=== PATIENT | female | born 1940 | race Caucasian/White ===

== ENCOUNTER 2022-03-12 18:58 | Inpatient (IN) ==
[2022-03-12] MEDS ORDERED: ONDANSETRON INJ 2 MG/ML 2 ML VIAL IV STA (19:47)
[2022-03-12 19:50] LABS: Basophils # (auto) 0.02 K/uL (0-0.2); Basophils % (auto) 0.4 %; Eosinophils # (auto) 0.04 K/uL (0-0.50); Eosinophils % (auto) 0.8 %; Hematocrit (blood only) 42.7 % (34.1-44.9); Hemoglobin 14.2 g/dl (12.0-16.0); Lymphocytes # (auto) 1.89 K/uL (1.2-3.4); Lymphocytes % (auto) 36.8 %; Mean Corpuscular Hemoglobin 32.5 pg (25.0-34.0); Mean Corpuscular Hgb Conc 33.3 g/dL (32.0-36.0); Mean Corpuscular Volume 97.7 fL (80.0-100.0); Mean Platelet Volume 9.6 fL (9.4-12.3); Monocytes # (auto) 0.43 K/uL (0.24-0.82); Monocytes % (auto) 8.4 %; Neutrophils # (auto) 2.75 K/uL (1.4-6.5); Neutrophils % (auto) 53.6 %; Platelet Count 165 K/uL (130-400); RDW Coefficient of Variation 13.9 % (11.5-14.5); RDW Standard Deviation 50.5 fL (36.4-46.3); Red Blood Count 4.37 M/uL (3.93-5.22); White Blood Count 5.13 K/ul (4.8-10.8)
--- NOTE | 2022-03-12 19:50 | Emergency Department Note ---
Impression & Plan Unsteady, Nausea, Left leg numbness, Occlusion of left vertebral artery ED Provider Note Provider: Chidi Lacy MD DATE OF SERVICE: 03/12/2022 CHIEF COMPLAINT: Nausea, double vision HISTORY OF PRESENT ILLNESS: Patient is a 81-year-old female history of atrial fibrillation, tachybradycardia syndrome with pacemaker, prior history of subdural hematomas from warfarin usage presenting today with family after becoming significantly unsteady around 5:00 at home this evening. Patient states he can walk across the room due to the unsteadiness. Since COVID in November has had some visual issues that have been chronic she reports seeing double. Patient denies headache or abdominal pain. Reports some nausea and did vomit at home. No falls reported. Not on anticoagulation currently. Evidently had a little bit of numbness in her left leg earlier but she states that resolved since arriving at the hospital. States a little bit of numbness to bilateral lower lip right now. REVIEW OF SYSTEMS: A total of 10 review of systems was obtained and negative except as stated above in the HPI. PAST MEDICAL HISTORY: As noted above MEDICATIONS: Reviewed home medication list SOCIAL HISTORY: Lives at home with PHYSICAL EXAM: GENERAL: alert and oriented in no acute distress on stretcher Head: normocephalic and atraumatic EYES: No injection, discharge or icterus. PERRL, EOMI. NECK: Trachea midline. Supple. ENT: Mucous membranes pink and moist. Pharynx without erythema or exudate. LUNGS: Airway patent. No retractions. Breath sounds clear with good air entry bilaterally. HEART: Irregular irregular rate and rhythm. No chest wall tenderness ABDOMEN: Soft and non-tender, without guarding or rebound. SKIN: Acyanotic, warm, dry, without rashes EXTREMITIES: Without swelling, tenderness or deformity NEUROLOGICAL: No aphasia. No facial droop or slurred speech. Reports a little bit of numbness to the bilateral lower lip tongue midline. Normal strength and tone in the extremities. Sensation to gross touch normal. However later does endorse a little bit of decree sensation of the left lower leg. EK beats per atrial fibrillation with frequent ventricular paced rhythms. No acute ST segment elevation noted with a QTC of 432. CONTINUOUS CARDIAC MONITORING: was ordered and showed a heart rate of 60s-80s bpm in atrial fibrillation Patient's laboratory studies and imaging reviewed. Differential includes Infection, dehydration, metabolic abnormality, hypo/hyperglycemia, electrolyte disturbance, anemia, hypoxia, cardiac sources, intracerebral event, toxicologic, neurologic, as well as other pathologies. IMPRESSION/MEDICAL DECISION MAKING: Patient with benign abdomen although some nausea. Evidently intermittently gets some nausea. Denies headache. Having chronic double vision for the last month or 2 but history of head bleed. Some transient left leg numbness and again the unsteadiness earlier she states she still feels a bit unsteady and with some bilateral lower lip numbness. CT of the head to be completed. Appears she received CT contrast in the past in the [facility] back in 2009 so we will attempt proceed with this to evaluate vessels. Not a tPA/thrombolytic candidate secondary to history of head bleed. No severe deficits at this point. Basic labs were obtained. Blood work without anemia or leukocytosis. No severe electrolyte abnormality signs of renal dysfunction. No evidence of hepatitis or pancreatitis based on labs. Negative COVID. No evidence of intracranial bleed per the available report. 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 Discussed these findings with the telestroke doctor from [facility]. Patient states she does not always take her aspirin. Did take 2 doses of baby aspirin earlier today. Given additional aspirin here. Started on maintenance IV fluids. Consider repeat CT or preferred MRI in the morning if able given underlying pacemaker. Her she later reviewed the images and recommended Plavix load with an unclear chronicity of the findings. Relayed to the hospital team who admited the patient. Hospitalist team will monitor closely if any change in status and have low threshold to recontact neuro. DIAGNOSIS: Unsteady, numbness, nausea, left vertebral artery occlusion DISPOSITION: Hospitalist will evaluate Patient was agreeable with this plan. Preliminary Findings Only See Final Report For Complete Findings CT HEAD: Mild periventricular and deep white matter low density consistent with chronic small vessel disease and/or senescent changes. The cerebrum is otherwise unremarkable. No acute large vessel infarct or intracranial hemorrhage is seen. The paranasal sinuses are well aerated. There is a small amount of mucosal thickening in the left maxillary sinus. No gas/fluid levels. The mastoid air cells are normal. No skull fracture or scalp hematoma. Radiologist: Chidi Landeros MD Study ready at 21:04 and initial results transmitted at 21:14 Preliminary Findings Only See Final Report For Complete Findings CTA HEAD: There is occlusion of the distal left vertebral artery over an approximately 7 mm segment immediately inferior to the basilar artery. 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 This likely represents the superior end of the occluded left vertebral artery The distal right vertebral artery is tortuous but widely patent. Moderate calcified plaque involving the cavernous portions of the distal inte rnal carotid arteries bilaterally. There is 20% stenosis on the right. Normal anatomic variant of hypoplastic right A1 segment. Both anterior cerebral arteries fill from the left side. There is also origin of the right posterior cerebral artery from the anterior circulation. The right P1 segment is hypoplastic. Radiologist: Chidi Landeros MD Study ready at 21:05 and initial results transmitted at 21:21 Preliminary Findings Only See Final Report For Complete Findings CTA NECK: The aortic arch is mildly calcified but nondilated. There is no aneurysm or dissection. The great vessel origins are mildly tortuous but widely patent. The carotid bifurcations are normal. No atherosclerotic plaque, stenosis, or dissection is seen involving the common carotid are internal carotid arteries bilaterally. The vertebral arteries are widely patent bilaterally. Mild to moderate multilevel degenerative changes are seen throughout the cervical spine. No acute fracture or subluxation is seen. Radiologist: Chidi Landeros MD Study ready at 21:05 and initial results transmitted at 21:17 Past Med/Surg History Medical History (Updated 03/12/22 @ 23:57 by Chidi Lacy M.D.) Atrial fibrillation hx of--follows with Dr. 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 Hyperlipidemia Hypertension Mitral valve stenosis, rheumatic Pacemaker 05/2012 @ [facility] meditronic single chamber Prolapsed uterus Spinal stenosis Surgical History History of bilateral cataract extraction History of cardiac cath x3--1965- no stents History of colonoscopy History of dilatation and curettage x4 History of esophagogastroduodenoscopy (EGD) History of mandibular surgery hx realignment of jaw History of mitral valve repair 1966 @ [facility] History of removal of cyst benign growth removed from jaw History of tonsillectomy and adenoidectomy History of tooth extraction History of total abdominal hysterectomy History of wisdom tooth extraction Family History Other No family history of adverse response to anesthesia Social History Smoking Status: Never smoker Second Hand Exposure: Yes (parents smoked); Hx Alcohol Use: No Hx Substance Use: No Preferred Language: Maltese Communication Ability: Effective Director Of Officiating Required: No Beliefs That Will Affect Care: None Current Living Situation: Spouse Feels Safe at Home: Yes Assistive Devices: Denture - Upper, Denture - Lower and Glasses Allergies Allergies Allergy/AdvReac Type Severity Reaction Status Date / Time shellfish derived Allergy Intermediate bumps Verified 03/12/22 21:13 after eating adhesive Allergy Mild SKIN WILL Verified 03/12/22 21:13 GET SORE ezetimibe Allergy Mild GI SYMPTOMS Verified 03/12/22 21:13 meperidine Allergy Mild VOMITING Verified 03/12/22 21:13 rosuvastatin Allergy Mild GI SYMPTOMS Verified 03/12/22 21:13 simvastatin Allergy Mild GI SYMPTOMS Verified 03/12/22 21:13 diltiazem Allergy Unknown doc said Verified 03/12/22 21:13 she shouldnt take it warfarin AdvReac Severe brain bleed Verified 03/12/22 21:13 hydromorphone AdvReac Mild SLOWED Verified 03/12/22 21:13 HEART RATE Penicillins AdvReac Mild YEAST Verified 03/12/22 21:13 INFECTION [id number] Reductase AdvReac Mild cramps Verified 03/12/22 21:13 Inhibitor [Feusqqf-Ikq-Mie Reductase Inhibitor] Home Meds Home Medications Medication Instructions Recorded Confirmed acetaminophen 500 mg tablet 500 mg PO Q6H PRN Pain 09/26/18 03/12/22 (Tylenol Extra Strength) aspirin 81 mg tablet,delayed 81 mg PO QAM 09/26/18 03/12/22 release bimatoprost 0.01 % eye drops 1 drp ophthalmic (eye) HS 09/26/18 03/12/22 (Lumigan) cholecalciferol (vitamin D3) 50 2,000 unit PO QPM 09/26/18 03/12/22 mcg (2,000 unit) capsule (Vitamin D3) dorzolamide-timolol (PF) 2 %-0.5 % 1 drp ophthalmic (eye) BID 09/26/18 03/12/22 eye drops in a dropperette (Cosopt (PF)) fexofenadine 180 mg tablet 180 mg PO DAILY PRN Allergy 09/26/18 03/12/22 Symptoms fluticasone propionate 50 2 spray intranasal HS 09/26/18 03/12/22 mcg/actuation nasal spray,suspension (Flonase Allergy Relief) furosemide 20 mg tablet 20 mg PO DAILY PRN Edema 09/26/18 03/12/22 lifitegrast 5 % eye drops in a 1 drp ophthalmic (eye) BID 09/26/18 03/12/22 dropperette (Xiidra) metoprolol succinate 50 mg 50 mg PO QPM 09/26/18 03/12/22 tablet,extended release 24 hr multivitamin 1 tab PO QPM 09/26/18 03/12/22 nystatin 100,000 unit/gram topical 1 applic topical BID PRN Rash 09/26/18 cream omeprazole 20 mg tablet,delayed 20 mg PO QAM 09/26/18 03/12/22 release rosuvastatin 5 mg tablet 5 mg PO [id number] 09/26/18 03/12/22 benzonatate 100 mg capsule 100 mg PO TID COUGH 03/12/22 03/12/22 Results & Data (ED) Vital Signs Vital Signs - 24 hr 03/12/22 19:00 03/12/22 20:00 03/12/22 20:30 Temperature 36.6 C Temperature Source Temporal Artery Scan Pulse Rate 68 70 65 Respiratory Rate 20 20 18 Blood Pressure 174/88 H 189/89 H 148/93 H Blood Pressure Mean 116 122 111 Blood Pressure Position Sitting Pulse Oximetry 90 99 95 Oxygen Delivery Method Sepsis Recent Fever Within 48 Hours No Sepsis New/Unexplained Change in Mental Status No Sepsis Action Taken by Nursing No Action Required 03/12/22 21:00 03/12/22 21:30 03/12/22 22:00 Temperature Temperature Source Pulse Rate 83 76 75 Respiratory Rate 20 24 20 Blood Pressure 134/87 159/86 H 167/80 H Blood Pressure Mean 102 110 109 Blood Pressure Position Pulse Oximetry 95 97 97 Oxygen Delivery Method Room Air Sepsis Recent Fever Within 48 Hours Sepsis New/Unexplained Change in Mental Status Sepsis Action Taken by Nursing 03/12/22 22:30 03/12/22 23:24 03/12/22 23:30 Temperature Temperature Source Pulse Rate 78 73 76 Respiratory Rate 18 18 18 Blood Pressure 99/49 L 135/66 139/90 Blood Pressure Mean 65 89 106 Blood Pressure Position Pulse Oximetry 95 96 94 Oxygen Delivery Method Room Air Sepsis Recent Fever Within 48 Hours Sepsis New/Unexplained Change in Mental Status Sepsis Action Taken by Nursing Laboratory Data Result diagrams: 03/12/22 19:39 03/12/22 19:39 Lab Results 03/12/22 03/12/22 03/12/22 Range/Units 19:39 19:39 19:39 WBC 5.13 (4.8-10.8) K/ul RBC 4.37 (3.93-5.22) M/uL Hgb 14.2 (12.0-16.0) g/dl POC Hgb (12.0-16.0) g/dl Hct 42.7 (34.1-44.9) % POC Hct (37-47) % MCV 97.7 (80.0-100.0) fL MCH 32.5 (25.0-34.0) pg MCHC 33.3 (32.0-36.0) g/dL RDW Std Deviation 50.5 H (36.4-46.3) fL RDW Coeff of Rody 13.9 (11.5-14.5) % Plt Count 165 (130-400) K/uL MPV 9.6 (9.4-12.3) fL Immature Gran % (Auto) 0.0 % Neut % (Auto) 53.6 % Lymph % (Auto) 36.8 % [place] % (Auto) 8.4 % Eos % (Auto) 0.8 % Baso % (Auto) 0.4 % Neut # (Auto) 2.75 (1.4-6.5) K/uL Lymph # (Auto) 1.89 (1.2-3.4) K/uL [place] # (Auto) 0.43 (0.24-0.82) K/uL Eos # (Auto) 0.04 (0-0.50) K/uL Baso # (Auto) 0.02 (0-0.2) K/uL Immature Gran # (Auto) 0.00 (0.00-0.02) K/uL PT 11.3 (9.0-12.0) Seconds INR 1.1 (0.9-1.1) APTT 25.4 (21.0-31.0) Seconds PTT Ratio 0.9 POC Sodium (135-144) mmol/L Sodium 137 (136-145) mmol/L POC Potassium (3.3-5.0) mmol/L Potassium 4.1 (3.5-5.1) mmol/L POC Chloride (101-112) mmol/L Chloride 103 (98-107) mmol/L Carbon Dioxide 26 (21-32) mmol/L POC Total CO2 (24-31) mmol/L Anion Gap 8 (3-11) POC Anion Gap (16-25) mmol/L POC BUN (7-18) mg/dl BUN 12 (6-23) mg/dl Creatinine 0.63 (0.6-1.2) mg/dl POC Creatinine (0.6-1.3) mg/dl Est Cr Clr Drug Dosing 60.5 ml/min Est GFR ( Amer) 97.5 ml/min Est GFR (Non-Af Amer) 84.1 ml/min BUN/Creatinine Ratio 19.0 (10-20) Glucose 111 H (70-99(Fasting)) mg/dl POC Glucose (other) (70-99) mg/dl Calcium 8.9 (8.5-10.1) mg/dl POC Ioniz Calcium Xi (1.12-1.32) mmol/l Magnesium 2.2 (1.7-2.4) mg/dl Total Bilirubin 1.0 (0.2-1.0) mg/dl AST 29 (13-39) U/L ALT 20 (7-52) U/L Alkaline Phosphatase 46 (34-104) U/L Troponin I High Sens 7.6 (0-14) pg/ml Total Protein 7.5 (6.0-8.3) gm/dl Albumin 4.3 (3.4-5.0) gm/dl Globulin 3.2 (2.5-4.0) gm/dl Albumin/Globulin Ratio 1.3 (0.9-2) Lipase 29 (11-82) U/L Urine Color Urine Appearance (Clear) Urine pH (4.5-7.5) Ur Specific [place] (1.000-1.030) Urine Protein (Negative) Urine Glucose (UA) (Negative) Urine Ketones (Negative) Urine Blood (Negative) Urine Nitrite (Negative) Urine Bilirubin (Negative) Urine Urobilinogen (Negative) Ur Leukocyte Esterase (Negative) Urine WBC (Auto) (0-5) /hpf Urine RBC (Auto) (0-4) /hpf U Hyaline Cast (Auto) (0-5) /lpf U Epithel Cells (Auto) (0-5) /lpf Urine Bacteria (Auto) (Negative) SARS-CoV-2, RNA, NAAT (NEGATIVE) 03/12/22 03/12/22 03/12/22 Range/Units 19:45 19:56 22:03 WBC (4.8-10.8) K/ul RBC (3.93-5.22) M/uL Hgb (12.0-16.0) g/dl POC Hgb 15.0 (12.0-16.0) g/dl Hct (34.1-44.9) % POC Hct 44 (37-47) % MCV (80.0-100.0) fL MCH (25.0-34.0) pg MCHC (32.0-36.0) g/dL RDW Std Deviation (36.4-46.3) fL RDW Coeff of Rody (11.5-14.5) % Plt Count (130-400) K/uL MPV (9.4-12.3) fL Immature Gran % (Auto) % Neut % (Auto) % Lymph % (Auto) % [place] % (Auto) % Eos % (Auto) % Baso % (Auto) % Neut # (Auto) (1.4-6.5) K/uL Lymph # (Auto) (1.2-3.4) K/uL [place] # (Auto) (0.24-0.82) K/uL Eos # (Auto) (0-0.50) K/uL Baso # (Auto) (0-0.2) K/uL Immature Gran # (Auto) (0.00-0.02) K/uL PT (9.0-12.0) Seconds INR (0.9-1.1) APTT (21.0-31.0) Seconds PTT Ratio POC Sodium 137 (135-144) mmol/L Sodium (136-145) mmol/L POC Potassium 4.0 (3.3-5.0) mmol/L Potassium (3.5-5.1) mmol/L POC Chloride 101 (101-112) mmol/L Chloride (98-107) mmol/L Carbon Dioxide (21-32) mmol/L POC Total CO2 25 (24-31) mmol/L Anion Gap (3-11) POC Anion Gap 16.0 (16-25) mmol/L POC BUN 11 (7-18) mg/dl BUN (6-23) mg/dl Creatinine (0.6-1.2) mg/dl POC Creatinine 0.7 (0.6-1.3) mg/dl Est Cr Clr Drug Dosing ml/min Est GFR ( Amer) ml/min Est GFR (Non-Af Amer) ml/min BUN/Creatinine Ratio (10-20) Glucose (70-99(Fasting)) mg/dl POC Glucose (other) 116 H (70-99) mg/dl Calcium (8.5-10.1) mg/dl POC Ioniz Calcium Xi 1.19 (1.12-1.32) mmol/l Magnesium (1.7-2.4) mg/dl Total Bilirubin (0.2-1.0) mg/dl AST (13-39) U/L ALT (7-52) U/L Alkaline Phosphatase (34-104) U/L Troponin I High Sens (0-14) pg/ml Total Protein (6.0-8.3) gm/dl Albumin (3.4-5.0) gm/dl Globulin (2.5-4.0) gm/dl Albumin/Globulin Ratio (0.9-2) Lipase (11-82) U/L Urine Color Yellow Urine Appearance Clear (Clear) Urine pH 7.0 (4.5-7.5) Ur Specific [place] 1.041 H (1.000-1.030) Urine Protein Negative (Negative) Urine Glucose (UA) Negative (Negative) Urine Ketones Trace H (Negative) Urine Blood 1+ H (Negative) Urine Nitrite Negative (Negative) Urine Bilirubin Negative (Negative) Urine Urobilinogen Negative (Negative) Ur Leukocyte Esterase 2+ H (Negative) Urine WBC (Auto) 10-30 H (0-5) /hpf Urine RBC (Auto) 0-4 (0-4) /hpf U Hyaline Cast (Auto) 0 (0-5) /lpf U Epithel Cells (Auto) 20-30 H (0-5) /lpf Urine Bacteria (Auto) Negative (Negative) SARS-CoV-2, RNA, NAAT NEGATIVE (NEGATIVE) Administered Medications Discontinued Medications Aspirin (Aspirin 81 Mg Chew) 324 mg PO NOW STA Stop: 03/12/22 21:45 Last Admin: 03/12/22 21:52 Dose: 162 mg Documented By: NEVAEH Sodium Chloride (Nss 1000ml) 1,000 mls @ 100 mls/hr IV .Q10H CHARANJIT Stop: 04/11/22 21:44 Last Admin: 03/12/22 21:52 Dose: 100 mls/hr Documented By: NEVAEH Ioversol (Optiray 320 125ml) 120 ml IV ONCE ONE Stop: 03/12/22 20:45 Last Admin: 03/12/22 20:44 Dose: 120 ml Documented By: JOLIE Ondansetron HCl (Ondansetron Inj 2 Mg/Ml 2 Ml Vial) 4 mg IV NOW STA Stop: 03/12/22 19:48 Last Admin: 03/12/22 19:59 Dose: 4 mg Documented By: NEVAEH Discharge Plan Visit Data Chief Complaint: Neuro Symptoms/Deficit Stated Complaint: DIZZINESS, FACIAL NUMB, DOUBLE VISION, LEG NUMB ED Provider: Chidi Lacy Discharge Problem: Unsteady, Nausea, Left leg numbness, Occlusion of left vertebral artery Patient Disposition: Admitted As Inpatient Discharge Instructions Interventions: ED Discharge Assessment Last Done: 03/13/22 00:09
[2022-03-12 19:57] LABS: iSTAT Creatinine 0.7 mg/dl (0.6-1.3); iSTAT Ionized Calcium 1.19 mmol/l (1.12-1.32)
[2022-03-12 20:03] LABS: INR 1.1 (0.9-1.1); Partial Thromboplastin Ratio 0.9; Partial Thromboplastin Time 25.4 Seconds (21.0-31.0); Prothrombin Time 11.3 Seconds (9.0-12.0)
[2022-03-12 20:21] LABS: Albumin Globulin Ratio 1.3 (0.9-2); Albumin Level 4.3 gm/dl (3.4-5.0); Calcium 8.9 mg/dl (8.5-10.1); Creatinine Clr Calc Pharmacy 60.5 ml/min; Est GFR (African American) 97.5 ml/min; Est GFR (Non-African American) 84.1 ml/min; Globulin 3.2 gm/dl (2.5-4.0); Magnesium 2.2 mg/dl (1.7-2.4); Potassium 4.1 mmol/L (3.5-5.1); Total Protein 7.5 gm/dl (6.0-8.3)
[2022-03-12 20:23] LABS: Troponin I High Sensitivity 7.6 pg/ml (0-14)
[2022-03-12] MEDS ORDERED: OPTIRAY 320 125ml IV ONE (20:44)
[2022-03-12] MEDS ORDERED: ASPIRIN 81 MG CHEW PO STA (21:44)
[2022-03-12] MEDS ORDERED: SODIUM CHLORIDE 0.9% 1000ML 1,000 ML IV SCH (21:45)
[2022-03-12 22:42] LABS: Appearance Urine Clear (Clear); Bacteria Urine Automated Negative (Negative); Bilirubin Urine Negative (Negative); Blood Urine 1+ (Negative); Cast Urine Automated 0 /lpf (0-5); Color Urine Yellow; Epithelial Cell Urine Auto 20-30 /lpf (0-5); Glucose Urine UA Negative (Negative); Ketones Urine Trace (Negative); Leukocyte Esterase Urine 2+ (Negative); Nitrite Urine Negative (Negative); Protein Urine Negative (Negative); RBC Urine Automated 0-4 /hpf (0-4); Specific Gravity Urine 1.041 (1.000-1.030); Urobilinogen Urine Negative (Negative)
[2022-03-13] MEDS ORDERED: NYSTATIN CR 15 GM TUBE EXT PRN (00:32)
[2022-03-13] MEDS ORDERED: FEXOFENADINE HCL 180 MG TAB PO PRN (00:32)
[2022-03-13] MEDS ORDERED: POLYETHYLENE (MIRALAX) 17 GM PACK PO PRN (00:32)
[2022-03-13] MEDS ORDERED: SODIUM CHLORIDE 0.45 % 1,000 ML IV SCH (00:32)
[2022-03-13] MEDS ORDERED: ONDANSETRON INJ 2 MG/ML 2 ML VIAL IV PRN (00:32)
[2022-03-13] MEDS ORDERED: FUROSEMIDE 20 MG TAB PO PRN (00:32)
[2022-03-13] MEDS ORDERED: NITROGLYCERIN SL 0.4 MG/TAB TAB SL PRN (00:32)
[2022-03-13] MEDS ORDERED: CLOPIDOGREL BISULFATE 300 MG TAB PO STA (00:32)
[2022-03-13] MEDS ORDERED: ACETAMINOPHEN 325 MG TAB PO PRN (00:32)
[2022-03-13] MEDS ORDERED: PHARMACIST DISCHARGE MED REC CONSULT PRN (00:32)
--- NOTE | 2022-03-13 03:21 | History and Physical Report ---
DATE OF ADMISSION: 03/12/2022. CHIEF COMPLAINT: Stroke-like symptoms. HISTORY OF PRESENT ILLNESS: This is an 81-year-old female with past medical history significant for hyperlipidemia, history of tachybrady syndrome, status post pacemaker, chronic atrial fibrillation, history of dilatation of the aorta, rheumatic mitral valve stenosis, GERD, age-related osteoporosis, glaucoma, chronic fatigue, history of upper GI bleed, history of subdural hemorrhage while she was on Coumadin, currently not on Coumadin, presents with imbalance and lack of coordination as per the patient. The patient says since she had COVID in November of this year, she has some incoordination, some vision problems, fatigue, but today it was worse, with walking she was feeling very imbalanced and dizzy and she also felt numbness in the lower lip. That is the reason she came here. 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 ER physician talked to the [facility] neurologists and they recommended aspirin and plavix. The patient is already on aspirin. She was given a full dose of aspirin in the ER. Currently, resting comfortably, hemodynamically stable. Denies any headache. No earache, has some runny nose. No sore throat, no cough, no chest pain or shortness of breath, no difficulty swallowing. No nausea, no abdominal pain. Normal bowel and bladder movements. ALLERGIES: SHELLFISH, EZETIMIBE, MEPERIDINE, ROSUVASTATIN, SIMVASTATIN, DILTIAZEM, WARFARIN, HYDROMORPHONE, PENICILLIN, STATINS. PAST MEDICAL HISTORY: As mentioned above. PAST SURGICAL HISTORY: Cataract surgery, colonoscopy, EGD with biopsy, single chamber pacemaker insertion, mitral commissurotomy, total hysterectomy. MEDICATIONS: The patient is on Tylenol Extra Strength 500 mg p.o. q. 6 hours p.r.n., aspirin 81 mg p.o. a.m., benzonatate 100 mg p.o. t.i.d., vitamin D 2000 International Units p.o. a.m., Cosopt one drop ophthalmic in eye b.i.d., fexofenadine 180 mg p.o. daily p.r.n., Flonase 2 sprays intranasal at bedtime, Lasix 20 mg p.o. daily p.r.n., Lumigan one drop ophthalmic in eye at bedtime, metoprolol succinate 50 mg p.o. a.m., multivitamin 1 tablet p.o. a.m., nystatin 1 application topical b.i.d. p.r.n., omeprazole 20 mg p.o. a.m., rosuvastatin 5 mg p.o. 3 times a week, Xiidra one drop ophthalmic b.i.d. FAMILY HISTORY: Significant for father has melanoma, heart attack, hypertension, stroke. Mother has lung disorder, osteoporosis, enlarged liver. SOCIAL HISTORY: , no smoking, no alcohol, no drug use. REVIEW OF SYSTEMS: As per HPI. Rest of review of systems is negative. PHYSICAL EXAMINATION: GENERAL: The patient is of moderate build, not in acute distress. VITAL SIGNS: Temperature 36.6, pulse 73, respiratory rate 18, blood pressure 133/66, oxygen 96% on room air. HEENT: Pupils equal, round and reactive to light. Oral mucosa moist. NECK: No JVD, no neck masses. CARDIOVASCULAR: S1 and S2 heard. Regular rate and rhythm. No murmur, no gallop. RESPIRATORY SYSTEM: Normal AP diameter. No accessory muscle use. No wheezing or crackles. ABDOMEN: Soft, bowel sounds present, nontender, no distention. CENTRAL NERVOUS SYSTEM: Alert and oriented. Speech is okay. No facial droop. Power 5/5 in all extremities. Sensation is intact. Position sense intact. No pronator drift. [id number] test normal. Coordination of movements normal. Ejwh-iy-[id number] test normal. EXTREMITIES: No edema, no erythema. LABORATORY DATA: WBC 5.1, hemoglobin 14.2, hematocrit 42.7, platelets 165. PT 11.3, INR 1.1, APTT 25.4. Sodium 137, potassium 4.4, chloride 103, bicarb 26, BUN 12, creatinine 0.6, serum glucose 111, calcium 8.9, magnesium 2.2, total bilirubin 1, AST 29, ALT 20, alkaline phosphatase 46. Troponin I high sensitivity 7.6. Lipase 29. Urinalysis, +1 blood, +2 leukocyte esterase, bacteria negative. SARS-CoV-2 rapid test negative. IMAGING DATA: CTA of the head and neck, preliminary report showing occlusion of the distal left vertebral artery over an approximately 7 mm segment immediately inferior to the basilar artery. 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 This likely represents the superior end of the occluded left vertebral artery. The distal right vertebral artery is tortuous, but widely patent. CT of the head, no acute findings. EKG: AFib with rate of 70. ASSESSMENT AND PLAN: This 81-year-old female presents with stroke-like symptoms: 1. Stroke-like symptoms with imbalance and lack of coordination. The patient says this has been going on since November since she had COVID, but it got worse today. Preliminary report of the CTA of the head and neck shows left vertebral artery occlusion. [facility] neurologist recommended aspirin and Plavix, the patient is already on aspirin, 81 mg aspirin. The patient also worried about bleeding she had in the past with anticoagulation. We will continue aspirin and Plavix for now and neuro consult in a.m. Could not do an MRI tonight because of the pacemaker, do not know whether it is compatible with MRI. Further imaging studies as per neurology in the a.m. Monitor in the tele floor. 2. Atrial fibrillation, tachybrady syndrome, status post pacemaker, currently on aspirin and metoprolol succinate. The patient states she had a subdural hemorrhage on Coumadin. 3. Hypertension: On metoprolol. 4. Glaucoma. Continue home medications. 5. Hyperlipidemia: On rosuvastatin 3 times a week. 6. Gastroesophageal reflux disease: On omeprazole. 7. Deep venous thrombosis prophylaxis: Sequential compression devices for now. Addendum: Patient on presentation also had left leg numbness which is improved. But Later in night her numbness below lip got worsened involving mouth chin and extending upto neck. Called [facility] again who recommended to repeat ct head, bedrest , fluids to keep BP up and monitor and if symptoms worsens to call [facility] again. Notified patient and daughter to let us know if any new symptoms or current symptoms worsens to let us know. DISPOSITION: Closely monitor in the tele floor. Level 1 full code. Expect to discharge home and follow with family doctor. Job ID: [id number] [facility]
[2022-03-13] MEDS: SODIUM CHLORIDE 0.9% 1000ML 1,000 ML IV SCH ×3 (04:39→22:49)
--- NOTE | 2022-03-13 06:08 | CT Scan Report ---
CT SCAN OF THE BRAIN WITHOUT IV CONTRAST CLINICAL HISTORY: Head and neck numbness. COMPARISON STUDY: CT of the brain dated 03/12/2022. TECHNIQUE: Unenhanced axial CT scan of the brain is performed from the vertex to the skull base. A do se lowering technique was utilized adhering to the principles of ALARA. CT DOSE: 614.27 mGy.cm FINDINGS: Brain parenchyma: There is age-related involutional change noting mild subcortical and periventricula r microangiopathic disease. There is no hemorrhage, mass effect, or evidence of acute territorial isc hemia by CT criteria. A small chronic lacunar infarct is noted in the right caudate head. Don-white matter differentiation is preserved. No extra-axial fluid collection is seen. Ventricles, sulci, cisterns: Prominent secondary to involutional change. Intracranial vasculature: There is atherosclerotic calcification of the cavernous carotid and vertebr al arteries. Calvarium: Unremarkable. Sinuses and mastoids: The visualized paranasal sinuses are clear. The mastoid air cells are well pneu matized. Orbits: The bony orbits are grossly intact. There are bilateral ocular lens implants. IMPRESSION: There is no hemorrhage, mass effect, or evidence of acute territorial ischemia by CT crit preston. No change from yesterday. ACT 112: Negative or not required by law. Electronically signed by: Brock Diallo M.D. 03/13/2022 6:05 AM
--- NOTE | 2022-03-13 06:27 | CT Scan Report ---
UNENHANCED CT OF THE BRAIN; CT ANGIOGRAM OF THE BRAIN; CT ANGIOGRAM OF THE NECK CLINICAL HISTORY: Strokelike symptoms. COMPARISON STUDY: CT of the brain dated 03/12/2022. TECHNIQUE: Unenhanced axial CT scan of the brain is performed. Subsequently, following the IV adminis tration of 120 of [address] 320, CT angiogram of the head and neck was performed from the aortic arch t o the vertex. Images are reviewed in the axial, sagittal, and coronal planes. 3-D MIPS images are cre ated and assessed. IV contrast was administered without complication. All measurements were calculate d based on NASCET criteria. A dose lowering technique was utilized adhering to the principles of ALA RA. CT DOSE: 1224.44 mGy.cm FINDINGS: Brain parenchyma: There is age-related involutional change noting mild subcortical and periventricula r microangiopathic disease. There is no hemorrhage, mass effect, or evidence of acute territorial isc hemia by CT criteria. There is no evidence of enhancing mass lesion on the angiogram phase images. A chronic lacunar infarct is noted in the right caudate head. The ventricles, sulci, and cisterns are p rominent secondary to involutional change. Don-white matter differentiation is preserved. No extra-a xial fluid collection is seen. Thoracic aorta: There is atherosclerotic calcification of the thoracic aorta. Visualized portions of the thoracic aorta are normal in caliber. The aortic arch demonstrates standard 3-vessel anatomy. Right carotid arterial system: The right common carotid artery is widely patent, as are the right int ernal and external carotid arteries. Left carotid arterial system: The left common carotid artery is widely patent, as are the left investigator internal affairs al and external carotid arteries. Vertebral arteries: The vertebral arteries are widely patent bilaterally and codominant in the neck. Subclavian arteries: Widely patent bilaterally. Intracranial vasculature: There is atherosclerotic calcification of the cavernous carotid and vertebr al arteries. There are bilateral posterior communicating arteries. The right A1 segment is atretic. T he internal carotid arteries are patent at the skull base, as are the anterior and middle cerebral ar teries bilaterally. There is less than 50% stenosis of the supraclinoid right internal carotid artery . 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 The right vertebral ar maribeth and basilar artery are widely patent. The vertebral arteries are codominant. Prominence at the o rigin of the basilar artery is related to the inflow of the occluded left vertebral artery. No aneury sm is clearly seen. No foci of high-grade stenosis are identified throughout The intracranial circula tion. Jugular veins: Patent bilaterally. Dural sinuses: Patent. Lung apices: Partially visualized upper lobe lung parenchyma appears clear. Soft tissues: The visualized pharyngeal soft tissues are normal in appearance noting angiographic pha se technique. The oropharyngeal airway appears widely patent. The salivary and thyroid glands are nor mal in appearance. No cervical lymphadenopathy is seen. A pacemaker lead is noted at the left thoraci c inlet. Skeletal structures: The skeletal structures are osteopenic. The calvarium appears intact. The cervic al spine is maintained noting multilevel spondylosis. No lytic or blastic lesion is seen. Orbits: The bony orbits are intact. Orbital contents are normal as visualized noting bilateral ocular lens implants. Sinuses and mastoids: There is mild mucosal thickening in the left maxillary antrum. The remaining pa ranasal sinuses are clear. The mastoid air cells are well pneumatized. IMPRESSION: 1. There is no hemorrhage, mass effect, or evidence of acute territorial ischemia by CT criteria. 2. 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 This is of indeterminant chronicity. 3. Otherwise unremarkable CT angiogram of the brain. 4. Unremarkable CT angiogram of the neck. ACT 112: Negative or not required by law. Electronically signed by: Brock Diallo M.D. 03/13/2022 6:25 AM
[2022-03-13 08:28] LABS: Basophils # (auto) 0.01 K/uL (0-0.2); Basophils % (auto) 0.4 %; Eosinophils # (auto) 0.02 K/uL (0-0.50); Eosinophils % (auto) 0.7 %; Hematocrit (blood only) 37.4 % (34.1-44.9); Hemoglobin 12.4 g/dl (12.0-16.0); Immature Granulocytes % (auto) 3.6 %; Lymphocytes # (auto) 1.15 K/uL (1.2-3.4); Lymphocytes % (auto) 41.2 %; Mean Corpuscular Hemoglobin 32.5 pg (25.0-34.0); Mean Corpuscular Hgb Conc 33.2 g/dL (32.0-36.0); Mean Corpuscular Volume 97.9 fL (80.0-100.0); Mean Platelet Volume 9.9 fL (9.4-12.3); Monocytes % (auto) 3.6 %; Neutrophils # (auto) 1.41 K/uL (1.4-6.5); Neutrophils % (auto) 50.5 %; Platelet Count 114 K/uL (130-400); Red Blood Count 3.82 M/uL (3.93-5.22); White Blood Count 2.79 K/ul (4.8-10.8)
[2022-03-13 09:02] LABS: BUN Creatinine Ratio 14.5 (10-20); Calcium 8.3 mg/dl (8.5-10.1); Chol HDL Ratio 2.2 (0-5); Creatinine Clr Calc Pharmacy 69.3 ml/min; Potassium 3.5 mmol/L (3.5-5.1)
[2022-03-13] MEDS: ORDER AWAITING ACTION: Lifitegrast [Xiidra] 5 % Dropperette SCH ×2 (09:50→15:22)
[2022-03-13] MEDS: BENZONATATE 100 MG CAPSULE PO SCH ×3 (09:51→21:39)
[2022-03-13] MEDS: ASPIRIN 81 MG ECTAB PO SCH (09:51)
[2022-03-13] MEDS: CLOPIDOGREL BISULFATE 75 MG TAB PO SCH (09:51)
[2022-03-13] MEDS: PANTOprazole 40 MG TAB PO SCH (09:52)
[2022-03-13] MEDS: DORZOLAMIDE/TIMOLOL 22.3/6.8MG/ML 10 ML BTL OP SCH ×2 (09:52→21:39)
--- NOTE | 2022-03-13 12:46 | Electrocardiogram Report ---
Test Reason : Blood Pressure : / mmHG Vent. Rate : 070 BPM Atrial Rate : 088 BPM P-R Int : 000 ms QRS Dur : 088 ms QT Int : 400 ms P-R-T Axes : 000 115 004 degrees QTc Int : 432 ms Poor data quality, interpretation may be adversely affected Atrial fibrillation with frequent ventricular-paced complexes Left posterior fascicular block Abnormal ECG When compared with ECG of 19-FEB-2010 12:47, Electronic ventricular pacemaker has replaced Sinus rhythm Confirmed by Esa Wilkerson ([id number]) on 03/13/2022 12:46:22 PM Referred By: REFERRED SELF Confirmed By:Esa Wilkerson
--- NOTE | 2022-03-13 14:09 | Progress Notes ---
DATE OF NOTE: 03/13/2022. REASON FOR CONSULTATION: Possible transient ischemic attack versus stroke. SUBJECTIVE: The patient is an 81-year-old right-handed female with hyperlipidemia, tachybrady syndrome, status post pacemaker, chronic atrial fibrillation, history of dilatation of the aorta, rheumatic valve stenosis, reflux, osteoporosis, glaucoma, chronic fatigue, upper GI bleed, history of subdural while she was on Coumadin, currently not on Coumadin, presented with imbalance and incoordination. I believe the patient to be a poor historian. The patient indicated she had COVID in November of this year and was only minorly ill. Since that time, she has noted some vision problems and some incoordination. She is very vague in describing the vision symptoms and at one moment will say that vision is impaired to the right, another moment will say when she looks to the left she cannot see things and says similar things if I ask her about double vision. It is unclear what the change in vision has been. Yesterday was noticing some numbness around the bottom of her mouth and chin and numbness in her left arm and left leg. She did not recall these things. Her daughter told me then after I asked her extensive questions. She has otherwise been well recently. There may have been a minor headache. There was no chest pain or palpitations. She has not had any recent head or neck injury. She is chronically on aspirin for stroke prevention. ALLERGIES: SHELLFISH, EZETIMIBE, MEPERIDINE, ROSUVASTATIN, SIMVASTATIN, DILTIAZEM, "WARFARIN," HYDROMORPHONE, PENICILLIN, STATINS. PAST MEDICAL HISTORY: As above. Denies a history of transient ischemic attack. PAST SURGICAL HISTORY: Cataract surgery, colonoscopy, EGD, pacemaker, mitral commissurotomy, total hysterectomy not for cancer. HOME MEDICATIONS: Tylenol, benzonatate, vitamin D, Cosopt, fexofenadine, Flonase, Lasix, Lumigan, metoprolol, MultiVites, omeprazole, rosuvastatin, Xiidra. FAMILY HISTORY: Melanoma, heart disease, hypertension, stroke, lung disease, osteoporosis and enlarged liver. SOCIAL HISTORY: Nonsmoker, nondrinker. REVIEW OF SYSTEMS: As above. CT of the head shows chronic bilateral white matter changes. No acute infarction noted. 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 Basilar is widely patent. Prominence of the origin of the basilar artery related to inflow in the occluded left vert. No aneurysm is clearly seen. The patient's EKG was atrial fibrillation. LABORATORY DATA: White count was 5, today is 2.79, platelets on admission 165, now 114 and coags are unremarkable. Creatinine 0.63, glucose 116, LDL 55. Urinalysis, trace ketones, 1+ blood, 2+ leukocyte esterase. 10-30 white cells. COVID testing negative. Micro on urine is pending. The patient was seen by stroke Neurology from [place] and they advised aspirin and Plavix. PHYSICAL EXAMINATION: The patient is awake and alert. Speech and language are normal. Affect is appropriate. Naming is normal. The patient is oriented x3. 140/83, 73, 17, 36.8, 96% on room air. The patient is awake and alert. There are no carotid bruits, no heart murmurs. Heart is irregularly irregular. Pupils are post-surgical. I had difficulty visualizing the optic nerves. Motility was normal without nystagmus. There are normal hays, normal facial sensation, facial symmetry. Speech was nondysarthric. Motor is 5/5, no drift. Normal rapid alternating movements. Symmetric reflexes, downgoing toes. Wbzcyk-gj-sdzk and kiwb-vx-niyo were normal. There is no dysdiadochokinesia. Vibration sense is present in the toes. There is intact light touch bilaterally. IMPRESSION AND PLAN: Possible posterior circulation? transient ischemic attack. Agree with dual antiplatelet therapy for 21 days and then Plavix monotherapy. In general, one would recommend a DOAC but I am assuming that the providers that are previously seen her have thought she is no longer a candidate given her SDH. Recommend good control of vascular risk factors. MRi brain if pacer compatible. Platelet count and white count are diminished today. Recommend that be repeated, query etiology. We will follow with you. Job ID: [id number] MTDD
--- NOTE | 2022-03-13 17:31 | Communication Note ---
Date of Service: March 13, 2022 Patient was seen and evaluated in her room 217. Chart reviewed. Patient presented with gait imbalance, dizziness, left leg numbness then lip numbness. Found to have complete occlusion of left vertebral artery of unclear chronicity. CT head x 2 negative for acute ischemia. Initially plan for MRI brain, however patient has pacemaker which is not MRI compatible per tech. Appreciate Neurology input, current event most consistent with TIA. Recommend dual platelet inhibitor. She was previously on aspirin and plavix was started here. She has a history of chronic A fib and was on coumadin previously but developed intracranial hemorrhage and was taken off anticoagulation (per family). Ideally, she should be on anticoagulation but I will defer this decision to Cardiology--> she sees [facility] and we can ask for their input tomorrow. PT/OT evaluation pending for dispo planning. Full note to follow in AM.
[2022-03-13] MEDS ORDERED: MULTIVITAMIN TAB PO SCH (21:00)
[2022-03-13] MEDS ORDERED: FLUTICASONE PROPIONATE NA SPR 16 GM BTL SCH (21:00)
[2022-03-13] MEDS ORDERED: METOPROLOL SUCC 50MG EXT REL TAB PO SCH (21:00)
[2022-03-13] MEDS ORDERED: CHOLECALCIFEROL 1,000 UNITS 25 MCG TAB PO SCH (21:00)
[2022-03-13] MEDS ORDERED: BIMATOPROST 0.01% OP SOLN 2.5 ML BTL OP SCH (21:00)
[2022-03-14] MEDS: ORDER AWAITING ACTION: Lifitegrast [Xiidra] 5 % Dropperette SCH ×2 (00:40→10:53)
[2022-03-14 07:34] LABS: Basophils # (auto) 0.01 K/uL (0-0.2); Basophils % (auto) 0.3 %; Eosinophils # (auto) 0.05 K/uL (0-0.50); Eosinophils % (auto) 1.4 %; Hematocrit (blood only) 36.5 % (34.1-44.9); Hemoglobin 12.1 g/dl (12.0-16.0); Immature Granulocytes # (auto) 0.01 K/uL (0.00-0.02); Immature Granulocytes % (auto) 0.3 %; Lymphocytes # (auto) 1.26 K/uL (1.2-3.4); Lymphocytes % (auto) 34.8 %; Mean Corpuscular Hemoglobin 32.5 pg (25.0-34.0); Mean Corpuscular Hgb Conc 33.2 g/dL (32.0-36.0); Mean Corpuscular Volume 98.1 fL (80.0-100.0); Mean Platelet Volume 9.7 fL (9.4-12.3); Monocytes # (auto) 0.38 K/uL (0.24-0.82); Monocytes % (auto) 10.5 %; Neutrophils # (auto) 1.91 K/uL (1.4-6.5); Neutrophils % (auto) 52.7 %; Platelet Count 105 K/uL (130-400); RDW Standard Deviation 50.3 fL (36.4-46.3); Red Blood Count 3.72 M/uL (3.93-5.22); White Blood Count 3.62 K/ul (4.8-10.8)
[2022-03-14 07:39] LABS: Estimated Average Glucose 108 mg/dl; Hemoglobin A1C 5.4 % (4.5-5.6)
[2022-03-14 07:58] LABS: BUN Creatinine Ratio 14.3 (10-20); Calcium 7.8 mg/dl (8.5-10.1); Creatinine Clr Calc Pharmacy 86.2 ml/min; Est GFR (African American) 105.9 ml/min; Est GFR (Non-African American) 91.4 ml/min; Potassium 3.5 mmol/L (3.5-5.1)
--- NOTE | 2022-03-14 08:37 | Cardiology Consultation ---
Date of Consultation March 14, 2022 Assessment & Plan (1) Atrial fibrillation: (2) History of subdural hematoma: (3) Occlusion of left vertebral artery: (4) Pacemaker: Plan Lengthy discussion with the patient, her and daughter at bedside. Benefits and risks of full dose anticoagulation discussed and they are all in complete agreement that they do not want her on anticoagulation given the hx of spontaneous subdural on coumadin previously so, no changes from a cardiac standpoint device is approaching HOLGER will check today once HOLGER reached will place a MRI compatible device History of Present Illness Reason for Consultation: permanent afib Requesting Physician: Dr. Wick Attending Physician: Florentino Tejeda MD History of Present Illness PMHX: 1. Chronic atrial fibrillation with tachy-ramya syndrome status post permanent pacemaker placement. 2. Contraindications to chronic anticoagulation related to history of spontaneous subdural hematomas on oral anticoagulation. 3. Mild mitral stenosis with remote history of mitral valve commissurotomy - stable per echocardiogram February 14, 2022 4. Dyslipidemia - controlled; tolerating every other day statin therapy 5. Intermittent lower extremity edema related to venous insufficiency, dietary indiscretions, intermittent excessive sodium intake. 6. HTN 7. Chronic fatigue Allergies Allergy/AdvReac Type Severity Reaction Status Date / Time shellfish derived Allergy Intermediate bumps Verified 03/12/22 21:13 after eating adhesive Allergy Mild SKIN WILL Verified 03/12/22 21:13 GET SORE ezetimibe Allergy Mild GI SYMPTOMS Verified 03/12/22 21:13 meperidine Allergy Mild VOMITING Verified 03/12/22 21:13 rosuvastatin Allergy Mild GI SYMPTOMS Verified 03/12/22 21:13 simvastatin Allergy Mild GI SYMPTOMS Verified 03/12/22 21:13 diltiazem Allergy Unknown doc said Verified 03/12/22 21:13 she shouldnt take it warfarin AdvReac Severe brain bleed Verified 03/12/22 21:13 hydromorphone AdvReac Mild SLOWED Verified 03/12/22 21:13 HEART RATE Penicillins AdvReac Mild YEAST Verified 03/12/22 21:13 INFECTION Xliepfl-YLE-YxH Reductase AdvReac Mild cramps Verified 03/12/22 21:13 Inhibitor [Cxjbhxn-Psx-Oxr Reductase Inhibitor] Home Medications Medication Instructions Recorded Confirmed Type acetaminophen 500 mg tablet 500 mg PO Q6H PRN Pain 09/26/18 03/12/22 History (Tylenol Extra Strength) bimatoprost 0.01 % eye drops 1 drp ophthalmic (eye) HS 09/26/18 03/12/22 History (Lumigan) cholecalciferol (vitamin D3) 50 2,000 unit PO QPM 09/26/18 03/12/22 History mcg (2,000 unit) capsule (Vitamin D3) dorzolamide-timolol (PF) 2 %-0.5 % 1 drp ophthalmic (eye) BID 09/26/18 03/12/22 History eye drops in a dropperette (Cosopt (PF)) fexofenadine 180 mg tablet 180 mg PO DAILY PRN Allergy 09/26/18 03/12/22 History Symptoms fluticasone propionate 50 2 spray intranasal HS 09/26/18 03/12/22 History mcg/actuation nasal spray,suspension (Flonase Allergy Relief) furosemide 20 mg tablet 20 mg PO DAILY PRN Edema 09/26/18 03/12/22 History lifitegrast 5 % eye drops in a 1 drp ophthalmic (eye) BID 09/26/18 03/12/22 History dropperette (Xiidra) metoprolol succinate 50 mg 50 mg PO QPM 09/26/18 03/12/22 History tablet,extended release 24 hr multivitamin 1 tab PO QPM 09/26/18 03/12/22 History nystatin 100,000 unit/gram topical 1 applic topical BID PRN Rash 09/26/18 03/12/22 History cream benzonatate 100 mg capsule 100 mg PO TID COUGH 03/12/22 03/12/22 History aspirin 81 mg tablet,delayed 81 mg PO QAM 21 days #0 tabs 03/14/22 03/12/22 Rx release clopidogrel 75 mg tablet 75 mg PO QAM 60 days #60 tabs 03/14/22 Rx pantoprazole 40 mg granules 40 mg PO DAILY #30 ea 03/14/22 Rx delayed-release for susp in packet (Protonix) rosuvastatin 10 mg sprinkle capsule 10 mg PO DAILY #30 caps 03/14/22 Rx Patient History Medical History Atrial fibrillation hx of--follows with Dr. 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 Hyperlipidemia Hypertension Mitral valve stenosis, rheumatic Pacemaker 05/2012 @ [facility] meditronic single chamber Prolapsed uterus Spinal stenosis Surgical History History of bilateral cataract extraction History of cardiac cath x3--1965- no stents History of colonoscopy History of dilatation and curettage x4 History of esophagogastroduodenoscopy (EGD) History of mandibular surgery hx realignment of jaw History of mitral valve repair 1965 @ [facility] History of removal of cyst benign growth removed from jaw History of tonsillectomy and adenoidectomy History of tooth extraction History of total abdominal hysterectomy History of wisdom tooth extraction Family History Other No family history of adverse response to anesthesia Social History Smoking Status: Never smoker Second Hand Exposure: Yes; Hx Alcohol Use: No Hx Substance Use: No Preferred Language: Panamanian Communication Ability: Effective Glue Sprayer Required: No Beliefs That Will Affect Care: None marital status: Current Living Situation: Spouse Other Information That Helps Us Care for You: No Feels Safe at Home: Yes Safety Concerns: Feels Safe At This Time Assistive Devices: None Review of Systems Review of Systems: All systems reviewed & are unremarkable except as noted in HPI & below Physical Exam Physical Exam: General: Awake, alert and oriented x 3. No acute distress. HEENT: Normocephalic, atraumatic. Pupils equal, round and reactive to light and accommodation. Extraocular muscles are intact. Anicteric sclera. Moist mucous membranes. Neck: No JVD. No bruit. Cardiovascular: irregularly irregular, unable to appreciate murmur, rub or gallop. Pulmonary: Clear to auscultation bilaterally. No rales, rhonchi, or wheezing. Abdomen: Bowel sounds x 4, soft. No rebound, guarding or tenderness. No organomegaly. Extremities: No clubbing, cyanosis or edema. +2 pedal pulses bilaterally. Skin: Warm and dry. Results & Data ([facility]) Vital Signs (Past 12 Hours) Vital Signs Temp Pulse Pulse Resp BP Pulse Ox O2 Del Method 03/14/22 07:27 36.6 C 61 16 155/77 H 94 Room Air 03/14/22 03:31 36.5 C 66 18 152/77 H 94 Room Air 03/14/22 00:38 75 03/13/22 23:12 36.7 C 76 18 131/77 95 Room Air
[2022-03-14] MEDS ORDERED: ROSUVASTATIN CALCIUM 5 MG TAB PO SCH (09:00)
[2022-03-14] MEDS: PANTOprazole 40 MG TAB PO SCH (09:27)
[2022-03-14] MEDS: ASPIRIN 81 MG ECTAB PO SCH (09:27)
[2022-03-14] MEDS: DORZOLAMIDE/TIMOLOL 22.3/6.8MG/ML 10 ML BTL OP SCH (09:27)
[2022-03-14] MEDS: BENZONATATE 100 MG CAPSULE PO SCH ×2 (09:27→13:58)
[2022-03-14] MEDS: CLOPIDOGREL BISULFATE 75 MG TAB PO SCH (09:27)
[2022-03-14] MEDS: SODIUM CHLORIDE 0.9% 1000ML 1,000 ML IV SCH (10:51)
--- NOTE | 2022-03-14 11:26 | Neurology Progress Note ---
Date of Service March 14, 2022 Assessment & Plan (1) Left leg numbness: Plan: 1. CT head- no acute findings 2. continue aspirin 81 mg and start plavix 75 mg daily x 21 days then plavix 75 mg for life 3. afib but not on anticoag due to spontaneous SDH on Coumadin 4. PT/OT for discharge needs 5. fall precautions 6.optimize HTN/HLD/DM LDL <70 consider patients age. 7. pacemaker is not compatible for MRI 8. defer statin dosing and treatment to primary team 9. occlusion of intracranial left artery - continue on platlet therapy follow up with neurology in 4-6 weeks after discharge (2) Unsteady: Plan: 1. PT as out patient as needed Admission and Anticipated Discharge Date Admission Date: March 12, 2022 Supervising Physician Co-Signing Physician Notes I have seen and discussed above patient with Dr Lashonda Cook, neurology patient seen and examined. Pacer not compatible with patient's MRI. My assumption is that this was a transient ischemic attack the localization is unclear as it involves numbness of the left face arm and leg. The left vert is occluded. Dual antiplatelet therapy for 21 days and then Plavix monotherapy. The patient and her family have elected after discussion with cardiology not to use anticoagulants given her prior history. The patient can see us in follow-up post discharge. Platelet count continues to drop we will make primary aware likely she will need a follow-up platelet count. Tyrone Loza is an 81 year old female with PMH-HLD, tachybrady syndrome, status post pacemaker, chronic atrial fibrillation, dilatation of the aorta, rheumatic mitral valve stenosis, GERD, age-related osteoporosis, glaucoma, chronic fatigue, upper GI bleed, SDH while she was on Coumadin, currently not on Coumadin, presented with imbalance and lack of coordination. She had COVID in November of this year, she has some incoordination, some vision problems, fatigue, but has increased. When walking she was feeling very imbalanced and dizzy and she also felt numbness in the lower lip. She presented to [facility] 03/13/22. 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 The [place] neurologists recommended aspirin and plavix. She was given a full dose of aspirin in the ER. She is doing well and is anticipating going home today Review of Systems Review of Systems: All systems reviewed & are unremarkable except as noted in HPI & below Physical Exam Physical Exam: Physical Exam: Constitutional: appearance nourished, healthy and normal Ears, Nose, Mouth and Throat: mucous membranes moist, no injection and skin normal, eyes normal Cardiovascular: normal S-1 and S-2 and regular rate and rhythm Respiratory: clear to auscultation (CTA) and no rales, rhonci or wheeze Musculoskeletal: no peripheral edema and good distal pulses Skin: no stigmata of neurocutaneous disease noted and normal and intact Eyes: extraocular muscles intact (EOMI) and pupils equal, round and reactive to light (PERRL) NEUROLOGIC EXAMINATION: Mental status: Alert and interactive Oriented to person Speech fluent with no evidence of aphasia Cranial Nerves smile eye brow raise symmetric Sensory: no sensory deficits, light cool touch Coordination: finger to nose Gait/Stance: Posture sitting up in bed. Motor: Negative for pronator drift of out stretched arms with eyes closed. Results & Data ([facility]) Vital Signs (Past 12 Hours) Vital Signs Temp Pulse Pulse Resp BP Pulse Ox O2 Del Method 03/14/22 10:35 36.5 C 62 16 144/82 H 94 Room Air 03/14/22 07:27 36.6 C 61 16 155/77 H 94 Room Air 03/14/22 03:31 36.5 C 66 18 152/77 H 94 Room Air 03/14/22 00:38 75 Laboratory Results Abnormal lab results 03/14/22 03/14/22 Range/Units 06:54 06:54 WBC 3.62 L (4.8-10.8) K/ul RBC 3.72 L (3.93-5.22) M/uL RDW Std Deviation 50.3 H (36.4-46.3) fL Plt Count 105 L (130-400) K/uL Chloride 110 H (98-107) mmol/L Creatinine 0.49 L (0.6-1.2) mg/dl Calcium 7.8 L (8.5-10.1) mg/dl Diagnostic Findings CT head CTA head/neck-There is no hemorrhage, mass effect, or evidence of acute territorial ischemia by CT criteria. 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 This is of indeterminant chronicity. Otherwise unremarkable CT angiogram of the brain. Unremarkable CT angiogram of the neck. CT head-There is no hemorrhage, mass effect, or evidence of acute territorial ischemia by CT criteria. No change from yesterday.
[2022-03-14] MEDS ORDERED: STROKE PATIENT DISCHARGE STA (14:59)
--- NOTE | 2022-03-14 15:43 | Discharge Summary ---
Date of Service March 14, 2022 Admission HPI Per Admitting Provider This is an 81-year-old female with past medical history significant for hyperlipidemia, history of tachybrady syndrome, status post pacemaker, chronic atrial fibrillation, history of dilatation of the aorta, rheumatic mitral valve stenosis, GERD, age-related osteoporosis, glaucoma, chronic fatigue, history of upper GI bleed, history of subdural hemorrhage while she was on Coumadin, currently not on Coumadin, presents with imbalance and lack of coordination as per the patient. The patient says since she had COVID in November of this year, she has some incoordination, some vision problems, fatigue, but today it was wor se, with walking she was feeling very imbalanced and dizzy and she also felt numbness in the lower lip. That is the reason she came here. 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 ER physician talked to the [facility] neurologists and they recommended aspirin and plavix. The patient is already on aspirin. She was given a full dose of aspirin in the ER. Currently, resting comfortably, hemodynamically stable. Denies any headache. No earache, has some runny nose. No sore throat, no cough, no chest pain or shortness of breath, no difficulty swallowing. No nausea, no abdominal pain. Normal bowel and bladder movements. Principal Diagnosis TIA Left vertebral artery total occlusion Discharge Exam Patient appears well. No acute distress CV- Irregular but not rapid Pulm- breathing comfortably on room air Extr- no edema Discharge Data Allergies Allergy/AdvReac Type Severity Reaction Status Date / Time shellfish derived Allergy Intermediate bumps Verified 03/12/22 21:13 after eating adhesive Allergy Mild SKIN WILL Verified 03/12/22 21:13 GET SORE ezetimibe Allergy Mild GI SYMPTOMS Verified 03/12/22 21:13 meperidine Allergy Mild VOMITING Verified 03/12/22 21:13 rosuvastatin Allergy Mild GI SYMPTOMS Verified 03/12/22 21:13 simvastatin Allergy Mild GI SYMPTOMS Verified 03/12/22 21:13 diltiazem Allergy Unknown doc said Verified 03/12/22 21:13 she shouldnt take it warfarin AdvReac Severe brain bleed Verified 03/12/22 21:13 hydromorphone AdvReac Mild SLOWED Verified 03/12/22 21:13 HEART RATE Penicillins AdvReac Mild YEAST Verified 03/12/22 21:13 INFECTION Mcbdaia-[id number]-PgW Reductase AdvReac Mild cramps Verified 03/12/22 21:13 Inhibitor [Fqsfwgk-Yxz-Zmn Reductase Inhibitor] Consultations 03/12/22 22:01 ED Decision to Admit Stat 03/13/22 08:00 Consult Neurology Routine 03/14/22 07:36 Consult Cardiology Routine Ordered Studies 03/12/22 19:22 CT angio head w con Stat CT angio neck with con Stat CT head/brain wo con Stat 03/13/22 04:57 CT head/brain wo con Urgent Hospital Course (1) TIA (transient ischemic attack): (2) Vertebral artery occlusion: Plan Ms Denia Becerra is a 81 year old female with history of chronic A fib not on anticoagulation due to 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 She was admitted for stroke evaluation. She had a CT head x 2 which was negative for acute ischemic changes. She was unable to get MRI brain due to her pacemaker not being MRI compatible. She did have CTA head/neck which demonstrated total occlusion of her left vertebral artery of unknown chronicity. She was seen by Neurology and felt to have had a TIA and it was recommended that she be on DAPT (aspirin and plavix) for 21 days then plavix indefinitely. Ideally, she should be on anticoagulation for her Afib with TIA currently. 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 Her pacemaker is toward end of it's battery life and she will follow up with Cardiology after discharge for pacemaker exchange. Patient's symptoms had resolved and she was seen by PT and cleared for discharge home with home care services. Her medication changes include: 1. Rosuvastatin 10mg daily (previously she was only on rosuvastatin 5mg MW) 2. Addition of plavix 75mg daily 3. Omeprazole discontinued, started protonix 40mg daily Home Health Attestation I certify that this patient is under my care and that I, or a physicians licensed sales assistant working with me, had a face to-face encounter that meets the home health [id number] encounter requirements with this patient. The encounter with the patient was in whole, or in part, for the following medical condition, which is the primary reason for home health care (list medical condition): Neuro s/s. I certify that, based on my findings, the following services are medically necessary home health services: My clinical findings support the need for the above services because: PT Assessment for Endurance / Balance / Strength PT Eval for Safety and Mobility PT Eval for Safety, Gait Training, Assistive Devices PT Gait and Balance Training, Strengthening and Safety Skilled Nsg Assessment Further, I certify that my clinical findings support that this patient is homebound (i.e. absences from home require considerable and taxing effort and are for medical reasons or samaritan services or infrequently or of short duration when for other reasons) because: Supportive Aid - Walker Certification for Home Health Services: Based on the above findings, I certify that this patient is confined to the home and needs intermittent mcc care, physical therapy and/or speech therapy or continues to need occupational therapy. The patient is under my care, and I have initiated the establishment of the plan of care. This patient will be followed by a physician who will periodically review the plan of care. Total Time Total Time Spent Total Time Spent (In Minutes): 45 Discharge Plan Discharge Items Patient Disposition: Home - Home Health Services Reason For Visit: NEURO SYMPTOMS Discharge Diagnosis: TIA Left vertebral artery total occlusion Condition on Discharge: Good Activity: Resume your previous activity Weightbearing: Full weightbearing Non-emergency contact: Primary Care Provider, Towboat Captain and Neurologist Call non-emergency contact if: you have any medication questions and your symptoms worsen Follow-up/Referrals: Roverto Miller MD [Primary Care Provider] - (Date & Time 03/17/2022 11:00 AM Provider Mary José MD Department General Internal Medicine [facility] ) Clifford Chaves DO [Towboat Captain] - Lashonda Cook MD [Physician] - Diet: Heart Healthy Addtl Attending Provider Instructions: You were admitted for weakness and leg numbness You were found to have a complete occlusion of the left vertebral artery (artery in back of your neck) You were seen by Neurology and felt to have had a TIA or "mini stroke". For this, you should be on aspirin 81mg and Plavix together for 21 days then plavix alone for life You were seen by Cardiology while here and should follow up with them after discharge for pacemaker exchange. Please follow up with your PCP in 2 weeks Please follow up with Neurology in 2-4 weeks Please follow up with Cardiology in 2-4 weeks Pending Studies at Discharge: No Stand-Alone Forms: Medications to Prevent Stroke, My [facility], Smoking Cessation Medications and DC Order Prescriptions: New clopidogrel 75 mg Tablet 75 mg PO QAM 60 Days Qty: 60 0RF rosuvastatin 10 mg capsule, sprinkle 10 mg PO DAILY Qty: 30 0RF pantoprazole [Protonix] [address] for susp in packet 40 mg PO DAILY Qty: 30 0RF Continued multivitamin Tablet 1 tab PO QPM metoprolol succinate 50 mg Tablet Extended Release 24 Hr 50 mg PO QPM fexofenadine 180 mg Tablet 180 mg PO DAILY PRN (Reason: Allergy Symptoms) acetaminophen [Tylenol Extra Strength] 500 mg Tablet 500 mg PO Q6H PRN (Reason: Pain) nystatin 100,000 unit/gram Cream 1 applic TOPICAL BID PRN (Reason: Rash) furosemide 20 mg Tablet 20 mg PO DAILY PRN (Reason: Edema) fluticasone propionate [Flonase Allergy Relief] 50 mcg/actuation [place],Suspension 2 spray INTRANASAL HS cholecalciferol (vitamin D3) [Vitamin D3] 2,000 unit Capsule 2,000 unit PO QPM Lumigan 0.01 % Drops 1 drp OPHTHALMIC (EYE) HS dorzolamide-timolol (PF) [Cosopt (PF)] 2-0.5 % Dropperette 1 drp OPHTHALMIC (EYE) BID Xiidra 5 % Dropperette 1 drp OPHTHALMIC (EYE) BID benzonatate 100 mg capsule 100 mg PO TID aspirin 81 mg Tablet,Delayed Release (Dr/Ec) 81 mg PO QAM 21 Days Qty: 0 0RF Discontinued rosuvastatin 5 mg Tablet 5 mg PO [id number] Rx Instructions: mon/wed/fri omeprazole 20 mg Tablet,Delayed Release (Dr/Ec) 20 mg PO QAM Discharge Orders: Discharge Order (Routine); Ordered 03/14/22 Ordered By: Florentino Tejeda Admission Data Admit Date/Time: 03/12/22 23:33 Attending Provider: Florentino Tejeda Admit Provider: Steve Wick Primary Care Provider: Roverto Miller Other Providers: Steve Wick ; Lashonda Cook ; Luigi Lyons ; [facility] Other Interventions: Discharge Summary Assessment (RN) Last Done: 03/14/22 15:31
--- NOTE | 2022-03-14 16:13 | Pharmacy Report ---
Pharmacist Stroke Counseling - Date of Service March 14, 2022 - Scope: Pharmacy has been consulted to provide medication discharge counseling for this patient admitted with transient ischemic attack as per the Pharmacist Discharge Counseling for Stroke Patients Protocol. - Medications on Discharge: Home Medications Medication Instructions Recorded Confirmed acetaminophen 500 mg tablet 500 mg PO Q6H PRN Pain 09/26/18 03/12/22 (Tylenol Extra Strength) bimatoprost 0.01 % eye drops 1 drp ophthalmic (eye) HS 09/26/18 03/12/22 ([place]umigan) cholecalciferol (vitamin D3) 50 2,000 unit PO QPM 09/26/18 03/12/22 mcg (2,000 unit) capsule (Vitamin D3) dorzolamide-timolol (PF) 2 %-0.5 % 1 drp ophthalmic (eye) BID 09/26/18 03/12/22 eye drops in a dropperette (Cosopt (PF)) fexofenadine 180 mg tablet 180 mg PO DAILY PRN Allergy 09/26/18 03/12/22 Symptoms fluticasone propionate 50 2 spray intranasal HS 09/26/18 03/12/22 mcg/actuation nasal spray,suspension (Flonase Allergy Relief) furosemide 20 mg tablet 20 mg PO DAILY PRN Edema 09/26/18 03/12/22 lifitegrast 5 % eye drops in a 1 drp ophthalmic (eye) BID 09/26/18 03/12/22 dropperette (Xiidra) metoprolol succinate 50 mg 50 mg PO QPM 09/26/18 03/12/22 tablet,extended release 24 hr multivitamin 1 tab PO QPM 09/26/18 03/12/22 nystatin 100,000 unit/gram topical 1 applic topical BID PRN Rash 09/26/18 03/12/22 cream benzonatate 100 mg capsule 100 mg PO TID COUGH 03/12/22 03/12/22 New Rx's Medication Instructions Recorded aspirin 81 mg tablet,delayed 81 mg PO QAM 21 days #0 tabs 03/14/22 release clopidogrel 75 mg tablet 75 mg PO QAM 60 days #60 tabs 03/14/22 pantoprazole 40 mg granules 40 mg PO DAILY #30 ea 03/14/22 delayed-release for susp in packet (Protonix) rosuvastatin 10 mg sprinkle capsule 10 mg PO DAILY #30 caps 03/14/22 - Action: The above medications, specifically ones for stroke treatment/prophylaxis, have been reviewed in detail with the patient prior to discharge. This includes indication, common adverse reactions, drug interactions, and medication administration. Medication counseling has been employed using the teach-back method to ensure understanding. - Outcome: The patient demonstrated understanding of the medications. Additional comments: - Counseling was provided via telephone given staffing issues - Patient aware to continue aspirin and plavix for 21 days total then d/c the aspirin and continue plavix for life Thank you for allowing pharmacy to be involved in the care of this patient. Please call [phone] with any additional questions
== END 2022-03-14 16:33 | disposition home health service (06) | DRG 68 ==
LOC: ED 18:58 → 2S 23:33

== ENCOUNTER 2022-08-07 14:16 | Inpatient (IN) ==
--- NOTE | 2022-08-07 14:33 | Emergency Department Note ---
Impression & Plan Stroke-like symptoms, Atrial fibrillation, Occlusion of left vertebral artery ED Provider Note NAME: JOSE MACIAS AGE: 81 SEX: F : 1940 ARRIVES VIA: Walk-In INFORMANT: Patient, ED PROVIDER(S): Maeto Keita MD Chief Complaint: Confusion, difficulty with commands HPI: Patient presents with daughter and at bedside due to concern for acute onset of confusion around 11 AM where the patient does not been following commands appropriately. Patient has a known history of prior CVA ICH takes Plavix but not aspirin no other blood thinning medications. No recent falls or trauma. Patient does have a history of UTIs but the daughter states that her symptoms are more profound. No reported chest pains or shortness of breath. No leg swelling. Patient reportedly has been compliant with medications. ROS: See HPI for pertinent positives and negatives. A total of 10 systems were reviewed and otherwise negative. Past medical history: See below Surgical history: See below Social history: See below Physical Exam: GENERAL: NAD, wearing a mask, non-toxic. EYE EXAM: Normal conjunctiva. PERRL, no anisocoria and EOM's grossly intact w/o pain. NECK: Supple, no nuchal rigidity, no adenopathy, non-tender. No signs of meningismus. FROM of the neck with good chin to chest and neck extension. No s tridor. LUNGS: Clear to auscultation. Normal chest wall mechanics. HEART: Irregularly irregular, no MRG. ABDOMEN: Abdomen soft, non-tender, normo-active bowel sounds, no masses, no rebound or guarding. BACK: No CVA TTP. SKIN: No rashes and no bruising. UPPER EXTREMITIES: Upper extremities are grossly normal. LOWER EXTREMITIES: Grossly normal, no edema. NEURO EXAM: Occasionally oriented to person and who is in the room. Intermittently follows commands, can finger count occasionally but sometimes gets some incorrect, moves all 4 extremities sometimes difficulty with following commands. Differential diagnoses: Infection, dehydration, metabolic abnormality, hypo/hyperglycemia, electrolyte disturbance, anemia, hypoxia, cardiac sources, intracerebral event, toxicologic, neurologic, as well as other pathologies. Course: Patient was seen and evaluated the bedside. Full history physical exam was performed. EKG interpreted by me Lindsey perez, rate of [address] elevations. Imaging Studies: See Below Cardiac monitoring: An order was placed for continuous cardiac monitoring. The monitor shows a rate of 72 with irregularly irregular rhythm. MDM: Patient presents due to concern for confusion and intermittent difficulty with following commands. Code stroke was initiated. Patient was not a TNKase candidate given the patient's prior history of ICH. Blood work was obtained along with an EKG chest x-ray CT head and CT angiography of the head and neck. The patient's blood work showed mild leukopenia with a normal H&H. Platelet count was unremarkable. Kidney function grossly unremarkable as well. Patient CT head CT angiography showed no acute findings. 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 Chest x-ray is negative. The patient does have a device that is not compatible for MRI. I did speak the on-call hospitalist Dr. Vang and the patient was admitted to the medicine service. Urinalysis pending the patient was ordered Rocephin given the concern for possibility of UTI given the patient's confusion. Thrombolytics MDM Did the patient receive IV thrombolytics?: No Patient not candidate to tNK at time of presentation 2/2 to history of ICH. Past Med/Surg History Medical History Atrial fibrillation hx of--follows with Dr. 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 @ [facility] meditronic single chamber Prolapsed uterus Spinal stenosis Unsteady Surgical History History of bilateral cataract extraction History of cardiac cath x3--1965- no stents History of colonoscopy History of dilatation and curettage x4 History of esophagogastroduodenoscopy (EGD) History of mandibular surgery hx realignment of jaw History of mitral valve repair 1965 @ [facility] History of removal of cyst benign growth removed from jaw History of tonsillectomy and adenoidectomy History of tooth extraction History of total abdominal hysterectomy History of wisdom tooth extraction Family History Other No family history of adverse response to anesthesia Social History Smoking Status: Never smoker Second Hand Exposure: Yes; Hx Alcohol Use: No Hx Substance Use: No Preferred Language: Scottish Communication Ability: Effective Branch Operations Specialist Required: No Beliefs That Will Affect Care: None marital status: Current Living Situation: Spouse and Family Feels Safe at Home: Yes Assistive Devices: Cane, Stair Lift and Walker Allergies Allergies Allergy/AdvReac Type Severity Reaction Status Date / Time shellfish derived Allergy Intermediate bumps Verified 08/07/22 16:47 after eating adhesive Allergy Mild SKIN WILL Verified 08/07/22 16:47 GET SORE diltiazem Allergy Unknown doc said Verified 08/07/22 16:47 she shouldnt take it fish derived Allergy Unknown Unknown Verified 08/08/22 15:32 warfarin AdvReac Severe brain bleed Verified 08/07/22 16:47 ezetimibe AdvReac Intermediate GI SYMPTOMS Verified 08/07/22 16:47 hydromorphone AdvReac Intermediate SLOWED Verified 08/07/22 16:47 HEART RATE meperidine AdvReac Intermediate VOMITING Verified 08/07/22 16:47 rosuvastatin AdvReac Intermediate GI SYMPTOMS Verified 08/07/22 16:47 simvastatin AdvReac Intermediate GI SYMPTOMS Verified 08/07/22 16:47 Pwvdeee-XLZ-IvW Reductase AdvReac Intermediate cramps Verified 08/07/22 16:47 Inhibitor [Nfyjzqc-Sig-Pfw Reductase Inhibitor] Penicillins AdvReac Mild YEAST Verified 08/07/22 16:47 INFECTION Home Meds Home Medications Medication Instructions Recorded Confirmed acetaminophen 500 mg tablet 500 mg PO Q6H PRN Pain 09/26/18 08/07/22 (Tylenol Extra Strength) bimatoprost 0.01 % eye drops 1 drp ophthalmic (eye) HS 09/26/18 08/07/22 (Lumigan) cholecalciferol (vitamin D3) 50 0 unit PO QPM 09/26/18 08/07/22 mcg (2,000 unit) capsule (Vitamin D3) dorzolamide-timolol (PF) 2 %-0.5 % 1 drp ophthalmic (eye) BID 09/26/18 08/07/22 eye drops in a dropperette (Cosopt (PF)) fexofenadine 180 mg tablet 180 mg PO QPM 09/26/18 08/07/22 fluticasone propionate 50 2 spray intranasal HS 09/26/18 08/07/22 mcg/actuation nasal spray,suspension (Flonase Allergy Relief) furosemide 20 mg tablet 20 mg PO 3XWK 09/26/18 08/07/22 metoprolol succinate 50 mg 50 mg PO QPM 09/26/18 08/07/22 tablet,extended release 24 hr clopidogrel 75 mg tablet 75 mg PO QAM 08/07/22 08/07/22 cyanocobalamin (vitamin B-12) 1,000 mcg PO QPM 08/07/22 08/07/22 1,000 mcg tablet (Vitamin B-12) dextromethorphan-guaifenesin 10 0 ml PO DIRECTED PRN 08/07/22 08/07/22 mg-100 mg/5 mL oral syrup COUGH/CONGESTION famotidine 20 mg tablet (Pepcid) 20 mg PO BID 08/07/22 08/07/22 multivitamin-ferrous 1 tab PO QPM 08/07/22 08/07/22 fumarate-folic acid 18 mg-400 mcg tablet (Centrum Women) Previous Rx's Medication Instructions Recorded rosuvastatin 10 mg sprinkle capsule 10 mg PO DAILY #30 caps 03/14/22 L.acidop,casei,lactis,rham-B.lact,elia 2 cap PO DAILY #10 caps 08/08/22 625 mg (10 billion cell) capsule (Advanced Probiotic) aspirin 81 mg tablet,delayed 81 mg PO QAM #20 tabs 08/08/22 release cefdinir 300 mg capsule 300 mg PO BID #7 caps 08/08/22 Results & Data (ED) Vital Signs Vital Signs - 24 hr 08/07/22 14:18 Temperature 37.3 C Temperature Source Temporal Artery Scan Pulse Rate 98 H Respiratory Rate 18 Respiratory Effort / Characteristics Non-Labored Respiratory Depth Normal Respiratory Pattern Regular Blood Pressure 138/85 Blood Pressure Mean 102 Pulse Oximetry 94 Oxygen Delivery Method Room Air Sepsis Recent Fever Within 48 Hours No Sepsis New/Unexplained Change in Mental Status N/A Sepsis Action Taken by Nursing No Action Required Home Medications Current Medication List: was personally reviewed by me Laboratory Data Attestation: I reviewed the patient's lab results. Result diagrams: 08/08/22 05:28 08/08/22 05:28 Lab Results 08/07/22 08/07/22 08/07/22 Range/Units 14:36 14:40 14:41 WBC 7.38 (4.8-10.8) K/ul RBC 4.08 (3.93-5.22) M/uL Hgb 13.8 (12.0-16.0) g/dl Hct 40.0 (34.1-44.9) % MCV 98.0 (80.0-100.0) fL MCH 33.8 (25.0-34.0) pg MCHC 34.5 (32.0-36.0) g/dL RDW Std Deviation 49.1 H (36.4-46.3) fL RDW Coeff of Rody 13.6 (11.5-14.5) % Plt Count 176 (130-400) K/uL MPV 9.6 (9.4-12.3) fL Immature Gran % (Auto) 0.5 % Neut % (Auto) 71.6 % Lymph % (Auto) 19.1 % [place] % (Auto) 7.6 % Eos % (Auto) 0.9 % Baso % (Auto) 0.3 % Neut # (Auto) 5.28 (1.4-6.5) K/uL Lymph # (Auto) 1.41 (1.2-3.4) K/uL [place] # (Auto) 0.56 (0.24-0.82) K/uL Eos # (Auto) 0.07 (0-0.50) K/uL Baso # (Auto) 0.02 (0-0.2) K/uL Immature Gran # (Auto) 0.04 H (0.00-0.02) K/uL PT (9.0-12.0) Seconds INR (0.9-1.1) APTT (21.0-31.0) Seconds PTT Ratio Sodium (136-145) mmol/L Potassium (3.5-5.1) mmol/L Chloride (98-107) mmol/L Carbon Dioxide (21-32) mmol/L Anion Gap (3-11) BUN (6-23) mg/dl Creatinine (0.6-1.2) mg/dl Est Cr Clr Drug Dosing ml/min Est GFR ( Amer) ml/min Est GFR (Non-Af Amer) ml/min BUN/Creatinine Ratio (10-20) Glucose (70-99(Fasting)) mg/dl POC Glucose 108 H (70-99) mg/dl Calcium (8.5-10.1) mg/dl Magnesium (1.7-2.4) mg/dl Total Bilirubin (0.2-1.0) mg/dl AST (13-39) U/L ALT (7-52) U/L Alkaline Phosphatase (34-104) U/L Troponin I High Sens (0-14) pg/ml Total Protein (6.0-8.3) gm/dl Albumin (3.4-5.0) gm/dl Globulin (2.5-4.0) gm/dl Albumin/Globulin Ratio (0.9-2) Procalcitonin < 0.05 (0-0.5) ng/ml Urine Color Urine Appearance (Clear) Urine pH (4.5-7.5) Ur Specific [place] (1.000-1.030) Urine Protein (Negative) Urine Glucose (UA) (Negative) Urine Ketones (Negative) Urine Blood (Negative) Urine Nitrite (Negative) Urine Bilirubin (Negative) Urine Urobilinogen (Negative) Ur Leukocyte Esterase (Negative) Urine WBC (Auto) (0-5) /hpf Urine RBC (Auto) (0-4) /hpf U Hyaline Cast (Auto) (0-5) /lpf U Epithel Cells (Auto) (0-5) /lpf Urine Bacteria (Auto) (Negative) SARS-CoV-2, RNA, NAAT (NEGATIVE) 08/07/22 08/07/22 08/07/22 Range/Units 14:41 14:41 15:30 WBC (4.8-10.8) K/ul RBC (3.93-5.22) M/uL Hgb (12.0-16.0) g/dl Hct (34.1-44.9) % MCV (80.0-100.0) fL MCH (25.0-34.0) pg MCHC (32.0-36.0) g/dL RDW Std Deviation (36.4-46.3) fL RDW Coeff of Rody (11.5-14.5) % Plt Count (130-400) K/uL MPV (9.4-12.3) fL Immature Gran % (Auto) % Neut % (Auto) % Lymph % (Auto) % [place] % (Auto) % Eos % (Auto) % Baso % (Auto) % Neut # (Auto) (1.4-6.5) K/uL Lymph # (Auto) (1.2-3.4) K/uL [place] # (Auto) (0.24-0.82) K/uL Eos # (Auto) (0-0.50) K/uL Baso # (Auto) (0-0.2) K/uL Immature Gran # (Auto) (0.00-0.02) K/uL PT 11.4 (9.0-12.0) Seconds INR 1.1 (0.9-1.1) APTT 25.0 (21.0-31.0) Seconds PTT Ratio 0.9 Sodium 136 (136-145) mmol/L Potassium 3.8 (3.5-5.1) mmol/L Chloride 105 (98-107) mmol/L Carbon Dioxide 24 (21-32) mmol/L Anion Gap 7 (3-11) BUN 12 (6-23) mg/dl Creatinine 0.47 L (0.6-1.2) mg/dl Est Cr Clr Drug Dosing 87.6 ml/min Est GFR ( Amer) 107.4 ml/min Est GFR (Non-Af Amer) 92.6 ml/min BUN/Creatinine Ratio 25.5 H (10-20) Glucose 113 H (70-99(Fasting)) mg/dl POC Glucose (70-99) mg/dl Calcium 8.2 L (8.5-10.1) mg/dl Magnesium 2.1 (1.7-2.4) mg/dl Total Bilirubin 1.4 H (0.2-1.0) mg/dl AST 26 (13-39) U/L ALT 16 (7-52) U/L Alkaline Phosphatase 47 (34-104) U/L Troponin I High Sens 6.3 (0-14) pg/ml Total Protein 6.8 (6.0-8.3) gm/dl Albumin 3.9 (3.4-5.0) gm/dl Globulin 2.9 (2.5-4.0) gm/dl Albumin/Globulin Ratio 1.3 (0.9-2) Procalcitonin (0-0.5) ng/ml Urine Color Urine Appearance (Clear) Urine pH (4.5-7.5) Ur Specific [place] (1.000-1.030) Urine Protein (Negative) Urine Glucose (UA) (Negative) Urine Ketones (Negative) Urine Blood (Negative) Urine Nitrite (Negative) Urine Bilirubin (Negative) Urine Urobilinogen (Negative) Ur Leukocyte Esterase (Negative) Urine WBC (Auto) (0-5) /hpf Urine RBC (Auto) (0-4) /hpf U Hyaline Cast (Auto) (0-5) /lpf U Epithel Cells (Auto) (0-5) /lpf Urine Bacteria (Auto) (Negative) SARS-CoV-2, RNA, NAAT NEGATIVE (NEGATIVE) 08/07/22 Range/Units 16:45 WBC (4.8-10.8) K/ul RBC (3.93-5.22) M/uL Hgb (12.0-16.0) g/dl Hct (34.1-44.9) % MCV (80.0-100.0) fL MCH (25.0-34.0) pg MCHC (32.0-36.0) g/dL RDW Std Deviation (36.4-46.3) fL RDW Coeff of Royd (11.5-14.5) % Plt Count (130-400) K/uL MPV (9.4-12.3) fL Immature Gran % (Auto) % Neut % (Auto) % Lymph % (Auto) % [place] % (Auto) % Eos % (Auto) % Baso % (Auto) % Neut # (Auto) (1.4-6.5) K/uL Lymph # (Auto) (1.2-3.4) K/uL [place] # (Auto) (0.24-0.82) K/uL Eos # (Auto) (0-0.50) K/uL Baso # (Auto) (0-0.2) K/uL Immature Gran # (Auto) (0.00-0.02) K/uL PT (9.0-12.0) Seconds INR (0.9-1.1) APTT (21.0-31.0) Seconds PTT Ratio Sodium (136-145) mmol/L Potassium (3.5-5.1) mmol/L Chloride (98-107) mmol/L Carbon Dioxide (21-32) mmol/L Anion Gap (3-11) BUN (6-23) mg/dl Creatinine (0.6-1.2) mg/dl Est Cr Clr Drug Dosing ml/min Est GFR ( Amer) ml/min Est GFR (Non-Af Amer) ml/min BUN/Creatinine Ratio (10-20) Glucose (70-99(Fasting)) mg/dl POC Glucose (70-99) mg/dl Calcium (8.5-10.1) mg/dl Magnesium (1.7-2.4) mg/dl Total Bilirubin (0.2-1.0) mg/dl AST (13-39) U/L ALT (7-52) U/L Alkaline Phosphatase (34-104) U/L Troponin I High Sens (0-14) pg/ml Total Protein (6.0-8.3) gm/dl Albumin (3.4-5.0) gm/dl Globulin (2.5-4.0) gm/dl Albumin/Globulin Ratio (0.9-2) Procalcitonin (0-0.5) ng/ml Urine Color Yellow Urine Appearance Cloudy A (Clear) Urine pH 8.5 H (4.5-7.5) Ur Specific [place] > 1.045 H (1.000-1.030) Urine Protein Negative (Negative) Urine Glucose (UA) Negative (Negative) Urine Ketones Negative (Negative) Urine Blood 1+ H (Negative) Urine Nitrite Negative (Negative) Urine Bilirubin Negative (Negative) Urine Urobilinogen Negative (Negative) Ur Leukocyte Esterase 3+ H (Negative) Urine WBC (Auto) >30 H (0-5) /hpf Urine RBC (Auto) 5-10 H (0-4) /hpf U Hyaline Cast (Auto) 0 (0-5) /lpf U Epithel Cells (Auto) >30 H (0-5) /lpf Urine Bacteria (Auto) 1+ H (Negative) SARS-CoV-2, RNA, NAAT (NEGATIVE) Administered Medications Discontinued Medications Aspirin ([facility]in 81 Mg Ectab) [facility] [place]: 09/07/22 10:29 Last Admin: 12/12/22 11:41 Dose: 81 mg Documented By: MERCEDES Clopidogrel Bisulfate (Clopidogrel Bisulfate 75 Mg Tab) 75 mg PO QAM CHARANJIT Stop: 09/07/22 08:59 Last Admin: 08/08/22 08:49 Dose: 75 mg Documented By: SHONAP Diphenhydramine HCl (Diphenhydramine 50 Mg/Ml Vial) 25 mg IV NOW STA Stop: 08/07/22 14:56 Last Admin: 08/07/22 15:12 Dose: Not Given Documented By: ML Diphenhydramine HCl (Diphenhydramine 50 Mg/Ml Vial) Confirm Administered Dose 50 mg .ROUTE .STK-MED ONE Stop: 08/07/22 15:02 Last Admin: 08/07/22 15:12 Dose: 50 mg Documented By: TASHA Famotidine (Famotidine 20 Mg Tab) 20 mg PO BID [facility] Stop: 09/06/22 20:59 Last Admin: 08/08/22 08:49 Dose: 20 mg Documented By: Admin: 08/07/22 23:13 Dose: 20 mg Documented By: DARCY Fluconazole (Fluconazole 50 Mg Tab) 150 mg PO NOW ONE Stop: 08/08/22 15:46 Last Admin: 08/08/22 16:31 Dose: 150 mg Documented By: CODY Furosemide (Furosemide 20 Mg Tab) 20 mg PO MoWeFr@0900 CHARANJIT Stop: 09/07/22 08:59 Last Admin: 08/08/22 08:49 Dose: 20 mg Documented By: LIZABETH Ceftriaxone Sodium (Rocephin) 2,000 mg in 70 mls @ 140 mls/hr IV NOW STA Stop: 08/07/22 16:35 Last Infusion: 08/07/22 18:05 Dose: 0 mls/hr Documented By: Admin: 08/07/22 17:34 Dose: 140 mls/hr Documented By: TASHA Calcium Gluconate () 1,000 mg in 60 mls @ 240 mls/hr IV NOW STA Stop: 08/07/22 16:20 Last Infusion: 08/07/22 17:00 Dose: 0 mls/hr Documented By: Admin: 08/07/22 16:45 Dose: 240 mls/hr Documented By: ML Ceftriaxone Sodium 1,000 mg/ (Dextrose) 50 mls @ 100 mls/hr IV Q24H CHARANJIT; Protocol Stop: 08/08/22 16:29 Last Admin: 08/08/22 15:49 Dose: 100 mls/hr Documented By: LIZABETH Ioversol (Optiray 320 500ml) 113 ml IV ONCE ONE Stop: 08/07/22 15:09 Last Admin: 08/07/22 15:08 Dose: 113 ml Documented By: ADITYA Lactobacillus Acidophilus (Advanced Probiotic 1250 Mg Capsule) 2 cap PO DAILY CHARANJIT Stop: 09/07/22 08:59 Last Admin: 08/08/22 08:49 Dose: 2 cap Documented By: LIZABETH Methylprednisolone (Methylprednisolone 125 Mg/2 Ml Vial) 125 mg IV NOW STA Stop: 08/07/22 14:56 Last Admin: 08/07/22 15:12 Dose: Not Given Documented By: TASHA Methylprednisolone (Methylprednisolone 125 Mg/2 Ml Vial) Confirm Administered Dose 125 mg .ROUTE .STK-MED ONE Stop: 08/07/22 15:02 Last Admin: 08/07/22 15:12 Dose: 125 mg Documented By: TASHA Metoprolol Succinate (Metoprolol Succ 50mg Ext Rel Tab) 50 mg PO QPM CHARANJIT Stop: 09/06/22 20:59 Last Admin: 08/07/22 23:13 Dose: 50 mg Documented By: DARCY Rosuvastatin Calcium (Rosuvastatin Calcium 10 Mg Tab) 10 mg PO DAILY CHARANJIT Stop: 09/07/22 08:59 Last Admin: 08/08/22 08:49 Dose: 10 mg Documented By: LIZABETH Imaging Data Radiologist's Impression: Head CT 08/07/22 14:55 CT head/brain wo con CLINICAL HISTORY: 81 years-old Female with neuro deficit, acute stroke suspected. Acute strokelike symptoms TECHNIQUE: Multiple axial CT images of the head were obtained without contrast. A dose lowering technique was utilized adhering to the principles of ALARA. COMPARISON: CTA head and neck of same day, head CT 03/13/2022 FINDINGS: No acute intracranial hemorrhage, midline shift, intracranial mass, hydrocephalus, territorial ischemia or abnormal extra-axial collection. Cerebral vascular calcifications. Involutional changes with chronic microvascular ischemic disease. The calvarium is intact. Mastoid air cells are clear. Mild to moderate because of thickening of the left maxillary and ethmoid sinuses. Prior bilateral lens repair. IMPRESSION: No acute intracranial abnormality. ACT 112: Negative or not required by law. The above report was generated using voice recognition software. It may contain grammatical, syntax or spelling errors. Electronically signed by: Juan Jose Garcia M.D. 08/07/2022 3:33 PM Head CTA 08/07/22 14:55 CT angio neck with con, CT angio head w con CLINICAL HISTORY: 81 years-old Female with neuro deficit, acute stroke suspected. Acute strokelike symptoms COMPARISON STUDY: Head CT of same day, CTA head and neck 03/12/2022 TECHNIQUE: Following the IV administration of 113 mL of Optiray, CT angiogram of the head and neck was performed from the aortic arch to the skull apex. Images are reviewed in the axial, sagittal, and coronal planes. 3-D MIPS images are created and assessed. IV contrast was administered without complication. All measurements were calculated based on NASCET criteria. A dose lowering technique was utilized adhering to the principles of ALARA. CT DOSE: 980.03 mGy.cm FINDINGS: Patent innominate and imaged subclavian arteries. The common and internal carotid arteries are patent. Atherosclerotic plaque of the cavernous, clinoid and supraclinoid segments without high-grade stenosis. Motion degraded exam. The middle and anterior cerebral arteries are patent as visualized. The right A1 segment is not well visualized and is likely developmentally diminutive. Chronic thrombosis involving the mid to distal aspects of the V4 segment left vertebral artery. Mild multifocal luminal narrowing of the basilar artery. Mild multifocal luminal narrowing of the posterior cerebral arteries. origin of the right posterior cerebral artery. Cerebral venous sinuses are patent. There is no abnormal intracranial enhancement. No pneumothorax. Unremarkable soft tissues. Moderate mucosal thickening of the left maxillary sinus. Degenerative changes of the cervical spine. No acute fracture identified. IMPRESSION: 1. 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 2. Atherosclerosis with otherwise unremarkable CTA of the head and neck. ACT 112: Negative or not required by law. The above report was generated using voice recognition software. It may contain grammatical, syntax or spelling errors. Electronically signed by: Juan Jose Garcia M.D. 08/07/2022 3:33 PM Neck CTA 08/07/22 14:55 CT angio neck with con, CT angio head w con CLINICAL HISTORY: 81 years-old Female with neuro deficit, acute stroke suspected. Acute strokelike symptoms COMPARISON STUDY: Head CT of same day, CTA head and neck 03/12/2022 TECHNIQUE: Following the IV administration of 113 mL of Optiray, CT angiogram of the head and neck was performed from the aortic arch to the skull apex. Images are reviewed in the axial, sagittal, and coronal planes. 3-D MIPS images are created and assessed. IV contrast was administered without complication. All measurements were calculated based on NASCET criteria. A dose lowering tech nique was utilized adhering to the principles of ALARA. CT DOSE: 980.03 mGy.cm FINDINGS: Patent innominate and imaged subclavian arteries. The common and internal carotid arteries are patent. Atherosclerotic plaque of the cavernous, clinoid and supraclinoid segments without high-grade stenosis. Motion degraded exam. The middle and anterior cerebral arteries are patent as visualized. The right A1 segment is not well visualized and is likely developmentally diminutive. Chronic thrombosis involving the mid to distal aspects of the V4 segment left vertebral artery. Mild multifocal luminal narrowing of the basilar artery. Mild multifocal luminal narrowing of the posterior cerebral arteries. F etal origin of the right posterior cerebral artery. Cerebral venous sinuses are patent. There is no abnormal intracranial enhancement. No pneumothorax. Unremarkable soft tissues. Moderate mucosal thickening of the left maxillary sinus. Degenerative changes of the cervical spine. No acute fracture identified. IMPRESSION: 1. 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 2. Atherosclerosis with otherwise unremarkable CTA of the head and neck. ACT 112: Negative or not required by law. The above report was generated using voice recognition software. It may contain grammatical, syntax or spelling errors. Electronically signed by: Juan Jose Garcia M.D. 08/07/2022 3:33 PM Chest X-Ray 08/07/22 17:03 XR chest 1V portable HISTORY: 81 years-old Female cold symptoms, AMS . Acute shortness of breath COMPARISON: Chest radiographs 06/14/2022 TECHNIQUE: AP view of the chest FINDINGS: Cardiac silhouette is enlarged. Left subclavian pacer. No pneumothorax, pleural effusion, airspace consolidation or overt pulmonary edema. Degenerative changes of the shoulders and spine. IMPRESSION: Cardiomegaly without acute process. ACT 112: Negative or not required by law. The above report was generated using voice recognition software. It may contain grammatical, syntax or spelling errors. Electronically signed by: Juan Jose Garcia M.D. 08/07/2022 5:22 PM Discharge Plan Visit Data Chief Complaint: Stroke/CVA Symptoms Stated Complaint: VISON BLURRY HX CVA FEBRUARY ED Provider: Mateo Keita Discharge Problem: Stroke-like symptoms, Atrial fibrillation, Occlusion of left vertebral artery Patient Disposition: Admitted As Inpatient Discharge Instructions Interventions: ED Discharge Assessment Last Done: 08/07/22 20:01
[2022-08-07] MEDS ORDERED: diphenhydrAMINE 50 MG/ML VIAL IV STA (14:55)
[2022-08-07] MEDS ORDERED: methylPREDNISolone 125 MG/2 ML VIAL IV STA (14:55)
[2022-08-07] MEDS ORDERED: diphenhydrAMINE 50 MG/ML VIAL ONE (15:01)
[2022-08-07] MEDS ORDERED: methylPREDNISolone 125 MG/2 ML VIAL ONE (15:01)
[2022-08-07] MEDS ORDERED: OPTIRAY 320 500ml IV ONE (15:08)
[2022-08-07 15:15] LABS: Basophils # (auto) 0.02 K/uL (0-0.2); Basophils % (auto) 0.3 %; Eosinophils # (auto) 0.07 K/uL (0-0.50); Eosinophils % (auto) 0.9 %; Hemoglobin 13.8 g/dl (12.0-16.0); Immature Granulocytes # (auto) 0.04 K/uL (0.00-0.02); Immature Granulocytes % (auto) 0.5 %; Lymphocytes # (auto) 1.41 K/uL (1.2-3.4); Lymphocytes % (auto) 19.1 %; Mean Corpuscular Hemoglobin 33.8 pg (25.0-34.0); Mean Corpuscular Hgb Conc 34.5 g/dL (32.0-36.0); Mean Platelet Volume 9.6 fL (9.4-12.3); Monocytes # (auto) 0.56 K/uL (0.24-0.82); Monocytes % (auto) 7.6 %; Neutrophils # (auto) 5.28 K/uL (1.4-6.5); Neutrophils % (auto) 71.6 %; Platelet Count 176 K/uL (130-400); RDW Coefficient of Variation 13.6 % (11.5-14.5); RDW Standard Deviation 49.1 fL (36.4-46.3); Red Blood Count 4.08 M/uL (3.93-5.22); White Blood Count 7.38 K/ul (4.8-10.8)
[2022-08-07 15:27] LABS: INR 1.1 (0.9-1.1); Partial Thromboplastin Ratio 0.9; Prothrombin Time 11.4 Seconds (9.0-12.0)
--- NOTE | 2022-08-07 15:34 | CT Scan Report ---
CT angio neck with con, CT angio head w con CLINICAL HISTORY: 81 years-old Female with neuro deficit, acute stroke suspected. Acute strokelike symptoms COMPARISON STUDY: Head CT of same day, CTA head and neck 03/12/2022 TECHNIQUE: Following the IV administration of 113 mL of Optiray, CT angiogram of the head and neck wa s performed from the aortic arch to the skull apex. Images are reviewed in the axial, sagittal, and c oronal planes. 3-D MIPS images are created and assessed. IV contrast was administered without complic ation. All measurements were calculated based on NASCET criteria. A dose lowering technique was util ized adhering to the principles of ALARA. CT DOSE: 980.03 mGy.cm FINDINGS: Patent innominate and imaged subclavian arteries. The common and internal carotid arteries are patent. Atherosclerotic plaque of the cavernous, clinoid and supraclinoid segments without high-g rade stenosis. Motion degraded exam. The middle and anterior cerebral arteries are patent as visualiz ed. The right A1 segment is not well visualized and is likely developmentally diminutive. Chronic thr ombosis involving the mid to distal aspects of the V4 segment left vertebral artery. Mild multifocal luminal narrowing of the basilar artery. Mild multifocal luminal narrowing of the posterior cerebral arteries. origin of the right posterior cerebral artery. Cerebral venous sinuses are patent. Th ere is no abnormal intracranial enhancement. No pneumothorax. Unremarkable soft tissues. Moderate mucosal thickening of the left maxillary sinus. Degenerative changes of the cervical spine. No acute fracture identified. IMPRESSION: 1. 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 2. Atherosclerosis with otherwise unremarkable CTA of the head and neck. ACT 112: Negative or not required by law. The above report was generated using voice recognition software. It may contain grammatical, syntax o r spelling errors. Electronically signed by: Juan Jose Garcia M.D. 08/07/2022 3:33 PM
--- NOTE | 2022-08-07 15:34 | CT Scan Report ---
CT head/brain wo con CLINICAL HISTORY: 81 years-old Female with neuro deficit, acute stroke suspected. Acute strokelike s ymptoms TECHNIQUE: Multiple axial CT images of the head were obtained without contrast. A dose lowering tech nique was utilized adhering to the principles of ALARA. COMPARISON: CTA head and neck of same day, head CT 03/13/2022 FINDINGS: No acute intracranial hemorrhage, midline shift, intracranial mass, hydrocephalus, territorial ischem ia or abnormal extra-axial collection. Cerebral vascular calcifications. Involutional changes with ch ronic microvascular ischemic disease. The calvarium is intact. Mastoid air cells are clear. Mild to moderate because of thickening of the left maxillary and ethmoid sinuses. Prior bilateral lens repair. IMPRESSION: No acute intracranial abnormality. ACT 112: Negative or not required by law. The above report was generated using voice recognition software. It may contain grammatical, syntax o r spelling errors. Electronically signed by: Juan Jose Garcia M.D. 08/07/2022 3:33 PM
[2022-08-07 15:35] LABS: Albumin Globulin Ratio 1.3 (0.9-2); Albumin Level 3.9 gm/dl (3.4-5.0); BUN Creatinine Ratio 25.5 (10-20); Bilirubin,Total 1.4 mg/dl (0.2-1.0); Calcium 8.2 mg/dl (8.5-10.1); Creatinine Clr Calc Pharmacy 87.6 ml/min; Est GFR (African American) 107.4 ml/min; Est GFR (Non-African American) 92.6 ml/min; Globulin 2.9 gm/dl (2.5-4.0); Magnesium 2.1 mg/dl (1.7-2.4); Potassium 3.8 mmol/L (3.5-5.1); Total Protein 6.8 gm/dl (6.0-8.3)
[2022-08-07 15:40] LABS: Troponin I High Sensitivity 6.3 pg/ml (0-14)
[2022-08-07] MEDS ORDERED: cefTRIAXone SODIUM 2,000 MG/70 ML BAG IV STA (16:06)
[2022-08-07] MEDS ORDERED: CALCIUM GLUCONATE 1,000 MG/60 ML BAG IV STA (16:06)
[2022-08-07 17:09] LABS: Appearance Urine Cloudy (Clear); Bacteria Urine Automated 1+ (Negative); Bilirubin Urine Negative (Negative); Blood Urine 1+ (Negative); Cast Urine Automated 0 /lpf (0-5); Color Urine Yellow; Epithelial Cell Urine Auto >30 /lpf (0-5); Glucose Urine UA Negative (Negative); Ketones Urine Negative (Negative); Leukocyte Esterase Urine 3+ (Negative); Nitrite Urine Negative (Negative); Protein Urine Negative (Negative); Specific Gravity Urine > 1.045 (1.000-1.030); Urobilinogen Urine Negative (Negative); WBC Urine Automated >30 /hpf (0-5); pH Urine 8.5 (4.5-7.5)
[2022-08-07] MEDS ORDERED: PHARMACIST DISCHARGE MED REC CONSULT PRN (17:14)
[2022-08-07] MEDS ORDERED: ACETAMINOPHEN 325 MG TAB PO PRN (17:16)
[2022-08-07] MEDS ORDERED: POLYETHYLENE (MIRALAX) 17 GM PACK PO PRN (17:16)
--- NOTE | 2022-08-07 17:24 | XRay Report ---
XR chest 1V portable HISTORY: 81 years-old Female cold symptoms, AMS . Acute shortness of breath COMPARISON: Chest radiographs 06/14/2022 TECHNIQUE: AP view of the chest FINDINGS: Cardiac silhouette is enlarged. Left subclavian pacer. No pneumothorax, pleural effusion, airspace co nsolidation or overt pulmonary edema. Degenerative changes of the shoulders and spine. IMPRESSION: Cardiomegaly without acute process. ACT 112: Negative or not required by law. The above report was generated using voice recognition software. It may contain grammatical, syntax o r spelling errors. Electronically signed by: Juan Jose Garcia M.D. 08/07/2022 5:22 PM
--- NOTE | 2022-08-07 17:34 | History & Physical Report ---
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 At that time she was discharged on dual antibiotic therapy, now she is on Plavix Currently with pacemaker not compatible with MRI, plan for pacer change in the near future [facility] per nursing staff Hgb A1c, lipid panel Speech eval, PT OT Neurology consult Continue Crestor and Plavix Current symptoms also possibly due to infectious etiology Patient has history of UTIs, UA obtained Rocephin ordered in ED, will continue for now and will await urine cultures Per daughter, patient has had cold-like symptoms for past 4 days, mostly cough Chest x-ray obtained and negative COVID-19 negative in the ED Will obtain Pro-Kyree and bio fire Chronic A. fib Follows with [facility] cardiology Due to history of subdural hemorrhage on Coumadin, patient not a candidate for anticoagulation Continue Plavix History of tachy-ramya syndrome status post pacemaker Continue metoprolol DVT ppx: SCDs Code status: Patient's daughter Milena believes that patient has paperwork filled up for DNR/DNI (but not sure). She will review and bring the paperwork to the hospital. History of Present Illness Chief Complaint: stroke like symptoms Primary Care Provider: Roverto Miller MD 81-year-old female with history of tachybradycardia syndrome status post pacemaker, chronic A. fib, rheumatic mitral valve stenosis, history of subdural hemorrhage (while on Coumadin), history of TIA, who presents with worsening confusion, visual disturbance. Patient presents with her daughter Milena, who provides most of the history. Patient started to have cold-like symptoms about 4 days ago, mostly cough. However today she was not able to properly take her pills she was reaching for them as she could not see them properly. Therefore her daughter decided to have her evaluated in the ER. Daughter also says that the patient has been having worsening mental status progressively on and off, however today it was significantly worse than usual. Patient was admitted in February 2022, for possible TIA. Her pacemaker is not compatible with MRI, and therefore MRI was not obtained. Since then patient followed with neurosurgery, and continues to follow with cardiology. Patient sees neurosurgery in [place] for history of subdural hematoma, and chronic occlusion of the distal V4 segment left vertebral artery. Per daughter, it is the plan that she will have her pacer exchanged, and that one will be compatible with MRI. At that point MRI will be obtained and evaluated further. After her admission in February, patient was on 2 antiplatelet therapy, currently she is on Plavix. She does continue to take statin. CT head was obtained in the ED, and negative for any acute pathology. 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 UA was also obtained in the ED as patient has history of UTI. Currently patient is sitting up in bed in no acute distress. She is able to answer some simple questions appropriately. She knows that she lives with her daughter Milena and that Milena is present at the bedside. She knows that she is in the hospital, however she does not know the correct year, says that it is . Denies any fevers chills chest pain shortness of breath or palpitation. Denies any abdominal pain, denies dysuria, diarrhea or constipation. Denies any numbness or weakness. No visual deficit on my exam either. She is very pleasant and cooperative. Allergies Allergy/AdvReac Type Severity Reaction Status Date / Time shellfish derived Allergy Intermediate bumps Verified 08/07/22 16:47 after eating adhesive Allergy Mild SKIN WILL Verified 08/07/22 16:47 GET SORE diltiazem Allergy Unknown doc said Verified 08/07/22 16:47 she shouldnt take it warfarin AdvReac Severe brain bleed Verified 08/07/22 16:47 ezetimibe AdvReac Intermediate GI SYMPTOMS Verified 08/07/22 16:47 hydromorphone AdvReac Intermediate SLOWED Verified 08/07/22 16:47 HEART RATE meperidine AdvReac Intermediate VOMITING Verified 08/07/22 16:47 rosuvastatin AdvReac Intermediate GI SYMPTOMS Verified 08/07/22 16:47 simvastatin AdvReac Intermediate GI SYMPTOMS Verified 08/07/22 16:47 Chvefrm-TOA-TqK Reductase AdvReac Intermediate cramps Verified 08/07/22 16:47 Inhibitor [Oqwmbbe-Eis-Qcr Reductase Inhibitor] Penicillins AdvReac Mild YEAST Verified 08/07/22 16:47 INFECTION Home Medications Medication Instructions Recorded Confirmed Type acetaminophen 500 mg tablet 500 mg PO Q6H PRN Pain 09/26/18 08/07/22 History (Tylenol Extra Strength) bimatoprost 0.01 % eye drops 1 drp ophthalmic (eye) HS 09/26/18 08/07/22 History (Lumigan) cholecalciferol (vitamin D3) 50 0 unit PO QPM 09/26/18 08/07/22 History mcg (2,000 unit) capsule (Vitamin D3) dorzolamide-timolol (PF) 2 %-0.5 % 1 drp ophthalmic (eye) BID 09/26/18 08/07/22 History eye drops in a dropperette (Cosopt (PF)) fexofenadine 180 mg tablet 180 mg PO QPM 09/26/18 08/07/22 History fluticasone propionate 50 2 spray intranasal HS 09/26/18 08/07/22 History mcg/actuation nasal spray,suspension (Flonase Allergy Relief) furosemide 20 mg tablet 20 mg PO 3XWK 09/26/18 08/07/22 History metoprolol succinate 50 mg 50 mg PO QPM 09/26/18 08/07/22 History tablet,extended release 24 hr rosuvastatin 10 mg sprinkle capsule 10 mg PO DAILY #30 caps 03/14/22 08/07/22 Rx clopidogrel 75 mg tablet 75 mg PO QAM 08/07/22 08/07/22 History cyanocobalamin (vitamin B-12) 1,000 mcg PO QPM 08/07/22 08/07/22 History 1,000 mcg tablet (Vitamin B-12) dextromethorphan-guaifenesin 10 0 ml PO DIRECTED PRN 08/07/22 08/07/22 History mg-100 mg/5 mL oral syrup COUGH/CONGESTION famotidine 20 mg tablet (Pepcid) 20 mg PO BID 08/07/22 08/07/22 History multivitamin-ferrous 1 tab PO QPM 08/07/22 08/07/22 History fumarate-folic acid 18 mg-400 mcg tablet (Centrum Women) Past Med/Surg History Medical History Atrial fibrillation hx of--follows with Dr. 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 Hyperlipidemia Hypertension Mitral valve stenosis, rheumatic Pacemaker 05/2012 @ [facility] meditronic single chamber Prolapsed uterus Spinal stenosis Surgical History History of bilateral cataract extraction History of cardiac cath x3--1965- no stents History of colonoscopy History of dilatation and curettage x4 History of esophagogastroduodenoscopy (EGD) History of mandibular surgery hx realignment of jaw History of mitral valve repair 1965 @ [facility] History of removal of cyst benign growth removed from jaw History of tonsillectomy and adenoidectomy History of tooth extraction History of total abdominal hysterectomy History of wisdom tooth extraction Family History Other No family history of adverse response to anesthesia Social History Smoking Status: Never smoker Second Hand Exposure: Yes; Hx Alcohol Use: No Hx Substance Use: No Preferred Language: Uzbek Communication Ability: Effective Wood Window [employer] Required: No Beliefs That Will Affect Care: None marital status: Current Living Situation: Spouse Feels Safe at Home: Yes Assistive Devices: None Review of Systems Review of Systems: All systems reviewed & are unremarkable except as noted in HPI & below Physical Exam Constitutional: WD/WN, vitals as above Eyes: PERRL, conjunctivae normal, anicteric sclerae ENMT: external ear and nose normal, oropharynx normal Neck: trachea midline, no thyromegaly Respiratory: normal respiratory effort, lungs clear to auscultation Cardiovascular: Rate/Rhythm: + irregularly irregular Chest (Breasts): Chest: normal inspection of chest Gastrointestinal (Abdomen): normal bowel sounds, soft, nontender, no hepatosplenomegaly Musculoskeletal: no cyanosis or clubbing, extremities motor strength 5/5 (gait not assessed) Skin: no rashes, warm and dry Neurologic: PERRL, EOMI, accommodation nl, no face palsy, no dysarthria (cr anial nerves intact, moves extremities) Psychiatric: A+Ox3, euthymic affect Genitourinary: no CVA tenderness Lymphatic: no lymphedema Results & Data Results & Data ([facility]) Vital Signs (Past 12 Hours) Vital Signs Temp Pulse Pulse Resp BP BP Pulse Ox 08/07/22 16:17 82 17 148/85 H 94 08/07/22 15:24 95 08/07/22 14:18 37.3 C 98 H 18 138/85 94 O2 Del Method 08/07/22 16:17 Room Air 08/07/22 15:24 Room Air 08/07/22 14:18 Room Air Laboratory Results 08/07/22 08/07/22 08/07/22 Range/Units 16:45 15:30 14:41 WBC (4.8-10.8) K/ul RBC (3.93-5.22) M/uL Hgb (12.0-16.0) g/dl Hct (34.1-44.9) % MCV (80.0-100.0) fL MCH (25.0-34.0) pg MCHC (32.0-36.0) g/dL RDW Std Deviation (36.4-46.3) fL RDW Coeff of Rody (11.5-14.5) % Plt Count (130-400) K/uL MPV (9.4-12.3) fL Immature Gran % (Auto) % Neut % (Auto) % Lymph % (Auto) % Craig % (Auto) % Eos % (Auto) % Baso % (Auto) % Neut # (Auto) (1.4-6.5) K/uL Lymph # (Auto) (1.2-3.4) K/uL Craig # (Auto) (0.24-0.82) K/uL Eos # (Auto) (0-0.50) K/uL Baso # (Auto) (0-0.2) K/uL Immature Gran # (Auto) (0.00-0.02) K/uL PT (9.0-12.0) Seconds INR (0.9-1.1) APTT (21.0-31.0) Seconds PTT Ratio Sodium 136 (136-145) mmol/L Potassium 3.8 (3.5-5.1) mmol/L Chloride 105 (98-107) mmol/L Carbon Dioxide 24 (21-32) mmol/L Anion Gap 7 (3-11) BUN 12 (6-23) mg/dl Creatinine 0.47 L (0.6-1.2) mg/dl Est Cr Clr Drug Dosing 87.6 ml/min Est GFR ( Amer) 107.4 ml/min Est GFR (Non-Af Amer) 92.6 ml/min BUN/Creatinine Ratio 25.5 H (10-20) Glucose 113 H (70-99(Fasting)) mg/dl POC Glucose (70-99) mg/dl Calcium 8.2 L (8.5-10.1) mg/dl Magnesium 2.1 (1.7-2.4) mg/dl Total Bilirubin 1.4 H (0.2-1.0) mg/dl AST 26 (13-39) U/L ALT 16 (7-52) U/L Alkaline Phosphatase 47 (34-104) U/L Troponin I High Sens 6.3 (0-14) pg/ml Total Protein 6.8 (6.0-8.3) gm/dl Albumin 3.9 (3.4-5.0) gm/dl Globulin 2.9 (2.5-4.0) gm/dl Albumin/Globulin Ratio 1.3 (0.9-2) Procalcitonin Urine Color Yellow Urine Appearance Cloudy A (Clear) Urine pH 8.5 H (4.5-7.5) Ur Specific [place] > 1.045 H (1.000-1.030) Urine Protein Negative (Negative) Urine Glucose (UA) Negative (Negative) Urine Ketones Negative (Negative) Urine Blood 1+ H (Negative) Urine Nitrite Negative (Negative) Urine Bilirubin Negative (Negative) Urine Urobilinogen Negative (Negative) Ur Leukocyte Esterase 3+ H (Negative) Urine WBC (Auto) >30 H (0-5) /hpf Urine RBC (Auto) 5-10 H (0-4) /hpf U Hyaline Cast (Auto) 0 (0-5) /lpf U Epithel Cells (Auto) >30 H (0-5) /lpf Urine Bacteria (Auto) 1+ H (Negative) SARS-CoV-2, RNA, NAAT NEGATIVE (NEGATIVE) 08/07/22 08/07/22 08/07/22 Range/Units 14:41 14:41 14:40 WBC 7.38 (4.8-10.8) K/ul RBC 4.08 (3.93-5.22) M/uL Hgb 13.8 (12.0-16.0) g/dl Hct 40.0 (34.1-44.9) % MCV 98.0 (80.0-100.0) fL MCH 33.8 (25.0-34.0) pg MCHC 34.5 (32.0-36.0) g/dL RDW Std Deviation 49.1 H (36.4-46.3) fL RDW Coeff of Rody 13.6 (11.5-14.5) % Plt Count 176 (130-400) K/uL MPV 9.6 (9.4-12.3) fL Immature Gran % (Auto) 0.5 % Neut % (Auto) 71.6 % Lymph % (Auto) 19.1 % Craig % (Auto) 7.6 % Eos % (Auto) 0.9 % Baso % (Auto) 0.3 % Neut # (Auto) 5.28 (1.4-6.5) K/uL Lymph # (Auto) 1.41 (1.2-3.4) K/uL Craig # (Auto) 0.56 (0.24-0.82) K/uL Eos # (Auto) 0.07 (0-0.50) K/uL Baso # (Auto) 0.02 (0-0.2) K/uL Immature Gran # (Auto) 0.04 H (0.00-0.02) K/uL PT 11.4 (9.0-12.0) Seconds INR 1.1 (0.9-1.1) APTT 25.0 (21.0-31.0) Seconds PTT Ratio 0.9 Sodium (136-145) mmol/L Potassium (3.5-5.1) mmol/L Chloride (98-107) mmol/L Carbon Dioxide (21-32) mmol/L Anion Gap (3-11) BUN (6-23) mg/dl Creatinine (0.6-1.2) mg/dl Est Cr Clr Drug Dosing ml/min Est GFR ( Amer) ml/min Est GFR (Non-Af Amer) ml/min BUN/Creatinine Ratio (10-20) Glucose (70-99(Fasting)) mg/dl POC Glucose (70-99) mg/dl Calcium (8.5-10.1) mg/dl Magnesium (1.7-2.4) mg/dl Total Bilirubin (0.2-1.0) mg/dl AST (13-39) U/L ALT (7-52) U/L Alkaline Phosphatase (34-104) U/L Troponin I High Sens (0-14) pg/ml Total Protein (6.0-8.3) gm/dl Albumin (3.4-5.0) gm/dl Globulin (2.5-4.0) gm/dl Albumin/Globulin Ratio (0.9-2) Procalcitonin Pending Urine Color Urine Appearance (Clear) Urine pH (4.5-7.5) Ur Specific [place] (1.000-1.030) Urine Protein (Negative) Urine Glucose (UA) (Negative) Urine Ketones (Negative) Urine Blood (Negative) Urine Nitrite (Negative) Urine Bilirubin (Negative) Urine Urobilinogen (Negative) Ur Leukocyte Esterase (Negative) Urine WBC (Auto) (0-5) /hpf Urine RBC (Auto) (0-4) /hpf U Hyaline Cast (Auto) (0-5) /lpf U Epithel Cells (Auto) (0-5) /lpf Urine Bacteria (Auto) (Negative) SARS-CoV-2, RNA, NAAT (NEGATIVE) 08/07/22 Range/Units 14:36 WBC (4.8-10.8) K/ul RBC (3.93-5.22) M/uL Hgb (12.0-16.0) g/dl Hct (34.1-44.9) % MCV (80.0-100.0) fL MCH (25.0-34.0) pg MCHC (32.0-36.0) g/dL RDW Std Deviation (36.4-46.3) fL RDW Coeff of Rody (11.5-14.5) % Plt Count (130-400) K/uL MPV (9.4-12.3) fL Immature Gran % (Auto) % Neut % (Auto) % Lymph % (Auto) % Craig % (Auto) % Eos % (Auto) % Baso % (Auto) % Neut # (Auto) (1.4-6.5) K/uL Lymph # (Auto) (1.2-3.4) K/uL Craig # (Auto) (0.24-0.82) K/uL Eos # (Auto) (0-0.50) K/uL Baso # (Auto) (0-0.2) K/uL Immature Gran # (Auto) (0.00-0.02) K/uL PT (9.0-12.0) Seconds INR (0.9-1.1) APTT (21.0-31.0) Seconds PTT Ratio Sodium (136-145) mmol/L Potassium (3.5-5.1) mmol/L Chloride (98-107) mmol/L Carbon Dioxide (21-32) mmol/L Anion Gap (3-11) BUN (6-23) mg/dl Creatinine (0.6-1.2) mg/dl Est Cr Clr Drug Dosing ml/min Est GFR ( Amer) ml/min Est GFR (Non-Af Amer) ml/min BUN/Creatinine Ratio (10-20) Glucose (70-99(Fasting)) mg/dl POC Glucose 108 H (70-99) mg/dl Calcium (8.5-10.1) mg/dl Magnesium (1.7-2.4) mg/dl Total Bilirubin (0.2-1.0) mg/dl AST (13-39) U/L ALT (7-52) U/L Alkaline Phosphatase (34-104) U/L Troponin I High Sens (0-14) pg/ml Total Protein (6.0-8.3) gm/dl Albumin (3.4-5.0) gm/dl Globulin (2.5-4.0) gm/dl Albumin/Globulin Ratio (0.9-2) Procalcitonin Urine Color Urine Appearance (Clear) Urine pH (4.5-7.5) Ur Specific [place] (1.000-1.030) Urine Protein (Negative) Urine Glucose (UA) (Negative) Urine Ketones (Negative) Urine Blood (Negative) Urine Nitrite (Negative) Urine Bilirubin (Negative) Urine Urobilinogen (Negative) Ur Leukocyte Esterase (Negative) Urine WBC (Auto) (0-5) /hpf Urine RBC (Auto) (0-4) /hpf U Hyaline Cast (Auto) (0-5) /lpf U Epithel Cells (Auto) (0-5) /lpf Urine Bacteria (Auto) (Negative) SARS-CoV-2, RNA, NAAT (NEGATIVE) Diagnostic Findings CXR FINDINGS: Cardiac silhouette is enlarged. Left subclavian pacer. No pneumothorax, pleural effusion, airspace consolidation or overt pulmonary edema. Degenerative changes of the shoulders and spine. IMPRESSION: Cardiomegaly without acute process. CT Head FINDINGS: No acute intracranial hemorrhage, midline shift, intracranial mass, hydrocephalus, territorial ischemia or abnormal extra-axial collection. Cerebral vascular calcifications. Involutional changes with chronic microvascular ischemic disease. The calvarium is intact. Mastoid air cells are clear. Mild to moderate because of thickening of the left maxillary and ethmoid sinuses. Prior bilateral lens repair. IMPRESSION: No acute intracranial abnormality. CTA Head / neck FINDINGS: Patent innominate and imaged subclavian arteries. The common and internal carotid arteries are patent. Atherosclerotic plaque of the cavernous, clinoid and supraclinoid segments without high-grade stenosis. Motion degraded exam. The middle and anterior cerebral arteries are patent as visualized. The right A1 segment is not well visualized and is likely developmentally diminutive. Chronic thrombosis involving the mid to distal aspects of the V4 segment left vertebral artery. Mild multifocal luminal narrowing of the basilar artery. Mild multifocal luminal narrowing of the posterior cerebral arteries. origin of the right posterior cerebral artery. Cerebral venous sinuses are patent. There is no abnormal intracranial enhancement. No pneumothorax. Unremarkable soft tissues. Moderate mucosal thickening of the left maxillary sinus. Degenerative changes of the cervical spine. No acute fracture identified. IMPRESSION: 1. 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 2. Atherosclerosis with otherwise unremarkable CTA of the head and neck. Code Status & VTE Plan VTE Prophylaxis Plan VTE Prophylaxis will be ordered: Yes
[2022-08-07 19:11] LABS: Adenovirus PCR Not Detected (NotDetected); Bordetella parapertussis PCR Not Detected (NotDetected); Bordetella pertussis PCR Not Detected (NotDetected); Chlamydia pneumoniae PCR Not Detected (NotDetected); Coronavirus 229E PCR Not Detected (NotDetected); Coronavirus CoV-2 (COVID19)PCR Not Detected (NotDetected); Coronavirus HKU1 PCR Not Detected (NotDetected); Coronavirus NL63 PCR Not Detected (NotDetected); Coronavirus OC43PCR Not Detected (NotDetected); Human Metapneumovirus PCR Not Detected (NotDetected); Influenza A PCR Not Detected (NotDetected); Influenza B PCR Not Detected (NotDetected); Mycoplasma pneumoniae PCR Not Detected (NotDetected); Parainfluenza Virus 1 PCR Not Detected (NotDetected); Parainfluenza Virus 2 PCR Not Detected (NotDetected); Parainfluenza Virus 3 PCR Not Detected (NotDetected); Parainfluenza Virus 4 PCR Not Detected (NotDetected); Respiratory Syncytial VirusPCR Not Detected (NotDetected)
[2022-08-07 19:42] LABS: Rhinovirus/Enterovirus PCR DETECTED (NotDetected)
[2022-08-07] MEDS ORDERED: METOPROLOL SUCC 50MG EXT REL TAB PO SCH (21:00)
[2022-08-07] MEDS: FAMOTIDINE 20 MG TAB PO SCH (23:13)
[2022-08-08 05:55] LABS: Basophils # (auto) 0.01 K/uL (0-0.2); Basophils % (auto) 0.2 %; Hematocrit (blood only) 39.5 % (34.1-44.9); Hemoglobin 13.3 g/dl (12.0-16.0); Immature Granulocytes # (auto) 0.02 K/uL (0.00-0.02); Immature Granulocytes % (auto) 0.4 %; Lymphocytes # (auto) 0.88 K/uL (1.2-3.4); Lymphocytes % (auto) 18.4 %; Mean Corpuscular Hemoglobin 32.3 pg (25.0-34.0); Mean Corpuscular Hgb Conc 33.7 g/dL (32.0-36.0); Mean Corpuscular Volume 95.9 fL (80.0-100.0); Mean Platelet Volume 9.3 fL (9.4-12.3); Monocytes # (auto) 0.11 K/uL (0.24-0.82); Monocytes % (auto) 2.3 %; Neutrophils # (auto) 3.76 K/uL (1.4-6.5); Neutrophils % (auto) 78.7 %; Platelet Count 150 K/uL (130-400); RDW Coefficient of Variation 13.3 % (11.5-14.5); RDW Standard Deviation 47.6 fL (36.4-46.3); Red Blood Count 4.12 M/uL (3.93-5.22); White Blood Count 4.78 K/ul (4.8-10.8)
[2022-08-08 06:32] LABS: BUN Creatinine Ratio 23.3 (10-20); Calcium 8.3 mg/dl (8.5-10.1); Chol HDL Ratio 1.9 (0-5); Creatinine Clr Calc Pharmacy 68.6 ml/min; Est GFR (African American) 99.1 ml/min; Est GFR (Non-African American) 85.5 ml/min; Potassium 4.1 mmol/L (3.5-5.1)
[2022-08-08] MEDS: FAMOTIDINE 20 MG TAB PO SCH (08:49)
--- NOTE | 2022-08-08 08:50 | Hospitalist Progress Note ---
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 At that time she was discharged on dual antibiotic therapy, now she is on Plavix Currently with pacemaker not compatible with MRI, plan for pacer change in the near future Strokelike protocol per nursing staff, neuro-checks Hgb A1c 5.4% , lipid panel obtained, LDL 50 Speech eval, PT OT Neurology consulted - poss. TIA continue ASA and plavix for 3 weeks then continue Plavix alone Continue Crestor Positive rhinovirus infection Current symptoms also possibly due to infectious etiology Patient has history of UTIs, UA obtained, u cultx - pending Rocephin ordered in ED, will continue for now and will await urine cultures DC home w/ cefdinir Per daughter, patient has had cold-like symptoms for past 4 days, mostly cough Patient found positive for rhinovirus Chest x-ray obtained and negative COVID-19 negative in the ED procalcitonin negative Chronic A. fib Follows with [facility] cardiology Due to history of subdural hemorrhage on Coumadin, patient not a candidate for anticoagulation Continue Plavix History of tachy-ramya syndrome status post pacemaker Continue metoprolol DVT ppx: SCDs Code status: Patient's daughter Milena believes that patient has paperwork filled up for DNR/DNI (but not sure). She will review and bring the paperwork to the hospital. Dispo: plan to DC home Admission and Anticipated Discharge Date Admission Date: August 07, 2022 Subjective Pt seen in follow up of stroke-like symptoms, cold-symptoms found to be positive for rhinovirus, possible UTI Patient is currently sitting up in bed, in no acute distress, family at the bedside Patient reports feeling well No fevers, chest pain, shortness of breath, reports minimal cough No abdominal pain or vomiting Denies any weakness Patient seen by neurology, and PT OT Review of Systems Review of Systems: All systems reviewed & are unremarkable except as noted in Subjective Physical Exam Physical Exam: Constitutional:L WD/WN, vitals as a camron Eyes: PERRL, EOMI, conju nctivae normal, an icteric sclerae ENMT: external ear and n ose normal, oropha rynx normal Neck: supple Respiratory: normal respiratory effort, lungs aaron ar to auscultation Cardiovascular:L Rate/Rhythm: + irr egularly irregular Chest (Breasts): Chest: normal insp ection of chest Gastrointestinal ( Abdomen): normal bowel sound s, soft, nontender Musculoskeletal: extremities motor strength 5/5 (gait not assessed) Skin: no rashes, warm an d dry Neurologic: PERRL, EOMI, no fa ce palsy, no dysar thria, moves extre mities Psychiatric: A+Ox3, euthymic af fect Genitourinary: no CVA tenderness Lymphatic: no lymphedema Results & Data Results & Data ([facility]) Vital Signs (Past 12 Hours) Vital Signs Temp Pulse Resp BP BP Pulse Ox O2 Del Method 08/08/22 08:00 36.9 C 76 18 147/85 H 93 Room Air 08/07/22 21:30 Room Air 08/07/22 21:30 36.3 C L 71 16 156/91 H 96 Room Air 08/08/22 02:46 36.5 C 70 18 121/73 96 Room Air 08/07/22 22:57 36.4 C L 66 18 129/83 96 Room Air Laboratory Results 08/08/22 08/08/22 08/08/22 Range/Units 05:28 05:28 05:28 WBC 4.78 L (4.8-10.8) K/ul RBC 4.12 (3.93-5.22) M/uL Hgb 13.3 (12.0-16.0) g/dl Hct 39.5 (34.1-44.9) % MCV 95.9 (80.0-100.0) fL MCH 32.3 (25.0-34.0) pg MCHC 33.7 (32.0-36.0) g/dL RDW Std Deviation 47.6 H (36.4-46.3) fL RDW Coeff of Rody 13.3 (11.5-14.5) % Plt Count 150 (130-400) K/uL MPV 9.3 L (9.4-12.3) fL Immature Gran % (Auto) 0.4 % Neut % (Auto) 78.7 % Lymph % (Auto) 18.4 % Grand % (Auto) 2.3 % Eos % (Auto) 0.0 % Baso % (Auto) 0.2 % Neut # (Auto) 3.76 (1.4-6.5) K/uL Lymph # (Auto) 0.88 L (1.2-3.4) K/uL Grand # (Auto) 0.11 L (0.24-0.82) K/uL Eos # (Auto) 0.00 (0-0.50) K/uL Baso # (Auto) 0.01 (0-0.2) K/uL Immature Gran # (Auto) 0.02 (0.00-0.02) K/uL PT (9.0-12.0) Seconds INR (0.9-1.1) APTT (21.0-31.0) Seconds PTT Ratio Sodium 137 (136-145) mmol/L Potassium 4.1 (3.5-5.1) mmol/L Chloride 106 (98-107) mmol/L Carbon Dioxide 26 (21-32) mmol/L Anion Gap 5 (3-11) BUN 14 (6-23) mg/dl Creatinine 0.60 (0.6-1.2) mg/dl Est Cr Clr Drug Dosing 68.6 ml/min Est GFR ( Amer) 99.1 ml/min Est GFR (Non-Af Amer) 85.5 ml/min BUN/Creatinine Ratio 23.3 H (10-20) Glucose 138 H (70-99(Fasting)) mg/dl POC Glucose (70-99) mg/dl Estimat Average Glucose Pending Hemoglobin A1c Pending Calcium 8.3 L (8.5-10.1) mg/dl Magnesium (1.7-2.4) mg/dl Total Bilirubin (0.2-1.0) mg/dl AST (13-39) U/L ALT (7-52) U/L Alkaline Phosphatase (34-104) U/L Troponin I High Sens (0-14) pg/ml Total Protein (6.0-8.3) gm/dl Albumin (3.4-5.0) gm/dl Globulin (2.5-4.0) gm/dl Albumin/Globulin Ratio (0.9-2) Triglycerides 45 (0-150) mg/dl Cholesterol 125 (0-200) mg/dl LDL Cholesterol, Calc 50 mg/dl VLDL Cholesterol, Calc 9 (0-30) mg/dl HDL Cholesterol 66 mg/dl Cholesterol/HDL Ratio 1.9 (0-5) Procalcitonin (0-0.5) ng/ml Urine Color Urine Appearance (Clear) Urine pH (4.5-7.5) Ur Specific Sterling (1.000-1.030) Urine Protein (Negative) Urine Glucose (UA) (Negative) Urine Ketones (Negative) Urine Blood (Negative) Urine Nitrite (Negative) Urine Bilirubin (Negative) Urine Urobilinogen (Negative) Ur Leukocyte Esterase (Negative) Urine WBC (Auto) (0-5) /hpf Urine RBC (Auto) (0-4) /hpf U Hyaline Cast (Auto) (0-5) /lpf U Epithel Cells (Auto) (0-5) /lpf Urine Bacteria (Auto) (Negative) Adenovirus (PCR) (NotDetected) B. pertussis DNA (PCR) (NotDetected) B.parapertussis DNA PCR (NotDetected) C. pneumoniae DNA (PCR) (NotDetected) Coronavirus OC43 (PCR) (NotDetected) Coronavirus HKU1 (PCR) (NotDetected) Coronavirus 229E (PCR) (NotDetected) SARS-CoV-2 (PCR) (NotDetected) Coronavirus NL63 (PCR) (NotDetected) Human Metapneumovir PCR (NotDetected) Influenza Type A (PCR) (NotDetected) Influenza Type B (PCR) (NotDetected) M. pneumoniae (PCR) (NotDetected) Parainfluenza 1 (PCR) (NotDetected) Parainfluenza 2 (PCR) (NotDetected) Parainfluenza 3 (PCR) (NotDetected) Parainfluenza 4 (PCR) (NotDetected) RSV (PCR) (NotDetected) Entero/Rhino (PCR) (NotDetected) SARS-CoV-2, RNA, NAAT (NEGATIVE) 08/07/22 08/07/22 08/07/22 Range/Units 18:14 16:45 15:30 WBC (4.8-10.8) K/ul RBC (3.93-5.22) M/uL Hgb (12.0-16.0) g/dl Hct (34.1-44.9) % MCV (80.0-100.0) fL MCH (25.0-34.0) pg MCHC (32.0-36.0) g/dL RDW Std Deviation (36.4-46.3) fL RDW Coeff of Rody (11.5-14.5) % Plt Count (130-400) K/uL MPV (9.4-12.3) fL Immature Gran % (Auto) % Neut % (Auto) % Lymph % (Auto) % Grand % (Auto) % Eos % (Auto) % Baso % (Auto) % Neut # (Auto) (1.4-6.5) K/uL Lymph # (Auto) (1.2-3.4) K/uL Grand # (Auto) (0.24-0.82) K/uL Eos # (Auto) (0-0.50) K/uL Baso # (Auto) (0-0.2) K/uL Immature Gran # (Auto) (0.00-0.02) K/uL PT (9.0-12.0) Seconds INR (0.9-1.1) APTT (21.0-31.0) Seconds PTT Ratio Sodium (136-145) mmol/L Potassium (3.5-5.1) mmol/L Chloride (98-107) mmol/L Carbon Dioxide (21-32) mmol/L Anion Gap (3-11) BUN (6-23) mg/dl Creatinine (0.6-1.2) mg/dl Est Cr Clr Drug Dosing ml/min Est GFR ( Amer) ml/min Est GFR (Non-Af Amer) ml/min BUN/Creatinine Ratio (10-20) Glucose (70-99(Fasting)) mg/dl POC Glucose (70-99) mg/dl Estimat Average Glucose Hemoglobin A1c Calcium (8.5-10.1) mg/dl Magnesium (1.7-2.4) mg/dl Total Bilirubin (0.2-1.0) mg/dl AST (13-39) U/L ALT (7-52) U/L Alkaline Phosphatase (34-104) U/L Troponin I High Sens (0-14) pg/ml Total Protein (6.0-8.3) gm/dl Albumin (3.4-5.0) gm/dl Globulin (2.5-4.0) gm/dl Albumin/Globulin Ratio (0.9-2) Triglycerides (0-150) mg/dl Cholesterol (0-200) mg/dl LDL Cholesterol, Calc mg/dl VLDL Cholesterol, Calc (0-30) mg/dl HDL Cholesterol mg/dl Cholesterol/HDL Ratio (0-5) Procalcitonin (0-0.5) ng/ml Urine Color Yellow Urine Appearance Cloudy A (Clear) Urine pH 8.5 H (4.5-7.5) Ur Specific Sterling > 1.045 H (1.000-1.030) Urine Protein Negative (Negative) Urine Glucose (UA) Negative (Negative) Urine Ketones Negative (Negative) Urine Blood 1+ H (Negative) Urine Nitrite Negative (Negative) Urine Bilirubin Negative (Negative) Urine Urobilinogen Negative (Negative) Ur Leukocyte Esterase 3+ H (Negative) Urine WBC (Auto) >30 H (0-5) /hpf Urine RBC (Auto) 5-10 H (0-4) /hpf U Hyaline Cast (Auto) 0 (0-5) /lpf U Epithel Cells (Auto) >30 H (0-5) /lpf Urine Bacteria (Auto) 1+ H (Negative) Adenovirus (PCR) Not Detected (NotDetected) B. pertussis DNA (PCR) Not Detected (NotDetected) B.parapertussis DNA PCR Not Detected (NotDetected) C. pneumoniae DNA (PCR) Not Detected (NotDetected) Coronavirus OC43 (PCR) Not Detected (NotDetected) Coronavirus HKU1 (PCR) Not Detected (NotDetected) Coronavirus 229E (PCR) Not Detected (NotDetected) SARS-CoV-2 (PCR) Not Detected (NotDetected) Coronavirus NL63 (PCR) Not Detected (NotDetected) Human Metapneumovir PCR Not Detected (NotDetected) Influenza Type A (PCR) Not Detected (NotDetected) Influenza Type B (PCR) Not Detected (NotDetected) M. pneumoniae (PCR) Not Detected (NotDetected) Parainfluenza 1 (PCR) Not Detected (NotDetected) Parainfluenza 2 (PCR) Not Detected (NotDetected) Parainfluenza 3 (PCR) Not Detected (NotDetected) Parainfluenza 4 (PCR) Not Detected (NotDetected) RSV (PCR) Not Detected (NotDetected) Entero/Rhino (PCR) DETECTED A* (NotDetected) SARS-CoV-2, RNA, NAAT NEGATIVE (NEGATIVE) 08/07/22 08/07/22 08/07/22 Range/Units 14:41 14:41 14:41 WBC 7.38 (4.8-10.8) K/ul RBC 4.08 (3.93-5.22) M/uL Hgb 13.8 (12.0-16.0) g/dl Hct 40.0 (34.1-44.9) % MCV 98.0 (80.0-100.0) fL MCH 33.8 (25.0-34.0) pg MCHC 34.5 (32.0-36.0) g/dL RDW Std Deviation 49.1 H (36.4-46.3) fL RDW Coeff of Rody 13.6 (11.5-14.5) % Plt Count 176 (130-400) K/uL MPV 9.6 (9.4-12.3) fL Immature Gran % (Auto) 0.5 % Neut % (Auto) 71.6 % Lymph % (Auto) 19.1 % Grand % (Auto) 7.6 % Eos % (Auto) 0.9 % Baso % (Auto) 0.3 % Neut # (Auto) 5.28 (1.4-6.5) K/uL Lymph # (Auto) 1.41 (1.2-3.4) K/uL Grand # (Auto) 0.56 (0.24-0.82) K/uL Eos # (Auto) 0.07 (0-0.50) K/uL Baso # (Auto) 0.02 (0-0.2) K/uL Immature Gran # (Auto) 0.04 H (0.00-0.02) K/uL PT 11.4 (9.0-12.0) Seconds INR 1.1 (0.9-1.1) APTT 25.0 (21.0-31.0) Seconds PTT Ratio 0.9 Sodium 136 (136-145) mmol/L Potassium 3.8 (3.5-5.1) mmol/L Chloride 105 (98-107) mmol/L Carbon Dioxide 24 (21-32) mmol/L Anion Gap 7 (3-11) BUN 12 (6-23) mg/dl Creatinine 0.47 L (0.6-1.2) mg/dl Est Cr Clr Drug Dosing 87.6 ml/min Est GFR ( Amer) 107.4 ml/min Est GFR (Non-Af Amer) 92.6 ml/min BUN/Creatinine Ratio 25.5 H (10-20) Glucose 113 H (70-99(Fasting)) mg/dl POC Glucose (70-99) mg/dl Estimat Average Glucose Hemoglobin A1c Calcium 8.2 L (8.5-10.1) mg/dl Magnesium 2.1 (1.7-2.4) mg/dl Total Bilirubin 1.4 H (0.2-1.0) mg/dl AST 26 (13-39) U/L ALT 16 (7-52) U/L Alkaline Phosphatase 47 (34-104) U/L Troponin I High Sens 6.3 (0-14) pg/ml Total Protein 6.8 (6.0-8.3) gm/dl Albumin 3.9 (3.4-5.0) gm/dl Globulin 2.9 (2.5-4.0) gm/dl Albumin/Globulin Ratio 1.3 (0.9-2) Triglycerides (0-150) mg/dl Cholesterol (0-200) mg/dl LDL Cholesterol, Calc mg/dl VLDL Cholesterol, Calc (0-30) mg/dl HDL Cholesterol mg/dl Cholesterol/HDL Ratio (0-5) Procalcitonin (0-0.5) ng/ml Urine Color Urine Appearance (Clear) Urine pH (4.5-7.5) Ur Specific Sterling (1.000-1.030) Urine Protein (Negative) Urine Glucose (UA) (Negative) Urine Ketones (Negative) Urine Blood (Negative) Urine Nitrite (Negative) Urine Bilirubin (Negative) Urine Urobilinogen (Negative) Ur Leukocyte Esterase (Negative) Urine WBC (Auto) (0-5) /hpf Urine RBC (Auto) (0-4) /hpf U Hyaline Cast (Auto) (0-5) /lpf U Epithel Cells (Auto) (0-5) /lpf Urine Bacteria (Auto) (Negative) Adenovirus (PCR) (NotDetected) B. pertussis DNA (PCR) (NotDetected) B.parapertussis DNA PCR (NotDetected) C. pneumoniae DNA (PCR) (NotDetected) Coronavirus OC43 (PCR) (NotDetected) Coronavirus HKU1 (PCR) (NotDetected) Coronavirus 229E (PCR) (NotDetected) SARS-CoV-2 (PCR) (NotDetected) Coronavirus NL63 (PCR) (NotDetected) Human Metapneumovir PCR (NotDetected) Influenza Type A (PCR) (NotDetected) Influenza Type B (PCR) (NotDetected) M. pneumoniae (PCR) (NotDetected) Parainfluenza 1 (PCR) (NotDetected) Parainfluenza 2 (PCR) (NotDetected) Parainfluenza 3 (PCR) (NotDetected) Parainfluenza 4 (PCR) (NotDetected) RSV (PCR) (NotDetected) Entero/Rhino (PCR) (NotDetected) SARS-CoV-2, RNA, NAAT (NEGATIVE) 08/07/22 08/07/22 Range/Units 14:40 14:36 WBC (4.8-10.8) K/ul RBC (3.93-5.22) M/uL Hgb (12.0-16.0) g/dl Hct (34.1-44.9) % MCV (80.0-100.0) fL MCH (25.0-34.0) pg MCHC (32.0-36.0) g/dL RDW Std Deviation (36.4-46.3) fL RDW Coeff of Rody (11.5-14.5) % Plt Count (130-400) K/uL MPV (9.4-12.3) fL Immature Gran % (Auto) % Neut % (Auto) % Lymph % (Auto) % Grand % (Auto) % Eos % (Auto) % Baso % (Auto) % Neut # (Auto) (1.4-6.5) K/uL Lymph # (Auto) (1.2-3.4) K/uL Grand # (Auto) (0.24-0.82) K/uL Eos # (Auto) (0-0.50) K/uL Baso # (Auto) (0-0.2) K/uL Immature Gran # (Auto) (0.00-0.02) K/uL PT (9.0-12.0) Seconds INR (0.9-1.1) APTT (21.0-31.0) Seconds PTT Ratio Sodium (136-145) mmol/L Potassium (3.5-5.1) mmol/L Chloride (98-107) mmol/L Carbon Dioxide (21-32) mmol/L Anion Gap (3-11) BUN (6-23) mg/dl Creatinine (0.6-1.2) mg/dl Est Cr Clr Drug Dosing ml/min Est GFR ( Amer) ml/min Est GFR (Non-Af Amer) ml/min BUN/Creatinine Ratio (10-20) Glucose (70-99(Fasting)) mg/dl POC Glucose 108 H (70-99) mg/dl Estimat Average Glucose Hemoglobin A1c Calcium (8.5-10.1) mg/dl Magnesium (1.7-2.4) mg/dl Total Bilirubin (0.2-1.0) mg/dl AST (13-39) U/L ALT (7-52) U/L Alkaline Phosphatase (34-104) U/L Troponin I High Sens (0-14) pg/ml Total Protein (6.0-8.3) gm/dl Albumin (3.4-5.0) gm/dl Globulin (2.5-4.0) gm/dl Albumin/Globulin Ratio (0.9-2) Triglycerides (0-150) mg/dl Cholesterol (0-200) mg/dl LDL Cholesterol, Calc mg/dl VLDL Cholesterol, Calc (0-30) mg/dl HDL Cholesterol mg/dl Cholesterol/HDL Ratio (0-5) Procalcitonin < 0.05 (0-0.5) ng/ml Urine Color Urine Appearance (Clear) Urine pH (4.5-7.5) Ur Specific Sterling (1.000-1.030) Urine Protein (Negative) Urine Glucose (UA) (Negative) Urine Ketones (Negative) Urine Blood (Negative) Urine Nitrite (Negative) Urine Bilirubin (Negative) Urine Urobilinogen (Negative) Ur Leukocyte Esterase (Negative) Urine WBC (Auto) (0-5) /hpf Urine RBC (Auto) (0-4) /hpf U Hyaline Cast (Auto) (0-5) /lpf U Epithel Cells (Auto) (0-5) /lpf Urine Bacteria (Auto) (Negative) Adenovirus (PCR) (NotDetected) B. pertussis DNA (PCR) (NotDetected) B.parapertussis DNA PCR (NotDetected) C. pneumoniae DNA (PCR) (NotDetected) Coronavirus OC43 (PCR) (NotDetected) Coronavirus HKU1 (PCR) (NotDetected) Coronavirus 229E (PCR) (NotDetected) SARS-CoV-2 (PCR) (NotDetected) Coronavirus NL63 (PCR) (NotDetected) Human Metapneumovir PCR (NotDetected) Influenza Type A (PCR) (NotDetected) Influenza Type B (PCR) (NotDetected) M. pneumoniae (PCR) (NotDetected) Parainfluenza 1 (PCR) (NotDetected) Parainfluenza 2 (PCR) (NotDetected) Parainfluenza 3 (PCR) (NotDetected) Parainfluenza 4 (PCR) (NotDetected) RSV (PCR) (NotDetected) Entero/Rhino (PCR) (NotDetected) SARS-CoV-2, RNA, NAAT (NEGATIVE) Medications Administered Current Inpatient Medications Acetaminophen (Acetaminophen 325 Mg Tab) 650 mg PO Q4H PRN PRN Reason: Pain or Fever Stop: 09/06/22 17:15 Clopidogrel Bisulfate (Clopidogrel Bisulfate 75 Mg Tab) 75 mg PO QAM CHARANJIT Stop: 09/07/22 08:59 Famotidine (Famotidine 20 Mg Tab) 20 mg PO BID [facility] Stop: 09/06/22 20:59 Last Admin: 08/07/22 23:13 Dose: 20 mg Furosemide (Furosemide 20 Mg Tab) 20 mg PO [id number] [facility] Stop: 09/07/22 08:59 Ceftriaxone Sodium 1,000 mg/ (Dextrose) 50 mls @ 100 mls/hr IV Q24H [facility]; Protocol Stop: 08/08/22 16:29 Lactobacillus Acidophilus (Advanced Probiotic 1250 Mg Capsule) 2 cap PO DAILY [facility] Stop: 09/07/22 08:59 Metoprolol Succinate (Metoprolol Succ 50mg Ext Rel Tab) 50 mg PO QPM [facility] Stop: 09/06/22 20:59 Last Admin: 08/07/22 23:13 Dose: 50 mg Miscellaneous Information (Pharmacist Discharge Med Rec Consult) 1 each N/A UD PRN PRN Reason: Consult Stop: 09/06/22 17:13 Polyethylene Glycol (Polyethylene (Miralax) 17 Gm Pack) 17 gm PO DAILY PRN PRN Reason: Constipation Stop: 09/06/22 17:15 Rosuvastatin Calcium (Rosuvastatin Calcium 10 Mg Tab) 10 mg PO DAILY [facility] Stop: 09/07/22 08:59
[2022-08-08] MEDS ORDERED: FUROSEMIDE 20 MG TAB PO SCH (09:00)
[2022-08-08] MEDS ORDERED: ROSUVASTATIN CALCIUM 10 MG TAB PO SCH (09:00)
[2022-08-08] MEDS ORDERED: ADVANCED PROBIOTIC 1250 MG CAPSULE PO SCH (09:00)
[2022-08-08] MEDS ORDERED: CLOPIDOGREL BISULFATE 75 MG TAB PO SCH (09:00)
--- NOTE | 2022-08-08 09:07 | Electrocardiogram Report ---
Test Reason : Blood Pressure : / mmHG Vent. Rate : 077 BPM Atrial Rate : 340 BPM P-R Int : 000 ms QRS Dur : 080 ms QT Int : 392 ms P-R-T Axes : 000 111 066 degrees QTc Int : 443 ms Atrial fibrillation with occasional ventricular-paced complexes Right axis deviation Abnormal ECG When compared with ECG of 07-AUG-2022 14:40, Electronic ventricular pacemaker now present Confirmed by Rajat Zavala ([id number]) on 08/08/2022 9:07:05 AM Referred By: REFERRED SELF Confirmed By:Rajat Zavala
--- NOTE | 2022-08-08 09:10 | Electrocardiogram Report ---
Test Reason : Blood Pressure : / mmHG Vent. Rate : 091 BPM Atrial Rate : 267 BPM P-R Int : 000 ms QRS Dur : 078 ms QT Int : 348 ms P-R-T Axes : 000 113 013 degrees QTc Int : 428 ms Atrial fibrillation with occasional ventricular-paced complexes (end of tracing) Right axis deviation Left posterior fascicular block Abnormal ECG When compared with ECG of 12-MAR-2022 19:26, No significant change Confirmed by Rajat Zavala ([id number]) on 08/08/2022 9:09:42 AM Referred By: REFERRED SELF Confirmed By:Rajat Zavala
--- NOTE | 2022-08-08 10:08 | Neurology Consultation ---
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 Case discussed with attending hospitalist. Would recommend dual antiplatelet therapy for the next 3 weeks, aspirin 81 mg/day and clopidogrel 75 mg/day. After 3 weeks would discontinue aspirin in favor of Plavix monotherapy, 75 mg/day. Continue with Crestor 10 mg/day. Continue medical management in the context of chronic vertebral artery occlusion. Stenting or other revascularization surgeries are not indicated. Unable to have MRI with current pacemaker. However, according to patient's daughter, there are plans to have her pacemaker changed shortly, her new pacer could be MRI compatible. Patient should follow-up with the local neurology group for ongoing monitoring of her neurological status. No further immediate recommendations. History of Present Illness Reason for Consultation: Strokelike symptoms Requesting Physician: Herson Reyes MD Attending Physician: Herson Reyes MD History of Present Illness The patient is an 81-year-old female with a history of chronic cerebrovascular disease, TIA, chronic atrial fibrillation, spontaneous subdural hemorrhage while on warfarin in the past, who presented to the emergency department yesterday for further evaluation of acute neurologic symptoms potentially worrisome for TIA or stroke. Patient began having cold/flulike symptoms about 4 days ago, mostly cough. Her daughter also noticed associated mental status changes, inattentive, more confused than usual, with an episode of apparent vision disturbance, missing while grasping for objects placed in front of her. She does have a history notable for chronic intermittent diplopia, more so with mid and far distance, seem to have both a horizontal and vertical component, has had a local optometry or ophthalmology evaluation and was subsequently referred for neuro- ophthalmology assessment. Patient is unaware of any particular loss of visual field. She is a somewhat unreliable historian, however, due to what appears to be a mild dementia. She does follow with the local [facility] neurology group as well and was last seen during a hospitalization this past February for symptoms potentially concerning for TIA, primarily acute difficulty with balance and incoordination, but again, occurring in the context vision disturbance as described above. History also notable for COVID infection this past November. She takes clopidogrel and Crestor as an outpatient. She is not prescribed an anticoagulant. She is not on a medication for dementia or memory loss at this time. A CT of the head was negative for hemorrhage or acute process but did reveal scattered chronic microvascular ischemic disease, not significantly changed or different compared with a head CT done this past February. I independently reviewed these images. An up-to-date CT angiogram of the head and neck was also completed which revealed chronic occlusion of the distal V4 segment of the left vertebral artery, unchanged compared with the prior CT angiogram. No other significant vascular lesion seen. Allergies Allergy/AdvReac Type Severity Reaction Status Date / Time shellfish derived Allergy Intermediate bumps Verified 08/07/22 16:47 after eating adhesive Allergy Mild SKIN WILL Verified 08/07/22 16:47 GET SORE diltiazem Allergy Unknown doc said Verified 08/07/22 16:47 she shouldnt take it warfarin AdvReac Severe brain bleed Verified 08/07/22 16:47 ezetimibe AdvReac Intermediate GI SYMPTOMS Verified 08/07/22 16:47 hydromorphone AdvReac Intermediate SLOWED Verified 08/07/22 16:47 HEART RATE meperidine AdvReac Intermediate VOMITING Verified 08/07/22 16:47 rosuvastatin AdvReac Intermediate GI SYMPTOMS Verified 08/07/22 16:47 simvastatin AdvReac Intermediate GI SYMPTOMS Verified 08/07/22 16:47 Ikqdrrb-VEA-SeC Reductase AdvReac Intermediate cramps Verified 08/07/22 16:47 Inhibitor [Peefkgg-Nxb-Teg Reductase Inhibitor] Penicillins AdvReac Mild YEAST Verified 08/07/22 16:47 INFECTION Home Medications Medication Instructions Recorded Confirmed Type acetaminophen 500 mg tablet 500 mg PO Q6H PRN Pain 09/26/18 08/07/22 History (Tylenol Extra Strength) bimatoprost 0.01 % eye drops 1 drp ophthalmic (eye) HS 09/26/18 08/07/22 History (Lumigan) cholecalciferol (vitamin D3) 50 0 unit PO QPM 09/26/18 08/07/22 History mcg (2,000 unit) capsule (Vitamin D3) dorzolamide-timolol (PF) 2 %-0.5 % 1 drp ophthalmic (eye) BID 09/26/18 08/07/22 History eye drops in a dropperette (Cosopt (PF)) fexofenadine 180 mg tablet 180 mg PO QPM 09/26/18 08/07/22 History fluticasone propionate 50 2 spray intranasal HS 09/26/18 08/07/22 History mcg/actuation nasal spray,suspension (Flonase Allergy Relief) furosemide 20 mg tablet 20 mg PO 3XWK 09/26/18 08/07/22 History metoprolol succinate 50 mg 50 mg PO QPM 09/26/18 08/07/22 History tablet,extended release 24 hr rosuvastatin 10 mg sprinkle capsule 10 mg PO DAILY #30 caps 03/14/22 08/07/22 Rx clopidogrel 75 mg tablet 75 mg PO QAM 08/07/22 08/07/22 History cyanocobalamin (vitamin B-12) 1,000 mcg PO QPM 08/07/22 08/07/22 History 1,000 mcg tablet (Vitamin B-12) dextromethorphan-guaifenesin 10 0 ml PO DIRECTED PRN 08/07/22 08/07/22 History mg-100 mg/5 mL oral syrup COUGH/CONGESTION famotidine 20 mg tablet (Pepcid) 20 mg PO BID 08/07/22 08/07/22 History multivitamin-ferrous 1 tab PO QPM 08/07/22 08/07/22 History fumarate-folic acid 18 mg-400 mcg tablet (Centrum Women) Patient History Medical History Atrial fibrillation hx of--follows with Dr. 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 Prolapsed uterus Spinal stenosis Unsteady Surgical History History of bilateral cataract extraction History of cardiac cath x3--1965- no stents History of colonoscopy History of dilatation and curettage x4 History of esophagogastroduodenoscopy (EGD) History of mandibular surgery hx realignment of jaw History of mitral valve repair 1965 @ [facility] History of removal of cyst benign growth removed from jaw History of tonsillectomy and adenoidectomy History of tooth extraction History of total abdominal hysterectomy History of wisdom tooth extraction Family History Other No family history of adverse response to anesthesia Social History Smoking Status: Never smoker Second Hand Exposure: Yes; Hx Alcohol Use: No Hx Substance Use: No Preferred Language: Mongolian Communication Ability: Effective Electric Welder Required: No Beliefs That Will Affect Care: None marital status: Current Living Situation: Spouse and Family Other Information That Helps Us Care for You: No Feels Safe at Home: Yes Assistive Devices: None and Cane Review of Systems Review of Systems: All systems reviewed & are unremarkable except as noted in Subjective Exam (Neuro) Constitutional: well developed and well nourished; no acute distress Eyes: normal visual hays by confrontation, PERRL, normal accommodation and EOM intact bilaterally; no fundoscopic abnormality, no nystagmus and no papilledema Cardiovascular: Vessels: normal carotid upstroke; no carotid bruit Neurologic: Oriented to:: Person, Place and Time Memory: Remote Intact; negative Short Term Intact Attention: Span Intact; negative Concentration Intact Language: Naming Objects and Repeating Phrases Speech Fluency: nega tive Dysarthria Speech Aphasia: negative Aphasia Fund of Knowledge: Current Events, Past History and Vocabulary Cranial Nerves: Normal II (Visual hays full to confrontation, visual acuity normal), III, IV, (Pupils equal round reactive to light and accommodation, eye movements normal), V (Facial sensation intact), VII (There is no facial droop or weakness), VIII (Hearing intact), IX, X (Palate elevates to midline), XI (Shoulder shrug intact) and XII (Tongue protrudes to midline) Motor Strength: Normal Lower Extremities and Normal Upper Extremities; negative Pronator Drift Motor Tone: Normal Lower Extremities and Normal Upper Extremities Muscle Bulk/Involuntary Movements: No Involuntary Movements; negative Muscle Atrophy Sensation: Light Touch Intact, Pain/Temperature Intact, Vibration Intact and Proprioception Intact Coordination: Normal; negative Limited Balance, Dysdiadochokinesia, Finger-Nose Abnormal or Heel-Kidd Abnormal Deep Tendon Reflexes: Rt Triceps: 2+, Lt Triceps: 2+, Rt Biceps: 2+, Lt Biceps: 2+, Rt Brachioradialis: 2+, Lt Brachioradialis: 2+, Rt Patellar: 2+, Lt Patellar: 2+, Rt Ankle: 1+ and Lt Ankle: 1+ Special Tests: negative Babinski Present Details: Gait not tested in the context of patient's current neurological status. Bedside ocular motility was evaluated. She did perceive some horizontal diplopia that seemed worse at distance compared to up close. 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 Ocular motility testing and assessment for associated diplopia was a bit difficult due to some patient inattentiveness. Results were inconsistent at times. Results & Data ([facility]) Vital Signs (Past 12 Hours) Vital Signs Temp Pulse Resp BP BP Pulse Ox O2 Del Method 08/08/22 08:00 36.9 C 76 18 147/85 H 93 Room Air 08/08/22 02:46 36.5 C 70 18 121/73 96 Room Air 08/07/22 22:57 36.4 C L 66 18 129/83 96 Room Air Laboratory Results WBC 4.78, hemoglobin 13.3, hematocrit 39.5, platelet count 150, sodium 137, potassium 4.1, BUN 14, creatinine 0.60, triglycerides 45, cholesterol 125, LDL 50, VLDL 9, HDL 66, urinalysis suggestive of infection, serology PCR for enterovirus rhinovirus positive. Diagnostic Findings CT of the head and CT angiogram of the head and neck are as described in the history of present illness. I independently reviewed these images. An electrocardiogram reveals atrial fibrillation with occasional ventricular paced complexes, 77 bpm. An echocardiogram completed this past February revealed severe concentric left ventricular hypertrophy, apical wall motion abnormality likely related to pacemaker activation, no regional wall motion abnormalities noted, EF 60 to 65%, mild aortic valve sclerosis, mild mitral stenosis, severe tricuspid regurgitation, left atrium severely dilated, right atrium severely dilated, right ventricle mild to moderately dilated, no ASD. Coding Level of Care Code 64925 Initial Inpt Care Lvl 3 Diagnoses Stroke-like symptoms R29.90 Vertebral artery occlusion I65.09 Diplopia H53.2
[2022-08-08 10:14] LABS: Estimated Average Glucose 108 mg/dl; Hemoglobin A1C 5.4 % (4.5-5.6)
[2022-08-08] MEDS ORDERED: ASPIRIN 81 MG ECTAB PO SCH (10:30)
--- NOTE | 2022-08-08 14:07 | Pharmacy Report ---
- Date of Service August 08, 2022 - Pharmacy CVA/TIA Medication Review Medications to Prevent Stroke handout has been added to the patients discharge packet. Antiplatelet(s) * ASA 81mg PO daily * Plavix 75mg PO daily * Neuro recommends DAPT x3 weeks, then resume Plavix monotherapy Cholesterol * Moderate intensity statin: rosuvastatin 10 mg daily (was on prior to admission) * High intensity statin deferred due to age >75 DVT Prophylaxis * SCD knee * Pharmacologic prophylaxis deferred due to history of spontaneous subdural hemorrhage while on warfarin Therapeutic Anticoagulation * Hx Afib/Aflutter noted, but anticoagulation is being deferred due to prior complication (see above) Type 2 Diabetes * Patient does not have T2DM * HbA1c: 5.4% (08/08/22)
[2022-08-08] MEDS ORDERED: FLUCONAZOLE 50 MG TAB PO ONE (15:45)
[2022-08-08] MEDS ORDERED: cefTRIAXone SODIUM 1,000 MG in DEXTROSE 5% AD-VAN 50 ML IV SCH (16:00)
--- NOTE | 2022-08-08 16:22 | Discharge Summary ---
Date of Service August 08, 2022 Admission HPI Per Admitting Provider 81-year-old female with history of tachybradycardia syndrome status post pacemaker, chronic A. fib, rheumatic mitral valve stenosis, history of subdural hemorrhage (while on Coumadin), history of TIA, who presents with worsening confusion, visual disturbance. Patient presents with her daughter Milena, who provides most of the history. Patient started to have cold-like symptoms about 4 days ago, mostly cough. How ever today she was not able to properly take her pills she was reaching for them as she could not see them properly. Therefore her daughter decided to have her evaluated in the ER. Daughter also says that the patient has been having worsening mental status progressively on and off, however today it was significantly worse than usual. Patient was admitted in February 2022, for possible TIA. Her pacemaker is not compatible with MRI, and therefore MRI was not obtained. Since then patient followed with neurosurgery, and continues to follow with cardiology. 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 Per daughter, it is the plan that she will have her pacer exchanged, and that one will be compatible with MRI. At that point MRI will be obtained and evaluated further. After her admission in February, patient was on 2 antiplatelet therapy, currently she is on Plavix. She does continue to take statin. CT head was obtained in the ED, and negative for any acute pathology. 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 UA was also obtained in the ED as patient has history of UTI. Currently patient is sitting up in bed in no acute distress. She is able to answer some simple questions appropriately. She knows that she lives with her daughter Milena and that Milena is present at the bedside. She knows that she is in the hospital, however she does not know the correct year, says that it is . Denies any fevers chills chest pain shortness of breath or palpitation. Denies any abdominal pain, denies dysuria, diarrhea or constipation. Denies any numbness or weakness. No visual deficit on my exam either. She is very pleasant and cooperative. Admission Exam Per Admitting Provider Constitutional: WD/WN, vitals as above Eyes: PERRL, conjunctivae normal, anicteric sclerae ENMT: external ear and nose normal, oropharynx normal Neck: trachea midline, no thyromegaly Respiratory: normal respiratory effort, lungs clear to auscultation Cardiovascular: Rate/Rhythm: + irregularly irregular Chest (Breasts): Chest: normal inspection of chest Gastrointestinal (Abdomen): normal bowel sounds, soft, nontender, no hepatosplenomegaly Musculoskeletal: no cyanosis or clubbing, extremities motor strength 5/5 (gait not assessed) Skin: no rashes, warm and dry Neurologic: PERRL, EOMI, accommodation nl, no face palsy, no dysarthria, moves extremities Psychiatric: A+Ox3, euthymic affect Genitourinary: no CVA tenderness Lymphatic: no lymphedema Principal Diagnosis Strokelike symptoms, possible TIA Positive rhinovirus Possible UTI Discharge Exam Constitutional: WD/WN, vitals as above Eyes: PERRL, conjunctivae normal, anicteric sclerae ENMT: external ear and nose normal, oropharynx normal Neck: supple Respiratory: normal respiratory effort, lungs clear to auscultation Cardiovascular: Rate/Rhythm: + irregularly irregular Chest (Breasts): Chest: normal inspection of chest Gastrointestinal (Abdomen): normal bowel sounds, soft, nontender Musculoskeletal: extremities motor strength 5/5 (gait not assessed) Skin: no rashes, warm and dry Neurologic: PERRL, EOMI, no face palsy, no dysarthria, moves extremities Psychiatric: A+Ox3, euthymic affect Genitourinary: no CVA tenderness Lymphatic: no lymphedema Discharge Data Allergies Allergy/AdvReac Type Severity Reaction Status Date / Time shellfish derived Allergy Intermediate bumps Verified 08/07/22 16:47 after eating adhesive Allergy Mild SKIN WILL Verified 08/07/22 16:47 GET SORE diltiazem Allergy Unknown doc said Verified 08/07/22 16:47 she shouldnt take it fish derived Allergy Unknown Unknown Verified 08/08/22 15:32 warfarin AdvReac Severe brain bleed Verified 08/07/22 16:47 ezetimibe AdvReac Intermediate GI SYMPTOMS Verified 08/07/22 16:47 hydromorphone AdvReac Intermediate SLOWED Verified 08/07/22 16:47 HEART RATE meperidine AdvReac Intermediate VOMITING Verified 08/07/22 16:47 rosuvastatin AdvReac Intermediate GI SYMPTOMS Verified 08/07/22 16:47 simvastatin AdvReac Intermediate GI SYMPTOMS Verified 08/07/22 16:47 Qcsrdvw-XBT-McT Reductase AdvReac Intermediate cramps Verified 08/07/22 16:47 Inhibitor [Ibmwaqo-Hnm-Fdd Reductase Inhibitor] Penicillins AdvReac Mild YEAST Verified 08/07/22 16:47 INFECTION Consultations 08/07/22 17:00 ED Decision to Admit Stat 08/07/22 17:22 Consult Neurology Routine Ordered Studies 08/07/22 14:55 CT angio head w con Stat CT angio neck with con Stat FINDINGS: Patent innominate and imaged subclavian arteries. The common and internal carotid arteries are patent. Atherosclerotic plaque of the cavernous, clinoid and supraclinoid segments without high-grade stenosis. Motion degraded exam. The middle and anterior cerebral arteries are patent as visualized. The right A1 segment is not well visualized and is likely developmentally diminutive. Chronic thrombosis involving the mid to distal aspects of the V4 segment left vertebral artery. Mild multifocal luminal narrowing of the basilar artery. Mild multifocal luminal narrowing of the posterior cerebral arteries. origin of the right posterior cerebral artery. Cerebral venous sinuses are patent. There is no abnormal intracranial enhancement. No pneumothorax. Unremarkable soft tissues. Moderate mucosal thickening of the left maxillary sinus. Degenerative changes of the cervical spine. No acute fracture identified. IMPRESSION: 1. 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 2. Atherosclerosis with otherwise unremarkable CTA of the head and neck. CT head/brain wo con Stat FINDINGS: No acute intracranial hemorrhage, midline shift, intracranial mass, hydrocephalus, territorial ischemia or abnormal extra-axial collection. Cerebral vascular calcifications. Involutional changes with chronic microvascular ischemic disease. The calvarium is intact. Mastoid air cells are clear. Mild to moderate because of thickening of the left maxillary and ethmoid sinuses. Prior bilateral lens repair. IMPRESSION: No acute intracranial abnormality. Hospital Course (1) Stroke-like symptoms: (2) Vertebral artery occlusion: (3) Atrial fibrillation: Pt presents with worsening confusion and some visual disturbance/reaching out for her pills in the wrong place She has history of TIA, history of chronic vertebral artery occlusion Patient also has history of subdural hemorrhage, while on Coumadin, years ago CT head in the ED obtained, and negative for any acute pathology CTA head and neck - Chronic occlusion of the distal V4 segment left vertebral artery, unchanged from 03/12/2021 She was hospitalized in February for possible TIA. At that time she was discharged on dual antibiotic therapy, now she is on Plavix Currently with pacemaker not compatible with MRI, plan for pacer change in the near future Strokelike protocol per nursing staff, neuro-checks Hgb A1c 5.4% , lipid panel obtained, LDL 50 Speech eval, PT OT Neurology consulted - poss. TIA continue ASA and plavix for 3 weeks then continue Plavix alone Continue Crestor Positive rhinovirus infection Current symptoms also possibly due to infectious etiology Patient has history of UTIs, UA obtained, u cultx - pending Rocephin ordered in ED, will continue for now and will await urine cultures DC home w/ cefdinir Per daughter, patient has had cold-like symptoms for past 4 days, mostly cough Patient found positive for rhinovirus Chest x-ray obtained and negative COVID-19 negative in the ED procalcitonin negative Chronic A. fib Follows with [facility] cardiology Due to history of subdural hemorrhage on Coumadin, patient not a candidate for anticoagulation Continue Plavix History of tachy-ramya syndrome status post pacemaker Continue metoprolol Total Time Total Time Spent Total Time Spent (In Minutes): 40 Discharge Plan Discharge Items Patient Disposition: Home - Self-Care Reason For Visit: AMS, STROKE LIKE SYMPTOMS Discharge Diagnosis: Strokelike symptoms, possible TIA Positive rhinovirus Possible UTI Activity: Per Instructions section Non-emergency contact: Primary Care Provider and Neurologist Call non-emergency contact if: you have any medication questions and your symptoms worsen Follow-up/Referrals: Roverto Miller MD [Primary Care Provider] - Diet: Regular Addtl Attending Provider Instructions: Follow-up with your primary care doctor within 1 to 2 weeks. Follow-up with neurology. Take aspirin and Plavix for 3 weeks, then continue with only Plavix. Continue to take Crestor. Continue taking antibiotic, and follow-up with the primary care doctor regarding final urine culture. Pending Studies at Discharge: Yes Studies:: final urine culture Stand-Alone Forms: My [facility], Smoking Cessation, Medications to Prevent Stroke Medications and DC Order Prescriptions: New aspirin 81 mg Tablet,Delayed Release (Dr/Ec) 81 mg PO QAM Qty: 20 0RF Advanced Probiotic 625 mg (10 billion cell) Capsule 2 cap PO DAILY Qty: 10 0RF cefdinir 300 mg capsule 300 mg PO BID Qty: 7 0RF Continued metoprolol succinate 50 mg Tablet Extended Release 24 Hr 50 mg PO QPM fexofenadine 180 mg Tablet 180 mg PO QPM acetaminophen [Tylenol Extra Strength] 500 mg Tablet 500 mg PO Q6H PRN (Reason: Pain) furosemide 20 mg Tablet 20 mg PO 3XWK Rx Instructions: TAKES MON, WED, & FRI. fluticasone propionate [Flonase Allergy Relief] 50 mcg/actuation Brice,Suspension 2 spray INTRANASAL HS cholecalciferol (vitamin D3) [Vitamin D3] 2,000 unit Capsule 0 unit PO QPM Rx Instructions: PT'S DAUGHTER UNSURE OF STRENGTH Lumigan 0.01 % Drops 1 drp OPHTHALMIC (EYE) HS dorzolamide-timolol (PF) [Cosopt (PF)] 2-0.5 % Dropperette 1 drp OPHTHALMIC (EYE) BID rosuvastatin 10 mg capsule, sprinkle 10 mg PO DAILY Qty: 30 0RF cyanocobalamin (vitamin B-12) [Vitamin B-12] 1,000 mcg Tablet 1,000 mcg PO QPM clopidogrel 75 mg tablet 75 mg PO QAM dextromethorphan-guaifenesin [Tussin DM Cough] 10-100 mg/5 mL Syrup 0 ml PO DIRECTED PRN (Reason: COUGH/CONGESTION) Rx Instructions: NON-DROWSY FORMULA famotidine [Pepcid] 20 mg Tablet 20 mg PO BID Centrum Women 18-400 mg-mcg Tablet 1 tab PO QPM Discharge Orders: Discharge Order (Routine); Ordered 08/08/22 Ordered By: Herson Reyes Admission Data Admit Date/Time: 08/07/22 17:17 Attending Provider: Herson Reyes Admit Provider: Herson Reyes Primary Care Provider: Roverto Miller Other Providers: Herson Reyes ; Jam Johnson
== END 2022-08-08 17:01 | disposition home or self-care (01) | DRG 69 ==
LOC: ED 14:16 → EDINP 17:17 → 2N 20:01

== ENCOUNTER 2023-05-09 09:52 | Observation (INO) ==
[2023-05-09] MEDS ORDERED: SODIUM CHLORIDE 0.9% 1,000 ML IV STA (10:12)
[2023-05-09 11:01] LABS: Basophils # (auto) 0.02 K/uL (0.00-0.20); Basophils % (auto) 0.6 %; Eosinophils % (auto) 2.8 %; Hematocrit (blood only) 36.3 % (37.0-47.0); Hemoglobin 12.2 g/dl (12.0-16.0); Immature Granulocytes # (auto) 0.01 K/uL (0.01-0.20); Immature Granulocytes % (auto) 0.3 %; Lymphocytes # (auto) 1.34 K/uL (1.20-3.40); Lymphocytes % (auto) 37.6 %; Mean Corpuscular Hemoglobin 32.9 pg (25.0-34.0); Mean Corpuscular Hgb Conc 33.6 g/dL (32.0-36.0); Mean Corpuscular Volume 97.8 fL (80.0-100.0); Mean Platelet Volume 9.3 fL (9.4-12.4); Monocytes # (auto) 0.41 K/uL (0.11-0.59); Monocytes % (auto) 11.5 %; Neutrophils # (auto) 1.68 K/uL (1.40-6.50); Neutrophils % (auto) 47.2 %; Platelet Count 136 K/uL (130-400); RDW Coefficient of Variation 13.5 % (11.5-14.5); RDW Standard Deviation 48.2 fL (36.4-46.3); Red Blood Count 3.71 M/uL (4.20-5.40); White Blood Count 3.56 K/ul (4.8-10.8)
[2023-05-09 11:09] LABS: Partial Thromboplastin Ratio 0.8; Partial Thromboplastin Time 23.4 Seconds (21.0-31.0); Prothrombin Time 11.4 Seconds (9.0-12.0)
[2023-05-09 11:16] LABS: Alanine Aminotransferase 12 U/L (7-52); Albumin Globulin Ratio 1.3 (0.9-2); Albumin Level 3.7 gm/dl (3.4-5.0); Alkaline Phosphatase 43 U/L (34-104); Anion Gap 3 (3-11); Aspartate Aminotransferase 24 U/L (13-39); BUN Creatinine Ratio 13.8 (10-20); Bilirubin,Total 0.6 mg/dl (0.2-1.0); Blood Urea Nitrogen 8 mg/dl (6-23); Calcium 8.5 mg/dl (8.6-10.3); Carbon Dioxide 29 mmol/L (21-32); Chloride 106 mmol/L (98-107); Est GFR (African American) 99.5 ml/min; Est GFR (Non-African American) 85.8 ml/min; Globulin 2.8 gm/dl (2.5-4.0); Glucose 90 mg/dl (70-99(Fasting)); Potassium 3.9 mmol/L (3.5-5.1); Sodium 138 mmol/L (136-145); Total Protein 6.5 gm/dl (6.0-8.3)
--- NOTE | 2023-05-09 11:45 | XRay Report ---
XR chest 1V portable CLINICAL HISTORY: Cough. COMPARISON STUDY: Chest radiograph August 16, 2022. FINDINGS: Left subclavian pacer is in place. There is moderate cardiomegaly. No pneumothorax is prese nt. There are suspected small bilateral pleural effusions. There is mild interstitial thickening. IMPRESSION: Cardiomegaly with mild interstitial pulmonary edema and small bilateral pleural effusion s. ACT 112: Negative or not required by law. Electronically signed by: Tobias Moseley M.D. 05/09/2023 11:44 AM
--- NOTE | 2023-05-09 12:05 | Emergency Department Note ---
Impression & Plan Acute GI bleeding, Enterovirus infection ED Provider Note INFORMANT: Patient and family ED PROVIDER(S): Dusty Dumont MD CHIEF COMPLAINT: Rectal bleeding PLAN: Disposition: Admitted Condition: Good Outpatient prescription management: none Referral: None MEDICAL DECISION MAKING: Patient presented because of rectal bleeding. She was Hemoccult positive on rectal examination. She underwent a work-up. Her CBC and chemistry panel were unremarkable. She did have a slightly lower hemoglobin than last time even though she is still within the normal limits. The patient had bio fire testing performed and was found to have the presence of an enterovirus/rhinovirus. The patient also had a chest x-ray formed and did have some pulmonary vascular congestion. She is doing well from a respiratory standpoint. The patient's CT scan of the abdomen also revealed diverticulosis but no diverticulitis or other acute process. I suspect this may be a diverticular bleed and her Plavix use is complicating this as well. Further management in the hospital is felt to be appropriate. [facility] Family patient were updated and were in agreement. Patient was evaluated in the ER and admitted for further management. Discussed with project safety manager After review of the information above and other included data, I feel the p atient requires admission. Triage Nursing notes reviewed and agree them. Vital Signs: reviewed and remarkable for no significant abnormalities Prior /Outside records reviewed: none Differential diagnosis: Diverticulosis, AVM, coagulopathy, colitis, inflammatory bowel disease, malignancy, Elaine-Teague tear, esophagitis, peptic ulcer disease, variceal bleed, gastritis, epistaxis, fissure, hemorrhoids, as well as other pathologies. Diagnostics, as interpreted by me: ECG: Twelve-lead ECG reveals A-fib with paced beats at [address] elevation. Cardiac Monitoring: Cardiac monitoring ordered by me: The patient was placed on continuous cardiac monitoring and observed. It revealed atrial fibrillation at 69 bpm. Medical decision rules: none Imaging studies: Chest x-ray and CT scan as above. HPI: The patient is a 82year old female who presents to the Emergency Room with complaints of rectal bleeding. This started this morning and is described as brown stool with significant mount of blood in the toilet. The patient also notes the following associated symptoms, cough. The patient has taken no medication for relieving factors. Current pain is rated as 0/10. Pt denies LOC, headache, fevers, chills, diaphoresis, visual changes, neck pain, chest pain, breathing difficulties, nausea, vomiting, abdominal pain, back pain, melena, urinary symptoms, numbness, weakness, lymphadenopathy, rash, or other complaints. PAST MEDICAL HISTORY: See Below, TIA, A-fib PAST SURGICAL HISTORY: See Below, SOCIAL HISTORY: See Below, HOME MEDICATIONS: See Below ALLERGIES: See Below VITALS: See Below PHYSICAL EXAMINATION: GENERAL: Awake, alert, well-appearing, in no distress HENT: Normocephalic, atraumatic. Oropharynx unremarkable. EYES: Normal conjunctiva. Sclera non-icteric. NECK: Inspection normal. Non-tender. Supple. No nuchal rigidity. FROM. No masses. RESPIRATORY: Clear to auscultation. Minimal cough present. No wheezes. No rales. Normal respiratory effort. CARDIAC: Normal rate. Normal rhythm. No murmurs. No rubs. Extremities warm and well perfused. Pulses equal. No JVD. GI: Soft, non-distended. No tenderness to palpation. No rebound or guarding. No masses. RECTAL: Gross blood with Hemoccult positive. MUSCULOSKELETAL: Atraumatic. Chest examination reveals no tenderness. The back is symmetrical on inspection without obvious abnormality. There is no CVA tenderness to palpation. No joint edema. LOWER EXTREMITIES: Calves are equal size bilaterally and non-tender. No edema. No discoloration. NEURO: Normal sensorium. No sensory or motor deficits noted. SKIN: No rash or jaundice noted. Past Med/Surg History Medical History (Updated 05/09/23 @ 16:56 by Dusty Dumont MD) Atrial fibrillation hx of--follows with Dr. 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 Prolapsed uterus Spinal stenosis Unsteady Surgical History History of bilateral cataract extraction History of cardiac cath x3--1965- no stents History of colonoscopy History of dilatation and curettage x4 History of esophagogastroduodenoscopy (EGD) History of mandibular surgery hx realignment of jaw History of mitral valve repair 1966 @ [facility] History of removal of cyst benign growth removed from jaw History of tonsillectomy and adenoidectomy History of tooth extraction History of total abdominal hysterectomy History of wisdom tooth extraction Family History (Updated 05/09/23 @ 15:58 by Latisha Landeros PA-C) Other Hypertension No family history of adverse response to anesthesia Social History Smoking Status: Never smoker Second Hand Exposure: Yes; Do You Dip or Chew Tobacco: No; Hx Alcohol Use: No Hx Substance Use: No Preferred Language: Occitan Communication Ability: Effective Guest Services Agent Required: No Beliefs That Will Affect Care: None marital status: Current Living Situation: Family Feels Safe at Home: Yes Assistive Devices: Cane, Stair Lift and Walker Allergies Allergies Allergy/AdvReac Type Severity Reaction Status Date / Time shellfish derived Allergy Intermediate bumps Verified 05/09/23 12:40 after eating adhesive Allergy Mild SKIN WILL Verified 05/09/23 12:40 GET SORE diltiazem Allergy Unknown doc said Verified 05/09/23 12:40 she shouldnt take it fish derived Allergy Unknown Unknown Verified 05/09/23 12:40 warfarin AdvReac Severe brain bleed Verified 05/09/23 12:40 ezetimibe AdvReac Intermediate GI SYMPTOMS Verified 05/09/23 12:40 hydromorphone AdvReac Intermediate SLOWED Verified 05/09/23 12:40 HEART RATE meperidine AdvReac Intermediate VOMITING Verified 05/09/23 12:40 rosuvastatin AdvReac Intermediate GI SYMPTOMS Verified 05/09/23 12:40 simvastatin AdvReac Intermediate GI SYMPTOMS Verified 05/09/23 12:40 [id number] Reductase AdvReac Intermediate cramps Verified 05/09/23 12:40 Inhibitor [[id number] Reductase Inhibitor] Home Meds Home Medications Medication Instructions Recorded Confirmed acetaminophen 500 mg tablet 500 mg PO Q6H PRN Pain 09/26/18 05/09/23 (Tylenol Extra Strength) bimatoprost 0.01 % eye drops 1 drp ophthalmic (eye) HS 09/26/18 05/09/23 (Lumigan) cholecalciferol (vitamin D3) 50 2,000 unit PO QAM 09/26/18 05/09/23 mcg (2,000 unit) capsule (Vitamin D3) dorzolamide-timolol (PF) 2 %-0.5 % 1 drp ophthalmic (eye) BID 09/26/18 05/09/23 eye drops in a dropperette (Cosopt (PF)) fexofenadine 180 mg tablet 180 mg PO QAM 09/26/18 05/09/23 fluticasone propionate 50 2 spray intranasal HS 09/26/18 05/09/23 mcg/actuation nasal spray,suspension (Flonase Allergy Relief) furosemide 20 mg tablet 20 mg PO MOWEFR@0900 09/26/18 05/09/23 clopidogrel 75 mg tablet 75 mg PO QAM 08/07/22 05/09/23 cyanocobalamin (vitamin B-12) 1,000 mcg PO QAM 08/07/22 05/09/23 1,000 mcg tablet (Vitamin B-12) famotidine 20 mg tablet (Pepcid) 20 mg PO BID 08/07/22 05/09/23 metoprolol succinate 50 mg 50 mg PO HS 10/25/22 05/09/23 tablet,extended release 24 hr rosuvastatin 10 mg tablet 10 mg PO QAM 05/09/23 05/09/23 Results & Data (ED) Vital Signs Vital Signs - 24 hr 05/09/23 10:06 05/09/23 11:17 05/09/23 11:26 Temperature 36.6 C Temperature Source Temporal Artery Scan Pulse Rate 72 57 L Pulse Rate [Right Finger] Respiratory Rate 18 Respiratory Effort / Characteristics Non-Labored Spontaneous Respiratory Depth Normal Blood Pressure 143/95 H Blood Pressure [Right Arm] Blood Pressure Mean 111 Blood Pressure Mean [Right Arm] Pulse Oximetry 98 Oxygen Delivery Method Room Air Room Air Sepsis Recent Fever Within 48 Hours No Sepsis New/Unexplained Change in Mental Status No Sepsis Action Taken by Nursing No Action Required 05/09/23 12:25 05/09/23 16:17 Temperature Temperature Source Pulse Rate 69 Pulse Rate [Right Finger] 64 Respiratory Rate 18 Respiratory Effort / Characteristics Non-Labored Respiratory Depth Normal Blood Pressure Blood Pressure [Right Arm] 138/80 Blood Pressure Mean Blood Pressure Mean [Right Arm] 99 Pulse Oximetry 98 Oxygen Delivery Method Room Air Sepsis Recent Fever Within 48 Hours Sepsis New/Unexplained Change in Mental Status Sepsis Action Taken by Nursing Laboratory Data 05/09/23 10:39 05/09/23 10:39 Lab Results 05/09/23 05/09/23 05/09/23 Range/Units 10:39 10:39 10:39 WBC 3.56 L (4.8-10.8) K/ul RBC 3.71 L (4.20-5.40) M/uL Hgb 12.2 (12.0-16.0) g/dl Hct 36.3 L (37.0-47.0) % MCV 97.8 (80.0-100.0) fL MCH 32.9 (25.0-34.0) pg MCHC 33.6 (32.0-36.0) g/dL RDW Std Deviation 48.2 H (36.4-46.3) fL RDW Coeff of Rody 13.5 (11.5-14.5) % Plt Count 136 (130-400) K/uL MPV 9.3 L (9.4-12.4) fL Immature Gran % (Auto) 0.3 % Neut % (Auto) 47.2 % Lymph % (Auto) 37.6 % [place] % (Auto) 11.5 % Eos % (Auto) 2.8 % Baso % (Auto) 0.6 % Neut # (Auto) 1.68 (1.40-6.50) K/uL Lymph # (Auto) 1.34 (1.20-3.40) K/uL [place] # (Auto) 0.41 (0.11-0.59) K/uL Eos # (Auto) 0.10 (0.00-0.50) K/uL Baso # (Auto) 0.02 (0.00-0.20) K/uL Immature Gran # (Auto) 0.01 (0.01-0.20) K/uL PT 11.4 (9.0-12.0) Seconds INR 1.0 (0.9-1.1) APTT 23.4 (21.0-31.0) Seconds PTT Ratio 0.8 Sodium (136-145) mmol/L Potassium (3.5-5.1) mmol/L Chloride (98-107) mmol/L Carbon Dioxide (21-32) mmol/L Anion Gap (3-11) BUN (6-23) mg/dl Creatinine (0.6-1.2) mg/dl Est Cr Clr Drug Dosing Est GFR ( Amer) ml/min Est GFR (Non-Af Amer) ml/min BUN/Creatinine Ratio (10-20) Glucose (70-99(Fasting)) mg/dl Calcium (8.6-10.3) mg/dl Total Bilirubin (0.2-1.0) mg/dl AST (13-39) U/L ALT (7-52) U/L Alkaline Phosphatase (34-104) U/L Total Protein (6.0-8.3) gm/dl Albumin (3.4-5.0) gm/dl Globulin (2.5-4.0) gm/dl Albumin/Globulin Ratio (0.9-2) POC Stool Occult Blood (Negative) Adenovirus (PCR) (NotDetected) B. pertussis DNA (PCR) (NotDetected) B.parapertussis DNA PCR (NotDetected) C. pneumoniae DNA (PCR) (NotDetected) Coronavirus OC43 (PCR) (NotDetected) Coronavirus HKU1 (PCR) (NotDetected) Coronavirus 229E (PCR) (NotDetected) SARS-CoV-2 (PCR) (NotDetected) Coronavirus NL63 (PCR) (NotDetected) Human Metapneumovir PCR (NotDetected) Influenza Type A (PCR) (NotDetected) Influenza Type B (PCR) (NotDetected) M. pneumoniae (PCR) (NotDetected) Parainfluenza 1 (PCR) (NotDetected) Parainfluenza 2 (PCR) (NotDetected) Parainfluenza 3 (PCR) (NotDetected) Parainfluenza 4 (PCR) (NotDetected) RSV (PCR) (NotDetected) Entero/Rhino (PCR) (NotDetected) Blood Type A Positive Antibody Screen NEGATIVE 05/09/23 05/09/23 05/09/23 Range/Units 10:39 11:10 11:24 WBC (4.8-10.8) K/ul RBC (4.20-5.40) M/uL Hgb (12.0-16.0) g/dl Hct (37.0-47.0) % MCV (80.0-100.0) fL MCH (25.0-34.0) pg MCHC (32.0-36.0) g/dL RDW Std Deviation (36.4-46.3) fL RDW Coeff of Rody (11.5-14.5) % Plt Count (130-400) K/uL MPV (9.4-12.4) fL Immature Gran % (Auto) % Neut % (Auto) % Lymph % (Auto) % [place] % (Auto) % Eos % (Auto) % Baso % (Auto) % Neut # (Auto) (1.40-6.50) K/uL Lymph # (Auto) (1.20-3.40) K/uL [place] # (Auto) (0.11-0.59) K/uL Eos # (Auto) (0.00-0.50) K/uL Baso # (Auto) (0.00-0.20) K/uL Immature Gran # (Auto) (0.01-0.20) K/uL PT (9.0-12.0) Seconds INR (0.9-1.1) APTT (21.0-31.0) Seconds PTT Ratio Sodium 138 (136-145) mmol/L Potassium 3.9 (3.5-5.1) mmol/L Chloride 106 (98-107) mmol/L Carbon Dioxide 29 (21-32) mmol/L Anion Gap 3 (3-11) BUN 8 (6-23) mg/dl Creatinine 0.58 L (0.6-1.2) mg/dl Est Cr Clr Drug Dosing Not Reportable Est GFR ( Amer) 99.5 ml/min Est GFR (Non-Af Amer) 85.8 ml/min BUN/Creatinine Ratio 13.8 (10-20) Glucose 90 (70-99(Fasting)) mg/dl Calcium 8.5 L (8.6-10.3) mg/dl Total Bilirubin 0.6 (0.2-1.0) mg/dl AST 24 (13-39) U/L ALT 12 (7-52) U/L Alkaline Phosphatase 43 (34-104) U/L Total Protein 6.5 (6.0-8.3) gm/dl Albumin 3.7 (3.4-5.0) gm/dl Globulin 2.8 (2.5-4.0) gm/dl Albumin/Globulin Ratio 1.3 (0.9-2) POC Stool Occult Blood Positive A (Negative) Adenovirus (PCR) Not Detected (NotDetected) B. pertussis DNA (PCR) Not Detected (NotDetected) B.parapertussis DNA PCR Not Detected (NotDetected) C. pneumoniae DNA (PCR) Not Detected (NotDetected) Coronavirus OC43 (PCR) Not Detected (NotDetected) Coronavirus HKU1 (PCR) Not Detected (NotDetected) Coronavirus 229E (PCR) Not Detected (NotDetected) SARS-CoV-2 (PCR) Not Detected (NotDetected) Coronavirus NL63 (PCR) Not Detected (NotDetected) Human Metapneumovir PCR Not Detected (NotDetected) Influenza Type A (PCR) Not Detected (NotDetected) Influenza Type B (PCR) Not Detected (NotDetected) M. pneumoniae (PCR) Not Detected (NotDetected) Parainfluenza 1 (PCR) Not Detected (NotDetected) Parainfluenza 2 (PCR) Not Detected (NotDetected) Parainfluenza 3 (PCR) Not Detected (NotDetected) Parainfluenza 4 (PCR) Not Detected (NotDetected) RSV (PCR) Not Detected (NotDetected) Entero/Rhino (PCR) DETECTED A* (NotDetected) Blood Type Antibody Screen Administered Medications Sodium Chloride (Nss) 1,000 mls @ 125 mls/hr IV .Q8H STA Stop: 05/09/23 18:11 Last Admin: 05/09/23 10:45 Dose: 125 mls/hr Documented By: NRB Imaging Data Radiologist's Impression: Chest X-Ray 05/09/23 10:57 XR chest 1V portable CLINICAL HISTORY: Cough. COMPARISON STUDY: Chest radiograph August 16, 2022. FINDINGS: Left subclavian pacer is in place. There is moderate cardiomegaly. No pneumothorax is present. There are suspected small bilateral pleural effusions. There is mild interstitial thickening. IMPRESSION: Cardiomegaly with mild interstitial pulmonary edema and small bilateral pleural effusions. ACT 112: Negative or not required by law. Electronically signed by: Tobias Moseley M.D. 05/09/2023 11:44 AM Abdomen/Pelvis CT 05/09/23 11:13 CT OF THE ABDOMEN AND PELVIS WITHOUT CONTRAST CLINICAL HISTORY: Rectal bleeding. COMPARISON STUDY: No previous studies for comparison. TECHNIQUE: Axial images of the abdomen and pelvis were obtained without IV contrast. Images were reviewed in the axial, sagittal, and coronal planes. Automated exposure control was utilized for the study. A dose lowering technique was utilized adhering to the principles of ALARA. FINDINGS: Pacer lead is partially imaged. There is moderate cardiomegaly. Trace bilateral pleural effusions are present. No pneumatosis, free air or portal venous gas is present. The IVC is distended. Evaluation of the abdomen and pelvis is suboptimal on this unenhanced exam. Liver, spleen, adrenal glands, kidneys and pancreas are unremarkable. There are numerous small gallstones within the gallbladder. There is no evidence for acute cholecystitis. There is extensive atherosclerotic plaque of the abdominal aorta which is normal in caliber. Sigmoid diverticulosis is present. There is no evidence for acute diverticulitis. No bowel wall thickening is identified on this unenhanced exam. There is no evidence for a bowel obstruction. No lymphadenopathy is present. There is no ascites. No fluid collections are identified. No acute fractures are identified within the visualized skeletal structures. IMPRESSION: 1. No acute process within the abdomen or pelvis on unenhanced exam. No bowel obstruction. 2. Sigmoid diverticulosis. No evidence for acute diverticulitis. 3. Cholelithiasis. No evidence for acute cholecystitis. 4. Moderate cardiomegaly. Trace bilateral pleural effusions. ACT 112: Negative or not required by law. Electronically signed by: Tobias Moseley M.D. 05/09/2023 12:11 PM Discharge Plan Visit Data Chief Complaint: Rectal Bleed Stated Complaint: RECTAL BLEED ED Provider: Dusty Dumont Discharge Problem: Acute GI bleeding, Enterovirus infection Forms Stand Alone Forms: [facility] Prescriptions Prescriptions: No Action fexofenadine 180 mg Tablet 180 mg PO QAM acetaminophen [Tylenol Extra Strength] 500 mg Tablet 500 mg PO Q6H PRN (Reason: Pain) furosemide 20 mg Tablet 20 mg PO MOWEFR@0900 Rx Instructions: TAKES MON, WED, & FRI. fluticasone propionate [Flonase Allergy Relief] 50 mcg/actuation Brush,Suspension 2 spray INTRANASAL HS cholecalciferol (vitamin D3) [Vitamin D3] 2,000 unit Capsule 2,000 unit PO QAM Rx Instructions: PT'S DAUGHTER UNSURE OF STRENGTH Lumigan 0.01 % Drops 1 drp OPHTHALMIC (EYE) HS dorzolamide-timolol (PF) [Cosopt (PF)] 2-0.5 % Dropperette 1 drp OPHTHALMIC (EYE) BID cyanocobalamin (vitamin B-12) [Vitamin B-12] 1,000 mcg Tablet 1,000 mcg PO QAM clopidogrel 75 mg tablet 75 mg PO QAM famotidine [Pepcid] 20 mg Tablet 20 mg PO BID rosuvastatin 10 mg tablet 10 mg PO QAM metoprolol succinate 50 mg Tablet Extended Release 24 Hr 50 mg PO HS Referrals Referrals: Roverto Miller MD [Primary Care Provider] -
--- NOTE | 2023-05-09 12:13 | CT Scan Report ---
CT OF THE ABDOMEN AND PELVIS WITHOUT CONTRAST CLINICAL HISTORY: Rectal bleeding. COMPARISON STUDY: No previous studies for comparison. TECHNIQUE: Axial images of the abdomen and pelvis were obtained without IV contrast. Images were revi ewed in the axial, sagittal, and coronal planes. Automated exposure control was utilized for the annika dy. A dose lowering technique was utilized adhering to the principles of ALARA. FINDINGS: Pacer lead is partially imaged. There is moderate cardiomegaly. Trace bilateral pleural eff usions are present. No pneumatosis, free air or portal venous gas is present. The IVC is distended. E valuation of the abdomen and pelvis is suboptimal on this unenhanced exam. Liver, spleen, adrenal gla nds, kidneys and pancreas are unremarkable. There are numerous small gallstones within the gallbladde r. There is no evidence for acute cholecystitis. There is extensive atherosclerotic plaque of the abd ominal aorta which is normal in caliber. Sigmoid diverticulosis is present. There is no evidence for acute diverticulitis. No bowel wall thickening is identified on this unenhanced exam. There is no andree dence for a bowel obstruction. No lymphadenopathy is present. There is no ascites. No fluid collectio ns are identified. No acute fractures are identified within the visualized skeletal structures. IMPRESSION: 1. No acute process within the abdomen or pelvis on unenhanced exam. No bowel obstruction. 2. Sigmoid diverticulosis. No evidence for acute diverticulitis. 3. Cholelithiasis. No evidence for acute cholecystitis. 4. Moderate cardiomegaly. Trace bilateral pleural effusions. ACT 112: Negative or not required by law. Electronically signed by: Tobias Moseley M.D. 05/09/2023 12:11 PM
[2023-05-09 12:28] LABS: Adenovirus PCR Not Detected (NotDetected); Bordetella parapertussis PCR Not Detected (NotDetected); Bordetella pertussis PCR Not Detected (NotDetected); Chlamydia pneumoniae PCR Not Detected (NotDetected); Coronavirus 229E PCR Not Detected (NotDetected); Coronavirus CoV-2 (COVID19)PCR Not Detected (NotDetected); Coronavirus HKU1 PCR Not Detected (NotDetected); Coronavirus NL63 PCR Not Detected (NotDetected); Coronavirus OC43PCR Not Detected (NotDetected); Human Metapneumovirus PCR Not Detected (NotDetected); Influenza A PCR Not Detected (NotDetected); Influenza B PCR Not Detected (NotDetected); Mycoplasma pneumoniae PCR Not Detected (NotDetected); Parainfluenza Virus 1 PCR Not Detected (NotDetected); Parainfluenza Virus 2 PCR Not Detected (NotDetected); Parainfluenza Virus 3 PCR Not Detected (NotDetected); Parainfluenza Virus 4 PCR Not Detected (NotDetected); Respiratory Syncytial VirusPCR Not Detected (NotDetected)
[2023-05-09 13:00] LABS: Rhinovirus/Enterovirus PCR DETECTED (NotDetected)
--- NOTE | 2023-05-09 13:45 | History & Physical Report ---
Date of Service May 09, 2023 Assessment & Plan (1) Hematochezia: (2) History of subdural hematoma: (3) Atrial fibrillation: (4) Hyperlipidemia: (5) Hypertension: Plan This is a 82-year-old female with PMH of tachy ramya syndrome s/p pacemaker, chronic atrial fibrillation with contraindications to chronic anticoagulation related to history of spontaneous subdural hematomas on oral anticoagulation, Alzheimer's dementia, TIA, PAD on plavix, history of GI bleed and other medical problems listed below who presents with one episode of hematochezia. Hematochezia 1 episode earlier today of formed stool with blood mixed in, h/o recent constipation - observing overnight given h/o GI bleeds VSS, hgb 12.2 (previous hgb 14), stool occult blood positive, no recurrent episodes of bleeding since arrival CT abd/pelvis with no acute process within the abdomen or pelvis on unenhanced exam. No bowel obstruction. Sigmoid diverticulosis. No evidence for acute diverticulitis Repeat H&H this evening, NPO for now Intermittent constipation, recommended adding Colace at home Holding plavix, repeat CBC in AM Tachy ramya syndrome S/p pacemaker Chronic atrial fibrillation Contraindication to chronic anticoagulation related to history of spontaneous subdural hematomas on oral anticoagulation, per cards Continue Toprol HS Alzheimer's dementia Lives with family, noticeable cognitive decline over past year per family, multiple TIAs History of TIA, stroke Holding plavix, on statin PAD No h/o intervention, hold Plavix Entero/rhino virus on PCR Antitussives PRN, afebrile DVT Ppx: SCDs in setting of bleed Code status: FULL PCP: Paul Dispo: Observation med tele Patient seen in collaboration with Dr. Lares. Please see addendum. History of Present Illness Chief Complaint: Rectal bleed Primary Care Provider: Roverto Miller MD This is a 82-year-old female with PMH of tachy ramya syndrome s/p pacemaker, chronic atrial fibrillation with contraindications to chronic anticoagulation related to history of spontaneous subdural hematomas on oral anticoagulation, Alzheimer's dementia, TIA, PAD on plavix, history of GI bleed and other medical problems listed below who presents with rectal bleeding. Had a bowel movement this morning with blood mixed in and surrounding in toilet and on tissue paper. Stool was formed. No blood in urine. No recurrent episodes of rectal bleeding. History of diverticulosis and intermittent constipation. No lightheadedness, headache, CP, SOB, N/V, abdominal pain, dysuria or diarrhea. Endorses a barking cough x 1 week and congestion. No fever or chills. Patient lives with her as well as her daughter and son in law. Has had a cognitive decline over the past year after TIA and suspected others. 2D echo January 2022 with preserved EF 55-59%, mild mitral valve stenisis, mild pulm HTN. Allergies Allergy/AdvReac Type Severity Reaction Status Date / Time shellfish derived Allergy Intermediate bumps Verified 05/09/23 12:40 after eating adhesive Allergy Mild SKIN WILL Verified 05/09/23 12:40 GET SORE diltiazem Allergy Unknown doc said Verified 05/09/23 12:40 she shouldnt take it fish derived Allergy Unknown Unknown Verified 05/09/23 12:40 warfarin AdvReac Severe brain bleed Verified 05/09/23 12:40 ezetimibe AdvReac Intermediate GI SYMPTOMS Verified 05/09/23 12:40 hydromorphone AdvReac Intermediate SLOWED Verified 05/09/23 12:40 HEART RATE meperidine AdvReac Intermediate VOMITING Verified 05/09/23 12:40 rosuvastatin AdvReac Intermediate GI SYMPTOMS Verified 05/09/23 12:40 simvastatin AdvReac Intermediate GI SYMPTOMS Verified 05/09/23 12:40 Khypnok-THV-ZoC Reductase AdvReac Intermediate cramps Verified 05/09/23 12:40 Inhibitor [Uvkqkwu-Dmb-Jaf Reductase Inhibitor] Home Medications Medication Instructions Recorded Confirmed Type acetaminophen 500 mg tablet 500 mg PO Q6H PRN Pain 09/26/18 05/09/23 History (Tylenol Extra Strength) bimatoprost 0.01 % eye drops 1 drp ophthalmic (eye) HS 09/26/18 05/09/23 History (Lumigan) cholecalciferol (vitamin D3) 50 2,000 unit PO QAM 09/26/18 05/09/23 History mcg (2,000 unit) capsule (Vitamin D3) dorzolamide-timolol (PF) 2 %-0.5 % 1 drp ophthalmic (eye) BID 09/26/18 05/09/23 History eye drops in a dropperette (Cosopt (PF)) fexofenadine 180 mg tablet 180 mg PO QAM 09/26/18 05/09/23 History fluticasone propionate 50 2 spray intranasal HS 09/26/18 05/09/23 History mcg/actuation nasal spray,suspension (Flonase Allergy Relief) furosemide 20 mg tablet 20 mg PO MOWEFR@0900 09/26/18 05/09/23 History clopidogrel 75 mg tablet 75 mg PO QAM 08/07/22 05/09/23 History cyanocobalamin (vitamin B-12) 1,000 mcg PO QAM 08/07/22 05/09/23 History 1,000 mcg tablet (Vitamin B-12) famotidine 20 mg tablet (Pepcid) 20 mg PO BID 08/07/22 05/09/23 History metoprolol succinate 50 mg 50 mg PO HS 10/25/22 05/09/23 History tablet,extended release 24 hr rosuvastatin 10 mg tablet 10 mg PO QAM 05/09/23 05/09/23 History Past Med/Surg History Medical History (Updated 05/09/23 @ 16:56 by Dusty Dumont MD) Atrial fibrillation hx of--follows with Dr. 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 @ [facility] meditronic single chamber Prolapsed uterus Spinal stenosis Unsteady Surgical History History of bilateral cataract extraction History of cardiac cath x3--1965- no stents History of colonoscopy History of dilatation and curettage x4 History of esophagogastroduodenoscopy (EGD) History of mandibular surgery hx realignment of jaw History of mitral valve repair 1965 @ [facility] History of removal of cyst benign growth removed from jaw History of tonsillectomy and adenoidectomy History of tooth extraction History of total abdominal hysterectomy History of wisdom tooth extraction Family History (Updated 05/09/23 @ 15:58 by Latisha Landeros PA-C) Other Hypertension No family history of adverse response to anesthesia Social History Smoking Status: Never smoker Second Hand Exposure: Yes; Do You Dip or Chew Tobacco: No; Hx Alcohol Use: No Hx Substance Use: No Preferred Language: Albanian Communication Ability: Effective Review Analyst Required: No Beliefs That Will Affect Care: None marital status: Current Living Situation: Spouse and Family Other Information That Helps Us Care for You: No Feels Safe at Home: Yes Safety Concerns: Feels Safe At This Time Assistive Devices: Glasses Review of Systems Review of Systems: At least ten systems reviewed and negative except as noted in the HPI. Physical Exam Physical Exam: General Appearance: WD/WN, vitals as above, NAD, sitting up in bed, pleasant, conversing easily Head: normocephalic, atraumatic Eyes: normal inspection, PERRL, conjunctivae normal, anicteric sclerae ENT: hard of hearing, external ear and nose normal, oropharynx normal Neck: normal visual inspection, trachea midline, no thyromegaly Respiratory: normal respiratory effort, coarse breath sounds throughout, no wheezing or rhonchi. No accessory muscle use Cardiovascular: regular rate, rhythm, no murmur, normal peripheral pulses, no BLE edema. Vessels: no JVD Chest: normal inspection of chest Abdomen/GI: normal bowel sounds, soft, nontender, no hepatosplenomegaly Extremities/Musculoskeletal: no cyanosis or clubbing, extremities motor strength 5/5 Neurologic: PERRL, EOMI, accommodation nl, no face palsy, no dysarthria, CN's II-XI intact bilaterally and moves all extremities Psychiatric: A+Ox3 with intermittent confusion, euthymic affect Skin: no rashes, normal color, warm/dry Results & Data Results & Data Vital Signs (Past 12 Hours) Vital Signs Temp Pulse Pulse Resp BP BP Pulse Ox 05/09/23 12:25 64 18 138/80 98 05/09/23 11:26 57 L 05/09/23 11:17 05/09/23 10:06 36.6 C 72 18 143/95 H 98 O2 Del Method 05/09/23 12:25 Room Air 05/09/23 11:26 05/09/23 11:17 Room Air 05/09/23 10:06 Room Air Laboratory Results Short CBC 05/09/23 Range/Units 10:39 WBC 3.56 L (4.8-10.8) K/ul Hgb 12.2 (12.0-16.0) g/dl Hct 36.3 L (37.0-47.0) % Plt Count 136 (130-400) K/uL BMP 05/09/23 10:39 Sodium 138 Potassium 3.9 Chloride 106 Carbon Dioxide 29 BUN 8 Creatinine 0.58 L Glucose 90 Calcium 8.5 L Liver Function 05/09/23 Range/Units 10:39 Total Bilirubin 0.6 (0.2-1.0) mg/dl AST 24 (13-39) U/L ALT 12 (7-52) U/L Alkaline Phosphatase 43 (34-104) U/L Albumin 3.7 (3.4-5.0) gm/dl Diagnostic Findings Chest X-Ray 05/09/23 10:57 XR chest 1V portable CLINICAL HISTORY: Cough. COMPARISON STUDY: Chest radiograph August 16, 2022. FINDINGS: Left subclavian pacer is in place. There is moderate cardiomegaly. No pneumothorax is present. There are suspected small bilateral pleural effusions. There is mild interstitial thickening. IMPRESSION: Cardiomegaly with mild interstitial pulmonary edema and small bilateral pleural effusions. ACT 112: Negative or not required by law. Electronically signed by: Tobias Moseley M.D. 05/09/2023 11:44 AM Abdomen/Pelvis CT 05/09/23 11:13 CT OF THE ABDOMEN AND PELVIS WITHOUT CONTRAST CLINICAL HISTORY: Rectal bleeding. COMPARISON STUDY: No previous studies for comparison. TECHNIQUE: Axial images of the abdomen and pelvis were obtained without IV contrast. Images were reviewed in the axial, sagittal, and coronal planes. Automated exposure control was utilized for the study. A dose lowering technique was utilized adhering to the principles of ALARA. FINDINGS: Pacer lead is partially imaged. There is moderate cardiomegaly. Trace bilateral pleural effusions are present. No pneumatosis, free air or portal venous gas is present. The IVC is distended. Evaluation of the abdomen and pelvis is suboptimal on this unenhanced exam. Liver, spleen, adrenal glands, kidneys and pancreas are unremarkable. There are numerous small gallstones within the gallbladder. There is no evidence for acute cholecystitis. There is extensive atherosclerotic plaque of the abdominal aorta which is normal in caliber. Sigmoid diverticulosis is present. There is no evidence for acute diverticulitis. No bowel wall thickening is identified on this unenhanced exam. There is no evidence for a bowel obstruction. No lymphadenopathy is present. There is no ascites. No fluid collections are identified. No acute fractures are identified within the visualized skeletal structures. IMPRESSION: 1. No acute process within the abdomen or pelvis on unenhanced exam. No bowel obstruction. 2. Sigmoid diverticulosis. No evidence for acute diverticulitis. 3. Cholelithiasis. No evidence for acute cholecystitis. 4. Moderate cardiomegaly. Trace bilateral pleural effusions. ACT 112: Negative or not required by law. Electronically signed by: Tobias Moseley M.D. 05/09/2023 12:11 PM Supervising Physician Co-Signing Physician Notes Pt seen and examined by myself, Daisy Lares MD on the day of service. Care was coordinated with Latisha Landeros PA-C. 82yoF with BRBPR. Oriented only to self on exam, abdomen nontender. Hgb stable at 12.2, hemodynamically stable. Stool heme positive, on plavix. NPO, trend H/H, GI consult- appreciate recs. Otherwise as above. (3) Atrial fibrillation Atrial fibrillation type: unspecified Qualified Code(s): I48.91 - Unspecified atrial fibrillation
--- NOTE | 2023-05-09 15:54 | Electrocardiogram Report ---
Test Reason : Blood Pressure : / mmHG Vent. Rate : 072 BPM Atrial Rate : 000 BPM P-R Int : 000 ms QRS Dur : 080 ms QT Int : 396 ms P-R-T Axes : 000 102 004 degrees QTc Int : 433 ms Atrial fibrillation with frequent ventricular-paced complexes Rightward axis Abnormal ECG When compared with ECG of 16-AUG-2022 11:50, Electronic ventricular pacemaker has replaced Atrial fibrillation Confirmed by Esa Wilkerson ([id number]) on 05/09/2023 3:54:08 PM Referred By: REFERRED SELF Confirmed By:Esa Wilkerson
[2023-05-09] MEDS ORDERED: guaiFENesin SUGAR FREE 100 MG/5 ML UDC PO PRN (16:47)
[2023-05-09 17:54] LABS: Hematocrit (blood only) 35.8 % (37.0-47.0); Hemoglobin 12.4 g/dl (12.0-16.0)
[2023-05-09] MEDS ORDERED: ONDANSETRON INJ 2 MG/ML 2 ML VIAL IV PRN (18:53)
[2023-05-09] MEDS ORDERED: BIMATOPROST 0.01% OP SOLN 2.5 ML BTL OP SCH (21:00)
[2023-05-09] MEDS ORDERED: METOPROLOL SUCC 50MG EXT REL TAB PO SCH (21:00)
[2023-05-09] MEDS: Patient's HEIGHT &/or WEIGHT Needed SCH ×2 (23:26→23:52)
[2023-05-10 08:10] LABS: Calcium 8.3 mg/dl (8.6-10.3); Creatinine Clr Calc Pharmacy 71.8 ml/min; Est GFR (African American) 104.5 ml/min; Est GFR (Non-African American) 90.1 ml/min; Potassium 3.5 mmol/L (3.5-5.1)
[2023-05-10 08:22] LABS: Hematocrit (blood only) 37.8 % (37.0-47.0); Hemoglobin 12.7 g/dl (12.0-16.0); Mean Corpuscular Hemoglobin 32.6 pg (25.0-34.0); Mean Corpuscular Hgb Conc 33.6 g/dL (32.0-36.0); Mean Corpuscular Volume 97.2 fL (80.0-100.0); Mean Platelet Volume 9.3 fL (9.4-12.4); Platelet Count 124 K/uL (130-400); RDW Coefficient of Variation 13.4 % (11.5-14.5); RDW Standard Deviation 48.2 fL (36.4-46.3); Red Blood Count 3.89 M/uL (4.20-5.40); White Blood Count 3.61 K/ul (4.8-10.8)
--- NOTE | 2023-05-10 08:57 | Gastrointestinal Consultation ---
Date of Consultation May 10, 2023 Assessment & Plan (1) Acute GI bleeding: Plan 82 year old female with history of tachy ramya syndrome s/p pacemaker, chronic atrial fibrillation withcontraindications tochronic anticoagulation related to history of spontaneous subdural hematomas on oral anticoagulation, Alzheimer's dementia, TIA, PAD on plavix admitted with hematochezia. She was remained hemodynamically stable w/ stable HGB overnight without report of futher BMs. DDX discucsed: hemorrhiods, fissure, polyp AVM vs other She would like to pursue conservative measures Agree with this Trend H&H Monitor and document GI output Transfuse PRN She is interested in OP GI follow up and consideration of colonoscopy given examination about 3 years ago We appreciate assistance in the management of any serological abnormality and corrections to include: hemoglobin >7, INR <2, platelets >50,000, potassium levels >3.5 but <5.3, and sodium levels within 5 points of the reference range. Thank you for allowing us to participate in the care of this patient. Please call with any acute changes, questions or concerns. Please see addendum below with additional recommendation from my supervising physician. Supervising Physician Co-Signing Physician Notes I performed a history and physical examination of the patient today, including specifically on physical exam - soft abdomen. I have discussed the patient's management with the advanced practitioner. Please refer to the nurse practitioner's note for the documented findings and plan of care. No overt ongoing GI bleeding. Colonoscopy as OP. Recall GI if needed. History of Present Illness Reason for Consultation: rectal bleeding Requesting Physician: Kurt Attending Physician: Janis Hicks MD History of Present Illness 82 year old female with history of tachy ramya syndrome s/p pacemaker, chronic atrial fibrillation withcontraindications tochronic anticoagulation related to history of spontaneous subdural hematomas on oral anticoagulation, Alzheimer's dementia, TIA, PAD on plavix, history of GI bleed and other medical problems listed below who presents with rectal bleeding. GI asked to evaluate, pt was seen and evaluated, chart reviewed. Notes this AM she is feeling well. [place] abd pain. No nausea, vomiting. Suggests he feels liek she needs to move her stools. Last BM was prior to arrival. She does not recall the appearance of this stool. HGB 12.2 --> 12.4 --> 12.7 CTAP 2022: No acute process within the abdomen or pelvis on unenhanced exam. No bowel obstruction.Sigmoid diverticulosis. No evidence for acute diverticulitis. Cholelithiasis. No evidence for acute cholecystitis. Moderate cardiomegaly. Trace bilateral pleural effusions. Colonoscopy 2019: - The examined portion of the ileum was normal. - One 5 mm polyp in the cecum, removed with a cold snare. Resected and retrieved. - One 5 mm polyp in the descending colon, removed with a cold snare. Resected and retrieved. - Diverticulosis in the sigmoid colon. - The distal rectum and anal verge are normal on retroflexion view. Allergies Allergy/AdvReac Type Severity Reaction Status Date / Time shellfish derived Allergy Intermediate bumps Verified 05/09/23 12:40 after eating adhesive Allergy Mild SKIN WILL Verified 05/09/23 12:40 GET SORE diltiazem Allergy Unknown doc said Verified 05/09/23 12:40 she shouldnt take it fish derived Allergy Unknown Unknown Verified 05/09/23 12:40 warfarin AdvReac Severe brain bleed Verified 05/09/23 12:40 ezetimibe AdvReac Intermediate GI SYMPTOMS Verified 05/09/23 12:40 hydromorphone AdvReac Intermediate SLOWED Verified 05/09/23 12:40 HEART RATE meperidine AdvReac Intermediate VOMITING Verified 05/09/23 12:40 rosuvastatin AdvReac Intermediate GI SYMPTOMS Verified 05/09/23 12:40 simvastatin AdvReac Intermediate GI SYMPTOMS Verified 05/09/23 12:40 Dcgrqae-[id number]-IuF Reductase AdvReac Intermediate cramps Verified 05/09/23 12:40 Inhibitor [Eeeqgvu-Fky-Yzp Reductase Inhibitor] Home Medications Medication Instructions Recorded Confirmed Type acetaminophen 500 mg tablet 500 mg PO Q6H PRN Pain 09/26/18 05/09/23 History (Tylenol Extra Strength) bimatoprost 0.01 % eye drops 1 drp ophthalmic (eye) HS 09/26/18 05/09/23 History (Lumigan) cholecalciferol (vitamin D3) 50 2,000 unit PO QAM 09/26/18 05/09/23 History mcg (2,000 unit) capsule (Vitamin D3) dorzolamide-timolol (PF) 2 %-0.5 % 1 drp ophthalmic (eye) BID 09/26/18 05/09/23 History eye drops in a dropperette (Cosopt (PF)) fexofenadine 180 mg tablet 180 mg PO QAM 09/26/18 05/09/23 History fluticasone propionate 50 2 spray intranasal HS 09/26/18 05/09/23 History mcg/actuation nasal spray,suspension (Flonase Allergy Relief) furosemide 20 mg tablet 20 mg PO MOWEFR@0900 09/26/18 05/09/23 History clopidogrel 75 mg tablet 75 mg PO QAM 08/07/22 05/09/23 History cyanocobalamin (vitamin B-12) 1,000 mcg PO QAM 08/07/22 05/09/23 History 1,000 mcg tablet (Vitamin B-12) famotidine 20 mg tablet (Pepcid) 20 mg PO BID 08/07/22 05/09/23 History metoprolol succinate 50 mg 50 mg PO HS 10/25/22 05/09/23 History tablet,extended release 24 hr rosuvastatin 10 mg tablet 10 mg PO QAM 05/09/23 05/09/23 History Patient History Medical History (Updated 05/09/23 @ 16:56 by Dusty Dumont MD) Atrial fibrillation hx of--follows with Dr. 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 @ [facility] meditronic single chamber Prolapsed uterus Spinal stenosis Unsteady Surgical History History of bilateral cataract extraction History of cardiac cath x3--1965- no stents History of colonoscopy History of dilatation and curettage x4 History of esophagogastroduodenoscopy (EGD) History of mandibular surgery hx realignment of jaw History of mitral valve repair 1965 @ [facility] History of removal of cyst benign growth removed from jaw History of tonsillectomy and adenoidectomy History of tooth extraction History of total abdominal hysterectomy History of wisdom tooth extraction Family History (Updated 05/09/23 @ 15:58 by Latisha Landeros PA-C) Other Hypertension No family history of adverse response to anesthesia Social History Smoking Status: Never smoker Second Hand Exposure: Yes; Do You Dip or Chew Tobacco: No; Hx Alcohol Use: No Hx Substance Use: No Preferred Language: Greek Communication Ability: Effective Business And Financial Counsel Required: No Beliefs That Will Affect Care: None marital status: Current Living Situation: Spouse and Family Other Information That Helps Us Care for You: No Feels Safe at Home: Yes Safety Concerns: Feels Safe At This Time Assistive Devices: Glasses Review of Systems Review of Systems: All systems reviewed & are unremarkable except as noted in HPI & below Physical Exam Constitutional: WD/WN, vitals as above Neck: trachea midline, no thyromegaly Respiratory: normal respiratory effort, lungs clear to auscultation Cardiovascular: Rate/Rhythm: regular rate and regular rhythm Gastrointestinal (Abdomen): normal bowel sounds, soft, nontender, no hepatosplenomegaly Results & Data Vital Signs (Past 12 Hours) Vital Signs Temp Pulse Pulse Resp BP BP Pulse Ox 05/10/23 07:49 36.9 C 64 16 174/89 H 95 05/10/23 07:48 61 05/10/23 03:49 36.4 C L 67 18 132/85 95 05/09/23 23:41 69 05/09/23 23:07 36.4 C L 67 16 165/86 H 98 O2 Del Method 05/10/23 07:49 Room Air 05/10/23 07:48 05/10/23 03:49 Room Air 05/09/23 23:41 05/09/23 23:07 Room Air Laboratory Results 05/10/23 05/10/23 05/09/23 Range/Units 07:09 07:09 17:43 WBC 3.61 L (4.8-10.8) K/ul RBC 3.89 L (4.20-5.40) M/uL Hgb 12.7 12.4 (12.0-16.0) g/dl Hct 37.8 35.8 L (37.0-47.0) % MCV 97.2 (80.0-100.0) fL MCH 32.6 (25.0-34.0) pg MCHC 33.6 (32.0-36.0) g/dL RDW Std Deviation 48.2 H (36.4-46.3) fL RDW Coeff of Rody 13.4 (11.5-14.5) % Plt Count 124 L (130-400) K/uL MPV 9.3 L (9.4-12.4) fL Immature Gran % (Auto) % Neut % (Auto) % Lymph % (Auto) % Harney % (Auto) % Eos % (Auto) % Baso % (Auto) % Neut # (Auto) (1.40-6.50) K/uL Lymph # (Auto) (1.20-3.40) K/uL Harney # (Auto) (0.11-0.59) K/uL Eos # (Auto) (0.00-0.50) K/uL Baso # (Auto) (0.00-0.20) K/uL Immature Gran # (Auto) (0.01-0.20) K/uL PT (9.0-12.0) Seconds INR (0.9-1.1) APTT (21.0-31.0) Seconds PTT Ratio Sodium 138 (136-145) mmol/L Potassium 3.5 (3.5-5.1) mmol/L Chloride 108 H (98-107) mmol/L Carbon Dioxide 25 (21-32) mmol/L Anion Gap 5 (3-11) BUN 6 (6-23) mg/dl Creatinine 0.50 L (0.6-1.2) mg/dl Est Cr Clr Drug Dosing 71.8 Est GFR ( Amer) 104.5 ml/min Est GFR (Non-Af Amer) 90.1 ml/min BUN/Creatinine Ratio 12.0 (10-20) Glucose 89 (70-99(Fasting)) mg/dl Calcium 8.3 L (8.6-10.3) mg/dl Total Bilirubin (0.2-1.0) mg/dl AST (13-39) U/L ALT (7-52) U/L Alkaline Phosphatase (34-104) U/L Total Protein (6.0-8.3) gm/dl Albumin (3.4-5.0) gm/dl Globulin (2.5-4.0) gm/dl Albumin/Globulin Ratio (0.9-2) POC Stool Occult Blood (Negative) [facility] ([facility]) [facility] B. pertussis DNA (PCR) (NotDetected) B.parapertussis DNA PCR (NotDetected) C. pneumoniae DNA (PCR) (NotDetected) Coronavirus OC43 (PCR) (NotDetected) Coronavirus HKU1 (PCR) (NotDetected) Coronavirus 229E (PCR) (NotDetected) SARS-CoV-2 (PCR) (NotDetected) Coronavirus NL63 (PCR) (NotDetected) Human Metapneumovir PCR (NotDetected) Influenza Type A (PCR) (NotDetected) Influenza Type B (PCR) (NotDetected) M. pneumoniae (PCR) (NotDetected) Parainfluenza 1 (PCR) (NotDetected) Parainfluenza 2 (PCR) (NotDetected) Parainfluenza 3 (PCR) (NotDetected) Parainfluenza 4 (PCR) (NotDetected) RSV (PCR) (NotDetected) Entero/Rhino (PCR) (NotDetected) Blood Type Antibody Screen 05/09/23 05/09/23 05/09/23 Range/Units 11:24 11:10 10:39 WBC (4.8-10.8) K/ul RBC (4.20-5.40) M/uL Hgb (12.0-16.0) g/dl Hct (37.0-47.0) % MCV (80.0-100.0) fL MCH (25.0-34.0) pg MCHC (32.0-36.0) g/dL RDW Std Deviation (36.4-46.3) fL RDW Coeff of Rody (11.5-14.5) % Plt Count (130-400) K/uL MPV (9.4-12.4) fL Immature Gran % (Auto) % Neut % (Auto) % Lymph % (Auto) % Harney % (Auto) % Eos % (Auto) % Baso % (Auto) % Neut # (Auto) (1.40-6.50) K/uL Lymph # (Auto) (1.20-3.40) K/uL Harney # (Auto) (0.11-0.59) K/uL Eos # (Auto) (0.00-0.50) K/uL Baso # (Auto) (0.00-0.20) K/uL Immature Gran # (Auto) (0.01-0.20) K/uL PT (9.0-12.0) Seconds INR (0.9-1.1) APTT (21.0-31.0) Seconds PTT Ratio Sodium 138 (136-145) mmol/L Potassium 3.9 (3.5-5.1) mmol/L Chloride 106 (98-107) mmol/L Carbon Dioxide 29 (21-32) mmol/L Anion Gap 3 (3-11) BUN 8 (6-23) mg/dl Creatinine 0.58 L (0.6-1.2) mg/dl Est Cr Clr Drug Dosing Not Reportable Est GFR ( Amer) 99.5 ml/min Est GFR (Non-Af Amer) 85.8 ml/min BUN/Creatinine Ratio 13.8 (10-20) Glucose 90 (70-99(Fasting)) mg/dl Calcium 8.5 L (8.6-10.3) mg/dl Total Bilirubin 0.6 (0.2-1.0) mg/dl AST 24 (13-39) U/L ALT 12 (7-52) U/L Alkaline Phosphatase 43 (34-104) U/L Total Protein 6.5 (6.0-8.3) gm/dl Albumin 3.7 (3.4-5.0) gm/dl Globulin 2.8 (2.5-4.0) gm/dl Albumin/Globulin Ratio 1.3 (0.9-2) POC Stool Occult Blood Positive A (Negative) Adenovirus (PCR) Not Detected (NotDetected) B. pertussis DNA (PCR) Not Detected (NotDetected) B.parapertussis DNA PCR Not Detected (NotDetected) C. pneumoniae DNA (PCR) Not Detected (NotDetected) Coronavirus OC43 (PCR) Not Detected (NotDetected) Coronavirus HKU1 (PCR) Not Detected (NotDetected) Coronavirus 229E (PCR) Not Detected (NotDetected) SARS-CoV-2 (PCR) Not Detected (NotDetected) Coronavirus NL63 (PCR) Not Detected (NotDetected) Human Metapneumovir PCR Not Detected (NotDetected) Influenza Type A (PCR) Not Detected (NotDetected) Influenza Type B (PCR) Not Detected (NotDetected) M. pneumoniae (PCR) Not Detected (NotDetected) Parainfluenza 1 (PCR) Not Detected (NotDetected) Parainfluenza 2 (PCR) Not Detected (NotDetected) Parainfluenza 3 (PCR) Not Detected (NotDetected) Parainfluenza 4 (PCR) Not Detected (NotDetected) RSV (PCR) Not Detected (NotDetected) Entero/Rhino (PCR) DETECTED A* (NotDetected) Blood Type Antibody Screen 05/09/23 05/09/23 05/09/23 Range/Units 10:39 10:39 10:39 WBC 3.56 L (4.8-10.8) K/ul RBC 3.71 L (4.20-5.40) M/uL Hgb 12.2 (12.0-16.0) g/dl Hct 36.3 L (37.0-47.0) % MCV 97.8 (80.0-100.0) fL MCH 32.9 (25.0-34.0) pg MCHC 33.6 (32.0-36.0) g/dL RDW Std Deviation 48.2 H (36.4-46.3) fL RDW Coeff of Rody 13.5 (11.5-14.5) % Plt Count 136 (130-400) K/uL MPV 9.3 L (9.4-12.4) fL Immature Gran % (Auto) 0.3 % Neut % (Auto) 47.2 % Lymph % (Auto) 37.6 % Harney % (Auto) 11.5 % Eos % (Auto) 2.8 % Baso % (Auto) 0.6 % Neut # (Auto) 1.68 (1.40-6.50) K/uL Lymph # (Auto) 1.34 (1.20-3.40) K/uL Harney # (Auto) 0.41 (0.11-0.59) K/uL Eos # (Auto) 0.10 (0.00-0.50) K/uL Baso # (Auto) 0.02 (0.00-0.20) K/uL Immature Gran # (Auto) 0.01 (0.01-0.20) K/uL PT 11.4 (9.0-12.0) Seconds INR 1.0 (0.9-1.1) APTT 23.4 (21.0-31.0) Seconds PTT Ratio 0.8 Sodium (136-145) mmol/L Potassium (3.5-5.1) mmol/L Chloride (98-107) mmol/L Carbon Dioxide (21-32) mmol/L Anion Gap (3-11) BUN (6-23) mg/dl Creatinine (0.6-1.2) mg/dl Est Cr Clr Drug Dosing Est GFR ( Amer) ml/min Est GFR (Non-Af Amer) ml/min BUN/Creatinine Ratio (10-20) Glucose (70-99(Fasting)) mg/dl Calcium (8.6-10.3) mg/dl Total Bilirubin (0.2-1.0) mg/dl AST (13-39) U/L ALT (7-52) U/L Alkaline Phosphatase (34-104) U/L Total Protein (6.0-8.3) gm/dl Albumin (3.4-5.0) gm/dl Globulin (2.5-4.0) gm/dl Albumin/Globulin Ratio (0.9-2) POC Stool Occult Blood (Negative) Adenovirus (PCR) (NotDetected) B. pertussis DNA (PCR) (NotDetected) B.parapertussis DNA PCR (NotDetected) C. pneumoniae DNA (PCR) (NotDetected) Coronavirus OC43 (PCR) (NotDetected) Coronavirus HKU1 (PCR) (NotDetected) Coronavirus 229E (PCR) (NotDetected) SARS-CoV-2 (PCR) (NotDetected) Coronavirus NL63 (PCR) (NotDetected) Human Metapneumovir PCR (NotDetected) Influenza Type A (PCR) (NotDetected) Influenza Type B (PCR) (NotDetected) M. pneumoniae (PCR) (NotDetected) Parainfluenza 1 (PCR) (NotDetected) Parainfluenza 2 (PCR) (NotDetected) Parainfluenza 3 (PCR) (NotDetected) Parainfluenza 4 (PCR) (NotDetected) RSV (PCR) (NotDetected) Entero/Rhino (PCR) (NotDetected) Blood Type A Positive Antibody Screen NEGATIVE
--- NOTE | 2023-05-10 18:39 | Discharge Summary ---
Discharge Summary Date of Service May 10, 2023 Notes For Next Care Provider Medication Changes From Visit [ ] Hold plavix until 05/12, resume if no further signs of GIB Admission HPI Per Admitting Provider This is a 82-year-old female with PMH of tachy ramya syndrome s/p pacemaker, chronic atrial fibrillation with contraindications to chronic anticoagulation related to history of spontaneous subdural hematomas on oral anticoagulation, Alzheimer's dementia, TIA, PAD on plavix, history of GI bleed and other medical problems listed below who presents with rectal bleeding. Had a bowel movement this morning with blood mixed in and surrounding in toilet and on tissue paper. Stool was formed. No blood in urine. No recurrent episodes of rectal bleeding. History of diverticulosis and intermittent constipation. No lightheadedness, headache, CP, SOB, N/V, abdominal pain, dysuria or diarrhea. Endorses a barking cough x 1 week and congestion. No fever or chills. Patient lives with her as well as her daughter and son in law. Has had a cognitive decline over the past year after TIA and suspected others. 2D echo January 2022 with preserved EF 55-59%, mild mitral valve stenisis, mild pulm HTN. Admission Exam Per Admitting Provider General Appearance:WD/WN, vitals as above, NAD, sitting up in bed, pleasant, conversing easily Head: normocephalic, atraumatic Eyes:normal inspection, PERRL, conjunctivae normal, anicteric sclerae ENT: hard of hearing, external ear and nose normal, oropharynx normal Neck: normal visual inspection, trachea midline, no thyromegaly Respiratory:normal respiratory effort, coarse breath sounds throughout, no wheezing or rhonchi. No accessory muscle use Cardiovascular: regular rate, rhythm, no murmur, normal peripheral pulses, no BLE edema. Vessels: no JVD Chest: normal inspection of chest Abdomen/GI: normal bowel sounds, soft, nontender, no hepatosplenomegaly Extremities/Musculoskeletal: no cyanosis or clubbing, extremities motor strength 5/5 Neurologic: PERRL, EOMI, accommodation nl, no face palsy, no dysarthria, CN's II-XI intact bilaterally and moves all extremities Psychiatric:A+Ox3 with intermittent confusion, euthymic affect Skin: no rashes, normal color, warm/dry Principal Dx & Hospital Course #1 = Principal Diagnosis (1) Hematochezia: (2) History of subdural hematoma: (3) Atrial fibrillation: (4) Hyperlipidemia: (5) Hypertension: Plan Ms. Becerra 82-year-old female with PMH of tachy ramya syndrome s/p pacemaker, chronic atrial fibrillation with contraindications to chronic anticoagulation related to history of spontaneous subdural hematomas on oral anticoagulation, Alzheimer's dementia, TIA, PAD on plavix, history of GI bleed and other medical problems listed below who presents with one episode of hematochezia. Patient's reports the stool was formed and there was visible blood in the bowl. Patient states she has experienced similar symptoms historically iso constipation. During admission, patient's hgb remain stable at baseline. Stool was passed without further episodes. Patient evaluated by GI, who reports wishing to pursue conservative management and close OP follow up. On day of discharge, patient was ambulating without difficulty, denied any lightheadedness, dizziness, chest pain or other acute concerns. #Hematochezia 1 episode 05/09 of formed stool with blood mixed in, h/o recent constipation , no further bleeding while inpatient VSS, hgb 12.2 (previous hgb 14), stool occult blood positive, no recurrent episodes of bleeding since arrival CT abd/pelvis with no acute process within the abdomen or pelvis on unenhanced exam. No bowel obstruction. Sigmoid diverticulosis. No evidence for acute diverticulitis Intermittent constipation, recommended adding Colace at home Holding plavix until 05/12--encouraged patient to ensure high fiber diet and addition of stool softener -given stoke history, recommened resuming plavix on 05/12 if no further signs of bleeding -OP GI and PCP follow up #Tachy ramya syndrome S/p pacemaker, no acute events #Chronic atrial fibrillation Contraindication to chronic anticoagulation related to history of spontaneous subdural hematomas on oral anticoagulation, per cards Continue Toprol HS #Alzheimer's dementia Lives with family, noticeable cognitive decline over past year per family, multiple TIAs #History of TIA, stroke Continue statin, resume plavix on 05/12 if no further sign of bleeding PAD No h/o intervention Entero/rhino virus on PCR Antitussives PRN, afebrile Discharge Exam Constitutional WD/WN, vitals as above Respiratory normal respiratory effort, lungs clear to auscultation Cardiovascular RRR, no murmur, no edema Gastrointestinal (Abdomen) normal bowel sounds, soft, nontender, no hepatosplenomegaly Musculoskeletal no cyanosis or clubbing, extremities motor strength 5/5 Neurologic PERRL, EOMI, accommodation nl, no face palsy, no dysarthria Updated Medication List Medication Instructions Recorded Confirmed Type acetaminophen 500 mg tablet 500 mg PO Q6H PRN Pain 09/26/18 05/09/23 History (Tylenol Extra Strength) bimatoprost 0.01 % eye drops 1 drp ophthalmic (eye) HS 09/26/18 05/09/23 History (Lumigan) cholecalciferol (vitamin D3) 50 2,000 unit PO QAM 09/26/18 05/09/23 History mcg (2,000 unit) capsule (Vitamin D3) dorzolamide-timolol (PF) 2 %-0.5 % 1 drp ophthalmic (eye) BID 09/26/18 05/09/23 History eye drops in a dropperette (Cosopt (PF)) fexofenadine 180 mg tablet 180 mg PO QAM 09/26/18 05/09/23 History fluticasone propionate 50 2 spray intranasal HS 09/26/18 05/09/23 History mcg/actuation nasal spray,suspension (Flonase Allergy Relief) furosemide 20 mg tablet 20 mg PO MOWEFR@0900 09/26/18 05/09/23 History clopidogrel 75 mg tablet 75 mg PO QAM 08/07/22 05/09/23 History cyanocobalamin (vitamin B-12) 1,000 mcg PO QAM 08/07/22 05/09/23 History 1,000 mcg tablet (Vitamin B-12) famotidine 20 mg tablet (Pepcid) 20 mg PO BID 08/07/22 05/09/23 History metoprolol succinate 50 mg 50 mg PO HS 10/25/22 05/09/23 History tablet,extended release 24 hr rosuvastatin 10 mg tablet 10 mg PO QAM 05/09/23 05/09/23 History Hospital Stay Data Consultations 05/10/23 07:00 Consult Gastroenterology Routine Diagnostic Imagining Performed 05/09/23 11:13 CT Abd and Pelvis [CT abd pelvis wo con] Stat Pending Results Patient Have Any Pending Studies at Discharge: No Discharge Instructions Given to Patient (Per Discharging Provider) You were admitted to [facility] due to concerns of blood around your stool. The medical surgical tech evaluated you and discussed conservative measures with close follow up with GI planned. Ultimately, the goal is to prevent constipation with a high fiber diet. As of now, your plavix is held to monitor for any continued bleeding. If no bleeding occurs over the next 24 hours, please resume your plavix on 05/12/2023. Case management will call in 24-48 hours to coordinate a follow up with Gastroenterology. Total Time Total Time Spent Total Time Spent (In Minutes): 35
== END 2023-05-10 14:21 | disposition home or self-care (01) ==
LOC: EDINP 09:52 → ED 09:52 → SUATTDRO 15:57 → 2W 18:52

== ENCOUNTER 2023-06-19 15:53 | Inpatient (IN) ==
--- NOTE | 2023-06-19 16:42 | ED Triage Note ---
Date of Service June 19, 2023 History of Present Illness This patient was briefly evaluated while in triage. An abbreviated physical exam was performed. This patient is a 82-year-old Female who presents to the ED for evaluation of "she's not responsive and she's not been able to walk for 2 weeks." Pt. was sick with Covid-19 2 weeks ago. Family reports fever (101.2 at PCP [employer]), weakness, poor appetite. Pt. does have a pacemaker. PCP referred to the ED for admission. PT. did take Paxlovid. Physical Exam VITALS: Vitals are noted on the nurse's note and reviewed by myself. GENERAL: This is an 82 year old female, in no acute distress, nondiaphoretic, well-developed well-nourished. SKIN: No obvious rashes, edema, erythema HEAD: Normocephalic atraumatic. EYES: Conjunctivae without injection, sclerae without icterus. NECK: No JVD. LUNGS: No retractions or accessory muscle use. MUSCULOSKELETAL: Presents in a wheelchair. NEURO: Patient was alert and oriented to person place and time. No focal neurological deficits. Initial orders for labs and / or imaging were placed and patient was placed in the waiting area until a bed is available. Please see further documentation for the full ED course.
[2023-06-19] MEDS ORDERED: SODIUM CHLORIDE 0.9% 500 ML IV SCH (16:45)
--- NOTE | 2023-06-19 17:38 | XRay Report ---
XR chest 1V not portable HISTORY: 82 years-old Female Sepsis acute sepsis COMPARISON: 05/09/2023 TECHNIQUE: AP view of the chest FINDINGS: Cardiac silhouette is enlarged. Single lead left subclavian pacer. Limited exam secondary to position ing. No pneumothorax or large pleural effusion. Pulmonary vascular congestion. Bones appear grossly i ntact. IMPRESSION: 1. Cardiomegaly with pulmonary vascular congestion. 2. No airspace consolidation typical for pneumonia. ACT 112: Negative or not required by law. The above report was generated using voice recognition software. It may contain grammatical, syntax o r spelling errors. Electronically signed by: Juan Jose Garcia M.D. 06/19/2023 5:37 PM
--- NOTE | 2023-06-19 18:37 | Emergency Department Note ---
Impression & Plan Weakness, Acute dehydration ED Provider Note NAME: JOSE MACIAS AGE: 82 SEX: Female INFORMANT: Patient and family ED PROVIDER(S): Dusty Dumont MD CHIEF COMPLAINT: Weakness PLAN: Disposition: Admitted Outpatient prescription management: none Referral: None MEDICAL DECISION MAKING: Patient presented because of profound weakness for the primary office. She is also had fever. Patient had COVID 2 weeks ago. Work-up was initiated. Blood cultures, cath urinalysis, blood work and EKG performed. Head CT and chest x- ray performed. No acute findings noted. Some mild cardiomegaly noted. Patient clinically looked dehydrated. She was given saline IV. Bio fire testing was unremarkable except for COVID-19 which the patient is already had. There was delay in getting a urine result. Patient need further evaluation and management in the hospital. [facility] Patient was evaluated in the ER for further management. Patient's urinalysis then did come back concerning for infection. Antibiotics [facility] Yuan Odell[facility] Care/management discussed with: Discussed with manager hardware Level of care consideration(s): After review of the information above and other included data, I feel the patient requires escalation of care to admission. Triage Nursing notes: reviewed and agree them. Vital Signs: reviewed and remarkable for borderline tachycardia Additional History obtained from: Patient's daughter and regarding her poor p.o. intake recently and decline of status. Chronic Medical/Social Conditions affecting care: TIA, A-fib Prior/ Outside/ External records reviewed: none Differential Diagnosis: Infection, dehydration, metabolic abnormality, hypo/hyperglycemia, electrolyte disturbance, anemia, hypoxia, cardiac sources, intracerebral event, toxicologic, neurologic, as well as other pathologies. Diagnostics, independently interpreted by me: ECG: Twelve-lead ECG reveals atrial fibrillation with rapid ventricular response at [address] Right axis deviation. Inferior T wave inversion. When compared to 05/09/2023 A-fib has replaced paced rhythm Cardiac Monitoring: Cardiac monitoring ordered by me: The patient was placed on continuous cardiac monitoring and observed. It revealed afib at 101 BPM. Medical decision rules: none Imaging studies: Head CT: A noncontrast CT scan of the head was performed and was negative for tumor, fracture, intracranial hemorrhage, or other acute pathology. Chest x-ray. Findings: A chest x-ray was performed and revealed no pneumothorax, effusion, infiltrate, pulmonary edema, free air under the diaphragm, or wide mediastinum. Impression: No acute disease. HPI: Patient is a 82-year-old Female who presents to the ED for evaluation of weakness for two weeks. Pt. was sick with Covid-19 2 weeks ago. Family reports fever (101.2 at [facility] [employer] [facility]), weakness, poor appetite. Pt. does have a pacemaker. PCP referred to the ED for admission. PT. did take Paxlovid. Family notes that she has had poor p.o. intake recently including not really wanting to eat or drink well in the last few days. Family is concerned about dehydration. Patient was complaining of some left wrist pain. Family states that they have been pulling on her to get her into the wheelchair and move her around but there was no falls reported. Family also noted the patient was complaining of some dysuria. Pt denies LOC, headache, diaphoresis, visual changes, neck pain, chest pain, breathing difficulties, nausea, vomiting, abdominal pain, back pain, melena, hematochezia, numbness, lymphadenopathy, rash, or other complaints. PAST MEDICAL HISTORY: See Below, A-fib PAST SURGICAL HISTORY: See Below, pacemaker SOCIAL HISTORY: See Below, lives with HOME MEDICATIONS: See Below ALLERGIES: See Below VITALS: See Below PHYSICAL EXAMINATION: GENERAL: Tired, dehydrated-appearing, in no distress HENT: Normocephalic, atraumatic. Oropharynx with dry mucous membranes EYES: Normal conjunctiva. Sclera non-icteric. PERRLA NECK: Inspection normal. Non-tender. Supple. No nuchal rigidity. FROM. No masses. RESPIRATORY: Clear to auscultation. No wheezes. No rales. Normal respiratory effort. CARDIAC: Borderline tachycardic rate. Irregular rhythm. No murmurs. No rubs. Extremities warm and well perfused. Pulses equal. No JVD. GI: Soft, non-distended. No tenderness to palpation. No rebound or guarding. No masses. RECTAL: Deferred. MUSCULOSKELETAL: Atraumatic. Chest examination reveals no tenderness. The back is symmetrical on inspection without obvious abnormality. There is no CVA tenderness to palpation. No joint edema. LOWER EXTREMITIES: Calves are equal size bilaterally and non-tender. No edema. No discoloration. NEURO: Mildly confused sensorium. No focal sensory or motor deficits noted, but generally weak. SKIN: No rash or jaundice noted. PROCEDURES: none CRITICAL CARE: none OBSERVATION NOTE: none Past Med/Surg History Medical History (Updated 06/19/23 @ 18:52 by Dusty Dumont MD) Acute GI bleeding Atrial fibrillation hx of--follows with Dr. 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 Hyperlipidemia Hypertension Left leg numbness Mitral valve stenosis, rheumatic Nausea Pacemaker 05/2012 @ [facility] meditronic single chamber Prolapsed uterus Spinal stenosis Unsteady Surgical History History of bilateral cataract extraction History of cardiac cath x3--1965- no stents History of colonoscopy History of dilatation and curettage x4 History of esophagogastroduodenoscopy (EGD) History of mandibular surgery hx realignment of jaw History of mitral valve repair 1965 @ [facility] History of removal of cyst benign growth removed from jaw History of tonsillectomy and adenoidectomy History of tooth extraction History of total abdominal hysterectomy History of wisdom tooth extraction Family History (Updated 05/09/23 @ 15:58 by Latisha Landeros PA-C) Other Hypertension No family history of adverse response to anesthesia Social History Smoking Status: Never smoker Second Hand Exposure: Yes; Do You Dip or Chew Tobacco: No; Hx Alcohol Use: No Hx Substance Use: No Preferred Language: Swiss Communication Ability: Effective 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 Beliefs That Will Affect Care: None marital status: Current Living Situation: Spouse and Family Feels Safe at Home: Yes Assistive Devices: Glasses Allergies Allergies Allergy/AdvReac Type Severity Reaction Status Date / Time shellfish derived Allergy Intermediate bumps Verified 06/19/23 21:27 after eating adhesive Allergy Mild SKIN WILL Verified 06/19/23 21:27 GET SORE diltiazem Allergy Unknown doc said Verified 06/19/23 21:27 she shouldnt take it fish derived Allergy Unknown Unknown Verified 06/19/23 21:27 warfarin AdvReac Severe brain bleed Verified 06/19/23 21:27 ezetimibe AdvReac Intermediate GI SYMPTOMS Verified 06/19/23 21:27 hydromorphone AdvReac Intermediate SLOWED Verified 06/19/23 21:27 HEART RATE meperidine AdvReac Intermediate VOMITING Verified 06/19/23 21:27 rosuvastatin AdvReac Intermediate GI SYMPTOMS Verified 06/19/23 21:27 simvastatin AdvReac Intermediate GI SYMPTOMS Verified 06/19/23 21:27 [id number]-[id number] Reductase AdvReac Intermediate cramps Verified 05/09/23 12:40 Inhibitor [Ylithpb-Hsf-Hgs Reductase Inhibitor] Home Meds Home Medications Medication Instructions Recorded Confirmed acetaminophen 500 mg tablet 500 mg PO Q6H PRN Pain 09/26/18 06/19/23 (Tylenol Extra Strength) bimatoprost 0.01 % eye drops 1 drp OPB HS 09/26/18 06/19/23 (Lumigan) cholecalciferol (vitamin D3) 50 2,000 unit PO QAM 09/26/18 06/19/23 mcg (2,000 unit) capsule (Vitamin D3) dorzolamide-timolol (PF) 2 %-0.5 % 1 drp OPB BID 09/26/18 06/19/23 eye drops in a dropperette (Cosopt (PF)) fexofenadine 180 mg tablet 180 mg PO QPM 09/26/18 06/19/23 fluticasone propionate 50 2 spray intranasal HS 09/26/18 06/19/23 mcg/actuation nasal spray,suspension (Flonase Allergy Relief) furosemide 20 mg tablet 20 mg PO MOWEFR@0900 09/26/18 06/19/23 clopidogrel 75 mg tablet 75 mg PO QAM 08/07/22 06/19/23 cyanocobalamin (vitamin B-12) 1,000 mcg PO QAM 08/07/22 06/19/23 1,000 mcg tablet (Vitamin B-12) famotidine 20 mg tablet (Pepcid) 20 mg PO BID 08/07/22 06/19/23 metoprolol succinate 50 mg 50 mg PO HS 10/25/22 06/19/23 tablet,extended release 24 hr rosuvastatin 10 mg tablet 10 mg PO QAM 05/09/23 06/19/23 Results & Data (ED) Vital Signs Vital Signs - 24 hr 06/19/23 16:42 06/19/23 18:46 06/19/23 18:25 Temperature 36.3 C L Temperature Source Temporal Artery Scan Pulse Rate 108 H 88 Pulse Rate [Apical] Pulse Rate from SpO2 Sensor Respiratory Rate 24 Respiratory Effort / Characteristics Non-Labored Respiratory Depth Normal Respiratory Pattern Regular Blood Pressure 135/86 Blood Pressure [Right Arm] Blood Pressure Mean 102 Blood Pressure Mean [Right Arm] Pulse Oximetry 96 97 Oxygen Delivery Method Room Air Room Air Sepsis Recent Fever Within 48 Hours Yes Sepsis New/Unexplained Change in Mental Status Yes Sepsis Action Taken by Nursing Adv Provider Notified 06/19/23 18:45 06/19/23 18:56 06/19/23 19:24 Temperature Temperature Source Pulse Rate 91 H 88 Pulse Rate [Apical] 100 H Pulse Rate from SpO2 Sensor 61 Respiratory Rate 16 20 19 Respiratory Effort / Characteristics Non-Labored Spontaneous Respiratory Depth Normal Respiratory Pattern Blood Pressure 137/96 148/101 H Blood Pressure [Right Arm] 137/96 Blood Pressure Mean 113 116 Blood Pressure Mean [Right Arm] 109 Pulse Oximetry 98 97 Oxygen Delivery Method Room Air Sepsis Recent Fever Within 48 Hours Sepsis New/Unexplained Change in Mental Status Sepsis Action Taken by Nursing 06/19/23 19:30 06/19/23 19:45 06/19/23 20:00 Temperature Temperature Source Pulse Rate 81 78 86 Pulse Rate [Apical] Pulse Rate from SpO2 Sensor 86 81 Respiratory Rate 21 24 21 Respiratory Effort / Characteristics Respiratory Depth Respiratory Pattern Blood Pressure 149/95 H 142/77 H 129/81 Blood Pressure [Right Arm] Blood Pressure Mean 113 98 97 Blood Pressure Mean [Right Arm] Pulse Oximetry 98 96 Oxygen Delivery Method Sepsis Recent Fever Within 48 Hours Sepsis New/Unexplained Change in Mental Status Sepsis Action Taken by Nursing 06/19/23 20:15 06/19/23 20:30 06/19/23 20:45 Temperature Temperature Source Pulse Rate 90 88 86 Pulse Rate [Apical] Pulse Rate from SpO2 Sensor 92 H 92 H Respiratory Rate 20 20 21 Respiratory Effort / Characteristics Respiratory Depth Respiratory Pattern Blood Pressure 124/84 129/88 126/75 Blood Pressure [Right Arm] Blood Pressure Mean 97 101 92 Blood Pressure Mean [Right Arm] Pulse Oximetry 96 96 Oxygen Delivery Method Sepsis Recent Fever Within 48 Hours Sepsis New/Unexplained Change in Mental Status Sepsis Action Taken by Nursing 06/19/23 21:00 06/19/23 21:00 06/19/23 21:15 Temperature Temperature Source Pulse Rate 86 Pulse Rate [Apical] Pulse Rate from SpO2 Sensor 92 H Respiratory Rate 21 Respiratory Effort / Characteristics Respiratory Depth Respiratory Pattern Blood Pressure 127/88 124/64 Blood Pressure [Right Arm] Blood Pressure Mean 111 93 Blood Pressure Mean [Right Arm] Pulse Oximetry 97 Oxygen Delivery Method Sepsis Recent Fever Within 48 Hours Sepsis New/Unexplained Change in Mental Status Sepsis Action Taken by Nursing 06/19/23 21:15 06/19/23 21:30 06/19/23 21:30 Temperature Temperature Source Pulse Rate 70 73 Pulse Rate [Apical] Pulse Rate from SpO2 Sensor 76 79 Respiratory Rate 18 18 Respiratory Effort / Characteristics Respiratory Depth Respiratory Pattern Blood Pressure 123/78 Blood Pressure [Right Arm] Blood Pressure Mean 87 Blood Pressure Mean [Right Arm] Pulse Oximetry 95 95 Oxygen Delivery Method Sepsis Recent Fever Within 48 Hours Sepsis New/Unexplained Change in Mental Status Sepsis Action Taken by Nursing 06/19/23 21:45 06/19/23 21:45 06/19/23 22:00 Temperature Temperature Source Pulse Rate 87 Pulse Rate [Apical] Pulse Rate from SpO2 Sensor 84 Respiratory Rate 19 Respiratory Effort / Characteristics Respiratory Depth Respiratory Pattern Blood Pressure 126/84 128/75 Blood Pressure [Right Arm] Blood Pressure Mean 110 114 Blood Pressure Mean [Right Arm] Pulse Oximetry 96 Oxygen Delivery Method Sepsis Recent Fever Within 48 Hours Sepsis New/Unexplained Change in Mental Status Sepsis Action Taken by Nursing 06/19/23 22:00 06/19/23 22:15 06/19/23 22:15 Temperature Temperature Source Pulse Rate 74 75 Pulse Rate [Apical] Pulse Rate from SpO2 Sensor 83 81 Respiratory Rate 21 16 Respiratory Effort / Characteristics Respiratory Depth Respiratory Pattern Blood Pressure 120/71 Blood Pressure [Right Arm] Blood Pressure Mean 76 Blood Pressure Mean [Right Arm] Pulse Oximetry 94 94 Oxygen Delivery Method Sepsis Recent Fever Within 48 Hours Sepsis New/Unexplained Change in Mental Status Sepsis Action Taken by Nursing 06/19/23 22:30 06/19/23 22:30 Temperature Temperature Source Pulse Rate 77 Pulse Rate [Apical] Pulse Rate from SpO2 Sensor 81 Respiratory Rate 22 Respiratory Effort / Characteristics Respiratory Depth Respiratory Pattern Blood Pressure 144/83 H Blood Pressure [Right Arm] Blood Pressure Mean 112 Blood Pressure Mean [Right Arm] Pulse Oximetry 97 Oxygen Delivery Method Sepsis Recent Fever Within 48 Hours Sepsis New/Unexplained Change in Mental Status Sepsis Action Taken by Nursing Laboratory Data 06/19/23 18:29 06/19/23 23:15 Lab Results 06/19/23 06/19/23 06/19/23 Range/Units 18:29 18:29 18:29 WBC 10.62 (4.8-10.8) K/ul RBC 4.53 (4.20-5.40) M/uL Hgb 14.7 (12.0-16.0) g/dl Hct 42.0 (37.0-47.0) % MCV 92.7 (80.0-100.0) fL MCH 32.5 (25.0-34.0) pg MCHC 35.0 (32.0-36.0) g/dL RDW Std Deviation 44.5 (36.4-46.3) fL RDW Coeff of Rody 13.0 (11.5-14.5) % Plt Count 267 (130-400) K/uL MPV 9.4 (9.4-12.4) fL Immature Gran % (Auto) 0.4 % Neut % (Auto) 70.6 % Lymph % (Auto) 18.6 % [place] % (Auto) 10.1 % Eos % (Auto) 0.1 % Baso % (Auto) 0.2 % Neut # (Auto) 7.50 H (1.40-6.50) K/uL Lymph # (Auto) 1.98 (1.20-3.40) K/uL [place] # (Auto) 1.07 H (0.11-0.59) K/uL Eos # (Auto) 0.01 (0.00-0.50) K/uL Baso # (Auto) 0.02 (0.00-0.20) K/uL Immature Gran # (Auto) 0.04 (0.01-0.20) K/uL PT INR APTT PTT Ratio Sodium 129 L (136-145) mmol/L Potassium 3.9 (3.5-5.1) mmol/L Chloride 94 L (98-107) mmol/L Carbon Dioxide 26 (21-32) mmol/L Anion Gap 9 (3-11) BUN 15 (6-23) mg/dl Creatinine 0.72 (0.6-1.2) mg/dl Est Cr Clr Drug Dosing 48.3 ml/min Est GFR ( Amer) 90.4 ml/min Est GFR (Non-Af Amer) 78.0 ml/min BUN/Creatinine Ratio 20.8 H (10-20) Glucose 127 H (70-99(Fasting)) mg/dl Osmolality (280-300) mOsm/kg Lactate 1.7 (0.4-2.0) mmol/L Calcium 9.4 (8.6-10.3) mg/dl Magnesium 2.1 (1.7-2.4) mg/dl Total Bilirubin 1.0 (0.2-1.0) mg/dl Direct Bilirubin 0.2 (0-0.2) mg/dl AST 29 (13-39) U/L ALT 33 (7-52) U/L Alkaline Phosphatase 53 (34-104) U/L Troponin I High Sens 12.4 (0-14) pg/ml B-Natriuretic Peptide (0-100) pg/ml Total Protein 7.6 (6.0-8.3) gm/dl Albumin 3.8 (3.4-5.0) gm/dl Procalcitonin (0-0.5) ng/ml TSH 1.730 (0.300-4.500) uIu/ml Urine Color Urine Appearance Urine pH Ur Specific [place] Urine Protein Urine Glucose (UA) Urine Ketones Urine Blood Urine Nitrite Urine Bilirubin Urine Urobilinogen Ur Leukocyte Esterase Urine WBC (Auto) Urine RBC (Auto) U Hyaline Cast (Auto) U Epithel Cells (Auto) Urine Bacteria (Auto) Ur Renal Epithelial Cell Urine Crystals Calcium Oxalate Crystal Uric Acid Crystals Triple Phos Crystals Other Crystals Amorphous Sediment Granular Casts Waxy Casts RBC Casts WBC Casts Other Casts Urine Mucus Urine Other Urine Trichomonas Urine Yeast Urine Sperm Ur Oval Fat Bodies Adenovirus (PCR) (NotDetected) B. pertussis DNA (PCR) (NotDetected) B.parapertussis DNA PCR (NotDetected) C. pneumoniae DNA (PCR) (NotDetected) Coronavirus OC43 (PCR) (NotDetected) Coronavirus HKU1 (PCR) (NotDetected) Coronavirus 229E (PCR) (NotDetected) SARS-CoV-2 (PCR) (NotDetected) Coronavirus NL63 (PCR) (NotDetected) Human Metapneumovir PCR (NotDetected) Influenza Type A (PCR) (NotDetected) Influenza Type B (PCR) (NotDetected) M. pneumoniae (PCR) (NotDetected) Parainfluenza 1 (PCR) (NotDetected) Parainfluenza 2 (PCR) (NotDetected) Parainfluenza 3 (PCR) (NotDetected) Parainfluenza 4 (PCR) (NotDetected) RSV (PCR) (NotDetected) Entero/Rhino (PCR) (NotDetected) 06/19/23 06/19/23 06/19/23 Range/Units 18:29 18:29 19:04 WBC (4.8-10.8) K/ul RBC (4.20-5.40) M/uL Hgb (12.0-16.0) g/dl Hct (37.0-47.0) % MCV (80.0-100.0) fL MCH (25.0-34.0) pg MCHC (32.0-36.0) g/dL RDW Std Deviation (36.4-46.3) fL RDW Coeff of Rody (11.5-14.5) % Plt Count (130-400) K/uL MPV (9.4-12.4) fL Immature Gran % (Auto) % Neut % (Auto) % Lymph % (Auto) % [place] % (Auto) % Eos % (Auto) % Baso % (Auto) % Neut # (Auto) (1.40-6.50) K/uL Lymph # (Auto) (1.20-3.40) K/uL [place] # (Auto) (0.11-0.59) K/uL Eos # (Auto) (0.00-0.50) K/uL Baso # (Auto) (0.00-0.20) K/uL Immature Gran # (Auto) (0.01-0.20) K/uL PT Cancelled INR Cancelled APTT Cancelled PTT Ratio Cancelled Sodium (136-145) mmol/L Potassium (3.5-5.1) mmol/L Chloride (98-107) mmol/L Carbon Dioxide (21-32) mmol/L Anion Gap (3-11) BUN (6-23) mg/dl Creatinine (0.6-1.2) mg/dl Est Cr Clr Drug Dosing ml/min Est GFR ( Amer) ml/min Est GFR (Non-Af Amer) ml/min BUN/Creatinine Ratio (10-20) Glucose (70-99(Fasting)) mg/dl Osmolality (280-300) mOsm/kg Lactate (0.4-2.0) mmol/L Calcium (8.6-10.3) mg/dl Magnesium (1.7-2.4) mg/dl Total Bilirubin (0.2-1.0) mg/dl Direct Bilirubin (0-0.2) mg/dl AST (13-39) U/L ALT (7-52) U/L Alkaline Phosphatase (34-104) U/L Troponin I High Sens (0-14) pg/ml B-Natriuretic Peptide (0-100) pg/ml Total Protein (6.0-8.3) gm/dl Albumin (3.4-5.0) gm/dl Procalcitonin < 0.05 (0-0.5) ng/ml TSH (0.300-4.500) uIu/ml Urine Color Urine Appearance Urine pH Ur Specific [place] Urine Protein Urine Glucose (UA) Urine Ketones Urine Blood Urine Nitrite Urine Bilirubin Urine Urobilinogen Ur Leukocyte Esterase Urine WBC (Auto) Urine RBC (Auto) U Hyaline Cast (Auto) U Epithel Cells (Auto) Urine Bacteria (Auto) Ur Renal Epithelial Cell Urine Crystals Calcium Oxalate Crystal Uric Acid Crystals Triple Phos Crystals Other Crystals Amorphous Sediment Granular Casts Waxy Casts RBC Casts WBC Casts Other Casts Urine Mucus Urine Other Urine Trichomonas Urine Yeast Urine Sperm Ur Oval Fat Bodies Adenovirus (PCR) Not Detected (NotDetected) B. pertussis DNA (PCR) Not Detected (NotDetected) B.parapertussis DNA PCR Not Detected (NotDetected) C. pneumoniae DNA (PCR) Not Detected (NotDetected) Coronavirus OC43 (PCR) Not Detected (NotDetected) Coronavirus HKU1 (PCR) Not Detected (NotDetected) Coronavirus 229E (PCR) Not Detected (NotDetected) SARS-CoV-2 (PCR) DETECTED A* (NotDetected) Coronavirus NL63 (PCR) Not Detected (NotDetected) Human Metapneumovir PCR Not Detected (NotDetected) Influenza Type A (PCR) Not Detected (NotDetected) Influenza Type B (PCR) Not Detected (NotDetected) M. pneumoniae (PCR) Not Detected (NotDetected) Parainfluenza 1 (PCR) Not Detected (NotDetected) Parainfluenza 2 (PCR) Not Detected (NotDetected) Parainfluenza 3 (PCR) Not Detected (NotDetected) Parainfluenza 4 (PCR) Not Detected (NotDetected) RSV (PCR) Not Detected (NotDetected) Entero/Rhino (PCR) Not Detected (NotDetected) 06/19/23 06/19/23 06/19/23 Range/Units 19:48 19:49 20:58 WBC (4.8-10.8) K/ul RBC (4.20-5.40) M/uL Hgb (12.0-16.0) g/dl Hct (37.0-47.0) % MCV (80.0-100.0) fL MCH (25.0-34.0) pg MCHC (32.0-36.0) g/dL RDW Std Deviation (36.4-46.3) fL RDW Coeff of Rody (11.5-14.5) % Plt Count (130-400) K/uL MPV (9.4-12.4) fL Immature Gran % (Auto) % Neut % (Auto) % Lymph % (Auto) % [place] % (Auto) % Eos % (Auto) % Baso % (Auto) % Neut # (Auto) (1.40-6.50) K/uL Lymph # (Auto) (1.20-3.40) K/uL [place] # (Auto) (0.11-0.59) K/uL Eos # (Auto) (0.00-0.50) K/uL Baso # (Auto) (0.00-0.20) K/uL Immature Gran # (Auto) (0.01-0.20) K/uL PT 11.9 INR 1.1 APTT 25.5 PTT Ratio 0.9 Sodium (136-145) mmol/L Potassium (3.5-5.1) mmol/L Chloride (98-107) mmol/L Carbon Dioxide (21-32) mmol/L Anion Gap (3-11) BUN (6-23) mg/dl Creatinine (0.6-1.2) mg/dl Est Cr Clr Drug Dosing ml/min Est GFR ( Amer) ml/min Est GFR (Non-Af Amer) ml/min BUN/Creatinine Ratio (10-20) Glucose (70-99(Fasting)) mg/dl Osmolality 275 L (280-300) mOsm/kg Lactate (0.4-2.0) mmol/L Calcium (8.6-10.3) mg/dl Magnesium (1.7-2.4) mg/dl Total Bilirubin (0.2-1.0) mg/dl Direct Bilirubin (0-0.2) mg/dl AST (13-39) U/L ALT (7-52) U/L Alkaline Phosphatase (34-104) U/L Troponin I High Sens (0-14) pg/ml B-Natriuretic Peptide 158 H (0-100) pg/ml Total Protein (6.0-8.3) gm/dl Albumin (3.4-5.0) gm/dl Procalcitonin (0-0.5) ng/ml TSH (0.300-4.500) uIu/ml Urine Color Urine Appearance Urine pH Ur Specific [place] Urine Protein Urine Glucose (UA) Urine Ketones Urine Blood Urine Nitrite Urine Bilirubin Urine Urobilinogen Ur Leukocyte Esterase Urine WBC (Auto) Urine RBC (Auto) U Hyaline Cast (Auto) U Epithel Cells (Auto) Urine Bacteria (Auto) Ur Renal Epithelial Cell Urine Crystals Calcium Oxalate Crystal Uric Acid Crystals Triple Phos Crystals Other Crystals Amorphous Sediment Granular Casts Waxy Casts RBC Casts WBC Casts Other Casts Urine Mucus Urine Other Urine Trichomonas Urine Yeast Urine Sperm Ur Oval Fat Bodies Adenovirus (PCR) (NotDetected) B. pertussis DNA (PCR) (NotDetected) B.parapertussis DNA PCR (NotDetected) C. pneumoniae DNA (PCR) (NotDetected) Coronavirus OC43 (PCR) (NotDetected) Coronavirus HKU1 (PCR) (NotDetected) Coronavirus 229E (PCR) (NotDetected) SARS-CoV-2 (PCR) (NotDetected) Coronavirus NL63 (PCR) (NotDetected) Human Metapneumovir PCR (NotDetected) Influenza Type A (PCR) (NotDetected) Influenza Type B (PCR) (NotDetected) M. pneumoniae (PCR) (NotDetected) Parainfluenza 1 (PCR) (NotDetected) Parainfluenza 2 (PCR) (NotDetected) Parainfluenza 3 (PCR) (NotDetected) Parainfluenza 4 (PCR) (NotDetected) RSV (PCR) (NotDetected) Entero/Rhino (PCR) (NotDetected) 06/19/23 Range/Units 21:20 WBC (4.8-10.8) K/ul RBC (4.20-5.40) M/uL Hgb (12.0-16.0) g/dl Hct (37.0-47.0) % MCV (80.0-100.0) fL MCH (25.0-34.0) pg MCHC (32.0-36.0) g/dL RDW Std Deviation (36.4-46.3) fL RDW Coeff of Rody (11.5-14.5) % Plt Count (130-400) K/uL MPV (9.4-12.4) fL Immature Gran % (Auto) % Neut % (Auto) % Lymph % (Auto) % [place] % (Auto) % Eos % (Auto) % Baso % (Auto) % Neut # (Auto) (1.40-6.50) K/uL Lymph # (Auto) (1.20-3.40) K/uL [place] # (Auto) (0.11-0.59) K/uL Eos # (Auto) (0.00-0.50) K/uL Baso # (Auto) (0.00-0.20) K/uL Immature Gran # (Auto) (0.01-0.20) K/uL PT INR APTT PTT Ratio Sodium (136-145) mmol/L Potassium (3.5-5.1) mmol/L Chloride (98-107) mmol/L Carbon Dioxide (21-32) mmol/L Anion Gap (3-11) BUN (6-23) mg/dl Creatinine (0.6-1.2) mg/dl Est Cr Clr Drug Dosing ml/min Est GFR ( Amer) ml/min Est GFR (Non-Af Amer) ml/min BUN/Creatinine Ratio (10-20) Glucose (70-99(Fasting)) mg/dl Osmolality (280-300) mOsm/kg Lactate (0.4-2.0) mmol/L Calcium (8.6-10.3) mg/dl Magnesium (1.7-2.4) mg/dl Total Bilirubin (0.2-1.0) mg/dl Direct Bilirubin (0-0.2) mg/dl AST (13-39) U/L ALT (7-52) U/L Alkaline Phosphatase (34-104) U/L Troponin I High Sens (0-14) pg/ml B-Natriuretic Peptide (0-100) pg/ml Total Protein (6.0-8.3) gm/dl Albumin (3.4-5.0) gm/dl Procalcitonin (0-0.5) ng/ml TSH (0.300-4.500) uIu/ml Urine Color Cancelled Urine Appearance Cancelled Urine pH Cancelled Ur Specific [place] Cancelled Urine Protein Cancelled Urine Glucose (UA) Cancelled Urine Ketones Cancelled Urine Blood Cancelled Urine Nitrite Cancelled Urine Bilirubin Cancelled Urine Urobilinogen Cancelled Ur Leukocyte Esterase Cancelled Urine WBC (Auto) Cancelled Urine RBC (Auto) Cancelled U Hyaline Cast (Auto) Cancelled U Epithel Cells (Auto) Cancelled Urine Bacteria (Auto) Cancelled Ur Renal Epithelial Cell Cancelled Urine Crystals Cancelled Calcium Oxalate Crystal Cancelled Uric Acid Crystals Cancelled Triple Phos Crystals Cancelled Other Crystals Cancelled Amorphous Sediment Cancelled Granular Casts Cancelled Waxy Casts Cancelled RBC Casts Cancelled WBC Casts Cancelled Other Casts Cancelled Urine Mucus Cancelled Urine Other Cancelled Urine Trichomonas Cancelled Urine Yeast Cancelled Urine Sperm Cancelled Ur Oval Fat Bodies Cancelled Adenovirus (PCR) (NotDetected) B. pertussis DNA (PCR) (NotDetected) B.parapertussis DNA PCR (NotDetected) C. pneumoniae DNA (PCR) (NotDetected) Coronavirus OC43 (PCR) (NotDetected) Coronavirus HKU1 (PCR) (NotDetected) Coronavirus 229E (PCR) (NotDetected) SARS-CoV-2 (PCR) (NotDetected) Coronavirus NL63 (PCR) (NotDetected) Human Metapneumovir PCR (NotDetected) Influenza Type A (PCR) (NotDetected) Influenza Type B (PCR) (NotDetected) M. pneumoniae (PCR) (NotDetected) Parainfluenza 1 (PCR) (NotDetected) Parainfluenza 2 (PCR) (NotDetected) Parainfluenza 3 (PCR) (NotDetected) Parainfluenza 4 (PCR) (NotDetected) RSV (PCR) (NotDetected) Entero/Rhino (PCR) (NotDetected) Administered Medications Discontinued Medications Sodium Chloride (Nss) 500 mls @ 999 mls/hr IV .Q31M CHARANJIT Stop: 06/19/23 17:15 Last Infusion: 06/19/23 20:09 Dose: 0 mls/hr Documented By: Admin: 06/19/23 18:49 Dose: 999 mls/hr Documented By: OLAMIDE Sodium Chloride (Nss) 1,000 mls @ 125 mls/hr IV .Q8H CHARANJIT Stop: 07/19/23 20:14 Last Infusion: 06/19/23 20:32 Dose: 0 mls/hr Documented By: Admin: 06/19/23 20:10 Dose: 125 mls/hr Documented By: Albumin Human (Albumin 25%) 25 gm in 100 mls @ 50 mls/hr IV ONE ONE Stop: 06/20/23 02:39 Last Admin: 06/20/23 02:28 Dose: 50 mls/hr Documented By: DMJeffrey Imaging Data Radiologist's Impression: Chest X-Ray 06/19/23 16:42 XR chest 1V not portable HISTORY: 82 years-old Female Sepsis acute sepsis COMPARISON: 05/09/2023 TECHNIQUE: AP view of the chest FINDINGS: Cardiac silhouette is enlarged. Single lead left subclavian pacer. Limited exam secondary to positioning. No pneumothorax or large pleural effusion. Pulmonary vascular congestion. Bones appear grossly intact. IMPRESSION: 1. Cardiomegaly with pulmonary vascular congestion. 2. No airspace consolidation typical for pneumonia. ACT 112: Negative or not required by law. The above report was generated using voice recognition software. It may contain grammatical, syntax or spelling errors. Electronically signed by: Juan Jose Garcia M.D. 06/19/2023 5:[address] 06/19/23 16:43 CT head/brain wo con CLINICAL HISTORY: 82 years-old Female with AMS. Acutely altered mental status TECHNIQUE: Multiple axial CT images of the head were obtained without contrast. A dose lowering technique was utilized adhering to the principles of ALARA. CT DOSE: 625.8 mGy.cm COMPARISON: 08/16/2022 FINDINGS: No acute intracranial hemorrhage, midline shift, intracranial mass, hydrocephalus, territorial ischemia or abnormal extra-axial collection. Involutional changes with chronic microvascular ischemic disease. Cerebral vascular calcifications. The calvarium is intact. Moderate polypoid mucosal thickening of the inferior left maxillary sinus. The mastoid air cells are clear. Prior bilateral lens repair. IMPRESSION: No acute intracranial abnormality. ACT 112: Negative or not required by law. The above report was generated using voice recognition software. It may contain grammatical, syntax or spelling errors. Electronically signed by: Juan Jose Garcia M.D. 06/19/2023 7:12 PM Discharge Plan Visit Data Chief Complaint: Leg Weakness, Bilateral Stated Complaint: WEAKNESS, FEVER ED Provider: Dusty Dumont Discharge Problem: Weakness, Acute dehydration Discharge Instructions Interventions: ED Discharge Assessment Last Done: 06/20/23 00:26
[2023-06-19 19:12] LABS: Basophils # (auto) 0.02 K/uL (0.00-0.20); Basophils % (auto) 0.2 %; Eosinophils # (auto) 0.01 K/uL (0.00-0.50); Eosinophils % (auto) 0.1 %; Hemoglobin 14.7 g/dl (12.0-16.0); Immature Granulocytes # (auto) 0.04 K/uL (0.01-0.20); Immature Granulocytes % (auto) 0.4 %; Lymphocytes # (auto) 1.98 K/uL (1.20-3.40); Lymphocytes % (auto) 18.6 %; Mean Corpuscular Hemoglobin 32.5 pg (25.0-34.0); Mean Corpuscular Volume 92.7 fL (80.0-100.0); Mean Platelet Volume 9.4 fL (9.4-12.4); Monocytes # (auto) 1.07 K/uL (0.11-0.59); Monocytes % (auto) 10.1 %; Neutrophils % (auto) 70.6 %; Platelet Count 267 K/uL (130-400); RDW Standard Deviation 44.5 fL (36.4-46.3); Red Blood Count 4.53 M/uL (4.20-5.40); White Blood Count 10.62 K/ul (4.8-10.8)
--- NOTE | 2023-06-19 19:14 | CT Scan Report ---
CT head/brain wo con CLINICAL HISTORY: 82 years-old Female with AMS. Acutely altered mental status TECHNIQUE: Multiple axial CT images of the head were obtained without contrast. A dose lowering tech nique was utilized adhering to the principles of ALARA. CT DOSE: 625.8 mGy.cm COMPARISON: 08/16/2022 FINDINGS: No acute intracranial hemorrhage, midline shift, intracranial mass, hydrocephalus, territorial ischem ia or abnormal extra-axial collection. Involutional changes with chronic microvascular ischemic disea se. Cerebral vascular calcifications. The calvarium is intact. Moderate polypoid mucosal thickening of the inferior left maxillary sinus. The mastoid air cells are clear. Prior bilateral lens repair. IMPRESSION: No acute intracranial abnormality. ACT 112: Negative or not required by law. The above report was generated using voice recognition software. It may contain grammatical, syntax o r spelling errors. Electronically signed by: Juan Jose Garcia M.D. 06/19/2023 7:12 PM
[2023-06-19 19:29] LABS: Albumin Level 3.8 gm/dl (3.4-5.0); BUN Creatinine Ratio 20.8 (10-20); Bilirubin Direct 0.2 mg/dl (0-0.2); Calcium 9.4 mg/dl (8.6-10.3); Creatinine Clr Calc Pharmacy 48.3 ml/min; Est GFR (African American) 90.4 ml/min; Magnesium 2.1 mg/dl (1.7-2.4); Potassium 3.9 mmol/L (3.5-5.1); Total Protein 7.6 gm/dl (6.0-8.3)
[2023-06-19 19:34] LABS: Troponin I High Sensitivity 12.4 pg/ml (0-14)
[2023-06-19] MEDS ORDERED: SODIUM CHLORIDE 0.9% 1,000 ML IV SCH (20:15)
[2023-06-19 20:30] LABS: Adenovirus PCR Not Detected (NotDetected); Bordetella parapertussis PCR Not Detected (NotDetected); Bordetella pertussis PCR Not Detected (NotDetected); Chlamydia pneumoniae PCR Not Detected (NotDetected); Coronavirus 229E PCR Not Detected (NotDetected); Coronavirus HKU1 PCR Not Detected (NotDetected); Coronavirus NL63 PCR Not Detected (NotDetected); Coronavirus OC43PCR Not Detected (NotDetected); Human Metapneumovirus PCR Not Detected (NotDetected); Influenza A PCR Not Detected (NotDetected); Influenza B PCR Not Detected (NotDetected); Mycoplasma pneumoniae PCR Not Detected (NotDetected); Parainfluenza Virus 1 PCR Not Detected (NotDetected); Parainfluenza Virus 2 PCR Not Detected (NotDetected); Parainfluenza Virus 3 PCR Not Detected (NotDetected); Parainfluenza Virus 4 PCR Not Detected (NotDetected); Respiratory Syncytial VirusPCR Not Detected (NotDetected); Rhinovirus/Enterovirus PCR Not Detected (NotDetected)
[2023-06-19 20:46] LABS: INR 1.1 (0.9-1.1); Partial Thromboplastin Ratio 0.9; Partial Thromboplastin Time 25.5 Seconds (21.0-31.0); Prothrombin Time 11.9 Seconds (9.0-12.0)
[2023-06-19 21:16] LABS: Coronavirus CoV-2 (COVID19)PCR DETECTED (NotDetected)
[2023-06-19 21:19] LABS: Thyroid Stimulating Hormone 1.73 uIu/ml (0.300-4.500)
--- NOTE | 2023-06-19 22:32 | History & Physical Report ---
Date of Service June 19, 2023 Assessment & Plan (1) Encephalopathy: Plan: Hypoactive delirium on dementia Multifactorial Hyponatremia secondary to decreased p.o. intake from recent COVID-19 illness Complicated UTI, no sepsis for now SSS status post PPM, patient currently A-fib not on anticoagulation secondary to spontaneous subdural hemorrhage hx valvular heart disease (moderate TR, mild MS/MR) pulmonary hypertension hypertension, stable hyperlipidemia on statin Rx hx TIA Hyperglycemia likely prediabetes (documented hemoglobin A1c of 5.7 from June 2021), recent hemoglobin A1c of 5.3 last February 2023 Medical telemetry Recheck serum sodium after initial fluid bolus given at the ER Urine CS, Ceftriaxone Repeat CT head after 24 hours if no improvement in mentation given possible concerns for stroke with patient's history of TIAs and SSS sp PPM, current A-fib off anticoagulation secondary to subdural bleed, current Plavix hold given recent GI bleed (MRI precluded by PPM) PT OT eval once medically stable DVT prophylaxis. SCDs Re: History spontaneous ICH Full code as per family. Patient daughter requesting updates providers. Ms. Milena Angeles, contact #[phone]. Text document was generated using [employer] voice recognition software. It may contain grammatical or spelling errors. Kindly contact undersigned for clarification of any documentation item in question. History of Present Illness Chief Complaint: COVID, weakness, decreased responsiveness as per family Primary Care Provider: Roverto Miller MD History obtained from patient's family, and records. Unable to obtain history from patient secondary to obtunded state. Medical history significant for SSS status post PPM not on anticoagulation secondary to spontaneous subdural hemorrhage, valvular heart disease (moderate TR, mild MS/MR), pulmonary hypertension, hypertension, hyperlipidemia on statin Rx, TIA, GERD, dementia. Recent confinement last month for LGIB. Patient Plavix held on discharge. 2 weeks ago, patient noted to have weakness and dry cough symptoms. Sick COVID-19 contacts at home. Patient completed COVID-19 vaccination. COVID-19 test was positive. Patient completed Paxlovid course. Cough symptoms improved but still persistent. Patient noted to be extremely weak not eating and drinking properly. Patient not taking her pills as per daughter. Low-grade fever and dark urine noted at patient's home today. Patient not as responsive as per family. Patient seen at PCP's office and subsequently directed to ER. Medical History as above Surgical History : Cataract surgery, PPM, mitral commissurotomy, DIANA Family History : Heart disease, stroke, melanoma Personal/Social history : Non-smoker, no EtOH intake, retired RN Allergies Allergy/AdvReac Type Severity Reaction Status Date / Time shellfish derived Allergy Intermediate bumps Verified 06/19/23 21:27 after eating adhesive Allergy Mild SKIN WILL Verified 06/19/23 21:27 GET SORE diltiazem Allergy Unknown doc said Verified 06/19/23 21:27 she shouldnt take it fish derived Allergy Unknown Unknown Verified 06/19/23 21:27 warfarin AdvReac Severe brain bleed Verified 06/19/23 21:27 ezetimibe AdvReac Intermediate GI SYMPTOMS Verified 06/19/23 21:27 hydromorphone AdvReac Intermediate SLOWED Verified 06/19/23 21:27 HEART RATE meperidine AdvReac Intermediate VOMITING Verified 06/19/23 21:27 rosuvastatin AdvReac Intermediate GI SYMPTOMS Verified 06/19/23 21:27 simvastatin AdvReac Intermediate GI SYMPTOMS Verified 06/19/23 21:27 Zqwbcki-[id number]-FmY Reductase AdvReac Intermediate cramps Verified 05/09/23 12:40 Inhibitor [Srdnrma-Rkg-Ken Reductase Inhibitor] Home Medications Medication Instructions Recorded Confirmed Type acetaminophen 500 mg tablet 500 mg PO Q6H PRN Pain 09/26/18 06/19/23 History (Tylenol Extra Strength) bimatoprost 0.01 % eye drops 1 drp OPB HS 09/26/18 06/19/23 History (Lumigan) cholecalciferol (vitamin D3) 50 2,000 unit PO QAM 09/26/18 06/19/23 History mcg (2,000 unit) capsule (Vitamin D3) dorzolamide-timolol (PF) 2 %-0.5 % 1 drp OPB BID 09/26/18 06/19/23 History eye drops in a dropperette (Cosopt (PF)) fexofenadine 180 mg tablet 180 mg PO QPM 09/26/18 06/19/23 History fluticasone propionate 50 2 spray intranasal HS 09/26/18 06/19/23 History mcg/actuation nasal spray,suspension (Flonase Allergy Relief) furosemide 20 mg tablet 20 mg PO MOWEFR@0900 09/26/18 06/19/23 History clopidogrel 75 mg tablet 75 mg PO QAM 08/07/22 06/19/23 History cyanocobalamin (vitamin B-12) 1,000 mcg PO QAM 08/07/22 06/19/23 History 1,000 mcg tablet (Vitamin B-12) famotidine 20 mg tablet (Pepcid) 20 mg PO BID 08/07/22 06/19/23 History metoprolol succinate 50 mg 50 mg PO HS 10/25/22 06/19/23 History tablet,extended release 24 hr rosuvastatin 10 mg tablet 10 mg PO QAM 05/09/23 06/19/23 History Past Med/Surg History Medical History (Updated 06/20/23 @ 10:04 by Yuan Odell MD) Acute GI bleeding Atrial fibrillation hx of--follows with Dr. 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 Hyperlipidemia Hypertension Left leg numbness Mitral valve stenosis, rheumatic Nausea Pacemaker 05/2012 @ [facility] meditronic single chamber Prolapsed uterus Spinal stenosis Unsteady Surgical History History of bilateral cataract extraction History of cardiac cath x3--1965- no stents History of colonoscopy History of dilatation and curettage x4 History of esophagogastroduodenoscopy (EGD) History of mandibular surgery hx realignment of jaw History of mitral valve repair 1965 @ [facility] History of removal of cyst benign growth removed from jaw History of tonsillectomy and adenoidectomy History of tooth extraction History of total abdominal hysterectomy History of wisdom tooth extraction Family History (Updated 05/09/23 @ 15:58 by Latisha Landeros PA-C) Other Hypertension No family history of adverse response to anesthesia Social History Smoking Status: Never smoker Second Hand Exposure: Yes; Do You Dip or Chew Tobacco: No; Hx Alcohol Use: No Hx Substance Use: No Preferred Language: Greek Communication Ability: Effective County Director Welfare Required: No Beliefs That Will Affect Care: None marital status: Current Living Situation: Spouse and Family Feels Safe at Home: Yes Assistive Devices: Glasses Review of Systems Review of Systems: Could not be reliably obtained secondary to obtunded state Physical Exam Physical Exam: GENERAL obtunded, no respiratory distress SKIN: Normal color, warm HEENT: [place] palpebral conjunctivae, no ptosis, dry buccal mucosa NECK : Supple, no tenderness CHEST : Decreased breath sounds, no tenderness HEART : Irregular, no obvious murmurs ABDOMEN: Some distention, nontender EXTREMITIES : Minimal LE swelling, no LEtenderness, no other conspicuous deformities noted NEUROLOGIC : Obtunded , no facial asymmetry, gait and stance not assessed Results & Data Results & Data Vital Signs (Past 12 Hours) Vital Signs Temp Pulse Pulse Resp BP BP Pulse Ox 06/19/23 21:00 86 21 97 06/19/23 21:00 127/88 06/19/23 20:45 86 21 126/75 96 06/19/23 20:30 88 20 129/88 06/19/23 20:15 90 20 124/84 96 06/19/23 20:00 86 21 129/81 06/19/23 19:45 78 24 142/77 H 96 06/19/23 19:30 81 21 149/95 H 98 06/19/23 19:24 88 19 148/101 H 97 06/19/23 18:56 91 H 20 137/96 06/19/23 18:45 100 H 16 137/96 98 06/19/23 18:25 97 06/19/23 18:46 88 06/19/23 16:42 36.3 C L 108 H 24 135/86 96 O2 Del Method 06/19/23 21:00 06/19/23 21:00 06/19/23 20:45 06/19/23 20:30 06/19/23 20:15 06/19/23 20:00 06/19/23 19:45 06/19/23 19:30 06/19/23 19:24 06/19/23 18:56 06/19/23 18:45 Room Air 06/19/23 18:25 Room Air 06/19/23 18:46 06/19/23 16:42 Room Air Laboratory Results Laboratory Results WBC 10.62 K/ul (4.8-10.8) 06/19/23 18:29 RBC 4.53 M/uL (4.20-5.40) 06/19/23 18: Hgb 14.7 g/dl (12.0-16.0) 06/19/23 18: Hct 42.0 % (37.0-47.0) 06/19/23 18: MCV 92.7 fL (80.0-100.0) 06/19/23 18: MCH 32.5 pg (25.0-34.0) 06/19/23 18: MCHC 35.0 g/dL (32.0-36.0) 06/19/23 18: RDW Std Deviation 44.5 fL (36.4-46.3) 06/19/23: RDW Coeff of Rody 13.0 % (11.5-14.5) 06/19/23 18 Plt Count 267 K/uL (130-400) 06/19/23 18: MPV 9.4 fL (9.4-12.4) 06/19/23 18: Immature Gran % (Auto) 0.4 % 06/19/23 18: Neut % (Auto) 70.6 % 06/19/23 18: Lymph % (Auto) 18.6 % 06/19/23 18: [place] % (Auto) 10.1 % 06/19/23: Eos % (Auto) 0.1 % 06/19/23: Baso % (Auto) 0.2 % 06/19/23: Neut # (Auto) 7.50 K/uL (1.40-6.50) H 06/19/23 18: Lymph # (Auto) 1.98 K/uL (1.20-3.40) 06/19/23 18: [place] # (Auto) 1.07 K/uL (0.11-0.59) H 06/19/23 18: Eos # (Auto) 0.01 K/uL (0.00-0.50) 06/19/23 18: Baso # (Auto) 0.02 K/uL (0.00-0.20) 06/19/23 18: Immature Gran # (Auto) 0.04 K/uL (0.01-0.20) 06/19/23 18:29 PT 11.9 Seconds (9.0-12.0) 06/19/23 19:48 INR 1.1 (0.9-1.1) 06/19/23 19:48 APTT 25.5 Seconds (21.0-31.0) 06/19/23 19:48 PTT Ratio 0.9 06/19/23 19:48 Sodium 129 mmol/L (136-145) L 06/19/23 18:29 Potassium 3.9 mmol/L (3.5-5.1) 06/19/23 18:29 Chloride 94 mmol/L (98-107) L 06/19/23 18:29 Carbon Dioxide 26 mmol/L (21-32) 06/19/23 18:29 Anion Gap 9 (3-11) 06/19/23 18:29 BUN 15 mg/dl (6-23) 06/19/23 18:29 Creatinine 0.72 mg/dl (0.6-1.2) 06/19/23 18:29 Est Cr Clr Drug Dosing 48.3 ml/min 06/19/23 18:29 Est GFR ( Amer) 90.4 ml/min 06/19/23 18:29 Est GFR (Non-Af Amer) 78.0 ml/min 06/19/23 18:29 BUN/Creatinine Ratio 20.8 (10-20) H 06/19/23 18:29 Glucose 127 mg/dl (70-99(Fasting)) H 06/19/23 18:29 Osmolality 275 mOsm/kg (280-300) L 06/19/23 19:49 Lactate 1.7 mmol/L (0.4-2.0) 06/19/23 18:29 Calcium 9.4 mg/dl (8.6-10.3) 06/19/23 18:29 Magnesium 2.1 mg/dl (1.7-2.4) 06/19/23 18:29 Total Bilirubin 1.0 mg/dl (0.2-1.0) 06/19/23 18:29 Direct Bilirubin 0.2 mg/dl (0-0.2) 06/19/23 18:29 AST 29 U/L (13-39) 06/19/23 18:29 ALT 33 U/L (7-52) 06/19/23 18:29 Alkaline Phosphatase 53 U/L (34-104) 06/19/23 18:29 Troponin I High Sens 12.4 pg/ml (0-14) 06/19/23 18:29 B-Natriuretic Peptide 158 pg/ml (0-100) H 06/19/23 20:58 Total Protein 7.6 gm/dl (6.0-8.3) 06/19/23 18:29 Albumin 3.8 gm/dl (3.4-5.0) 06/19/23 18:29 Procalcitonin < 0.05 ng/ml (0-0.5) 06/19/23 18:29 TSH 1.730 uIu/ml (0.300-4.500) 06/19/23 18:29 Urine Color Cancelled 06/19/23 21:20 Urine Appearance Cancelled 06/19/23 21:20 Urine pH Cancelled 06/19/23 21:20 Ur Specific [place] Cancelled 06/19/23 21:20 Urine Protein Cancelled 06/19/23 21:20 Urine Glucose (UA) Cancelled 06/19/23 21:20 Urine Ketones Cancelled 06/19/23 21:20 Urine Blood Cancelled 06/19/23 21:20 Urine Nitrite Cancelled 06/19/23 21:20 Urine Bilirubin Cancelled 06/19/23 21:20 Urine Urobilinogen Cancelled 06/19/23 21:20 Ur Leukocyte Esterase Cancelled 06/19/23 21:20 Urine WBC (Auto) Cancelled 06/19/23 21:20 Urine RBC (Auto) Cancelled 06/19/23 21:20 U Hyaline Cast (Auto) Cancelled 06/19/23 21:20 U Epithel Cells (Auto) Cancelled 06/19/23 21:20 Urine Bacteria (Auto) Cancelled 06/19/23 21:20 Ur Renal Epithelial Cell Cancelled 06/19/23 21:20 Urine Crystals Cancelled 06/19/23 21:20 Calcium Oxalate Crystal Cancelled 06/19/23 21:20 Uric Acid Crystals Cancelled 06/19/23 21:20 Triple Phos Crystals Cancelled 06/19/23 21:20 Other Crystals Cancelled 06/19/23 21:20 Amorphous Sediment Cancelled 06/19/23 21:20 Granular Casts Cancelled 06/19/23 21:20 Waxy Casts Cancelled 06/19/23 21:20 RBC Casts Cancelled 06/19/23 21:20 WBC Casts Cancelled 06/19/23 21:20 Other Casts Cancelled 06/19/23 21:20 Urine Mucus Cancelled 06/19/23 21:20 Urine Other Cancelled 06/19/23 21:20 Urine Trichomonas Cancelled 06/19/23 21:20 Urine Yeast Cancelled 06/19/23 21:20 Urine Sperm Cancelled 06/19/23 21:20 Ur Oval Fat Bodies Cancelled 06/19/23 21:20 Adenovirus (PCR) Not Detected (NotDetected) 06/19/23 19:04 B. pertussis DNA (PCR) Not Detected (NotDetected) 06/19/23 19:04 B.parapertussis DNA PCR Not Detected (NotDetected) 06/19/23 19:04 C. pneumoniae DNA (PCR) Not Detected (NotDetected) 06/19/23 19:04 Coronavirus OC43 (PCR) Not Detected (NotDetected) 06/19/23 19:04 Coronavirus HKU1 (PCR) Not Detected (NotDetected) 06/19/23 19:04 Coronavirus 229E (PCR) Not Detected (NotDetected) 06/19/23 19:04 SARS-CoV-2 (PCR) DETECTED (NotDetected) A* 06/19/23 19:04 Coronavirus NL63 (PCR) Not Detected (NotDetected) 06/19/23 19:04 Human Metapneumovir PCR Not Detected (NotDetected) 06/19/23 19:04 Influenza Type A (PCR) Not Detected (NotDetected) 06/19/23 19:04 Influenza Type B (PCR) Not Detected (NotDetected) 06/19/23 19:04 M. pneumoniae (PCR) Not Detected (NotDetected) 06/19/23 19:04 Parainfluenza 1 (PCR) Not Detected (NotDetected) 06/19/23 19:04 Parainfluenza 2 (PCR) Not Detected (NotDetected) 06/19/23 19:04 Parainfluenza 3 (PCR) Not Detected (NotDetected) 06/19/23 19:04 Parainfluenza 4 (PCR) Not Detected (NotDetected) 06/19/23 19:04 RSV (PCR) Not Detected (NotDetected) 06/19/23 19:04 Entero/Rhino (PCR) Not Detected (NotDetected) 06/19/23 19:04 Impressions Chest X-Ray 06/19/23 16:42 XR chest 1V not portable HISTORY: 82 years-old Female Sepsis acute sepsis COMPARISON: 05/09/2023 TECHNIQUE: AP view of the chest FINDINGS: Cardiac silhouette is enlarged. Single lead left subclavian pacer. Limited exam secondary to positioning. No pneumothorax or large pleural effusion. Pulmonary vascular congestion. Bones appear grossly intact. IMPRESSION: 1. Cardiomegaly with pulmonary vascular congestion. 2. No airspace consolidation typical for pneumonia. ACT 112: Negative or not required by law. The above report was generated using voice recognition software. It may contain grammatical, syntax or spelling errors. Electronically signed by: Juan Jose Garcia M.D. 06/19/2023 5:[address] 06/19/23 16:43 CT head/brain wo con CLINICAL HISTORY: 82 years-old Female with AMS. Acutely altered mental status TECHNIQUE: Multiple axial CT images of the head were obtained without contrast. A dose lowering technique was utilized adhering to the principles of ALARA. CT DOSE: 625.8 mGy.cm COMPARISON: 08/16/2022 FINDINGS: No acute intracranial hemorrhage, midline shift, intracranial mass, hydrocephalus, territorial ischemia or abnormal extra-axial collection. Involutional changes with chronic microvascular ischemic disease. Cerebral vascular calcifications. The calvarium is intact. Moderate polypoid mucosal thickening of the inferior left maxillary sinus. The mastoid air cells are clear. Prior bilateral lens repair. IMPRESSION: No acute intracranial abnormality. ACT 112: Negative or not required by law. The above report was generated using voice recognition software. It may contain grammatical, syntax or spelling errors. Electronically signed by: Juan Jose Garcia M.D. 06/19/2023 7:12 PM Diagnostic Findings EKG as per my interpretation : Rate 105, A-fib, RAD, T wave abnormalities infer ior leads
[2023-06-19 23:30] LABS: Base Excess VBG 0.8 mEq/L; HCO3 VBG 25 mmol/L; Oxygen Saturation VBG 92.9 %; PCO2 VBG 39 mmHg (38-50); PO2 VBG 66 mmHg; pH VBG 7.42 (7.36-7.41)
[2023-06-20] MEDS ORDERED: ACETAMINOPHEN 325 MG TAB PO PRN (00:26)
[2023-06-20] MEDS ORDERED: PROMETHAZINE 6.25 MG/50.25 ML BAG IV PRN (00:26)
[2023-06-20] MEDS ORDERED: ALBUMIN 25% 25 GM/100 ML VIAL IV ONE (00:40)
[2023-06-20 01:25] LABS: Appearance Urine Cloudy (Clear); Bilirubin Urine Negative (Negative); Blood Urine 2+ (Negative); Color Urine Orange; Glucose Urine UA Negative (Negative); Ketones Urine Trace (Negative); Leukocyte Esterase Urine 1+ (Negative); Nitrite Urine Negative (Negative); Protein Urine 1+ (Negative); Specific Gravity Urine 1.018 (1.000-1.030); Urobilinogen Urine Negative (Negative); WBC Urine Automated >30 /hpf (0-5); pH Urine 5.5 (4.5-7.5)
[2023-06-20 01:42] LABS: Bacteria Urine Automated 2+ (Negative); Mucus Urine Present (None Prsent); RBC Urine Automated 0-4 /hpf (0-4)
[2023-06-20] MEDS: cefTRIAXone SODIUM 2,000 MG in DEXTROSE 5 % MINI-B 50 ML IV SCH (05:20)
--- NOTE | 2023-06-20 07:46 | XRay Report ---
XR wrist LT min 3V routine CLINICAL HISTORY: Left wrist swelling, pain. COMPARISON: None FINDINGS: There is slight widening of the scapholunate interval. No acute fracture is identified. Di stal left radius and on are intact. 6 mm lucent lesion with sclerotic margin within the lunate is not ed. This is not acute. There is mild radiocarpal joint space narrowing with osteophytosis. Severe ost eoarthritis of the left first carpometacarpal joint is noted. IMPRESSION: 1. No acute fracture within the left wrist. 2. Severe osteoarthritis of the left first carpometacarpal joint. 3. Slight scapholunate interval widening. ACT 112: Negative or not required by law. Electronically signed by: Tobias Moseley M.D. 06/20/2023 7:44 AM
[2023-06-20 08:01] LABS: Basophils # (auto) 0.01 K/uL (0.00-0.20); Basophils % (auto) 0.2 %; Eosinophils # (auto) 0.03 K/uL (0.00-0.50); Eosinophils % (auto) 0.5 %; Hematocrit (blood only) 34.3 % (37.0-47.0); Immature Granulocytes # (auto) 0.03 K/uL (0.01-0.20); Immature Granulocytes % (auto) 0.5 %; Lymphocytes # (auto) 1.28 K/uL (1.20-3.40); Lymphocytes % (auto) 22.5 %; Mean Corpuscular Hemoglobin 32.6 pg (25.0-34.0); Mean Corpuscular Volume 93.2 fL (80.0-100.0); Mean Platelet Volume 9.4 fL (9.4-12.4); Monocytes # (auto) 0.66 K/uL (0.11-0.59); Monocytes % (auto) 11.6 %; Neutrophils # (auto) 3.68 K/uL (1.40-6.50); Neutrophils % (auto) 64.7 %; Platelet Count 170 K/uL (130-400); RDW Standard Deviation 44.9 fL (36.4-46.3); Red Blood Count 3.68 M/uL (4.20-5.40); White Blood Count 5.69 K/ul (4.8-10.8)
[2023-06-20 08:24] LABS: BUN Creatinine Ratio 21.9 (10-20); Calcium 8.7 mg/dl (8.6-10.3); Creatinine Clr Calc Pharmacy 54.3 ml/min; Est GFR (African American) 96.3 ml/min; Est GFR (Non-African American) 83.1 ml/min; Potassium 3.4 mmol/L (3.5-5.1)
[2023-06-20] MEDS ORDERED: POTASSIUM CHLORIDE 10 MEQ TABCR PO STA (09:14)
[2023-06-20] MEDS: ROSUVASTATIN CALCIUM 10 MG TAB PO SCH (10:12)
[2023-06-20] MEDS: CYANOCOBALAMIN (B-12) 500 MCG TABLET PO SCH (10:12)
[2023-06-20] MEDS: FAMOTIDINE 20 MG TAB PO SCH ×2 (10:12→20:26)
[2023-06-20] MEDS: CLOPIDOGREL BISULFATE 75 MG TAB PO SCH (10:13)
[2023-06-20] MEDS: DORZOLAMIDE/TIMOLOL 22.3/6.8MG/ML 10 ML BTL OP SCH ×2 (10:19→20:26)
--- NOTE | 2023-06-20 17:26 | Hospitalist Progress Note ---
Date of Service June 20, 2023 Assessment & Plan (1) Encephalopathy: Plan: Complicated UTI Not currently septic UA suggestive of infection, urine Cx pending Continue Rocephin, narrow based on cx results Hypoactive delirium on dementia Multifactorial Stable at this time Repeat CT head after 24 hours if no improvement in mentation given possible concerns for stroke with patient's history of TIAs and SSS sp PPM (MRI precluded by PPM) Hyponatremia Possibly secondary to decreased p.o. intake from recent COVID-19 illness Received fluids, Improving continue to monitor pulmonary hypertension SSS status post PPPM hx valvular heart disease (moderate TR, mild MS/MR) patient currently A-fib not on anticoagulation secondary to spontaneous subdural hemorrhage pulmonary hypertension hypertension stable hyperlipidemia on statin Rx hx TIA Hyperglycemia likely prediabetes (documented hemoglobin A1c of 5.7 from June 2021), recent hemoglobin A1c of 5.3 last February 2023 Diet: Advanced to full liquids as pt's mentation improving, consider further advancement. DVT prophylaxis: SCDs Re: History spontaneous ICH Full code as per family. Admission and Anticipated Discharge Date Admission Date: June 19, 2023 Subjective Pt seen while still in the ED waiting for a bed. Daughter at bedside, states that pt is now more alert and looking the best she's been for the last 2 weeks when she had covid. Pt AAOx1. Otherwise no acute concerns. Review of Systems Review of Systems: All systems reviewed & are unremarkable except as noted in Subjective Physical Exam Physical Exam: General: Alert, orientedx1. No acute distress Skin: No noted rashes or bruises Psych: Appropriate mood and affect Neuro: difficulty with movements HEENT: NC/AT CV: RRR Resp: Breath sounds clear but decreased bilaterally, no increased effort of breathing. Abdomen:Soft, nontender, nondistended. Extremities: No edema in lower extremities bilaterally. Results & Data Results & Data Vital Signs (Past 12 Hours) Vital Signs Temp Pulse Pulse Resp BP Pulse Ox Pulse Ox 06/20/23 15:09 85 06/20/23 07:00 36.8 C 79 16 144/93 H 96 06/20/23 06:45 96 O2 Del Method O2 Del Method 06/20/23 15:09 06/20/23 07:00 Room Air 06/20/23 06:45 Room Air
[2023-06-20] MEDS: FLUTICASONE PROPIONATE NA SPR 16 GM BTL SCH (20:29)
[2023-06-20] MEDS: METOPROLOL SUCC 25MG EXT REL TAB PO SCH (22:01)
[2023-06-20] MEDS: FEXOFENADINE HCL 180 MG TAB PO SCH (22:01)
[2023-06-20] MEDS: BIMATOPROST 0.01% OP SOLN 2.5 ML BTL OP SCH (22:02)
[2023-06-21] MEDS: cefTRIAXone SODIUM 2,000 MG in DEXTROSE 5 % MINI-B 50 ML IV SCH (04:27)
[2023-06-21 05:10] LABS: BUN Creatinine Ratio 19.2 (10-20); Calcium 8.8 mg/dl (8.6-10.3); Est GFR (African American) 103.1 ml/min; Phosphorus 2.5 mg/dl (2.5-4.9); Potassium 3.6 mmol/L (3.5-5.1)
[2023-06-21 05:47] LABS: Basophils # (auto) 0.02 K/uL (0.00-0.20); Basophils % (auto) 0.3 %; Eosinophils # (auto) 0.06 K/uL (0.00-0.50); Hematocrit (blood only) 36.8 % (37.0-47.0); Immature Granulocytes # (auto) 0.03 K/uL (0.01-0.20); Immature Granulocytes % (auto) 0.5 %; Lymphocytes # (auto) 1.38 K/uL (1.20-3.40); Lymphocytes % (auto) 23.4 %; Mean Corpuscular Hemoglobin 32.8 pg (25.0-34.0); Mean Corpuscular Hgb Conc 35.3 g/dL (32.0-36.0); Mean Corpuscular Volume 92.9 fL (80.0-100.0); Mean Platelet Volume 9.4 fL (9.4-12.4); Monocytes # (auto) 0.61 K/uL (0.11-0.59); Monocytes % (auto) 10.3 %; Neutrophils # (auto) 3.81 K/uL (1.40-6.50); Neutrophils % (auto) 64.5 %; Platelet Count 202 K/uL (130-400); RDW Coefficient of Variation 12.9 % (11.5-14.5); RDW Standard Deviation 44.5 fL (36.4-46.3); Red Blood Count 3.96 M/uL (4.20-5.40); White Blood Count 5.91 K/ul (4.8-10.8)
[2023-06-21] MEDS: ROSUVASTATIN CALCIUM 10 MG TAB PO SCH (09:15)
[2023-06-21] MEDS: CLOPIDOGREL BISULFATE 75 MG TAB PO SCH (09:15)
[2023-06-21] MEDS: FAMOTIDINE 20 MG TAB PO SCH ×2 (09:15→21:13)
[2023-06-21] MEDS: CYANOCOBALAMIN (B-12) 500 MCG TABLET PO SCH (09:15)
[2023-06-21] MEDS: DORZOLAMIDE/TIMOLOL 22.3/6.8MG/ML 10 ML BTL OP SCH ×2 (09:16→21:13)
--- NOTE | 2023-06-21 14:26 | Hospitalist Progress Note ---
Date of Service June 21, 2023 Assessment & Plan (1) Encephalopathy: Plan: Ms. Becerra is an 82 year old woman with history of PHTN, SSS s/p PPM, PAF, prediabetes, admitted on 06/19 due to delirium iso infection. Patient found to be COVID + and with UTI. Patient has improved notably per daughter, as well as patient's subjective report. #Abnormal UA Not currently septic UA suggestive of infection, urine Cx pending however, no growth Continue Rocephin #COVID + with superimposed pneumonia Outside window for treatment, ? superimposed CAP given improvement on IV CTX Mucinex prn Flutter valve #Hypoactive delirium on dementia Multifactorial Stable at this time Repeat CT head after 24 hours if no improvement in mentation given possible concerns for stroke with patient's history of TIAs and SSS sp PPM (MRI precluded by PPM) #Hyponatremia Possibly secondary to decreased p.o. intake from recent COVID-19 illness continue to monitor #pulmonary hypertension #SSS status post PPPM #hx valvular heart disease (moderate TR, mild MS/MR) patient currently A-fib not on anticoagulation secondary to spontaneous subdural hemorrhage Ensure lasix 20mg in am, reassess volume status daily #hyperlipidemia #hx TIA on statin Rx #Hyperglycemia likely prediabetes (documented hemoglobin A1c of 5.7 from June 2021), recent hemoglobin A1c of 5.3 last February 2023 Diet: Advanced to full liquids as pt's mentation improving, consider further advancement. DVT prophylaxis: SCDs Re: History spontaneous ICH Full code as per family. Admission and Anticipated Discharge Date Admission Date: June 19, 2023 Subjective NAEO Reports mild improvement over, decrease cough and general slow improvement; appetite returning Review of Systems Review of Systems: All systems reviewed & are unremarkable except as noted in Subjective Physical Exam Constitutional: WD/WN, vitals as above Respiratory: scattered rhonchi Cardiovascular: RRR, no murmur, no edema Results & Data Results & Data Vital Signs (Past 12 Hours) Vital Signs Temp Pulse Pulse Resp BP Pulse Ox O2 Del Method 06/21/23 11:23 36.7 C 72 18 128/79 95 Room Air 06/21/23 07:57 36.8 C 80 18 134/87 98 Room Air 06/21/23 07:27 75 06/21/23 03:30 36.5 C 75 20 131/85 97 Room Air Laboratory Results Short CBC 06/21/23 Range/Units 04:17 WBC 5.91 (4.8-10.8) K/ul Hgb 13.0 (12.0-16.0) g/dl Hct 36.8 L (37.0-47.0) % Plt Count 202 (130-400) K/uL BMP 06/21/23 04:17 Sodium 129 L Potassium 3.6 Chloride 98 Carbon Dioxide 25 BUN 10 Creatinine 0.52 L Glucose 100 H Calcium 8.8 Medications Administered Home Medications Medication Instructions Recorded Confirmed Last Taken acetaminophen 500 mg tablet 500 mg PO Q6H PRN Pain 09/26/18 06/19/23 08/27/18 (Tylenol Extra Strength) bimatoprost 0.01 % eye drops 1 drp OPB HS 09/26/18 06/19/23 1 Day Ago (Lumigan) ~06/18/23 cholecalciferol (vitamin D3) 50 2,000 unit PO QAM 09/26/18 06/19/23 1 Day Ago mcg (2,000 unit) capsule (Vitamin ~06/18/23 D3) dorzolamide-timolol (PF) 2 %-0.5 % 1 drp OPB BID 09/26/18 06/19/23 1 Day Ago eye drops in a dropperette (Cosopt ~06/18/23 (PF)) fexofenadine 180 mg tablet 180 mg PO QPM 09/26/18 06/19/23 1 Day Ago ~06/18/23 fluticasone propionate 50 2 spray intranasal HS 09/26/18 06/19/23 1 Day Ago mcg/actuation nasal ~06/18/23 spray,suspension (Flonase Allergy Relief) furosemide 20 mg tablet 20 mg PO MOWEFR@0900 09/26/18 06/19/23 1 Day Ago ~06/18/23 20 clopidogrel 75 mg tablet 75 mg PO QAM 08/07/22 06/19/23 1 Day Ago ~06/18/23 cyanocobalamin (vitamin B-12) 1,000 mcg PO QAM 08/07/22 06/19/23 1 Day Ago 1,000 mcg tablet (Vitamin B-12) ~06/18/23 famotidine 20 mg tablet (Pepcid) 20 mg PO BID 08/07/22 06/19/23 1 Day Ago ~06/18/23 metoprolol succinate 50 mg 50 mg PO HS 10/25/22 06/19/23 1 Day Ago tablet,extended release 24 hr ~06/18/23 rosuvastatin 10 mg tablet 10 mg PO QAM 05/09/23 06/19/23 1 Day Ago ~06/18/23 Active Medications Generic Name Dose Route Start Last Admin Trade Name Kermitq PRN Reason Stop Dose Admin Bimatoprost 1 drops 06/20/23 21:00 06/20/23 22:02 Bimatoprost 0.01% Op Soln 2.5 Ml Btl OP 07/20/23 20:59 Not Given HS CHARANJIT Clopidogrel Bisulfate 75 mg 06/20/23 09:00 06/21/23 09:15 Clopidogrel Bisulfate 75 Mg Tab PO 07/20/23 08:59 75 mg QAM CHARANJIT Administration Cyanocobalamin 1,000 mcg 06/20/23 09:00 06/21/23 09:15 Cyanocobalamin (B-12) 500 Mcg Tablet PO 07/20/23 08:59 1,000 mcg QAM CHARANJIT Administration Dorzolamide/Timolol 1 drops 06/20/23 09:00 06/21/23 09:16 Dorzolamide/Timolol 22.3/6.8mg/Ml 10 Ml Btl OP 07/20/23 08:59 1 drops BID CHARANJIT Administration Famotidine 20 mg 06/20/23 09:00 06/21/23 09:15 Famotidine 20 Mg Tab PO 07/20/23 08:59 20 mg BID CHARANJIT Administration Fexofenadine HCl 180 mg 06/20/23 21:00 06/20/23 22:01 Fexofenadine Hcl 180 Mg Tab PO 07/20/23 20:59 180 mg QPM CHARANJIT Administration Fluticasone Propionate 2 sprays 06/20/23 21:00 06/20/23 20:29 Fluticasone Propionate Na Spr 16 Gm Btl NA 07/20/23 20:59 2 sprays HS CHARANJIT Administration Ceftriaxone Sodium 2,000 mg/ 50 mls @ 100 mls/hr 06/20/23 05:00 06/21/23 05:00 Dextrose IV 06/30/23 04:59 Infused Q24H CHARANJIT Infusion Protocol Metoprolol Succinate 25 mg 06/20/23 21:00 06/20/23 22:01 Metoprolol Succ 25mg Ext Rel Tab PO 07/20/23 20:59 25 mg HS CHARANJIT Administration Rosuvastatin Calcium 10 mg 06/20/23 09:00 06/21/23 09:15 Rosuvastatin Calcium 10 Mg Tab PO 07/20/23 08:59 10 mg QAM CHARANJIT Administration
[2023-06-21] MEDS ORDERED: guaiFENesin SUGAR FREE 100 MG/5 ML UDC PO PRN (15:33)
[2023-06-21] MEDS ORDERED: guaiFENesin SUGAR FREE 100 MG/5 ML UDC PO STA (15:33)
[2023-06-21] MEDS: BIMATOPROST 0.01% OP SOLN 2.5 ML BTL OP SCH (21:13)
[2023-06-21] MEDS: FLUTICASONE PROPIONATE NA SPR 16 GM BTL SCH (21:14)
[2023-06-21] MEDS: METOPROLOL SUCC 25MG EXT REL TAB PO SCH (21:14)
[2023-06-21] MEDS: FEXOFENADINE HCL 180 MG TAB PO SCH (21:16)
--- NOTE | 2023-06-21 22:34 | Electrocardiogram Report ---
Test Reason : Blood Pressure : / mmHG Vent. Rate : 104 BPM Atrial Rate : 000 BPM P-R Int : 000 ms QRS Dur : 074 ms QT Int : 342 ms P-R-T Axes : 000 118 -05 degrees QTc Int : 449 ms Atrial fibrillation with rapid ventricular response Right axis deviation Nonspecific ST and T wave abnormality Abnormal ECG When compared with ECG of 09-MAY-2023 11:17, Ventricular paced complexes are no longer present Confirmed by Pradip Wood ([id number]) on 06/21/2023 10:33:33 PM Referred By: Roverto Miller Confirmed By:Pradip Wood
[2023-06-22] MEDS: cefTRIAXone SODIUM 2,000 MG in DEXTROSE 5 % MINI-B 50 ML IV SCH (05:16)
[2023-06-22 05:53] LABS: Basophils # (auto) 0.02 K/uL (0.00-0.20); Basophils % (auto) 0.3 %; Eosinophils # (auto) 0.04 K/uL (0.00-0.50); Eosinophils % (auto) 0.7 %; Hematocrit (blood only) 38.1 % (37.0-47.0); Hemoglobin 13.8 g/dl (12.0-16.0); Immature Granulocytes # (auto) 0.03 K/uL (0.01-0.20); Immature Granulocytes % (auto) 0.5 %; Lymphocytes # (auto) 1.21 K/uL (1.20-3.40); Lymphocytes % (auto) 20.2 %; Mean Corpuscular Hemoglobin 33.3 pg (25.0-34.0); Mean Corpuscular Hgb Conc 36.2 g/dL (32.0-36.0); Mean Corpuscular Volume 91.8 fL (80.0-100.0); Mean Platelet Volume 9.2 fL (9.4-12.4); Monocytes # (auto) 0.58 K/uL (0.11-0.59); Monocytes % (auto) 9.7 %; Neutrophils % (auto) 68.6 %; Platelet Count 215 K/uL (130-400); RDW Coefficient of Variation 12.8 % (11.5-14.5); RDW Standard Deviation 43.2 fL (36.4-46.3); Red Blood Count 4.15 M/uL (4.20-5.40); White Blood Count 5.98 K/ul (4.8-10.8)
[2023-06-22 06:05] LABS: BUN Creatinine Ratio 15.2 (10-20); Calcium 8.8 mg/dl (8.6-10.3); Creatinine Clr Calc Pharmacy 54.4 ml/min; Est GFR (African American) 95.3 ml/min; Est GFR (Non-African American) 82.3 ml/min; Phosphorus 3.3 mg/dl (2.5-4.9); Potassium 3.8 mmol/L (3.5-5.1)
[2023-06-22] MEDS: FAMOTIDINE 20 MG TAB PO SCH ×2 (09:42→21:13)
[2023-06-22] MEDS: CLOPIDOGREL BISULFATE 75 MG TAB PO SCH (09:43)
[2023-06-22] MEDS: CYANOCOBALAMIN (B-12) 500 MCG TABLET PO SCH (09:43)
[2023-06-22] MEDS: ROSUVASTATIN CALCIUM 10 MG TAB PO SCH (09:43)
[2023-06-22] MEDS: DORZOLAMIDE/TIMOLOL 22.3/6.8MG/ML 10 ML BTL OP SCH ×2 (09:46→21:04)
[2023-06-22] MEDS: FUROSEMIDE 20 MG TAB PO SCH (09:46)
--- NOTE | 2023-06-22 16:04 | Hospitalist Progress Note ---
Date of Service June 22, 2023 Assessment & Plan (1) Encephalopathy: Plan: Ms. Becerra is an 82 year old woman with history of PHTN, SSS s/p PPM, PAF, prediabetes, admitted on 06/19 due to delirium iso infection. Patient found to be COVID + and with UTI. Patient has continued to improve. Nurse reports concerns for aspiration given cough with intake--will order speech eval. #Cough w/ concerns for aspiration -Speech eval #Abnormal UA Not currently septic UA suggestive of infection, urine Cx pending however, no growth Continue Rocephin #COVID + with superimposed pneumonia Outside window for treatment, ? superimposed CAP given improvement on IV CTX Mucinex prn Flutter valve #Hypoactive delirium on dementia Multifactorial Stable at this time Repeat CT head after 24 hours if no improvement in mentation given possible concerns for stroke with patient's history of TIAs and SSS sp PPM (MRI precluded by PPM) #Hyponatremia Possibly secondary to decreased p.o. intake from recent COVID-19 illness continue to monitor s.p lasix #pulmonary hypertension #SSS status post PPPM #hx valvular heart disease (moderate TR, mild MS/MR) patient currently A-fib not on anticoagulation secondary to spontaneous subdural hemorrhage reassess volume status daily #hyperlipidemia #hx TIA on statin Rx #Hyperglycemia likely prediabetes (documented hemoglobin A1c of 5.7 from June 2021), recent hemoglobin A1c of 5.3 last February 2023 Diet: Advanced to full liquids as pt's mentation improving, consider further advancement. DVT prophylaxis: SCDs Re: History spontaneous ICH Full code as per family. Admission and Anticipated Discharge Date Admission Date: June 19, 2023 Subjective NAEO Notes continued improvement Review of Systems Review of Systems: All systems reviewed & are unremarkable except as noted in Subjective Physical Exam Constitutional: WD/WN, vitals as above Respiratory: normal respiratory effort, lungs clear to auscultation Cardiovascular: RRR, no murmur, no edema Results & Data Results & Data Vital Signs (Past 12 Hours) Vital Signs Temp Pulse Pulse Resp BP Pulse Ox Pulse Ox 06/22/23 14:54 90 06/22/23 15:37 36.2 C L 89 16 125/95 93 06/22/23 11:36 36.9 C 93 H 16 138/81 94 06/22/23 09:55 06/22/23 07:55 36.7 C 92 H 18 137/91 95 06/22/23 06:00 95 O2 Del Method O2 Del Method 06/22/23 14:54 06/22/23 15:37 Room Air 06/22/23 11:36 Room Air 06/22/23 09:55 Room Air 06/22/23 07:55 Room Air 06/22/23 06:00 Room Air Laboratory Results Short CBC 06/22/23 Range/Units 05:35 WBC 5.98 (4.8-10.8) K/ul Hgb 13.8 (12.0-16.0) g/dl Hct 38.1 (37.0-47.0) % Plt Count 215 (130-400) K/uL BMP 06/22/23 05:35 Sodium 129 L Potassium 3.8 Chloride 96 L Carbon Dioxide 27 BUN 10 Creatinine 0.66 Glucose 125 H Calcium 8.8 Medications Administered Home Medications Medication Instructions Recorded Confirmed Last Taken acetaminophen 500 mg tablet 500 mg PO Q6H PRN Pain 09/26/18 06/19/23 08/27/18 (Tylenol Extra Strength) bimatoprost 0.01 % eye drops 1 drp OPB HS 09/26/18 06/19/23 1 Day Ago (Lumigan) ~06/18/23 cholecalciferol (vitamin D3) 50 2,000 unit PO QAM 09/26/18 06/19/23 1 Day Ago mcg (2,000 unit) capsule (Vitamin ~06/18/23 D3) dorzolamide-timolol (PF) 2 %-0.5 % 1 drp OPB BID 09/26/18 06/19/23 1 Day Ago eye drops in a dropperette (Cosopt ~06/18/23 (PF)) fexofenadine 180 mg tablet 180 mg PO QPM 09/26/18 06/19/23 1 Day Ago ~06/18/23 fluticasone propionate 50 2 spray intranasal HS 09/26/18 06/19/23 1 Day Ago mcg/actuation nasal ~06/18/23 spray,suspension (Flonase Allergy Relief) furosemide 20 mg tablet 20 mg PO MOWEFR@0900 09/26/18 06/19/23 1 Day Ago ~06/18/23 20 clopidogrel 75 mg tablet 75 mg PO QAM 08/07/22 06/19/23 1 Day Ago ~06/18/23 cyanocobalamin (vitamin B-12) 1,000 mcg PO QAM 08/07/22 06/19/23 1 Day Ago 1,000 mcg tablet (Vitamin B-12) ~06/18/23 famotidine 20 mg tablet (Pepcid) 20 mg PO BID 08/07/22 06/19/23 1 Day Ago ~06/18/23 metoprolol succinate 50 mg 50 mg PO HS 10/25/22 06/19/23 1 Day Ago tablet,extended release 24 hr ~06/18/23 rosuvastatin 10 mg tablet 10 mg PO QAM 05/09/23 06/19/23 1 Day Ago ~06/18/23 Active Medications Generic Name Dose Route Start Last Admin Trade Name Freq PRN Reason Stop Dose Admin Bimatoprost 1 drops 06/20/23 21:00 06/21/23 21:13 Bimatoprost 0.01% Op Soln 2.5 Ml Btl OP 07/20/23 20:59 1 drops HS CHARANJIT Administration Clopidogrel Bisulfate 75 mg 06/20/23 09:00 06/22/23 09:43 Clopidogrel Bisulfate 75 Mg Tab PO 07/20/23 08:59 75 mg QAM CHARANJIT Administration Cyanocobalamin 1,000 mcg 06/20/23 09:00 06/22/23 09:43 Cyanocobalamin (B-12) 500 Mcg Tablet PO 07/20/23 08:59 1,000 mcg QAM CHARANJIT Administration Dorzolamide/Timolol 1 drops 06/20/23 09:00 06/22/23 09:46 Dorzolamide/Timolol 22.3/6.8mg/Ml 10 Ml Btl OP 07/20/23 08:59 1 drops BID CHARANJIT Administration Famotidine 20 mg 06/20/23 09:00 06/22/23 09:42 Famotidine 20 Mg Tab PO 07/20/23 08:59 20 mg BID CHARANJIT Administration Fexofenadine HCl 180 mg 06/20/23 21:00 06/21/23 21:16 Fexofenadine Hcl 180 Mg Tab PO 07/20/23 20:59 180 mg QPM CHARANJIT Administration Fluticasone Propionate 2 sprays 06/20/23 21:00 06/21/23 21:14 Fluticasone Propionate Na Spr 16 Gm Btl NA 07/20/23 20:59 2 sprays HS CHARANJIT Administration Furosemide 20 mg 06/22/23 09:00 06/22/23 09:46 Furosemide 20 Mg Tab PO 07/22/23 08:59 20 mg DAILY CHARANJIT Administration Ceftriaxone Sodium 2,000 mg/ 50 mls @ 100 mls/hr 06/20/23 05:00 06/22/23 05:55 Dextrose IV 06/30/23 04:59 Infused Q24H CHARANJIT Infusion Protocol Metoprolol Succinate 25 mg 06/20/23 21:00 06/21/23 21:14 Metoprolol Succ 25mg Ext Rel Tab PO 07/20/23 20:59 25 mg HS CHARANJIT Administration Rosuvastatin Calcium 10 mg 06/20/23 09:00 06/22/23 09:43 Rosuvastatin Calcium 10 Mg Tab PO 07/20/23 08:59 10 mg QAM CHARANJIT Administration
[2023-06-22 16:56] LABS: Calcium 8.9 mg/dl (8.6-10.3); Potassium 4.1 mmol/L (3.5-5.1)
[2023-06-22] MEDS ORDERED: FUROSEMIDE INJ 20 MG/2 ML VIAL IV ONE (16:59)
[2023-06-22 17:02] LABS: Creatinine Clr Calc Pharmacy 62.9 ml/min; Est GFR (African American) 100.1 ml/min; Est GFR (Non-African American) 86.3 ml/min
[2023-06-22] MEDS ORDERED: PIPER/TAZO 4.5g in D5W MINI-B 100 ML IV ONE (17:15)
--- NOTE | 2023-06-22 19:42 | XRay Report ---
XR chest 1V portable CLINICAL HISTORY: c/f aspiration TECHNIQUE: Single frontal radiograph of the chest was obtained. Comparison: Comparison is made to chest radiograph 06/19/2023 FINDINGS: Lines and tubes are stable. Calcified aortic knob is seen. The lungs are clear. No evidence of pleura l effusion or pneumothorax. IMPRESSION: No acute abnormality and in particular no evidence of aspiration. ACT 112: Negative or not required by law. Electronically signed by: Frantz Rangel M.D. 06/22/2023 7:41 PM
[2023-06-22] MEDS: BIMATOPROST 0.01% OP SOLN 2.5 ML BTL OP SCH (21:05)
[2023-06-22] MEDS: FLUTICASONE PROPIONATE NA SPR 16 GM BTL SCH (21:05)
[2023-06-22] MEDS: METOPROLOL SUCC 25MG EXT REL TAB PO SCH (21:06)
[2023-06-22] MEDS: FEXOFENADINE HCL 180 MG TAB PO SCH (21:13)
[2023-06-22] MEDS: PIPERACILLIN/TAZOBACTAM 4.5 GM in DEXTROSE 5% MINI-B 100 ML IV SCH (23:55)
[2023-06-23] MEDS: PIPERACILLIN/TAZOBACTAM 4.5 GM in DEXTROSE 5% MINI-B 100 ML IV SCH ×3 (06:13→21:06)
[2023-06-23 06:35] LABS: Basophils # (auto) 0.01 K/uL (0.00-0.20); Basophils % (auto) 0.2 %; Eosinophils # (auto) 0.03 K/uL (0.00-0.50); Eosinophils % (auto) 0.5 %; Hematocrit (blood only) 41.5 % (37.0-47.0); Hemoglobin 14.4 g/dl (12.0-16.0); Immature Granulocytes # (auto) 0.02 K/uL (0.01-0.20); Immature Granulocytes % (auto) 0.3 %; Lymphocytes # (auto) 1.59 K/uL (1.20-3.40); Lymphocytes % (auto) 27.6 %; Mean Corpuscular Hemoglobin 32.2 pg (25.0-34.0); Mean Corpuscular Hgb Conc 34.7 g/dL (32.0-36.0); Mean Corpuscular Volume 92.8 fL (80.0-100.0); Mean Platelet Volume 9.4 fL (9.4-12.4); Monocytes # (auto) 0.55 K/uL (0.11-0.59); Monocytes % (auto) 9.5 %; Neutrophils # (auto) 3.56 K/uL (1.40-6.50); Neutrophils % (auto) 61.9 %; Platelet Count 214 K/uL (130-400); RDW Coefficient of Variation 12.8 % (11.5-14.5); RDW Standard Deviation 44.3 fL (36.4-46.3); Red Blood Count 4.47 M/uL (4.20-5.40); White Blood Count 5.76 K/ul (4.8-10.8)
[2023-06-23 06:44] LABS: BUN Creatinine Ratio 18.4 (10-20); Creatinine Clr Calc Pharmacy 47.2 ml/min; Est GFR (African American) 84.7 ml/min; Est GFR (Non-African American) 73.1 ml/min; Magnesium 2.1 mg/dl (1.7-2.4); Potassium 3.9 mmol/L (3.5-5.1)
[2023-06-23] MEDS: CYANOCOBALAMIN (B-12) 500 MCG TABLET PO SCH (09:20)
[2023-06-23] MEDS: FUROSEMIDE 20 MG TAB PO SCH (09:20)
[2023-06-23] MEDS: FAMOTIDINE 20 MG TAB PO SCH ×2 (09:20→20:49)
[2023-06-23] MEDS: ROSUVASTATIN CALCIUM 10 MG TAB PO SCH (09:20)
[2023-06-23] MEDS: CLOPIDOGREL BISULFATE 75 MG TAB PO SCH (09:20)
[2023-06-23] MEDS: DORZOLAMIDE/TIMOLOL 22.3/6.8MG/ML 10 ML BTL OP SCH ×2 (09:21→20:47)
[2023-06-23] MEDS ORDERED: bisacodyL 5 MG TABEC PO ONE (10:32)
[2023-06-23 13:16] LABS: Adenovirus PCR Not Detected (NotDetected); Bordetella parapertussis PCR Not Detected (NotDetected); Bordetella pertussis PCR Not Detected (NotDetected); Chlamydia pneumoniae PCR Not Detected (NotDetected); Coronavirus 229E PCR Not Detected (NotDetected); Coronavirus CoV-2 (COVID19)PCR Not Detected (NotDetected); Coronavirus HKU1 PCR Not Detected (NotDetected); Coronavirus NL63 PCR Not Detected (NotDetected); Coronavirus OC43PCR Not Detected (NotDetected); Human Metapneumovirus PCR Not Detected (NotDetected); Influenza A PCR Not Detected (NotDetected); Influenza B PCR Not Detected (NotDetected); Mycoplasma pneumoniae PCR Not Detected (NotDetected); Parainfluenza Virus 1 PCR Not Detected (NotDetected); Parainfluenza Virus 2 PCR Not Detected (NotDetected); Parainfluenza Virus 3 PCR Not Detected (NotDetected); Parainfluenza Virus 4 PCR Not Detected (NotDetected); Respiratory Syncytial VirusPCR Not Detected (NotDetected); Rhinovirus/Enterovirus PCR Not Detected (NotDetected)
--- NOTE | 2023-06-23 14:46 | Hospitalist Progress Note ---
Date of Service June 23, 2023 Assessment & Plan (1) Encephalopathy: Plan: Ms. Becerra is an 82 year old woman with history of PHTN, SSS s/p PPM, PAF, prediabetes, admitted on 06/19 due to delirium iso infection. Patient found to be COVID + and with UTI. Patient has continued to improve. Nurse reports concerns for aspiration given cough with intake. Patient is with waxing and waning mentation, even prior to covid diagnosis. Concern that underlying dementia is progressive, with resulting hypoactive moments. No clear source of infection, plan to transition to PO antbiotic for CAP coverage in am Plan for neurology consultation to assess if symptoms c/w dementia. #Cough w/ concerns for aspiration -Speech eval revealed strong swallow when alert -Ensure daily oral hygiene, asp precautions -further speech recommendations to follow #Abnormal UA Not currently septic UA suggestive of infection, urine Cx pending however, no growth Continue Rocephin #COVID + with superimposed pneumonia Outside window for treatment, ? superimposed CAP given improvement on IV CTX Mucinex prn Flutter valve #Hypoactive delirium on dementia Multifactorial Neurology consult to assess if symptoms c/w progression of known dementia B12, folate, lyme/tick bourne disease ordered #Hyponatremia Possibly secondary to decreased p.o. intake from recent COVID-19 illness continue to monitor s.p lasix #pulmonary hypertension #SSS status post PPPM #hx valvular heart disease (moderate TR, mild MS/MR) patient currently A-fib not on anticoagulation secondary to spontaneous subdural hemorrhage reassess volume status daily #hyperlipidemia #hx TIA on statin Rx #Hyperglycemia likely prediabetes (documented hemoglobin A1c of 5.7 from June 2021), recent hemoglobin A1c of 5.3 last February 2023 Diet: Advanced to full liquids as pt's mentation improving, consider further advancement. DVT prophylaxis: SCDs Re: History spontaneous ICH Full code as per family. Admission and Anticipated Discharge Date Admission Date: June 19, 2023 Subjective NAEO Patient with waxing and waning status--she is responsive, but when evaluated, she was lethargic in appearance, denied any acute concerns--but appeared weak Review of Systems Review of Systems: All systems reviewed & are unremarkable except as noted in Subjective Physical Exam Constitutional: sleepy. slow to respond at bedside Respiratory: normal respiratory effort, lungs clear to auscultation Cardiovascular: RRR, no murmur, no edema Neurologic: moves all extremities equally, no focal deficits--some degree of effort, as hand raise weak when prompted, however, able to hold spoon to mouth with elbow out at nearly 90degrees Results & Data Results & Data Vital Signs (Past 12 Hours) Vital Signs Temp Pulse Pulse Resp BP Pulse Ox O2 Del Method 06/23/23 12:15 37.0 C 84 18 145/92 H 96 Room Air 06/23/23 11:59 Room Air 06/23/23 07:44 77 06/23/23 07:36 35.9 C L 92 H 16 140/85 96 Room Air 06/23/23 03:00 36.5 C 87 18 138/92 96 Room Air
--- NOTE | 2023-06-23 17:35 | Neurology Consultation ---
Date of Consultation June 23, 2023 Assessment & Plan (1) Encephalopathy: with possible underlying dementia, vascular due to recurrent strokes vs other types Plan Explained to the daughter aboput the possibility of underlying cognitive deficits,( at baseline per description that are exacerbated by encephalopathy Explained that supportive care and treating infection is what the patient needs in addition to Standard delirium precautions, Explained that evaluation for dementia should be done on outpatient basis after improvement the patient can followup with neurology as outpatient to start medications that would help with cognitive deficits . Can try donepezil 5 mg at bedtime if ok with primary team Standard Delirium Care - Search for occult etiologies of delirium including toxic, metabolic, and infectious. Medication effects and drug/ETOH withdrawal should also be sought. - Avoid restraints other than lap belts. Redirection by family/friends, or medical staff is more effective and promotes recovery. - Allow patient to wear glasses and hearing aides - Allow 24 hour visitation from family/friends - Allow family/friends to redirect patient to avoid need for meds/restraints - Avoids benzos - Use atypical neuroleptics in a low scheduled dose in combination with PRN for agitation - *Please note: the atypical Neuroleptics are associated with a slight but real increased in MACE and should be used sparingly especially in the terminal gauger supervisor - *telemetry is required during atypical neuroleptic use - *Code Status should be clearly defined - Low dose IV morphine can be used with caution if neuroleptics fail for acute delirium - Redirection by family, friends, one to one, or medical staff if far more effective and safer than medication use. - Pain causes delirium and should be addressed in a balanced, conservative, but effective manner. - During the day, patient should be awake. Lights should be on. TV should be on. Patient should be placed in chair with restraints if possible and allowed into nicole or outside in wheelchair if can tolerate. - At night, lights should be turned low and all excess stimulation should be eliminated. A scheduled dose of neuroleptic should be given at least 2 hours prior to typical onset of - Room noises can cause anxious producing hallucinations. If the room is loud, has atypical noises (construction, beeping, loud neighbor, etc) or patient is having negative reaction to ambient stimuli, patient should be moved to another room - Nutritional status should be addressed. Any nutritional deficits should be aggressively remediated. - High carbohydrate meals should be served - Please make family aware that delirium may last for weeks to months. - Patients with baseline Organic brain syndrome are more prone to delirium and take longer to recover - Patient with baseline organic brain syndromes, especially neurodegenerative ones like Dementia of Alzheimer's type may never recovery back to pre-morbid baseline. Telehealth Consultation Telehealth Information Telehealth Information: I performed this visit using a real-time telehealth connection between my location and the patients location ([facility]). After connecting through interactive tele-video, patient was identified by name and date of and/or wristband check.Patient (or authorized healthcare congressional representative) was informed that this was a telemedicine visit and it was being conducted confidentially over secure lines. My office door was closed and no one else was present in the room with me.Patient (or authorized healthcare congressional representative) provided consent to proceed with the visit, expressed an understanding of privacy and security of the telemedicine visit, and gave permission to have a hospital congressional representative in the room in order to assist with the visit and to conduct portions of the visit, as needed. I informed the patient (or authorized healthcare congressional representative) that I reviewed their record and presented the opportunity for them to ask any questions regarding the visit today. The patient agreed to participate. History of Present Illness Reason for Consultation: mental status changes Requesting Physician: Dr Hicks Attending Physician: Janis Hicks MD History of Present Illness Ms. Becerra is an 82 year old woman with history of PHTN, SSS s/p PPM, PAF, prediabetes, admitted on 06/19 due to delirium due to infection. She was found to be COVID + and with UTI. The patient was noted to be with waxing and waning mentation so neurology was called to evaluate for possible underlying dementia, also there was concerns about aspiration , due to somnolence , cough . family reported same even prior to COVID diagnosis. She is described to have displayed loss of stamina, got less energetic, sleeping most of the time, she used to use the walker sometimes, she She was positive with COVID since 06/06, she was later diagnosed with UTI infection , she was noted to have She cannot have an MRI because of the leads of the pacemaker , has had multiple hospitalization prior to that because of TIAs, however no anticoagulation as recommended Allergies Allergy/AdvReac Type Severity Reaction Status Date / Time shellfish derived Allergy Intermediate bumps Verified 06/19/23 21:27 after eating adhesive Allergy Mild SKIN WILL Verified 06/19/23 21:27 GET SORE diltiazem Allergy Unknown doc said Verified 06/19/23 21:27 she shouldnt take it fish derived Allergy Unknown Unknown Verified 06/19/23 21:27 warfarin AdvReac Severe brain bleed Verified 06/19/23 21:27 ezetimibe AdvReac Intermediate GI SYMPTOMS Verified 06/19/23 21:27 hydromorphone AdvReac Intermediate SLOWED Verified 06/19/23 21:27 HEART RATE meperidine AdvReac Intermediate VOMITING Verified 06/19/23 21:27 rosuvastatin AdvReac Intermediate GI SYMPTOMS Verified 06/19/23 21:27 simvastatin AdvReac Intermediate GI SYMPTOMS Verified 06/19/23 21:27 Skbbngo-TUP-IiF Reductase AdvReac Intermediate cramps Verified 05/09/23 12:40 Inhibitor [Wocokwm-Adv-Ntw Reductase Inhibitor] Home Medications Medication Instructions Recorded Confirmed Type acetaminophen 500 mg tablet 500 mg PO Q6H PRN Pain 09/26/18 06/19/23 History (Tylenol Extra Strength) bimatoprost 0.01 % eye drops 1 drp OPB HS 09/26/18 06/19/23 History (Lumigan) cholecalciferol (vitamin D3) 50 2,000 unit PO QAM 09/26/18 06/19/23 History mcg (2,000 unit) capsule (Vitamin D3) dorzolamide-timolol (PF) 2 %-0.5 % 1 drp OPB BID 09/26/18 06/19/23 History eye drops in a dropperette (Cosopt (PF)) fexofenadine 180 mg tablet 180 mg PO QPM 09/26/18 06/19/23 History fluticasone propionate 50 2 spray intranasal HS 09/26/18 06/19/23 History mcg/actuation nasal spray,suspension (Flonase Allergy Relief) furosemide 20 mg tablet 20 mg PO MOWEFR@0900 09/26/18 06/19/23 History clopidogrel 75 mg tablet 75 mg PO QAM 08/07/22 06/19/23 History cyanocobalamin (vitamin B-12) 1,000 mcg PO QAM 08/07/22 06/19/23 History 1,000 mcg tablet (Vitamin B-12) famotidine 20 mg tablet (Pepcid) 20 mg PO BID 08/07/22 06/19/23 History metoprolol succinate 50 mg 50 mg PO HS 10/25/22 06/19/23 History tablet,extended release 24 hr rosuvastatin 10 mg tablet 10 mg PO QAM 05/09/23 06/19/23 History Patient History Medical History (Updated 06/20/23 @ 10:04 by Yuan Odell MD) Acute GI bleeding Atrial fibrillation hx of--follows with Dr. 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 Hyperlipidemia Hypertension Left leg numbness Mitral valve stenosis, rheumatic Nausea Pacemaker 05/2012 @ [facility] meditronic single chamber Prolapsed uterus Spinal stenosis Unsteady Surgical History History of bilateral cataract extraction History of cardiac cath x3--1965- no stents History of colonoscopy History of dilatation and curettage x4 History of esophagogastroduodenoscopy (EGD) History of mandibular surgery hx realignment of jaw History of mitral valve repair 1965 @ [facility] History of removal of cyst benign growth removed from jaw History of tonsillectomy and adenoidectomy History of tooth extraction History of total abdominal hysterectomy History of wisdom tooth extraction Family History (Updated 05/09/23 @ 15:58 by Latisha Landeros PA-C) Other Hypertension No family history of adverse response to anesthesia Social History Smoking Status: Never smoker Second Hand Exposure: No; Do You Dip or Chew Tobacco: No; Tobacco Cessation Education Requested by Patient: No Hx Alcohol Use: No Hx Substance Use: No Preferred Language: Northern Irish Communication Ability: Effective Assistant Produce Manager Required: No Beliefs That Will Affect Care: None marital status: Current Living Situation: Spouse and Family Other Information That Helps Us Care for You: No Feels Safe at Home: Yes Safety Concerns: Feels Safe At This Time Assistive Devices: Cane, Glasses, Walker and Wheelchair Review of Systems Constitutional: Patient denies weight loss, fever, chills, and night sweats Eyes: Patient denies change in vision, tearing, pain, and redness ENT: Patient denies pain, bleeding, rhinorrhea, and dysphagia Cardiovascular: Patient denies chest pain, palpitation, dypsnea at rest, and dy psnea with exertion Respiratory: Patient denies shortness of breath, cough, wheezing, and productive cough GI: Patient denies reflux, pain, constipation, and diarrhea Skin: Patient denies rash, dryness, and itching Allergies/Immune System: Patient denies rhinorrhea, seasonal allergies, reaction to current MEDS, and joint swelling Endocrine: Patient denies weight loss, weight gain, temperature intolerance, and excessive thirst Neurological: All negative unless mentioned in the HPI Exam: Constitutional: Appearance normally developed Head and face: normocephalic and facial bruises Eyes: no ptosis, no anisocoria, and no dysconjugate gaze Respiratory: normal effort Cardiovascular: regular rhythm and regular rate Abdomen: non distended Skin: no rashes, lesions, or ulcers noted Psychiatric: normal judgement and insight, normal mood, and normal affect Physical Exam NEUROLOGIC EXAMINATION: Mental Status:alert, oriented to time, place, person, normal recent memory, normal remote memory, normal attention span, normal concentration, normal language, and normal fund of knowledge Cranial Nerves: CN 2 - no visual defect on confrontation and pupils round, equal, reactive to light CN 3, 4, 6 - extra-ocular movements intact and no nystagmus CN 5 - facial sensation intact CN 7 - no facial asymmetry CN 8 - intact hearing CN 9, 10 - palate symmetric, normal gag CN 11 - good shoulder shrug CN 12 - tongue midline MOTOR: Strength was at least antigravity throughout, Pronator drift was absent, and There were no abnormal movements SENSATION: intact and symmetric to pinprick, light touch, vibration and joint position GAIT: stable, no ataxia, and can perform tandem walking COORDINATION: no ataxia with finger to nose testing and heel to mills testing REFLEXES: cannot assess over telemedicine Do not drive. Avoid all other activities in which a sudden loss of consciousness would be dangerous, including but not limited to unsecured heights (scaffolding, ladders...), heavy machiner or machine tools or other machinery with moving parts, open flame, swimming pools (keeping in mind that a bathtub full of water is a small swimming pool), etc. Results & Data Vital Signs (Past 12 Hours) Vital Signs Temp Pulse Pulse Resp BP Pulse Ox O2 Del Method 06/23/23 15:22 36.7 C 93 H 18 143/80 H 95 Room Air 06/23/23 12:15 37.0 C 84 18 145/92 H 96 Room Air 06/23/23 11:59 Room Air 06/23/23 07:44 77 06/23/23 07:36 35.9 C L 92 H 16 140/85 96 Room Air Laboratory Results Abnormal lab results 06/23/23 06/23/23 Range/Units 05:39 05:39 Sodium 130 L (136-145) mmol/L Chloride 95 L (98-107) mmol/L Glucose 114 H (70-99(Fasting)) mg/dl Ionized Calcium 1.11 L (1.12-1.32) mmol/L Diagnostic Findings [place], [place] [phone] CT Scan Report Patient:JOSE BECERRA Admit Date:06/19/23 MR#:[id number] Address1:[address] [place] [address] Acct ID:[id number] Address2: Date:[address] [facility] Zip:[place] [address] Age:82 CT head/brain wo con CLINICAL HISTORY: 82 years-old Female with AMS. Acutely altered mental status FINDINGS: No acute intracranial hemorrhage, midline shift, intracranial mass, hydrocephalus, territorial ischemia or abnormal extra-axial collection. Involutional changes with chronic microvascular ischemic disease. Cerebral vascular calcifications. The calvarium is intact. Moderate polypoid mucosal thickening of the inferior left maxillary sinus. The mastoid air cells are clear. Prior bilateral lens repair. IMPRESSION: No acute intracranial abnormality. ECG Additional Comments: Atrial fibrillation
[2023-06-23 18:15] LABS: Lyme Ab IgG w/WB Rflx Negative (Negative); Lyme Ab IgM w/WB Rflx Negative (Negative)
[2023-06-23 18:18] LABS: Folate (Folic Acid),Ser orPlas > 22.30 ng/ml (>5.38); Vitamin B12 > 1500 pg/ml (180-914)
[2023-06-23] MEDS: BIMATOPROST 0.01% OP SOLN 2.5 ML BTL OP SCH (20:48)
[2023-06-23] MEDS: FEXOFENADINE HCL 180 MG TAB PO SCH (20:49)
[2023-06-23] MEDS: METOPROLOL SUCC 25MG EXT REL TAB PO SCH (20:49)
[2023-06-23] MEDS: FLUTICASONE PROPIONATE NA SPR 16 GM BTL SCH (20:50)
[2023-06-23] MEDS: DOCUSATE SODIUM/SENNA 50/8.6MG TAB PO SCH (21:06)
[2023-06-24] MEDS: PIPERACILLIN/TAZOBACTAM 4.5 GM in DEXTROSE 5% MINI-B 100 ML IV SCH (06:42)
[2023-06-24] MEDS: CLOPIDOGREL BISULFATE 75 MG TAB PO SCH (08:45)
[2023-06-24] MEDS: FAMOTIDINE 20 MG TAB PO SCH ×2 (08:45→21:06)
[2023-06-24] MEDS: FUROSEMIDE 20 MG TAB PO SCH (08:46)
[2023-06-24] MEDS: ROSUVASTATIN CALCIUM 10 MG TAB PO SCH (08:46)
[2023-06-24] MEDS: CYANOCOBALAMIN (B-12) 500 MCG TABLET PO SCH (08:46)
[2023-06-24] MEDS: DOCUSATE SODIUM/SENNA 50/8.6MG TAB PO SCH (08:46)
[2023-06-24] MEDS: DORZOLAMIDE/TIMOLOL 22.3/6.8MG/ML 10 ML BTL OP SCH ×2 (08:47→21:07)
--- NOTE | 2023-06-24 16:28 | Hospitalist Progress Note ---
Date of Service June 24, 2023 Assessment & Plan (1) Encephalopathy: Plan: Ms. Becerra is an 82 year old woman with history of PHTN, SSS s/p PPM, PAF, prediabetes, admitted on 06/19 due to delirium iso infection. Patient found to be COVID + and with UTI. Patient has continued to improve. Nurse reports concerns for aspiration given cough with intake. Patient is with waxing and waning mentation, even prior to covid diagnosis. Concern that underlying dementia is progressive, with resulting hypoactive moments. No clear source of infection, plan to hold antibiotics given 5 days of treatment with no improvement and no clear source. Family with many questions regarding patient's status as this hypoactive delirium on dementia has been an issue ongoing for months, prior to COVID diagnosis. Family unsure what may be best "fit" given full time babysitter care patient requires. #Cough w/ concerns for aspiration -Speech eval revealed strong swallow when alert -Ensure daily oral hygiene, asp precautions -Speech recommendations encouraged patient's family not to feed or encourage drinking while patient in hypoactive state #Abnormal UA Not currently septic, UA abnormal but + SE; recieved 5 days IV CTX #COVID + with superimposed pneumonia No pneumonia on imaging, no sputum production, no improvement on IV CTX -Supportive management #Hypoactive delirium on dementia Multifactorial Neurology consult to assess if symptoms c/w progression of known dementia -felt baseline deficits exacerbated by encephalopathy, encouraged further dementia evaluation B12, folate, lyme/tick bourne disease negative Palliative consult to discuss dementia, options available/resources, and next steps in evolution of GOC #Hyponatremia Possibly secondary to decreased p.o. intake from recent COVID-19 illness continue to monitor s.p lasix #pulmonary hypertension #SSS status post PPPM #hx valvular heart disease (moderate TR, mild MS/MR) patient currently A-fib not on anticoagulation secondary to spontaneous subdural hemorrhage reassess volume status daily #hyperlipidemia #hx TIA on statin Rx #Hyperglycemia likely prediabetes (documented hemoglobin A1c of 5.7 from June 2021), recent hemoglobin A1c of 5.3 last February 2023 Diet:regular DVT prophylaxis: SCDs Re: History spontaneous ICH Full code as per family. Admission and Anticipated Discharge Date Admission Date: June 19, 2023 Subjective NAEO Patient with waxing and waning status still, in bedside chair this morning. Responsive and occasionally interactive, but mostly sits fairly motionless Denies symptoms of depression, denies any pain or discomfort, unable to state much of what concern or underlying issue may be Review of Systems Review of Systems: All systems reviewed & are unremarkable except as noted in Subjective Physical Exam Constitutional: WD/WN, vitals as above sitting in bedisde chair Respiratory: normal respiratory effort, lungs clear to auscultation Cardiovascular: RRR, no murmur, no edema Results & Data Results & Data Vital Signs (Past 12 Hours) Vital Signs Temp Pulse Pulse Resp BP Pulse Ox O2 Del Method 06/24/23 15:47 36.6 C 103 H 17 142/86 H 98 Room Air 06/24/23 06:00 89 06/24/23 11:38 36.7 C 99 H 17 125/93 97 Room Air 06/24/23 07:53 36.5 C 88 18 130/91 100 Room Air Medications Administered Home Medications Medication Instructions Recorded Confirmed Last Taken acetaminophen 500 mg tablet 500 mg PO Q6H PRN Pain 09/26/18 06/19/23 08/27/18 (Tylenol Extra Strength) bimatoprost 0.01 % eye drops 1 drp OPB HS 09/26/18 06/19/23 1 Day Ago (Lumigan) ~06/18/23 cholecalciferol (vitamin D3) 50 2,000 unit PO QAM 09/26/18 06/19/23 1 Day Ago mcg (2,000 unit) capsule (Vitamin ~06/18/23 D3) dorzolamide-timolol (PF) 2 %-0.5 % 1 drp OPB BID 09/26/18 06/19/23 1 Day Ago eye drops in a dropperette (Cosopt ~06/18/23 (PF)) fexofenadine 180 mg tablet 180 mg PO QPM 09/26/18 06/19/23 1 Day Ago ~06/18/23 fluticasone propionate 50 2 spray intranasal HS 09/26/18 06/19/23 1 Day Ago mcg/actuation nasal ~06/18/23 spray,suspension (Flonase Allergy Relief) furosemide 20 mg tablet 20 mg PO MOWEFR@0900 09/26/18 06/19/23 1 Day Ago ~06/18/23 20 clopidogrel 75 mg tablet 75 mg PO QAM 08/07/22 06/19/23 1 Day Ago ~06/18/23 cyanocobalamin (vitamin B-12) 1,000 mcg PO QAM 08/07/22 06/19/23 1 Day Ago 1,000 mcg tablet (Vitamin B-12) ~06/18/23 famotidine 20 mg tablet (Pepcid) 20 mg PO BID 08/07/22 06/19/23 1 Day Ago ~06/18/23 metoprolol succinate 50 mg 50 mg PO HS 10/25/22 06/19/23 1 Day Ago tablet,extended release 24 hr ~06/18/23 rosuvastatin 10 mg tablet 10 mg PO QAM 05/09/23 06/19/23 1 Day Ago ~06/18/23 Active Medications Generic Name Dose Route Start Last Admin Trade Name Freq PRN Reason Stop Dose Admin Bimatoprost 1 drops 06/20/23 21:00 06/23/23 20:48 Bimatoprost 0.01% Op Soln 2.5 Ml Btl OP 07/20/23 20:59 1 drops HS CHARANJIT Administration Clopidogrel Bisulfate 75 mg 06/20/23 09:00 06/24/23 08:45 Clopidogrel Bisulfate 75 Mg Tab PO 07/20/23 08:59 75 mg QAM CHARANJIT Administration Cyanocobalamin 1,000 mcg 06/20/23 09:00 06/24/23 08:46 Cyanocobalamin (B-12) 500 Mcg Tablet PO 07/20/23 08:59 1,000 mcg QAM CHARANJIT Administration Dorzolamide/Timolol 1 drops 06/20/23 09:00 06/24/23 08:47 Dorzolamide/Timolol 22.3/6.8mg/Ml 10 Ml Btl OP 07/20/23 08:59 1 drops BID CHARANJIT Administration Famotidine 20 mg 06/20/23 09:00 06/24/23 08:45 Famotidine 20 Mg Tab PO 07/20/23 08:59 20 mg BID CHARANJIT Administration Fexofenadine HCl 180 mg 06/20/23 21:00 06/23/23 20:49 Fexofenadine Hcl 180 Mg Tab PO 07/20/23 20:59 180 mg QPM CHARANJIT Administration Fluticasone Propionate 2 sprays 06/20/23 21:00 06/23/23 20:50 Fluticasone Propionate Na Spr 16 Gm Btl NA 07/20/23 20:59 2 sprays HS CHARANJIT Administration Furosemide 20 mg 06/22/23 09:00 06/24/23 08:46 Furosemide 20 Mg Tab PO 07/22/23 08:59 20 mg DAILY CHARANJIT Administration Metoprolol Succinate 25 mg 06/20/23 21:00 06/23/23 20:49 Metoprolol Succ 25mg Ext Rel Tab PO 07/20/23 20:59 25 mg HS CHARANJIT Administration Rosuvastatin Calcium 10 mg 06/20/23 09:00 06/24/23 08:46 Rosuvastatin Calcium 10 Mg Tab PO 07/20/23 08:59 10 mg QAM CHARANJIT Administration Senna/Docusate Sodium 1 tab 06/23/23 15:00 06/24/23 08:46 Docusate Sodium/Senna 50/8.6mg Tab PO 07/23/23 14:59 1 tab QAM CHARANJIT Administration
[2023-06-24 17:45] LABS: BUN Creatinine Ratio 38.7 (10-20); Calcium 9.8 mg/dl (8.6-10.3); Est GFR (African American) 97.3 ml/min; Potassium 3.7 mmol/L (3.5-5.1)
[2023-06-24] MEDS ORDERED: METOPROLOL TARTRATE 1 MG/ML VIAL IV ONE (18:50)
[2023-06-24] MEDS ORDERED: METOPROLOL TARTRATE 1 MG/ML VIAL IV STA (19:12)
[2023-06-24] MEDS: LACTATED RINGER'S 1,000 ML IV SCH (19:13)
[2023-06-24 20:09] LABS: Magnesium 2.2 mg/dl (1.7-2.4); Phosphorus 3.8 mg/dl (2.5-4.9)
[2023-06-24] MEDS ORDERED: DONEPEZIL HCL 5 MG TAB PO SCH (21:00)
[2023-06-24] MEDS: METOPROLOL SUCC 25MG EXT REL TAB PO SCH (21:06)
[2023-06-24] MEDS: FEXOFENADINE HCL 180 MG TAB PO SCH (21:06)
[2023-06-24] MEDS: BIMATOPROST 0.01% OP SOLN 2.5 ML BTL OP SCH (21:07)
[2023-06-24] MEDS: FLUTICASONE PROPIONATE NA SPR 16 GM BTL SCH (21:08)
[2023-06-25] MEDS: LACTATED RINGER'S 1,000 ML IV SCH (06:11)
[2023-06-25 06:47] LABS: BUN Creatinine Ratio 32.4 (10-20); Calcium 9.2 mg/dl (8.6-10.3); Creatinine Clr Calc Pharmacy 51.7 ml/min; Est GFR (African American) 94.4 ml/min; Est GFR (Non-African American) 81.5 ml/min; Magnesium 2.1 mg/dl (1.7-2.4); Phosphorus 3.7 mg/dl (2.5-4.9); Potassium 3.3 mmol/L (3.5-5.1)
--- NOTE | 2023-06-25 07:01 | Electrocardiogram Report ---
Test Reason : Blood Pressure : / mmHG Vent. Rate : 113 BPM Atrial Rate : 101 BPM P-R Int : 000 ms QRS Dur : 080 ms QT Int : 332 ms P-R-T Axes : 000 097 -06 degrees QTc Int : 455 ms Atrial fibrillation with rapid ventricular response Rightward axis Nonspecific ST abnormality Abnormal ECG When compared with ECG of 19-JUN-2023 18:22, Nonspecific T wave abnormality no longer evident in Anterior leads Confirmed by Nehemiah Mac ([id number]) on 06/25/2023 7:00:59 AM Referred By: Roverto Miller Confirmed By:Ollie Mac
[2023-06-25] MEDS: CLOPIDOGREL BISULFATE 75 MG TAB PO SCH (08:41)
[2023-06-25] MEDS: ROSUVASTATIN CALCIUM 10 MG TAB PO SCH (08:41)
[2023-06-25] MEDS: FUROSEMIDE 20 MG TAB PO SCH (08:41)
[2023-06-25] MEDS: DOCUSATE SODIUM/SENNA 50/8.6MG TAB PO SCH (08:41)
[2023-06-25] MEDS: DORZOLAMIDE/TIMOLOL 22.3/6.8MG/ML 10 ML BTL OP SCH ×2 (08:41→20:35)
[2023-06-25] MEDS: CYANOCOBALAMIN (B-12) 500 MCG TABLET PO SCH (08:41)
[2023-06-25] MEDS: FAMOTIDINE 20 MG TAB PO SCH ×2 (08:41→20:32)
[2023-06-25 09:25] LABS: Hematocrit (blood only) 39.5 % (37.0-47.0); Hemoglobin 13.7 g/dl (12.0-16.0); Mean Corpuscular Hemoglobin 32.9 pg (25.0-34.0); Mean Corpuscular Hgb Conc 34.7 g/dL (32.0-36.0); Mean Platelet Volume 10.5 fL (9.4-12.4); Platelet Count 196 K/uL (130-400); RDW Coefficient of Variation 12.9 % (11.5-14.5); RDW Standard Deviation 44.8 fL (36.4-46.3); Red Blood Count 4.16 M/uL (4.20-5.40); White Blood Count 5.06 K/ul (4.8-10.8)
[2023-06-25 09:37] LABS: Basophils # (auto) 0.03 K/uL (0.00-0.20); Basophils % (auto) 0.6 %; Eosinophils # (auto) 0.09 K/uL (0.00-0.50); Eosinophils % (auto) 1.8 %; Immature Granulocytes # (auto) 0.01 K/uL (0.01-0.20); Immature Granulocytes % (auto) 0.2 %; Lymphocytes # (auto) 1.52 K/uL (1.20-3.40); Monocytes # (auto) 0.46 K/uL (0.11-0.59); Monocytes % (auto) 9.1 %; Neutrophils # (auto) 2.95 K/uL (1.40-6.50); Neutrophils % (auto) 58.3 %
[2023-06-25] MEDS ORDERED: FLUCONAZOLE 100 MG TAB PO ONE (10:45)
[2023-06-25] MEDS: POTASSIUM CHLORIDE 20 MEQ/15 ML UDC PO SCH (11:38)
[2023-06-25] MEDS ORDERED: METOPROLOL TARTRATE 50 MG TAB PO STA (13:06)
--- NOTE | 2023-06-25 13:12 | Hospitalist Progress Note ---
Date of Service June 25, 2023 Assessment & Plan (1) Encephalopathy: Plan: Ms. Becerra is an 82 year old woman with history of PHTN, SSS s/p PPM, PAF, prediabetes, admitted on 06/19 due to delirium iso infection. Patient found to be COVID + and with UTI. Patient has continued to improve. Nurse reports concerns for aspiration given cough with intake. Patient is with waxing and waning mentation, even prior to covid diagnosis. Concern that underlying dementia is progressive, with resulting hypoactive moments. No clear source of infection, plan to hold antibiotics given 5 days of treatment with no improvement and no clear source. Family with many questions regarding patient's status as this hypoactive delirium on dementia has been an issue ongoing for months, prior to COVID diagnosis. 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 #Erythematous rash, c/f intertrigo -s/p 1 dose fluconazole po given extensive across buttock/inguinal area -Start miconazole to erythematous area #Cough w/ concerns for aspiration -Speech eval revealed strong swallow when alert -Ensure daily oral hygiene, asp precautions -Speech recommendations encouraged patient's family not to feed or encourage drinking while patient in hypoactive state #Abnormal UA Not currently septic, UA abnormal but + SE; received 5 days IV CTX #COVID + with superimposed pneumonia No pneumonia on imaging, no sputum production, no improvement on IV CTX -Supportive management #Hypoactive delirium on dementia Multifactorial Neurology consult to assess if symptoms c/w progression of known dementia -felt baseline deficits exacerbated by encephalopathy, encouraged further dementia evaluation B12, folate, lyme/tick bourne disease negative Palliative consult to discuss dementia, options available/resources, and next steps in evolution of GOC #Hyponatremia Possibly secondary to decreased p.o. intake from recent COVID-19 illness continue to monitor s.p lasix #Persistent A fib #pulmonary hypertension #SSS status post PPPM #hx valvular heart disease (moderate TR, mild MS/MR) patient currently A-fib not on anticoagulation secondary to spontaneous subdural hemorrhage reassess volume status daily Increased metoprolol succinate 25mg to bid Lasix 20mg MWF #hyperlipidemia #PAD #hx TIA on statin Rx Continue plavix #Hyperglycemia likely prediabetes (documented hemoglobin A1c of 5.7 from June 2021), recent hemoglobin A1c of 5.3 last February 2023 Diet:regular DVT prophylaxis: SCDs Re: History spontaneous ICH DNR/DNI per family; reviewed patient's will and did not want heroic measures, intubation, cpr Discuss placement with CM Admission and Anticipated Discharge Date Admission Date: June 19, 2023 Results & Data Results & Data Vital Signs (Past 12 Hours) Vital Signs Temp Pulse Pulse Resp BP Pulse Ox O2 Del Method 06/25/23 10:50 36.8 C 93 H 18 120/68 97 Room Air 06/25/23 07:45 36.5 C 74 18 127/71 96 Room Air 06/25/23 06:51 69 06/25/23 04:00 36.6 C 86 18 138/85 93 Room Air Laboratory Results Short CBC 06/25/23 Range/Units 08:50 WBC 5.06 (4.8-10.8) K/ul Hgb 13.7 (12.0-16.0) g/dl Hct 39.5 (37.0-47.0) % Plt Count 196 (130-400) K/uL BMP 06/24/23 06/25/23 16:54 05:31 Sodium 131 L 134 L Potassium 3.7 3.3 L Chloride 95 L 97 L Carbon Dioxide 25 30 BUN 24 H 22 Creatinine 0.62 0.68 Glucose 119 H 96 Calcium 9.8 9.2 Medications Administered Home Medications Medication Instructions Recorded Confirmed Last Taken acetaminophen 500 mg tablet 500 mg PO Q6H PRN Pain 09/26/18 06/19/23 08/27/18 (Tylenol Extra Strength) bimatoprost 0.01 % eye drops 1 drp OPB HS 09/26/18 06/19/23 1 Day Ago (Lumigan) ~06/18/23 cholecalciferol (vitamin D3) 50 2,000 unit PO QAM 09/26/18 06/19/23 1 Day Ago mcg (2,000 unit) capsule (Vitamin ~06/18/23 D3) dorzolamide-timolol (PF) 2 %-0.5 % 1 drp OPB BID 09/26/18 06/19/23 1 Day Ago eye drops in a dropperette (Cosopt ~06/18/23 (PF)) fexofenadine 180 mg tablet 180 mg PO QPM 09/26/18 06/19/23 1 Day Ago ~06/18/23 fluticasone propionate 50 2 spray intranasal HS 09/26/18 06/19/23 1 Day Ago mcg/actuation nasal ~06/18/23 spray,suspension (Flonase Allergy Relief) furosemide 20 mg tablet 20 mg PO MOWEFR@0900 09/26/18 06/19/23 1 Day Ago ~06/18/23 20 clopidogrel 75 mg tablet 75 mg PO QAM 08/07/22 06/19/23 1 Day Ago ~06/18/23 cyanocobalamin (vitamin B-12) 1,000 mcg PO QAM 08/07/22 06/19/23 1 Day Ago 1,000 mcg tablet (Vitamin B-12) ~06/18/23 famotidine 20 mg tablet (Pepcid) 20 mg PO BID 08/07/22 06/19/23 1 Day Ago ~06/18/23 metoprolol succinate 50 mg 50 mg PO HS 10/25/22 06/19/23 1 Day Ago tablet,extended release 24 hr ~06/18/23 rosuvastatin 10 mg tablet 10 mg PO QAM 05/09/23 06/19/23 1 Day Ago ~06/18/23 Active Medications Generic Name Dose Route Start Last Admin Trade Name Freq PRN Reason Stop Dose Admin Bimatoprost 1 drops 06/20/23 21:00 06/24/23 21:07 Bimatoprost 0.01% Op Soln 2.5 Ml Btl OP 07/20/23 20:59 1 drops HS CHARANJIT Administration Clopidogrel Bisulfate 75 mg 06/20/23 09:00 06/25/23 08:41 Clopidogrel Bisulfate 75 Mg Tab PO 07/20/23 08:59 75 mg QAM CHARANJIT Administration Cyanocobalamin 1,000 mcg 06/20/23 09:00 06/25/23 08:41 Cyanocobalamin (B-12) 500 Mcg Tablet PO 07/20/23 08:59 1,000 mcg QAM CHARANJIT Administration Dorzolamide/Timolol 1 drops 06/20/23 09:00 06/25/23 08:41 Dorzolamide/Timolol 22.3/6.8mg/Ml 10 Ml Btl OP 07/20/23 08:59 1 drops BID CHARANJIT Administration Famotidine 20 mg 06/20/23 09:00 06/25/23 08:41 Famotidine 20 Mg Tab PO 07/20/23 08:59 20 mg BID CHARANJIT Administration Fexofenadine HCl 180 mg 06/20/23 21:00 06/24/23 21:06 Fexofenadine Hcl 180 Mg Tab PO 07/20/23 20:59 180 mg QPM CHARANJIT Administration Fluticasone Propionate 2 sprays 06/20/23 21:00 06/24/23 21:08 Fluticasone Propionate Na Spr 16 Gm Btl NA 07/20/23 20:59 2 sprays HS CHARANJIT Administration Potassium Chloride 40 meq 06/25/23 09:00 06/25/23 11:38 Potassium Chloride 20 Meq/15 Ml Udc PO 07/25/23 08:59 40 meq QAM CHARANJIT Administration Rosuvastatin Calcium 10 mg 06/20/23 09:00 06/25/23 08:41 Rosuvastatin Calcium 10 Mg Tab PO 07/20/23 08:59 10 mg QAM CHARANJIT Administration Senna/Docusate Sodium 1 tab 06/23/23 15:00 06/25/23 08:41 Docusate Sodium/Senna 50/8.6mg Tab PO 07/23/23 14:59 1 tab QAM CHARANJIT Administration
[2023-06-25] MEDS: MICONAZOLE NITRATE 2% CR 30 GM TUBE EXT SCH ×2 (14:08→20:38)
[2023-06-25] MEDS: BIMATOPROST 0.01% OP SOLN 2.5 ML BTL OP SCH (20:31)
[2023-06-25] MEDS: FEXOFENADINE HCL 180 MG TAB PO SCH (20:32)
[2023-06-25] MEDS: METOPROLOL SUCC 25MG EXT REL TAB PO SCH (20:34)
[2023-06-25] MEDS: FLUTICASONE PROPIONATE NA SPR 16 GM BTL SCH (20:36)
[2023-06-26 06:26] LABS: Hematocrit (blood only) 40.4 % (37.0-47.0); Hemoglobin 13.9 g/dl (12.0-16.0); Mean Corpuscular Hemoglobin 32.3 pg (25.0-34.0); Mean Corpuscular Hgb Conc 34.4 g/dL (32.0-36.0); Mean Platelet Volume 9.3 fL (9.4-12.4); Platelet Count 214 K/uL (130-400); RDW Coefficient of Variation 12.7 % (11.5-14.5); RDW Standard Deviation 43.8 fL (36.4-46.3); White Blood Count 5.63 K/ul (4.8-10.8)
[2023-06-26 06:45] LABS: BUN Creatinine Ratio 30.9 (10-20); Calcium 8.9 mg/dl (8.6-10.3); Creatinine Clr Calc Pharmacy 63.5 ml/min; Est GFR (African American) 101.2 ml/min; Est GFR (Non-African American) 87.4 ml/min; Phosphorus 2.4 mg/dl (2.5-4.9)
--- NOTE | 2023-06-26 07:17 | Hospitalist Progress Note ---
Date of Service June 26, 2023 Assessment & Plan (1) Encephalopathy: Plan: Ms. Becerra is an 82 year old woman with history of PHTN, SSS s/p PPM, PAF, prediabetes, admitted on 06/19 due to delirium iso infection. Patient found to be COVID + and with UTI. Patient has continued to improve. Nurse reports concerns for aspiration given cough with intake. Patient is with waxing and waning mentation, even prior to covid diagnosis. Concern that underlying dementia is progressive, with resulting hypoactive moments. No clear source of infection, plan to hold antibiotics given 5 days of treatment with no improvement and no clear source. Family with many questions regarding patient's status as this hypoactive delirium on dementia has been an issue ongoing for months, prior to COVID diagnosis. 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 Continued discussion regarding patient's 24 hour needs and that rehab will not address or be effective if patient does not participate to a certain degree. Discussed that prolonged admission will contribute to hypoactive delirium with lack of stimuli--encourage family to call patient/facetime with grandchildren/consider a "fidget" blanket to preoccupy hands. Palliative on consult to discuss next steps with transition and care. #Erythematous rash, c/f intertrigo -s/p 1 dose fluconazole po given extensive across buttock/inguinal area -Continue miconazole to erythematous area #Cough w/ concerns for aspiration -Speech eval revealed strong swallow when alert and participating in treatment -Ensure daily oral hygiene, asp precautions -Speech recommendations encouraged patient's family not to feed or encourage drinking while patient in hypoactive state #Abnormal UA Not currently septic, UA abnormal but + SE; received 5 days IV CTX #COVID + with superimposed pneumonia *resolved No pneumonia on imaging, no sputum production, no improvement on IV CTX -Supportive management, no further precautions #Hypoactive delirium on dementia Multifactorial Neurology consult to assess if symptoms c/w progression of known dementia -felt baseline deficits exacerbated by encephalopathy, encouraged further dementia evaluation B12, folate, lyme/tick bourne disease negative Palliative consult to discuss dementia, options available/resources, and next steps in evolution of GOC #Hyponatremia #Hypokalemia #Hypophosphatemia Possibly secondary to decreased p.o. intake from recent COVID-19 illness Replace lytes prn Holding lasix given continued poor intake #Persistent A fib #pulmonary hypertension #SSS status post PPPM #hx valvular heart disease (moderate TR, mild MS/MR) patient currently A-fib not on anticoagulation secondary to spontaneous subdural hemorrhage reassess volume status daily Increased metoprolol succinate 25mg to bid, continue Holding lasix given continued poor intake #hyperlipidemia #PAD #hx TIA on statin Rx Continue plavix #Hyperglycemia likely prediabetes (documented hemoglobin A1c of 5.7 from June 2021), recent hemoglobin A1c of 5.3 last February 2023 Diet:regular DVT prophylaxis: SCDs Re: History spontaneous ICH DNR/DNI per family; reviewed patient's will and did not want heroic measures, intubation, cpr Discuss placement with CM; palliative on consult ?hospice Admission and Anticipated Discharge Date Admission Date: June 19, 2023 Subjective NAEO Interactive today, but noted restlessness and fidgeting with IV lines and blanket Review of Systems Review of Systems: All systems reviewed & are unremarkable except as noted in Subjective Physical Exam Constitutional: WD/WN, vitals as above Respiratory: normal respiratory effort, lungs clear to auscultation Cardiovascular: irregularly irregular--not tachy Results & Data Results & Data Vital Signs (Past 12 Hours) Vital Signs Temp Pulse Pulse Resp BP Pulse Ox O2 Del Method 06/26/23 06:03 82 06/26/23 04:00 36.6 C 63 18 136/76 93 Room Air 06/26/23 00:00 36.6 C 78 18 123/80 96 Room Air Laboratory Results Short CBC 06/26/23 Range/Units 05:51 WBC 5.63 (4.8-10.8) K/ul Hgb 13.9 (12.0-16.0) g/dl Hct 40.4 (37.0-47.0) % Plt Count 214 (130-400) K/uL BMP 06/26/23 05:51 Sodium 135 L Potassium 3.0 L Chloride 97 L Carbon Dioxide 32 BUN 17 Creatinine 0.55 L Glucose 102 H Calcium 8.9 Medications Administered Home Medications Medication Instructions Recorded Confirmed Last Taken acetaminophen 500 mg tablet 500 mg PO Q6H PRN Pain 09/26/18 06/19/23 08/27/18 (Tylenol Extra Strength) bimatoprost 0.01 % eye drops 1 drp OPB HS 09/26/18 06/19/23 1 Day Ago (Lumigan) ~06/18/23 cholecalciferol (vitamin D3) 50 2,000 unit PO QAM 09/26/18 06/19/23 1 Day Ago mcg (2,000 unit) capsule (Vitamin ~06/18/23 D3) dorzolamide-timolol (PF) 2 %-0.5 % 1 drp OPB BID 09/26/18 06/19/23 1 Day Ago eye drops in a dropperette (Cosopt ~06/18/23 (PF)) fexofenadine 180 mg tablet 180 mg PO QPM 09/26/18 06/19/23 1 Day Ago ~06/18/23 fluticasone propionate 50 2 spray intranasal HS 09/26/18 06/19/23 1 Day Ago mcg/actuation nasal ~06/18/23 spray,suspension (Flonase Allergy Relief) furosemide 20 mg tablet 20 mg PO MOWEFR@0900 09/26/18 06/19/23 1 Day Ago ~06/18/23 20 clopidogrel 75 mg tablet 75 mg PO QAM 08/07/22 06/19/23 1 Day Ago ~06/18/23 cyanocobalamin (vitamin B-12) 1,000 mcg PO QAM 08/07/22 06/19/23 1 Day Ago 1,000 mcg tablet (Vitamin B-12) ~06/18/23 famotidine 20 mg tablet (Pepcid) 20 mg PO BID 08/07/22 06/19/23 1 Day Ago ~06/18/23 metoprolol succinate 50 mg 50 mg PO HS 10/25/22 06/19/23 1 Day Ago tablet,extended release 24 hr ~06/18/23 rosuvastatin 10 mg tablet 10 mg PO QAM 05/09/23 06/19/23 1 Day Ago ~06/18/23 Active Medications Generic Name Dose Route Start Last Admin Trade Name Freq PRN Reason Stop Dose Admin Bimatoprost 1 drops 06/20/23 21:00 06/25/23 20:31 Bimatoprost 0.01% Op Soln 2.5 Ml Btl OP 07/20/23 20:59 1 drops HS CHARANJIT Administration Clopidogrel Bisulfate 75 mg 06/20/23 09:00 06/26/23 08:38 Clopidogrel Bisulfate 75 Mg Tab PO 07/20/23 08:59 75 mg QAM CHARANJIT Administration Cyanocobalamin 1,000 mcg 06/20/23 09:00 06/26/23 08:38 Cyanocobalamin (B-12) 500 Mcg Tablet PO 07/20/23 08:59 1,000 mcg QAM CHARANJIT Administration Dorzolamide/Timolol 1 drops 06/20/23 09:00 06/26/23 08:40 Dorzolamide/Timolol 22.3/6.8mg/Ml 10 Ml Btl OP 07/20/23 08:59 1 drops BID CHARANJIT Administration Famotidine 20 mg 06/20/23 09:00 06/26/23 08:40 Famotidine 20 Mg Tab PO 07/20/23 08:59 20 mg BID CHARANJIT Administration Fexofenadine HCl 180 mg 06/20/23 21:00 06/25/23 20:32 Fexofenadine Hcl 180 Mg Tab PO 07/20/23 20:59 180 mg QPM CHARANJIT Administration Fluticasone Propionate 2 sprays 06/20/23 21:00 06/25/23 20:36 Fluticasone Propionate Na Spr 16 Gm Btl NA 07/20/23 20:59 2 sprays HS CHARANJIT Administration Metoprolol Succinate 25 mg 06/25/23 21:00 06/26/23 08:40 Metoprolol Succ 25mg Ext Rel Tab PO 07/25/23 20:59 25 mg BID CHARANJIT Administration Miconazole Nitrate 1 appln 06/25/23 11:00 06/26/23 08:41 Miconazole Nitrate 2% Cr 30 Gm Tube EXT 07/25/23 10:59 1 appln BID CHARANJIT Administration Potassium Chloride 40 meq 06/25/23 09:00 06/26/23 08:40 Potassium Chloride 20 Meq/15 Ml Udc PO 07/25/23 08:59 40 meq QAM CHARANJIT Administration Rosuvastatin Calcium 10 mg 06/20/23 09:00 06/26/23 08:39 Rosuvastatin Calcium 10 Mg Tab PO 07/20/23 08:59 10 mg QAM CHARANJIT Administration Senna/Docusate Sodium 1 tab 06/23/23 15:00 06/26/23 08:40 Docusate Sodium/Senna 50/8.6mg Tab PO 07/23/23 14:59 1 tab QAM CHARANJIT Administration
[2023-06-26] MEDS ORDERED: SODIUM PHOSPHATE 3 MMOL/1 ML INFUSION IV STA (07:18)
[2023-06-26] MEDS ORDERED: SODIUM PHOSPHATE 30 MMOL in SODIUM CHLORIDE 0.9% 500 ML IV ONE (07:30)
[2023-06-26] MEDS: POTASSIUM CHLORIDE / WTR 10 MEQ/100 ML PLCT IV SCH ×3 (07:48→09:49)
[2023-06-26] MEDS: CLOPIDOGREL BISULFATE 75 MG TAB PO SCH (08:38)
[2023-06-26] MEDS: CYANOCOBALAMIN (B-12) 500 MCG TABLET PO SCH (08:38)
[2023-06-26] MEDS: ROSUVASTATIN CALCIUM 10 MG TAB PO SCH (08:39)
[2023-06-26] MEDS: POTASSIUM CHLORIDE 20 MEQ/15 ML UDC PO SCH (08:40)
[2023-06-26] MEDS: DORZOLAMIDE/TIMOLOL 22.3/6.8MG/ML 10 ML BTL OP SCH ×2 (08:40→21:24)
[2023-06-26] MEDS: METOPROLOL SUCC 25MG EXT REL TAB PO SCH ×2 (08:40→21:25)
[2023-06-26] MEDS: FAMOTIDINE 20 MG TAB PO SCH ×2 (08:40→21:56)
[2023-06-26] MEDS: DOCUSATE SODIUM/SENNA 50/8.6MG TAB PO SCH (08:40)
[2023-06-26] MEDS: MICONAZOLE NITRATE 2% CR 30 GM TUBE EXT SCH ×2 (08:41→21:25)
--- NOTE | 2023-06-26 15:56 | Palliative Care Consultation ---
Date of Consultation June 26, 2023 Assessment & Plan (1) Altered mental status: (2) Weakness: (3) Palliative care by specialist: Met with pt family. Provided overview of Palliative Medicine, a subspecialty that provides specialized medical care for people living with a serious illness by offering a focus on quality of life. Palliative Medicine is often conflated with hospice: I advised patient/family that Palliative and hospice can be partners but we are not the same. It is important to understand the difference so that we may be informed, and not afraid. Palliative Medicine works to improve QOL through reduction of symptom burden/more control over their illness, for both the patient and family. Palliative medicine clinicians are board certified, specially-trained and another member of the patient's medical care team. We often provide an extra layer of support because our care is based on the needs of the patient, not the prognosis; as such, it's appropriate at any age/advancing stage of a serious illness and can be provided along with curative treatment. Palliative Medicine clinicians are also trained in advanced communication methodologies, to facilitate complex discussions about advanced illness planning, which are needed to help assure that the treatment choices match the patient's goals, aka delivering Goal Concordant care. Finally, we discussed that hospice is a visiting nurse service that focuses on care delivered at the very end of life for patients with terminal illness, with life expectancy less than 6 month. Plan * Spoke with reji johnson by phone, she informed me they are thinking about hospice but need to speak as a family tonight * We reviewed hospice at her request: We discussed the goals of hospice as a patient service and the goals of care; we discussed EOL trajectories and transitions karthik the emotional impact of realizing mortality as a concrete reality from prior abstract considerations. Pt was reassured that no matter where they are along this trajectory, they are not alone - their medical team will remain by their side through their journey. Discussed the pros/cons of accepting help when especially weakened and distressed by pain-which would also help provide relief/decrease caregiver burden/strain.I provided education about the hospice benefit: an interdisciplinary program offered by nurses, nurses aides, social workers, chaplains and a medical specialist for patients with a terminal condition and a life expectancy of less than 6 months. This is covered by Medicare at 100%/no out of pocket expense to patient and all meds/supplies needed by patient for the reason they are on hospice are paid for/covered by hospice. The goal is assure quality of life of the patient in their home setting (home, longterm, inpatient hospice setting) by providing symptoms management, psychosocial and spiritual support. However, they cannot offer 24 hours care and if the family is unable to provide that care, they will have to consider personal care with out of pocket cost vs. longterm placement. We discussed the goals of hospice as a patient service and the goals of care; we discussed EOL trajectories and transitions karthik the emotional impact of realizing mortality as a concrete reality from prior abstract considerations. Pt was reassured that no matter where they are along this trajectory, they are not alone - their medical team will remain by their side through their journey. Discussed the pros/cons of accepting help when especially weakened and distressed by pain-which would also help provide relief/decrease caregiver burden/strain. * I have updated CM and primary team * Dtr would like to meet tomorrow at 10am, pt will also be attending. CM plans to attend. Dr Hicks aware. Thank you for allowing us to participate in the ongoing care of this patient. Please don't hesitate to call or page with any additional concerns. Dr. Alissa Carney DNP Director, Palliative Care History of Present Illness Reason for Consultation: [facility] Attending Physician: Janis Hicks MD History of Present Illness 82yo female with worsening dementia, declining PS< mental status declining, ADLs need max assist, appetite declining COVID infection, prior stroke FAST 7c++ Allergies Allergy/AdvReac Type Severity Reaction Status Date / Time shellfish derived Allergy Intermediate bumps Verified 06/19/23 21:27 after eating adhesive Allergy Mild SKIN WILL Verified 06/19/23 21:27 GET SORE diltiazem Allergy Unknown doc said Verified 06/19/23 21:27 she shouldnt take it fish derived Allergy Unknown Unknown Verified 06/19/23 21:27 warfarin AdvReac Severe brain bleed Verified 06/19/23 21:27 ezetimibe AdvReac Intermediate GI SYMPTOMS Verified 06/19/23 21:27 hydromorphone AdvReac Intermediate SLOWED Verified 06/19/23 21:27 HEART RATE meperidine AdvReac Intermediate VOMITING Verified 06/19/23 21:27 rosuvastatin AdvReac Intermediate GI SYMPTOMS Verified 06/19/23 21:27 simvastatin AdvReac Intermediate GI SYMPTOMS Verified 06/19/23 21:27 [id number]-[id number]-MeZ Reductase AdvReac Intermediate cramps Verified 05/09/23 12:40 Inhibitor [Cmzulpl-[id number]-Ryh Reductase Inhibitor] Home Medications Medication Instructions Recorded Confirmed Type acetaminophen 500 mg tablet 500 mg PO Q6H PRN Pain 09/26/18 06/19/23 History (Tylenol Extra Strength) bimatoprost 0.01 % eye drops 1 drp OPB HS 09/26/18 06/19/23 History (Lumigan) cholecalciferol (vitamin D3) 50 2,000 unit PO QAM 09/26/18 06/19/23 History mcg (2,000 unit) capsule (Vitamin D3) dorzolamide-timolol (PF) 2 %-0.5 % 1 drp OPB BID 09/26/18 06/19/23 History eye drops in a dropperette (Cosopt (PF)) fexofenadine 180 mg tablet 180 mg PO QPM 09/26/18 06/19/23 History fluticasone propionate 50 2 spray intranasal HS 09/26/18 06/19/23 History mcg/actuation nasal spray,suspension (Flonase Allergy Relief) furosemide 20 mg tablet 20 mg PO MOWEFR@0900 09/26/18 06/19/23 History clopidogrel 75 mg tablet 75 mg PO QAM 08/07/22 06/19/23 History cyanocobalamin (vitamin B-12) 1,000 mcg PO QAM 08/07/22 06/19/23 History 1,000 mcg tablet (Vitamin B-12) famotidine 20 mg tablet (Pepcid) 20 mg PO BID 08/07/22 06/19/23 History metoprolol succinate 50 mg 50 mg PO HS 10/25/22 06/19/23 History tablet,extended release 24 hr rosuvastatin 10 mg tablet 10 mg PO QAM 05/09/23 06/19/23 History Patient History Medical History (Updated 06/26/23 @ 15:52 by Alissa Carney DNP) Acute GI bleeding Advanced care planning/counseling discussion Atrial fibrillation hx of--follows with Dr. 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 Hyperlipidemia Hypertension Left leg numbness Mitral valve stenosis, rheumatic Nausea Pacemaker 05/2012 @ [facility] meditronic single chamber Prolapsed uterus Spinal stenosis Unsteady Surgical History History of bilateral cataract extraction History of cardiac cath x3--1965- no stents History of colonoscopy History of dilatation and curettage x4 History of esophagogastroduodenoscopy (EGD) History of mandibular surgery hx realignment of jaw History of mitral valve repair 1966 @ [facility] History of removal of cyst benign growth removed from jaw History of tonsillectomy and adenoidectomy History of tooth extraction History of total abdominal hysterectomy History of wisdom tooth extraction Family History (Updated 05/09/23 @ 15:58 by Latisha Landeros PA-C) Other Hypertension No family history of adverse response to anesthesia Social History Smoking Status: Never smoker Second Hand Exposure: No; Do You Dip or Chew Tobacco: No; Tobacco Cessation Education Requested by Patient: No Hx Alcohol Use: No Hx Substance Use: No Preferred Language: Citizen Of [place] Communication Ability: Effective Hris Specialist Required: No Beliefs That Will Affect Care: None marital status: Current Living Situation: Spouse and Family Other Information That Helps Us Care for You: No Feels Safe at Home: Yes Safety Concerns: Feels Safe At This Time Assistive Devices: Cane, Glasses, Walker and Wheelchair Review of Systems Review of Systems: Unobtainable due to cognitive status Physical Exam Constitutional: + altered mental status and cooperative Eyes: PERRL, conjunctivae normal, anicteric sclerae ENMT: external ear and nose normal, oropharynx normal Neck: normal visual inspection and trachea midline Respiratory: normal respiratory effort Auscultation: + diminished lung sounds Cardiovascular: Rate/Rhythm: + irregularly irregular Gastrointestinal (Abdomen): Inspection/Auscultation: abdomen normal to inspection Percussion/Palpation: abdomen soft Musculoskeletal: gen weaknesss Skin: + pallor Neurologic: Speech / Cognition: + abnormal cognition (confused) Results & Data Vital Signs (Past 12 Hours) Vital Signs Temp Pulse Pulse Resp BP Pulse Ox O2 Del Method 06/26/23 15:23 36.9 C 58 L 16 130/86 95 Room Air 10/30/23 11:51 36.8 C 86 16 126/90 97 Room Air 06/26/23 07:17 36.8 C 82 18 118/69 94 Room Air 06/26/23 06:03 82 06/26/23 04:00 36.6 C 63 18 136/76 93 Room Air Laboratory Results data reviewed Diagnostic Findings data reviewed PG Care Time/CCT Total # of Minutes Spent Total Time Spent: 60 Total Time Spent with Patient: Total time spent is greater than 50% in coordination of care (as documented) at patient's floor/unit and/or counseling patient: Advanced Care Planning 51853 Advanced Care Planning 30 [place] [address] IN/OBS CONSULT LVL 4,60M Patient Type New History Comprehensive Exam Detailed Medical Decision Making Moderate Complexity Diagnoses Altered mental status R41.82 Weakness R53.1 Palliative care by specialist Z51.5 Additional Codes Advanced Care Planning - 64074 Advanced Care Planning 30 Min: 75968 Advanced Care Planning 30 Min ([id number])
[2023-06-26] MEDS: FLUTICASONE PROPIONATE NA SPR 16 GM BTL SCH (21:24)
[2023-06-26] MEDS: BIMATOPROST 0.01% OP SOLN 2.5 ML BTL OP SCH (21:24)
[2023-06-26] MEDS: FEXOFENADINE HCL 180 MG TAB PO SCH (21:56)
[2023-06-27 06:55] LABS: Hematocrit (blood only) 42.6 % (37.0-47.0); Hemoglobin 14.9 g/dl (12.0-16.0); Mean Corpuscular Volume 94.2 fL (80.0-100.0); Mean Platelet Volume 9.4 fL (9.4-12.4); Platelet Count 222 K/uL (130-400); RDW Coefficient of Variation 12.8 % (11.5-14.5); RDW Standard Deviation 43.9 fL (36.4-46.3); Red Blood Count 4.52 M/uL (4.20-5.40); White Blood Count 3.96 K/ul (4.8-10.8)
[2023-06-27 07:10] LABS: BUN Creatinine Ratio 21.7 (10-20); Calcium 9.1 mg/dl (8.6-10.3); Creatinine Clr Calc Pharmacy 58.2 ml/min; Est GFR (African American) 98.4 ml/min; Est GFR (Non-African American) 84.9 ml/min; Phosphorus 3.3 mg/dl (2.5-4.9); Potassium 3.8 mmol/L (3.5-5.1)
--- NOTE | 2023-06-27 08:22 | Hospitalist Progress Note ---
Date of Service June 27, 2023 Assessment & Plan (1) Encephalopathy: Plan: Ms. Becerra is an 82 year old woman with history of PHTN, SSS s/p PPM, PAF, prediabetes, admitted on 06/19 due to delirium iso infection. Patient found to be COVID + and with UTI. Patient has continued to improve. Nurse reports concerns for aspiration given cough with intake. Patient is with waxing and waning mentation, even prior to covid diagnosis. Concern that underlying dementia is progressive, with resulting hypoactive moments. No clear source of infection, plan to hold antibiotics given 5 days of treatment with no improvement and no clear source. Family with many questions regarding patient's status as this hypoactive delirium on dementia has been an issue ongoing for months, prior to COVID diagnosis. Family unsure what may be best "fit" given timers inspector care patient requires. Continued discussion regarding patient's 24 hour needs and that rehab will not address or be effective if patient does not participate to a certain degree. Discussed that prolonged admission will contribute to hypoactive delirium with lack of stimuli--encourage family to call patient/facetime with grandchildren/consider a "fidget" blanket to preoccupy hands. Palliative completed family discussion with plans to undergo review for home hospice for advance dementia. #Erythematous rash, c/f intertrigo -s/p 1 dose fluconazole po given extensive across buttock/inguinal area -Continue miconazole to erythematous area, encourage mobilization #Cough w/ concerns for aspiration -Speech eval revealed strong swallow when alert and participating in treatment -Ensure daily oral hygiene, asp precautions -Speech recommendations encouraged patient's family not to feed or encourage drinking while patient in hypoactive state #Abnormal UA Not currently septic, UA abnormal but + SE; received 5 days IV CTX CTM #COVID + with superimposed pneumonia *resolved No pneumonia on imaging, no sputum production, no improvement on IV CTX -Supportive management, no further precautions #Hypoactive delirium on dementia Multifactorial Neurology consult to assess if symptoms c/w progression of known dementia -felt baseline deficits exacerbated by encephalopathy, encouraged further dementia evaluation B12, folate, lyme/tick bourne disease negative Palliative consult:planning for home hospice #Hyponatremia #Hypokalemia #Hypophosphatemia Possibly secondary to decreased p.o. intake from recent COVID-19 illness Replace lytes prn Holding lasix given continued poor intake BMP in am #Persistent A fib #pulmonary hypertension #SSS status post PPPM #hx valvular heart disease (moderate TR, mild MS/MR) patient currently A-fib not on anticoagulation secondary to spontaneous subdural hemorrhage reassess volume status daily Continue metoprolol succinate 25mg bid (increased this admission) Holding lasix given continued poor intake #hyperlipidemia #PAD #hx TIA on statin Rx Continue plavix #Hyperglycemia likely prediabetes (documented hemoglobin A1c of 5.7 from June 2021), recent hemoglobin A1c of 5.3 last February 2023 Diet:regular DVT prophylaxis: SCDs Re: History spontaneous ICH DNR/DNI per family; planning for home hospice, DC likely 06/28 Admission and Anticipated Discharge Date Admission Date: June 19, 2023 Subjective NAEO, patient alert and smiling on today's exam; denies any pain or acute concerns Review of Systems Review of Systems: All systems reviewed & are unremarkable except as noted in Subjective Physical Exam Constitutional: WD/WN, vitals as above Respiratory: normal respiratory effort, lungs clear to auscultation Cardiovascular: irregularly irregular, no murmuir Skin: improvement of erythema on buttock Results & Data Results & Data Vital Signs (Past 12 Hours) Vital Signs Temp Pulse Pulse Resp BP BP Pulse Ox 06/27/23 07:55 36.4 C L 61 16 130/83 95 06/27/23 04:17 37.0 C 76 14 152/88 H 98 06/27/23 00:12 36.6 C 67 18 137/80 96 06/26/23 22:01 82 O2 Del Method 06/27/23 07:55 Room Air 06/27/23 04:17 Room Air 06/27/23 00:12 Room Air 06/26/23 22:01 Laboratory Results Short CBC 06/27/23 Range/Units 05:58 WBC 3.96 L (4.8-10.8) K/ul Hgb 14.9 (12.0-16.0) g/dl Hct 42.6 (37.0-47.0) % Plt Count 222 (130-400) K/uL BMP 06/27/23 05:58 Sodium 136 Potassium 3.8 D Chloride 101 Carbon Dioxide 30 BUN 13 Creatinine 0.60 Glucose 100 H Calcium 9.1 Medications Administered Home Medications Medication Instructions Recorded Confirmed Last Taken acetaminophen 500 mg tablet 500 mg PO Q6H PRN Pain 09/26/18 06/19/23 08/27/18 (Tylenol Extra Strength) bimatoprost 0.01 % eye drops 1 drp OPB HS 09/26/18 06/19/23 1 Day Ago (Lumigan) ~06/18/23 cholecalciferol (vitamin D3) 50 2,000 unit PO QAM 09/26/18 06/19/23 1 Day Ago mcg (2,000 unit) capsule (Vitamin ~06/18/23 D3) dorzolamide-timolol (PF) 2 %-0.5 % 1 drp OPB BID 09/26/18 06/19/23 1 Day Ago eye drops in a dropperette (Cosopt ~06/18/23 (PF)) fexofenadine 180 mg tablet 180 mg PO QPM 09/26/18 06/19/23 1 Day Ago ~06/18/23 fluticasone propionate 50 2 spray intranasal HS 09/26/18 06/19/23 1 Day Ago mcg/actuation nasal ~06/18/23 spray,suspension (Flonase Allergy Relief) furosemide 20 mg tablet 20 mg PO MOWEFR@0900 09/26/18 06/19/23 1 Day Ago ~06/18/23 20 clopidogrel 75 mg tablet 75 mg PO QAM 08/07/22 06/19/23 1 Day Ago ~06/18/23 cyanocobalamin (vitamin B-12) 1,000 mcg PO QAM 08/07/22 06/19/23 1 Day Ago 1,000 mcg tablet (Vitamin B-12) ~06/18/23 famotidine 20 mg tablet (Pepcid) 20 mg PO BID 08/07/22 06/19/23 1 Day Ago ~06/18/23 metoprolol succinate 50 mg 50 mg PO HS 10/25/22 06/19/23 1 Day Ago tablet,extended release 24 hr ~06/18/23 rosuvastatin 10 mg tablet 10 mg PO QAM 05/09/23 06/19/23 1 Day Ago ~06/18/23 Active Medications Generic Name Dose Route Start Last Admin Trade Name Freq PRN Reason Stop Dose Admin Bimatoprost 1 drops 06/20/23 21:00 06/26/23 21:24 Bimatoprost 0.01% Op Soln 2.5 Ml Btl OP 07/20/23 20:59 1 drops HS CHARANJIT Administration Clopidogrel Bisulfate 75 mg 06/20/23 09:00 06/26/23 08:38 Clopidogrel Bisulfate 75 Mg Tab PO 07/20/23 08:59 75 mg QAM CHARANJIT Administration Cyanocobalamin 1,000 mcg 06/20/23 09:00 06/26/23 08:38 Cyanocobalamin (B-12) 500 Mcg Tablet PO 07/20/23 08:59 1,000 mcg QAM CHARANJIT Administration Dorzolamide/Timolol 1 drops 06/20/23 09:00 06/26/23 21:24 Dorzolamide/Timolol 22.3/6.8mg/Ml 10 Ml Btl OP 07/20/23 08:59 1 drops BID CHARANJIT Administration Famotidine 20 mg 06/20/23 09:00 06/26/23 21:56 Famotidine 20 Mg Tab PO 07/20/23 08:59 20 mg BID CHARANJIT Administration Fexofenadine HCl 180 mg 06/20/23 21:00 06/26/23 21:56 Fexofenadine Hcl 180 Mg Tab PO 07/20/23 20:59 180 mg QPM CHARANJIT Administration Fluticasone Propionate 2 sprays 06/20/23 21:00 06/26/23 21:24 Fluticasone Propionate Na Spr 16 Gm Btl NA 07/20/23 20:59 2 sprays HS CHARANJIT Administration Metoprolol Succinate 25 mg 06/25/23 21:00 06/26/23 21:25 Metoprolol Succ 25mg Ext Rel Tab PO 07/25/23 20:59 25 mg BID CHARANJIT Administration Miconazole Nitrate 1 appln 06/25/23 11:00 06/26/23 21:25 Miconazole Nitrate 2% Cr 30 Gm Tube EXT 07/25/23 10:59 1 appln BID CHARANJIT Administration Potassium Chloride 40 meq 06/25/23 09:00 06/26/23 08:40 Potassium Chloride 20 Meq/15 Ml Udc PO 07/25/23 08:59 40 meq QAM CHARANJIT Administration Rosuvastatin Calcium 10 mg 06/20/23 09:00 06/26/23 08:39 Rosuvastatin Calcium 10 Mg Tab PO 07/20/23 08:59 10 mg QAM CHARANJIT Administration Senna/Docusate Sodium 1 tab 06/23/23 15:00 06/26/23 08:40 Docusate Sodium/Senna 50/8.6mg Tab PO 07/23/23 14:59 1 tab QAM CHARANJIT Administration
[2023-06-27] MEDS: CLOPIDOGREL BISULFATE 75 MG TAB PO SCH (09:19)
[2023-06-27] MEDS: CYANOCOBALAMIN (B-12) 500 MCG TABLET PO SCH (09:19)
[2023-06-27] MEDS: FAMOTIDINE 20 MG TAB PO SCH ×2 (09:19→20:29)
[2023-06-27] MEDS: METOPROLOL SUCC 25MG EXT REL TAB PO SCH ×2 (09:21→20:36)
[2023-06-27] MEDS: POTASSIUM CHLORIDE 20 MEQ/15 ML UDC PO SCH (09:21)
[2023-06-27] MEDS: DOCUSATE SODIUM/SENNA 50/8.6MG TAB PO SCH (09:21)
[2023-06-27] MEDS: DORZOLAMIDE/TIMOLOL 22.3/6.8MG/ML 10 ML BTL OP SCH ×2 (09:21→20:26)
[2023-06-27] MEDS: ROSUVASTATIN CALCIUM 10 MG TAB PO SCH (09:21)
[2023-06-27] MEDS ORDERED: MICONAZOLE NITRATE POWDER 85 GM EXT PRN (09:25)
[2023-06-27] MEDS: MICONAZOLE NITRATE 2% CR 30 GM TUBE EXT SCH ×2 (09:38→20:37)
[2023-06-27 12:23] LABS: Babesia microti DNA Not Detected (Not Detected)
--- NOTE | 2023-06-27 15:16 | Palliative Family Discussion ---
Date of Service June 27, 2023 Patient Directed Conference A family meeting was held for JOSE MACIAS. This meeting was necessary for determining the appropriate course of treatment. Meeting held with dtr and pt along with Antoinette/MARLENE pt is not decisional due to adv dementia Topics of Discussion Topics of Discussion: 1. progressive dementia related decline, poor oral intake, weight loss, mobility impaired/WC dependent, needs assist for ALL ADLS and cannot speak in more than 2-3 word sentences/ notes she tends to use the same words and cannot follow instructions. She is no longer ambulatory. She does not have bowel or bladder control, they use Depends. 2. COVID related decline c/w FTT 3. 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 Opportunity given for participants to speak and ask questions. 2. Participants were assured of attention to patient comfort. 3. Reassurance provided. 4. Support was provided for informed, good-jolie decisions. 5. Emotions expressed by family were acknowledged and addressed. 6. Follow-up Outpatient: family deciding between home with hospice and ?trial fo rehab which today feels should be considered. CM advised she was not likely to derive meaningful benefit and SNF may well; dc her from rehab if she is not meeting goals, then we discussed option of moving her to LTC vs coming home with hospice which would need to be coordinated with SNF dc planning staff. Family feel home with hospice is their likely preference but will talk it over this afternoon. notes they have LTC insurance which covers OOP caregiver s for 4hr/days x 7 dys and he wants to see about increasing this to ? 6 hrs. Dtr will assist. Other family may also help including grandchild + spouse next door. 7. Plan of Care: as noted above, family will update CM Time Involved in Meeting: I spent 45 minutes overall addressing this family meeting
[2023-06-27] MEDS: BIMATOPROST 0.01% OP SOLN 2.5 ML BTL OP SCH (20:27)
[2023-06-27] MEDS: FLUTICASONE PROPIONATE NA SPR 16 GM BTL SCH (20:28)
[2023-06-27] MEDS: FEXOFENADINE HCL 180 MG TAB PO SCH (20:29)
[2023-06-28 06:27] LABS: BUN Creatinine Ratio 23.3 (10-20); Calcium 9.3 mg/dl (8.6-10.3); Est GFR (African American) 98.4 ml/min; Est GFR (Non-African American) 84.9 ml/min; Magnesium 2.1 mg/dl (1.7-2.4); Phosphorus 3.8 mg/dl (2.5-4.9); Potassium 3.8 mmol/L (3.5-5.1)
[2023-06-28] MEDS: DORZOLAMIDE/TIMOLOL 22.3/6.8MG/ML 10 ML BTL OP SCH (07:37)
[2023-06-28] MEDS: MICONAZOLE NITRATE 2% CR 30 GM TUBE EXT SCH (07:38)
[2023-06-28] MEDS: CYANOCOBALAMIN (B-12) 500 MCG TABLET PO SCH (07:40)
[2023-06-28] MEDS: METOPROLOL SUCC 25MG EXT REL TAB PO SCH (07:40)
[2023-06-28] MEDS: CLOPIDOGREL BISULFATE 75 MG TAB PO SCH (07:43)
[2023-06-28] MEDS: ROSUVASTATIN CALCIUM 10 MG TAB PO SCH (07:43)
[2023-06-28] MEDS: FAMOTIDINE 20 MG TAB PO SCH (07:43)
[2023-06-28] MEDS: POTASSIUM CHLORIDE 20 MEQ/15 ML UDC PO SCH (10:30)
--- NOTE | 2023-06-28 10:41 | Discharge Summary ---
Discharge Summary Date of Service June 28, 2023 Notes For Next Care Provider Discharged with [facility] H[facility] in setting of progressed dementia. Medication Changes From Visit please see med rec Admission HPI Per Admitting Provider History obtained from patient's family, and records. Unable to obtain history from patient secondary to obtunded state. Medical history significant for SSS status post PPM not on anticoagulation secondary to spontaneous subdural hemorrhage, valvular heart disease (moderate TR, mild MS/MR), pulmonary hypertension, hypertension, hyperlipidemia on statin Rx, TIA, GERD, dementia. Recent confinement last month for LGIB. Patient Plavix held on discharge. 2 weeks ago, patient noted to have weakness and dry cough symptoms. Sick COVID-19 contacts at home. Patient completed COVID-19 vaccination. COVID-19 test was positive. Patient completed Paxlovid course. Cough symptoms improved but still persistent. Patient noted to be extremely weak not eating and drinking properly. Patient not taking her pills as per daughter. Low-grade fever and dark urine noted at patient's home today. Patient not as responsive as per family. Patient seen at PCP's office and subsequently directed to ER. Medical History as above Surgical History : Cataract surgery, PPM, mitral commissurotomy, DIANA Family History : Heart disease, stroke, melanoma Personal/Social history : Non-smoker, no EtOH intake, retired RN Principal Dx & Hospital Course #1 = Principal Diagnosis (1) Encephalopathy: (2) Dementia: Plan The patient is an 82-year-old female who presented with encephalopathy. This was likely secondary to hypoactive delirium and in the setting of dementia. There may have been other factors playing and including hyponatremia secondary to decreased p.o. intake with recent COVID-19 illness and a complicated urinary tract infection. She was admitted to medicine and started on Rocephin empirically which was then expanded to Zosyn on 06/22, likely out of additional concern for aspiration. UTI was ruled out. Speech evaluated her and the patient did well with testing when she was upright and fully alert. CXR taken twice two days apart revealed no evidence of pneumonia, which was ruled out. There was no evidence of sepsis. Chest x-ray revealed no acute abnormality and in particular no evidence of aspiration. She continued to improve clinically but with persistent encephalopathy neurology was consulted. Standard delirium care was explained to daughter and recommendations such as avoiding benzodiazepines, using atypical neuroleptics for agitation and other education was recommended. She was found to have an erythematous rash across her buttock and in her inguinal area and was started on miconazole. Palliative care was involved and met with the family this admission. Ultimately they decided on hospice and she was discharged to hospice at home with [facility] on 06/28. Updated Medication List Medication Instructions Recorded Confirmed Type acetaminophen 500 mg tablet 500 mg PO Q6H PRN Pain 09/26/18 06/19/23 History (Tylenol Extra Strength) bimatoprost 0.01 % eye drops 1 drp OPB HS 09/26/18 06/19/23 History (Lumigan) dorzolamide-timolol (PF) 2 %-0.5 % 1 drp OPB BID 09/26/18 06/19/23 History eye drops in a dropperette (Cosopt (PF)) furosemide 20 mg tablet 20 mg PO MOWEFR@0900 09/26/18 06/19/23 History clopidogrel 75 mg tablet 75 mg PO QAM 08/07/22 06/19/23 History metoprolol succinate 50 mg 50 mg PO HS 10/25/22 06/19/23 History tablet,extended release 24 hr famotidine 20 mg tablet (Pepcid) 20 mg PO BID PRN Acid Reflux #30 06/28/23 06/19/23 Rx tabs zinc oxide 16 % topical ointment 1 applic topical BID #396 grams 06/28/23 Rx (Boudreauxs Butt Paste) Hospital Stay Data Consultations 06/23/23 10:35 Consult Neurology Routine 06/24/23 16:24 Consult Palliative Care Routine Diagnostic Imagining Performed 06/19/23 16:43 CT head/brain wo con Stat Pending Results Patient Have Any Pending Studies at Discharge: No Discharge Instructions Given to Patient (Per Discharging Provider) Please take all medications as instructed on discharge list below. Please followup with Dr. Miller (PCP) for any further questions or issues and to check your rash in about one week's time. It was a pleasure taking care of you! Please call if you have any questions or problems. You can reach a [facility] hospitalist on duty at [facility] 24 hours a day by calling [phone]. Take care of yourself. Lynda Rea DO [facility]ist Total Time Total Time Spent Total Time Spent (In Minutes): 60
[2023-06-28 23:38] LABS: Q Fever IgG, Phase I NEGATIVE; Q Fever Phase I IgM Antibody NEGATIVE; Q Fever Phase II IgG Antibody NEGATIVE; Q Fever Phase II IgM Antibody NEGATIVE; R. typhi IgG Ab NOT DETECTED; R. typhi IgM Ab NOT DETECTED; RMSF IgG Ab NOT DETECTED; RMSF IgM Ab NOT DETECTED
--- NOTE | 2023-07-05 12:04 | Coding Query ---
CODING QUERY To promote full compliance with coding requirements relating to patient care, provider participation is requested in all cases of typing section chief uncertainty. Please assist us with the question(s) below: Coding Question(s): There is documentation in the record of COVID-19 was positive, and documentation of recent Covid-19 infection, and documentation, as on Progress Notes and Discharge Summary, of, "#COVID + with superimposed pneumonia *resolved". Please specify below, regarding Covid-19: ( ) COVID-19 infection during this admission, that resolved during admission (x ) [id number] conditions with no active Covid-19 infection ( ) History Only of Covid-19 ( ) Other: Please Specify Physician's Response(s): Thank you Tami Chu Principal Diagnosis: "that condition established after study, to be chiefly responsible for occasioning the admission of the patient to the hospital for care." Co-Existing Principal Diagnosis: "when two or more diagnoses equally meet the criteria for principal diagnosis as determined by the circumstances of admission, diagnostic work up, and/or therapy provided, and the Alphabetic Index, Tabular List, or another coding guideline does not provide sequencing direction, any one of the diagnoses may be sequenced first." "When the physician has documented what appears to be a current diagnosis in the body of the record, but has not included the diagnosis in the final diagnostic statement, the physician should be asked whether the diagnosis should be added." ([facility]oding [facility] 2 QTR90. p3-4) JEANINE
--- NOTE | 2023-07-05 12:07 | Coding Query ---
CODING QUERY To promote full compliance with coding requirements relating to patient care, provider participation is requested in all cases of fish technologist uncertainty. Please assist us with the question(s) below: Coding Question(s): There is documentation in the record of UTI but there is also documentation, as on the Discharge Summary of, "No clear source of infection, plan to hold antibiotics given 5 days of treatment with no improvement and no clear source". It is not not clear if there was still possible UTI treated, or if the UTI was ruled-out. Please specify below, in your clinical opinion: ( ) Possible UTI was treated (x ) UTI was Ruled-Out Physician's Response(s): Thank you Tami Chu Principal Diagnosis: "that condition established after study, to be chiefly responsible for occasioning the admission of the patient to the hospital for care." Co-Existing Principal Diagnosis: "when two or more diagnoses equally meet the criteria for principal diagnosis as determined by the circumstances of admission, diagnostic work up, and/or therapy provided, and the Alphabetic Index, Tabular List, or another coding guideline does not provide sequencing direction, any one of the diagnoses may be sequenced first." "When the physician has documented what appears to be a current diagnosis in the body of the record, but has not included the diagnosis in the final diagnostic statement, the physician should be asked whether the diagnosis should be added." ([facility]oding [facility] 2 QTR90. p3-4) JEANINE
--- NOTE | 2023-07-05 12:12 | Coding Query ---
CODING QUERY To promote full compliance with coding requirements relating to patient care, provider participation is requested in all cases of medical record coder uncertainty. Please assist us with the question(s) below: Coding Question(s): There is documentation in the record, as on the Discharge Summary, of, " #COVID + with superimposed pneumonia *resolved No pneumonia on imaging, no sputum production, no improvement on IV CTX -Supportive management, no further precautions". It is not clear if there was possible Pneumonia during this admission that resolved, or if there was a previous history of pneumonia. Please clarify below, in your clinical opinion: ( ) Pneumonia during this admission, that resolved ( ) History of Pneumonia, that had resolved before admission ( x) Other: Please Specify Pneumonia was ruled out, there were concerns for aspiration and so broad spectrum zosyn was given, but there was otherwise no clinical or radiological evidence for pneumonia as a diagnosis. Physician's Response(s): Thank you Tami Chu Principal Diagnosis: "that condition established after study, to be chiefly responsible for occasioning the admission of the patient to the hospital for care." Co-Existing Principal Diagnosis: "when two or more diagnoses equally meet the criteria for principal diagnosis as determined by the circumstances of admission, diagnostic work up, and/or therapy provided, and the Alphabetic Index, Tabular List, or another coding guideline does not provide sequencing direction, any one of the diagnoses may be sequenced first." "When the physician has documented what appears to be a current diagnosis in the body of the record, but has not included the diagnosis in the final diagnostic statement, the physician should be asked whether the diagnosis should be added." (Source [facility]oding [facility] 2 QTR90. p3-4) JEANINE
== END 2023-06-28 14:00 | disposition hospice, home (50) | DRG 884 ==
LOC: ED 15:53 → EDINP 22:37 → SUATTDRO 22:37 → 2W 06-20 00:26